=== PATIENT | female | born 1965 | race American Indian/Alaskan Native ===

== ENCOUNTER 2020-03-01 00:29 | Emergency (ER) | payer MEDICARE ==
[2020-03-01 01:48] LABS: Basophils % (Auto) 0.4 % (0.0-1.8); Eosinophils # (Auto) 0.1 K/mm3 (0.0-0.4); Hematocrit 30.9 % (30.3-42.9); Hemoglobin 10.4 gm/dl (10.1-14.3); Lymphocytes # (Auto) 1.2 K/mm3 (1.2-5.4); Lymphocytes % (Auto) 21.1 % (13.4-35.0); Mean Corpuscular HGB Conc 34 % (30-34); Mean Corpuscular Volume 93 fl (79-97); Monocytes # (Auto) 0.4 K/mm3 (0.0-0.8); Monocytes % (Auto) 7.6 % (0.0-7.3); Platelet Count 203 K/mm3 (140-440); Red Blood Count 3.34 M/mm3 (3.65-5.03); Red Cell Distribution Width 17.5 % (13.2-15.2)
[2020-03-01 02:02] LABS: Albumin 3.7 g/dL (3.9-5); Calcium 7.9 mg/dL (8.4-10.2)
[2020-03-01] MEDS ORDERED: CALCIUM GLUCONATE 1,000 MG in SODIUM CHLORIDE 0.9% 100 ML IV ONE (04:13)
[2020-03-01] MEDS ORDERED: D5W 50 ML IVPB IV ONE (04:13)
[2020-03-01] MEDS ORDERED: INSULIN REGULAR, HUMAN 100 UNIT/ML 3ML VIAL IV ONE (04:13)
--- NOTE | 2020-03-01 04:43 | Emergency Department Report ---
ED General Adult HPI - General Chief complaint: Hyperglycemia Stated complaint: HIGH BLOOD SUGAR Time Seen by Provider: 03/01/20 04:11 Source: patient Mode of arrival: Ambulatory Limitations: No Limitations - History of Present Illness Initial comments: CC: "My sugar has been up and down. I was worried about going into DKA." HPI: This is a 55-year-old female with history of end-stage renal disease on dialysis Sunday, diabetes mellitus who presents with blood sugar greater than 300 over the last several weeks. She has had mild nausea. She went to make sure that she was not in DKA. She is currently symptom-free. Last hemodialysis session occurred on Sunday. She receives dialysis Sunday in [place]. Her next dialysis session is scheduled in 3 hours. She recently sold her home. She is living with her daughter temporarily. She drives to hemodialysis. She has received care within the [facility]. She also is followed by PCP Dr. Riddle at the [facility] clinic -: Gradual, week(s) (3) Severity scale (0 -10): 0 Consistency: now resolved Improves with: none Worsens with: none Associated Symptoms: other (Nausea) - Related Data Allergies Allergy/AdvReac Type Severity Reaction Status Date / Time latex Allergy Rash Verified 03/01/20 01:01 ED Review of Systems ROS: Stated complaint: HIGH BLOOD SUGAR Other details as noted in HPI Comment: All other systems reviewed and negative Constitutional: denies: fever, malaise Respiratory: denies: cough, orthopnea, shortness of breath, SOB with exertion Gastrointestinal: nausea. denies: abdominal pain ED Past Medical Hx - Past Medical History Previous Medical History?: Yes Hx Hypertension: Yes Hx Diabetes: Yes Hx Renal Disease: Yes - Surgical History Past Surgical History?: Yes Additional Surgical History: Left upper arm graft. Perma Cath right upper chest - Social History Smoking Status: Never Smoker Substance Use Type: None ED Physical Exam - General Limitations: No Limitations General appearance: alert, in no apparent distress - Head Head exam: Present: atraumatic, normocephalic - Eye Eye exam: Present: normal appearance - ENT ENT exam: Present: mucous membranes moist - Neck Neck exam: Present: normal inspection, full ROM - Respiratory Respiratory exam: Present: normal lung sounds bilaterally. Absent: respiratory distress, wheezes, rales, rhonchi - Cardiovascular Cardiovascular Exam: Present: regular rate, normal rhythm, other (Right chest Vas-Cath: Bandage clean dry intact). Absent: systolic murmur, diastolic murmur, rubs, gallop - GI/Abdominal GI/Abdominal exam: Present: soft, normal bowel sounds. Absent: distended, tenderness, guarding, rebound - Extremities Exam Extremities exam: Present: normal inspection, other (Left bicep: AV fistula positive bruit thrill positive bruit no erythema) - Neurological Exam Neurological exam: Present: alert, oriented X3 - Psychiatric Psychiatric exam: Present: normal affect, normal mood - Skin Skin exam: Present: warm, dry, intact, normal color. Absent: rash ED Course Vital Signs 03/01/20 03/01/20 00:49 03:43 Temperature 98.2 F Pulse Rate 89 70 Respiratory 18 16 Rate Blood Pressure 182/75 Blood Pressure 167/67 [Right] O2 Sat by Pulse 97 100 Oximetry ED Medical Decision Making - Lab Data Result diagrams: 03/01/20 01:13 03/01/20 01:13 - EKG Data -: EKG Interpreted by Id EKG shows normal: sinus rhythm, axis, intervals, QRS complexes, ST-T waves Rate: normal - EKG Data 03/01/20 04:43 EKG interpreted by vt EKG obtained 0431 Normal sinus rhythm rate 70 bpm normal axis prolonged QTC no ST elevation normal-sized T waves - Medical Decision Making Mrs. Feldman presents with nausea and elevated blood sugar readings over the last 3 weeks with history of diabetes mellitus. No evidence of DKA. Incidental finding of hyperkalemia. I spoke with our review consultant Dr. Washington electronic scanner operator. Dr. Washington recommended insulin dextrose and calcium. He recommended Lokelma in lieu of Kayexalate. I consulted with pharmacist. Lokelma is not avaiable at our facilty. Patient was treated and dc'd. She will go to her hemodialysis appt today. EKG without signs of hyperkalemia Critical care attestation.: If time is entered above; I have spent that time in minutes in the direct care of this critically ill patient, excluding procedure time. ED Disposition Clinical Impression: Hyperkalemia, End-stage renal disease on hemodialysis, Diabetes mellitus Disposition: TO HOME OR SELFCARE Is pt being admited?: No Does the pt Need Aspirin: No Condition: Stable Additional Instructions: Please keep your dialysis appointment scheduled for today.
[2020-03-01] MEDS ORDERED: INSULIN REGULAR, HUMAN 100 UNITS/1 ML ONE (04:51)
[2020-03-01 05:05] VITALS: BP 159/72
== END 2020-03-01 05:10 | disposition home or self-care (01) ==
LOC: ED 00:29
DX: I12.0 Hypertensive chronic kidney disease with stage 5 chronic kidney disease or end stage renal disease (principal); N18.6 End stage renal disease; E11.22 Type 2 diabetes mellitus with diabetic chronic kidney disease; E87.5 Hyperkalemia; Z91.040 Latex allergy status; Z98.890 Other specified postprocedural states; Z99.2 Dependence on renal dialysis
CPT/HCPCS: 36415; 80053; 82962; 85025; 93005; 96374; 96375; 99283; J0610; 96365; 96366; J1815

== ENCOUNTER 2020-10-07 08:06 | Inpatient (IN) | payer MEDICARE ==
--- NOTE | 2020-10-07 08:17 | Emergency Department Report ---
HPI - General Time Seen by Provider: 10/07/20 08:10 - HPI HPI: Room 1 The patient is a 55-year-old female present with a chief complaint of cardiac arrest. Per EMS the patient last known well time was 1 hour prior to arrival. EMS states that the patient was found unresponsive in her bed. Upon arrival EMS states the patient was found in asystole. ACLS protocols were initiated and the patient was intubated by EMS. EMS reports they were administered 4 rounds of epinephrine and 1 amp of calcium and 300 mg of amiodarone after defibrillation x1. Upon arrival to the ED the patient was found to have a pulse Family update (family arrives at the hospital provides further history states that the patient seemed drowsy yesterday after being discharged from the hospital remained that way throughout this morning. This morning the patient was difficult to arouse but never voiced any complaints ED Past Medical Hx - Past Medical History Hx Hypertension: Yes Hx Diabetes: Yes Hx Renal Disease: Yes (Dialysis MWF) - Surgical History Additional Surgical History: Left upper arm graft. Perma Cath right upper chest was dc'd - Family History Family history: no significant - Social History Smoking Status: Unknown if ever smoked Substance Use Type: None - Medications Home Medications: Home Medications Medication Instructions Recorded Confirmed Last Taken Type Aspirin 81 mg PO DAILY 07/04/20 07/14/20 07/04/20 History Famotidine [Pepcid] 20 mg PO DAILY #30 tablet 07/12/20 07/14/20 Unknown Rx Lisinopril 30 mg PO DAILY #30 07/12/20 07/14/20 Unknown Rx hydrALAZINE 50 mg PO DAILY #30 07/12/20 07/14/20 Unknown Rx Insulin Detemir [Levemir VIAL] 21 units SQ HS #1 vial 07/16/20 Unknown Rx Insulin Regular, Human [HumuLIN R] 0 unit SQ AC #1 vial 07/16/20 Unknown Rx ED Review of Systems ROS: Stated complaint: CARDIAC ARREST Other details as noted in HPI Comment: Unobtainable due to pts medical conditions Physical Exam - Physical Exam Physical Exam: GENERAL: The patient is well-developed well-nourished female lying on stretcher being bagged via ET tube. [] HEENT: Normocephalic. Atraumatic. NECK: Supple. Trachea midline CHEST/LUNGS: Breath sounds equal bilaterally with bagging HEART/CARDIOVASCULAR: Regular. There is no tachycardia. There is no gallop rub or murmur. ABDOMEN: Abdomen is soft, nontender. Patient has normal bowel sounds. There is no abdominal distention. SKIN: There is no rash. There is no edema. There is no diaphoresis. NEURO: GCS 3 T MUSCULOSKELETAL: There is no evidence of acute injury. ED Course - Reevaluation(s) Reevaluation #1: 10/07/20 08:43 Called to the room as the patient arrested again. ACLS protocols were reinitiated with return of spontaneous circulation. - Consultations Consultation #1: 10/07/20 08:21 EKG sent to and discussed with Dr. Gar- no CODE STEMI. Continue to work up Consultation #2: 10/07/20 09:53 Nephrology paged 10/07/20 10:[address] Pacheco - Central Line Placement Right Femoral Consent Obtained: emergent situation Time Out Performed: Yes Patient Placed on Monitor/Pulse Ox: Yes MD Prep: mask, gown, gloves Central Line Prep: Chlorhexidine scrub Local Anesthesia Used: Lidocaine 1% Amount of Anesthesia Used (mls): 5 Ultrasound Used for Placement: No ( ) Central Line Lumen Inserted: triple Reason for Insertion: High Alert Medication Bloods Obtained for Lab: Yes Central Line Position: good blood return Dressing Applied: Tegaderm Patient Tolerated Procedure: no complications Complications: none ED Medical Decision Making - Lab Data Result diagrams: 10/07/20 09:08 10/07/20 09:08 Laboratory Tests 10/07/20 10/07/20 10/07/20 09:08 09:08 09:08 WBC 15.8 H RBC 3.05 L Hgb 9.7 L Hct 32.8 MCV 108 H MCH 32 MCHC 30 RDW 20.9 H Plt Count 198 Lymph % (Auto) 18.1 [place] % (Auto) 3.6 Eos % (Auto) 0.5 Baso % (Auto) 0.4 Lymph # (Auto) 2.9 [place] # (Auto) 0.6 Eos # (Auto) 0.1 Baso # (Auto) 0.1 Seg Neutrophils % 77.4 H Seg Neutrophils # 12.2 H PT 21.2 H INR 1.83 H APTT 51.1 H ABG pH POC ABG pCO2 POC ABG pO2 POC ABG HCO3 ABG O2 Saturation POC ABG Base Excess ABG Hemoglobin ABG Oxyhemoglobin ABG Methemoglobin ABG Sodium ABG Potassium ABG Chloride Carboxyhemoglobin FiO2 % Sodium 133 L Potassium 8.3 H* Chloride 77.5 L Carbon Dioxide 6 L* Anion Gap 58 BUN 86 H Creatinine 10.6 H Estimated GFR 5 BUN/Creatinine Ratio 8 Calcium 10.0 Magnesium Total Bilirubin 0.50 Alkaline Phosphatase 183 H Total Creatine Kinase 444 H CK-MB (CK-2) 8.6 H CK-MB (CK-2) Rel Index 1.9 Troponin T 0.395 H* NT-Pro-B Natriuret Pep 6466 H Total Protein 5.8 L Albumin 2.6 L Albumin/Globulin Ratio 0.8 Arterial Blood Ionized Calcium 10/07/20 10/07/20 09:08 09:24 WBC RBC Hgb Hct MCV MCH MCHC RDW Plt Count Lymph % (Auto) [place] % (Auto) Eos % (Auto) Baso % (Auto) Lymph # (Auto) [place] # (Auto) Eos # (Auto) Baso # (Auto) Seg Neutrophils % Seg Neutrophils # PT INR APTT ABG pH 6.793 L POC ABG pCO2 30.2 L POC ABG pO2 433.9 H POC ABG HCO3 4.5 ABG O2 Saturation 99.8 POC ABG Base Excess -29.1 ABG Hemoglobin 10.8 L ABG Oxyhemoglobin 99.2 H ABG Methemoglobin 0.3 ABG Sodium 131.7 L ABG Potassium 8.2 H ABG Chloride 85.0 L Carboxyhemoglobin 0.3 L FiO2 % 100.0 Sodium Potassium Chloride Carbon Dioxide Anion Gap BUN Creatinine Estimated GFR BUN/Creatinine Ratio Calcium Magnesium 3.10 H Total Bilirubin Alkaline Phosphatase Total Creatine Kinase CK-MB (CK-2) CK-MB (CK-2) Rel Index Troponin T NT-Pro-B Natriuret Pep Total Protein Albumin Albumin/Globulin Ratio Arterial Blood Ionized Calcium 5.3 - EKG Data -: EKG Interpreted by Me EKG shows normal: sinus rhythm Rate: normal - EKG Data When compared to previous EKG there are: previous EKG unavailable Interpretation: nonspecific ST-T wave lynn - Differential Diagnosis Cardiac arrest Critical care attestation.: If time is entered above; I have spent that time in minutes in the direct care of this critically ill patient, excluding procedure time. ED Disposition Clinical Impression: Cardiac arrest, Hyperkalemia, ESRD needing dialysis DKA (diabetic ketoacidoses) Qualifiers: Diabetes mellitus type: type 1 Diabetes mellitus complication detail: without coma Qualified Code(s): E10.10 - Type 1 diabetes mellitus with ketoacidosis without coma Disposition: OP ADMIT IP TO THIS HOSP Is pt being admited?: Yes Does the pt Need Aspirin: Yes Condition: Critical Instructions: Diabetic Ketoacidosis (ED) Referrals: FLORINA ROMERO [Other] - 3-5 Days Time of Disposition: 10:18 (Hospitalist paged)
[2020-10-07] MEDS ORDERED: CALCIUM CHLORIDE 1,000 MG/10 ML SYRINGE IV ONE (08:37)
[2020-10-07] MEDS ORDERED: SODIUM BICARB 8.4% 50 MEQ/50 ML SYRINGE IV ONE ×3 (08:37→13:14)
[2020-10-07] MEDS ORDERED: EPINEPHrine 1 MG/10 ML SYRINGE ONE (08:37)
[2020-10-07] MEDS ORDERED: NORepinephrine/NS 4 MG-250 ML 4 MG/250 ML BAG IV ONE ×2 (08:58→11:33)
[2020-10-07] MEDS: NORepinephrine/NS 4 MG-250 ML 4 MG/250 ML BAG IV SCH ×4 (09:08→16:10)
[2020-10-07 09:20] LABS: Basophils # (Auto) 0.1 K/mm3 (0.0-0.1); Basophils % (Auto) 0.4 % (0.0-1.8); Eosinophils # (Auto) 0.1 K/mm3 (0.0-0.4); Eosinophils % (Auto) 0.5 % (0.0-4.3); Lymphocytes # (Auto) 2.9 K/mm3 (1.2-5.4); Lymphocytes % (Auto) 18.1 % (13.4-35.0); Mean Corpuscular HGB Conc 30 % (30-34); Mean Corpuscular Volume 108 fl (79-97); Monocytes # (Auto) 0.6 K/mm3 (0.0-0.8); Monocytes % (Auto) 3.6 % (0.0-7.3); Platelet Count 198 K/mm3 (140-440); Red Blood Count 3.05 M/mm3 (3.65-5.03)
[2020-10-07 09:22] LABS: Hematocrit 32.8 % (30.3-42.9); Hemoglobin 9.7 gm/dl (10.1-14.3); Red Cell Distribution Width 20.9 % (13.2-15.2)
--- NOTE | 2020-10-07 09:38 | XRay Report ---
XR chest 1V ap INDICATION / CLINICAL INFORMATION: Status post cardiac arrest. COMPARISON: 07/07/2020 FINDINGS: SUPPORT DEVICES: Endotracheal tube projects in the midtrachea. Enteric catheter tip and side-port pro ject over the stomach. HEART /PULMONARY VASCULATURE: Cardiac silhouette is accentuated. LUNGS / PLEURA: Left greater than right bilateral upper lobe airspace disease. No pleural effusion. N o evidence of pneumothorax. ADDITIONAL FINDINGS: No significant additional findings. IMPRESSION: 1. Left greater than right bilateral upper lobe airspace disease, which may reflect pulmonary edema o r pneumonia. 2. Satisfactory position of lines and tubes, as above. Signer Name: Alphonse Hidalgo MD Signed: 10/07/2020 9:34 AM Workstation Name: [id number]
[2020-10-07] MEDS: DOPamine/D5W 800 MG/250 ML 800 MG/250 ML BAG IV ONE ×2 (09:41→18:44)
--- NOTE | 2020-10-07 09:46 | Consultation ---
History of Present Illness Consult date: 10/07/20 Requesting physician: BERNARDINO ALCAZAR Consult reason: cardiac arrest History of present illness: Pt is a 55-year-old AA female with a past medical hx of ESRD on PD and DM1 who presented s/p cardiac arrest. Pt was found unresponsive in her bed by EMS. She was noted to be in asystole, and thus ACLS protocol was intiated, with successful ROSC achieved s/p IV epi x 4, defib x 1, and 300mg IV Amio. Pt was intubated by EMS prior to arrival. Shortly after arrival at approximately 0837, CPR was restarted in the setting of PEA. ROSC achieved again at 0841 per ER documentation. Pt was subsequently started on IV Dopamine and Levophed gtts. Of note, pt was discharged from [facility] yesterday. She was hospitalized for L submandibular gland swelling and pain secondary to an obstructive stone. Outpatient removal of the gland was recommended per ENT, and pt was cleared by BRAILLE DUPLICATING MACHINE OPERATOR to continue PO meds. Per pt's family, pt has been increasingly lethargic since discharge; however, pt's family denies report of any specific complaints. Last known well time was 1 hour prior to arrival per ER documentation. Initial labs reveal severe DKA and hyperkalemia. ECG reviewed - negative for STEMI. TTE 09/16/2020 - EF 60-65%, mild concentric LVH, mildly dilated LA, trace AI, grade 1 diastolic dysfxn, mild TR, RVSP 32.8 mmHg, trace MR. [place] stress MPI 09/16/2020 - no evidence of ischemia, EF > 65%. Past History Past Medical History: anemia, diabetes, dialysis, ESRD, hypertension Past Surgical History: denies: valve replacement, CABG, PTCA Social history: denies: smoking, alcohol abuse Family history: no significant family history Medications and Allergies Allergies Allergy/AdvReac Type Severity Reaction Status Date / Time peanut Allergy Unknown Unknown Verified 10/07/20 08:21 pecan nut Allergy Unknown Unknown Verified 10/07/20 08:21 walnut Allergy Unknown Unknown Verified 10/07/20 08:21 latex Allergy Rash Verified 10/07/20 08:21 Home Medications Medication Instructions Recorded Confirmed Last Taken Type Aspirin 81 mg PO DAILY 07/04/20 07/14/20 07/04/20 History Famotidine [Pepcid] 20 mg PO DAILY #30 tablet 07/12/20 07/14/20 Unknown Rx Lisinopril 30 mg PO DAILY #30 07/12/20 07/14/20 Unknown Rx hydrALAZINE 50 mg PO DAILY #30 07/12/20 07/14/20 Unknown Rx Insulin Detemir [Levemir VIAL] 21 units SQ HS #1 vial 07/16/20 Unknown Rx Insulin Regular, Human [HumuLIN R] 0 unit SQ AC #1 vial 07/16/20 Unknown Rx Active Meds: Active Medications Amiodarone HCl 900 mg/ (Dextrose) 500 mls @ 33.333 mls/hr IV DIRECT LEIGH; Protocol Dopamine HCl/Dextrose (Intropin Drip 800 Mg/D5w 250 Ml) 800 mg in 250 mls @ 2. 576 mls/hr IV TITR ONE; Protocol Stop: 10/11/20 10:15 Last Admin: 10/07/20 09:41 Dose: 30 mcg/kg/min, 38.644 mls/hr Documented by: Review of Systems ROS unobtainable: due to endotracheal tube Physical Examination Last Vital Signs Temp 95.1 F L 10/07/20 12:16 Pulse 81 10/07/20 13:53 Resp 20 10/07/20 10:30 BP 96/38 10/07/20 13:53 Pulse Ox 100 10/07/20 13:53 General appearance: other (intubated) HEENT: Positive: Normocephaly Neck: Negative: JVD/HJR Cardiac: Positive: Reg Rate and Rhythm, S1/S2. Negative: Audible Murmur Lungs: Positive: Decreased Breath Sounds Neuro: Positive: Other (intubated) Abdomen: Positive: Soft Skin: Negative: Rash Musculoskeletal: No Fluid Collection Extremities: Present: upper extr. pulses, lower extr. pulses. Absent: edema Results 10/07/20 09:08 10/07/20 11:23 CBC 10/07/20 Range/Units 09:08 WBC 15.8 H (4.5-11.0) K/mm3 RBC 3.05 L (3.65-5.03) M/mm3 Hgb 9.7 L (10.1-14.3) gm/dl Hct 32.8 (30.3-42.9) % Plt Count 198 (140-440) K/mm3 Lymph # (Auto) 2.9 (1.2-5.4) K/mm3 [place] # (Auto) 0.6 (0.0-0.8) K/mm3 Eos # (Auto) 0.1 (0.0-0.4) K/mm3 Baso # (Auto) 0.1 (0.0-0.1) K/mm3 - Imaging and Cardiology Echo: pending, other (09/16/2020 - EF 60-65%, mild concentric LVH, mildly dilated LA, trace AI, grade 1 diastolic dysfxn, mild TR, RVSP 32.8 mmHg, trace MR) EKG: report reviewed, image reviewed - EKG Interpretation EKG: no acute changes EKG interpretations - EKG Sinus rhythms and dysrhythmias: sinus rhythm AV and intraventricular conduction: right bundle branch block, left anterior fascicular Repolarization changes or abnormalities: nonspecific abnormality, ST segment, and/or T wave, Suggestive of hyperkalemia Assessment and Plan Awaiting emergent HD per Primary/Nephro. Agree with continuation of IV Amio gtt for now. Obtain echo. Trend cardiac enzymes. Pt seen in conjunction with Dr. Humble Gar, who agrees with the assessment and plan of care. - Patient Problems (1) Acute respiratory failure Current Visit: Yes Status: Acute (2) ESRD needing dialysis Current Visit: Yes Status: Acute (3) Shock Current Visit: Yes Status: Acute (4) Cardiac arrest Current Visit: Yes Status: Acute (5) DKA (diabetic ketoacidoses) Current Visit: Yes Status: Acute Qualifiers: Diabetes mellitus type: type 1 Qualified Code(s): E10.10 - Type 1 diabetes mellitus with ketoacidosis without coma (6) Hyperkalemia Current Visit: Yes Status: Acute (7) Hypermagnesemia Current Visit: Yes Status: Acute (8) Elevated LFTs Current Visit: Yes Status: Acute (9) Anemia Current Visit: Yes Status: Chronic (10) NSTEMI (non-ST elevated myocardial infarction) Current Visit: Yes Status: Acute Plan to address problem: -Suspect Type 2 (11) Hypertension Current Visit: No Status: Chronic Qualifiers: Hypertension type: renovascular hypertension Qualified Code(s): I15.0 - Renovascular hypertension (12) HLD (hyperlipidemia) Current Visit: Yes Status: Chronic Qualifiers: Hyperlipidemia type: mixed hyperlipidemia Qualified Code(s): E78.2 - Mixed hyperlipidemia (13) Type 1 diabetes Current Visit: Yes Status: Chronic (14) History of COVID-19 Current Visit: Yes Status: Chronic Plan to address problem: 06/2020
[2020-10-07 09:47] LABS: Creatine Kinase MB 8.6 ng/mL (0.0-4.0)
[2020-10-07 09:48] LABS: Albumin 2.6 g/dL (3.9-5)
[2020-10-07 09:49] LABS: INR 1.83 (0.87-1.13)
[2020-10-07 09:50] LABS: Partial Thromboplastin Time 51.1 Sec. (24.2-36.6)
[2020-10-07] MEDS ORDERED: DEXTROSE 50% IN WATER (25GM) 50 ML SYRINGE IV ONE (09:54)
[2020-10-07] MEDS ORDERED: ALBUTEROL 2.5 MG/3 ML NEBU IH ONE (09:54)
[2020-10-07] MEDS ORDERED: INSULIN REGULAR, HUMAN 100 UNITS/1 ML IV ONE ×2 (09:54→13:21)
[2020-10-07] MEDS: AMIODARONE 900 MG in DEXTROSE 5% IN WATER 482 ML IV SCH (10:02)
[2020-10-07 10:26] LABS: Chol/HDL Ratio 4.84 %
[2020-10-07] MEDS ORDERED: CALCIUM CHLORIDE 1,000 MG in SODIUM CHLORIDE 0.9% 100 ML IV ONE (10:54)
--- NOTE | 2020-10-07 11:04 | History and Physical Report ---
History of Present Illness Date of admission: 10/07/20 10:20 Chief complaint: Unresponsive History of present illness: 55 YO Female with HTN, DM, ESRD on HD(M,W,F) presents to ED for evaluation. The patient is intubated and on ventilatory support at the time my evaluation is unable to provide history. Patient history provided by EMS staff, ED staff, as well as the patient's family who is available by telephone interview at the time my evaluation. As per family the patient was found unresponsive in her bed this morning. EMS was notified and upon arrival the patient was found to be in asystolic arrest. The patient was initiated on ACLS protocol and subsequently transported to [facility] for further care and evaluation of the aforementioned symptoms. The patient was intubated in the field prior to transportation. Patient was seen and evaluated in the emergency department. All lab and imaging studies reviewed. Upon my evaluation in the emergency department the patient was found to have a perfusing cardiac rhythm. Patient found to have acute hypoxemic respiratory failure and is currently on ventilatory support, septic shock and is being treated with IV pressor support. Patient also found to have hyperkalemia, end-stage renal disease, as well as clinical findings consistent with anoxic brain injury. No family reports of fever, chills, chest pain, palpitation, productive cough, skin rash, recent ill contacts, or known exposure to COVID-19. Prior admission on 07/14/2020 reviewed. All medication listed at time of admission has been reconciled. Advanced care planning conducted in ED. Patient has poor prognosis. Vascular surgery team consulted in ED for dialysis access. Nephrology team consulted in ED. critical care team consulted Past History Past Medical History: diabetes, ESRD, hypertension Past Surgical History: Other (Dialysis access) Social history: single. denies: smoking, alcohol abuse, prescription drug abuse Family history: diabetes, hypertension Medications and Allergies Allergies Allergy/AdvReac Type Severity Reaction Status Date / Time peanut Allergy Unknown Unknown Verified 10/07/20 08:21 pecan nut Allergy Unknown Unknown Verified 10/07/20 08:21 walnut Allergy Unknown Unknown Verified 10/07/20 08:21 latex Allergy Rash Verified 10/07/20 08:21 Home Medications Medication Instructions Recorded Confirmed Last Taken Type Aspirin 81 mg PO DAILY 07/04/20 07/14/20 07/04/20 History Famotidine [Pepcid] 20 mg PO DAILY #30 tablet 07/12/20 07/14/20 Unknown Rx Lisinopril 30 mg PO DAILY #30 07/12/20 07/14/20 Unknown Rx hydrALAZINE 50 mg PO DAILY #30 07/12/20 07/14/20 Unknown Rx Insulin Detemir [Levemir VIAL] 21 units SQ HS #1 vial 07/16/20 Unknown Rx Insulin Regular, Human [HumuLIN R] 0 unit SQ AC #1 vial 07/16/20 Unknown Rx Active Meds: Active Medications Amiodarone HCl 900 mg/ (Dextrose) 500 mls @ 33.333 mls/hr IV DIRECT LEIGH; Protocol Last Admin: 10/07/20 10:02 Dose: 1 mg/min, 33.333 mls/hr Documented by: Dopamine HCl/Dextrose (Intropin Drip 800 Mg/D5w 250 Ml) 800 mg in 250 mls @ 2.576 mls/hr IV TITR ONE; Protocol Stop: 10/11/20 10:15 Last Admin: 10/07/20 09:41 Dose: 30 mcg/kg/min, 38.644 mls/hr Documented by: Insulin Human Regular 100 (units/ Sodium Chloride) 100 mls @ 7 mls/hr IV TITR LEIGH; Protocol Review of Systems ROS unobtainable: due to endotracheal tube, due to mental status Exam - Constitutional Vitals: Temp Pulse Resp BP Pulse Ox 85 20 107/38 100 10/07/20 10:30 10/07/20 10:30 10/07/20 10:30 10/07/20 10:30 General appearance: Present: severe distress - EENT Eyes: Present: miosis ENT: hearing decreased - Neck Neck: Present: supple, normal ROM - Respiratory Respiratory effort: labored Respiratory: bilateral: diminished, rhonchi - Cardiovascular Heart Sounds: Present: S1 & S2. Absent: rub, click - Extremities Extremity abnormal: edema Peripheral Pulses: abnormal (Capillary refill greater than 3.5 seconds) - Abdominal General gastrointestinal: Present: soft, non-tender, non-distended, normal bowel sounds Female genitourinary: Present: normal - Integumentary Integumentary: Present: clear, dry, clammy, decreased turgor - Musculoskeletal Musculoskeletal: generalized weakness - Psychiatric Psychiatric: no appropriate mood/affect, no intact judgment & insight, no memory intact, no cooperative - Neurologic Neurologic: no CNII-XII intact, no moves all extremities, no gait normal HEART Score - HEART Score Troponin: Troponin T 0.395 ng/mL (0.00-0.029) H* 10/07/20 09:08 Results - Labs CBC & Chem 7: 10/07/20 09:08 10/07/20 13:58 Labs: Abnormal lab results 10/07/20 10/07/20 10/07/20 Range/Units 09:08 09:08 09:08 WBC 15.8 H (4.5-11.0) K/mm3 RBC 3.05 L (3.65-5.03) M/mm3 Hgb 9.7 L (10.1-14.3) gm/dl MCV 108 H (79-97) fl RDW 20.9 H (13.2-15.2) % Seg Neutrophils % 77.4 H (40.0-70.0) % Seg Neutrophils # 12.2 H (1.8-7.7) K/mm3 PT 21.2 H (12.2-14.9) Sec. INR 1.83 H (0.87-1.13) APTT 51.1 H (24.2-36.6) Sec. ABG pH (7.320-7.450) POC ABG pCO2 (32.0-48.0) mmHg POC ABG pO2 (83-108) mmHg ABG Hemoglobin (12.0-17.5) ABG Oxyhemoglobin (94-98) ABG Sodium (136.0-145.0) mmol/L ABG Potassium (3.40-4.50) mmol/L ABG Chloride (98-107) mmol/L Carboxyhemoglobin (0.5-1.5) Sodium 133 L (137-145) mmol/L Potassium 8.3 H* (3.6-5.0) mmol/L Chloride 77.5 L (98-107) mmol/L Carbon Dioxide 6 L* (22-30) mmol/L BUN 86 H (7-17) mg/dL Creatinine 10.6 H (0.6-1.2) mg/dL Glucose 798 H* (65-100) mg/dL Magnesium (1.7-2.3) mg/dL AST 2736 H (5-40) units/L ALT 1568 H (7-56) units/L Alkaline Phosphatase 183 H (35-129) units/L Total Creatine Kinase 444 H (30-135) units/L CK-MB (CK-2) 8.6 H (0.0-4.0) ng/mL Troponin T 0.395 H* (0.00-0.029) ng/mL NT-Pro-B Natriuret Pep 6466 H (0-900) pg/mL Total Protein 5.8 L (6.3-8.2) g/dL Albumin 2.6 L (3.9-5) g/dL Triglycerides 246 H (2-149) mg/dL HDL Cholesterol 39 L (40-59) mg/dL 10/07/20 10/07/20 Range/Units 09:08 09:24 WBC (4.5-11.0) K/mm3 RBC (3.65-5.03) M/mm3 Hgb (10.1-14.3) gm/dl MCV (79-97) fl RDW (13.2-15.2) % Seg Neutrophils % (40.0-70.0) % Seg Neutrophils # (1.8-7.7) K/mm3 PT (12.2-14.9) Sec. INR (0.87-1.13) APTT (24.2-36.6) Sec. ABG pH 6.793 L (7.320-7.450) POC ABG pCO2 30.2 L (32.0-48.0) mmHg POC ABG pO2 433.9 H (83-108) mmHg ABG Hemoglobin 10.8 L (12.0-17.5) ABG Oxyhemoglobin 99.2 H (94-98) ABG Sodium 131.7 L (136.0-145.0) mmol/L ABG Potassium 8.2 H (3.40-4.50) mmol/L ABG Chloride 85.0 L (98-107) mmol/L Carboxyhemoglobin 0.3 L (0.5-1.5) Sodium (137-145) mmol/L Potassium (3.6-5.0) mmol/L Chloride (98-107) mmol/L Carbon Dioxide (22-30) mmol/L BUN (7-17) mg/dL Creatinine (0.6-1.2) mg/dL Glucose (65-100) mg/dL Magnesium 3.10 H (1.7-2.3) mg/dL AST (5-40) units/L ALT (7-56) units/L Alkaline Phosphatase (35-129) units/L Total Creatine Kinase (30-135) units/L CK-MB (CK-2) (0.0-4.0) ng/mL Troponin T (0.00-0.029) ng/mL NT-Pro-B Natriuret Pep (0-900) pg/mL Total Protein (6.3-8.2) g/dL Albumin (3.9-5) g/dL Triglycerides (2-149) mg/dL HDL Cholesterol (40-59) mg/dL Assessment and Plan - Patient Problems (1) Sepsis Current Visit: Yes Status: Acute Qualifiers: Severe sepsis shock status: with septic shock Plan to address problem: Sepsis protocol: Chest x-ray, CBC, urinalysis, IV fluid resuscitation therapy, IV antibiotic therapy, IV pressor support, maintain mean arterial pressure greater than or equal to 65, monitor urine output every shift, blood culture, The high probability of a clinically significant, sudden or life threatening deterioration of the [neuro, cardiac, renal, pulmonary] system(s) required my full and direct attention, intervention and personal management. The aggregate critical care time was [95] minutes. This time is in addition to time spent performing reported procedures but includes the following: [x] Data Review and interpretation [x] Patient assessment and monitoring of vital signs [x] Documentation [x] Medication orders and management (2) Acute respiratory failure Current Visit: Yes Status: Acute Qualifiers: Respiratory failure complication: hypoxia Qualified Code(s): J96.01 - Acute respiratory failure with hypoxia Plan to address problem: Patient intubated and ambulatory support. Critical care team consulted, wean vent as tolerated, daily ABG, spontaneous breathing trial, sedation holiday. (3) Cardiac arrest Current Visit: Yes Status: Acute Plan to address problem: Patient treated in accordance with ACLS protocol with return of perfusing cardiac rhythm. Patient currently on inotropic support. Cardiology team consulted. (4) DKA (diabetic ketoacidoses) Current Visit: Yes Status: Acute Qualifiers: Diabetes mellitus type: type 1 Qualified Code(s): E10.10 - Type 1 diabetes mellitus with ketoacidosis without coma Plan to address problem: DKA protocol: IV fluid resuscitation therapy, insulin drip, serial lactic acid level, monitor anion gap, serial BMP. Potassium replacement per protocol. (5) ESRD needing dialysis Current Visit: Yes Status: Acute Plan to address problem: Nephrology team consulted, vascular surgery team consulted, (6) Elevated LFTs Current Visit: Yes Status: Acute Plan to address problem: Suspect secondary to shock liver status post cardiac arrest, supportive care. (7) Metabolic acidosis Current Visit: Yes Status: Acute Plan to address problem: IV bicarbonate therapy, BMP, repeat BMP in a.m. Serial lactic acid level. (8) Anoxic brain injury Current Visit: Yes Status: Acute Plan to address problem: Supportive care. Neuro check, will consider repeat head CT in 72 hours. (9) DVT prophylaxis Current Visit: Yes Status: Acute Plan to address problem: SCD to bilateral lower extremities while in bed. (10) Advance care planning Current Visit: Yes Status: Acute Plan to address problem: Disease education conducted, care plan discussed, prognosis discussed, diagnoses discussed,. Patient family acknowledge understanding and agreement with care plan. Patient is full code. +30 minutes.
[2020-10-07] MEDS ORDERED: ALBUTEROL 2.5 MG/3 ML NEBU IH PRN (11:09)
[2020-10-07] MEDS ORDERED: LIP THERAPY VASELINE TP PRN (11:11)
[2020-10-07] MEDS ORDERED: MINERAL OIL/PETROLATUM, WHITE OPHTH OINT 3.5 GM OU PRN (11:11)
[2020-10-07] MEDS ORDERED: ACETAMINOPHEN 325 MG TAB PO PRN (11:12)
[2020-10-07] MEDS ORDERED: SODIUM CHLORIDE 0.9% 1000 ML IV SOLN IV ONE (11:17)
[2020-10-07] MEDS ORDERED: CALCIUM GLUCONATE 1,000 MG in SODIUM CHLORIDE 0.9% 100 ML IV ONE (11:17)
[2020-10-07] MEDS: fentaNYL 100 MCG/2 ML INJ IV PRN ×2 (11:20→12:26)
[2020-10-07] MEDS: HYDROmorphone 1 MG/1 ML INJ IV PRN ×3 (11:25→20:25)
[2020-10-07] MEDS: INSULIN REGULAR, HUMAN 100 UNITS in SODIUM CHLORIDE 0.9% 99 ML IV SCH (11:53)
[2020-10-07 11:56] LABS: Calcium 9.9 mg/dL (8.4-10.2)
[2020-10-07] MEDS ORDERED: fentaNYL DRIP Premix 2,000 MCG/100 ML BAG IV SCH (12:00)
--- NOTE | 2020-10-07 12:13 | Electrocardiograph Report ---
[facility] Test Date: 2020-10-07 Test Time: 08:10:54 Pat Name: EUGENIA DALTON Department: Room: [place] [address] Gender: F [employer]: [phone] Requested By: BERNARDINO ALCAZAR Order Number: [id number] Reading MD: Edvin Uriostegui Measurements Intervals Avery Rate: 66 P: -46 AR: 181 QRS: -67 QRSD: 182 T: 78 QT: 508 QTc: 531 Interpretive Statements Sinus or ectopic atrial rhythm RBBB and LAFB Left ventricular hypertrophy No previous ECG available for comparison Electronically Signed On 10-07-2020 12:13:19 EDT by Edvin Uriostegui
--- NOTE | 2020-10-07 12:27 | Event Note ---
Date: 10/07/20 Patient is s/p OOH Cardiac arrest. K 8.3, PH 6.8. Received treatment for hyperkalemia. Hemodialysis access clotted (checked by hemodialysis nurse). Requested Vascular for dialysis catheter placement. Multipressor shock.
--- NOTE | 2020-10-07 12:48 | Operative Report ---
Operative Report Operative Report: Exam: Ultrasound-guided placement of Vas-Cath Clinical indication: Patient with a history of end-stage renal disease on hemodialysis through a left upper arm access that became clotted when patient had and out of the hospital cardiac arrest, patient is hyperkalemic requiring emergent dialysis Date: 10/07/2020 Procedure: Following an explanation of the risks, benefits and alternatives; written informed consent was obtained from the patient's next of kin. The procedure was performed at bedside in the ER. Initial ultrasound evaluation of the patient's left groin demonstrated a patent left common femoral vein. A triple-lumen catheter is present in the patient's right groin. The patient's left groin was prepped and draped in the usual sterile fashion. 1% lidocaine was used for anesthesia. Under ultrasound guidance, the left common femoral vein was cannulated with a 7 cm 18-gauge needle. A 0.035 guidewire was advanced centrally easily. The needle was removed and following serial dilation over the guidewire, a 30 cm dialysis catheter was advanced over the guidewire centrally. The guidewire was removed. Nonpulsatile blood return from all 3 ports. The ports were then flushed and locked with sterile saline. The catheter was securely fastened to the skin surface using 2-0 nylon suture and a sterile dressing applied. The patient tolerated the procedure well. There were no immediate postprocedure complications. Sedation was not utilized. The patient was on a continuous cardiopulmonary monitor. Impression: Ultrasound-guided placement of Vas-Cath via the left common femoral vein.
--- NOTE | 2020-10-07 13:21 | Event Note ---
Date: 10/07/20 Patient with severe DKA. Started on Insulin drip. Remain on max dose of 2 pressors. At this point patient is unstable for conventional hemodialysis. CRRT N/A. Hyperkalemia in the setting of severe DKA, now on Insulin drip. Additional dose of IV Insulin ordered. Follow lytes. Spoke with the nurse.
[2020-10-07 13:30] LABS: Calcium 9.9 mg/dL (8.4-10.2)
[2020-10-07 14:50] LABS: Calcium 8.4 mg/dL (8.4-10.2)
[2020-10-07] MEDS ORDERED: HEPARIN 10,000 UNITS/10 ML VIAL IV PRN (18:10)
[2020-10-07] MEDS ORDERED: SODIUM CHLORIDE 0.9% 100 ML IV PRN (18:10)
--- NOTE | 2020-10-07 18:10 | Consultation ---
History of Present Illness - Reason for Consult Consult date: 10/07/20 end stage renal disease, hyperkalemia, metabolic acidosis - History of Present Illness The patient is a 55 YO female with history significant for DM type 2 (poorly controlled), HTN, Obesity, Anemia and ESRD on HD (MWF) who was brought into [facility] ED 10/07 s/p Cardiac arrest. The patient was not able to provide any history and there was no family member at the bedside. Patient was found by family member unresponsive in her bed this morning. EMS was notified and upon arrival the patient was found to be in asystolic arrest. The patient was initiated on ACLS protocol and subsequently transported to the ED for evaluation and treatment. The patient was intubated in the field. Patient was found to have acute hypoxemic respiratory failure and is currently on ventilatory support, multipressor shock, DKA, hyperkalemia and Lactic acidosis. Of note patient recently admitted to [facility] for submandibular gland problem and was discharged yesterday. Patient had another episode of Cardiac in the ED with downtime of 4 minutes. She was also found to have clotted L arm AVF. Labs significant for bl glu around 900, K 8.5, bicarb 6, Lactic acid 9.7 and leukocytosis. Nephrology was consulted for Hyperkalemia and ESRD management. Past History Past Medical History: diabetes, dialysis, ESRD, hypertension Past Surgical History: Other (Dialysis access) Social history: single. denies: smoking, alcohol abuse, prescription drug abuse Family history: diabetes, hypertension Medications and Allergies Allergies Allergy/AdvReac Type Severity Reaction Status Date / Time peanut Allergy Unknown Unknown Verified 10/07/20 08:21 pecan nut Allergy Unknown Unknown Verified 10/07/20 08:21 walnut Allergy Unknown Unknown Verified 10/07/20 08:21 latex Allergy Rash Verified 10/07/20 08:21 Home Medications Medication Instructions Recorded Confirmed Last Taken Type Aspirin 81 mg PO DAILY 07/04/20 07/14/20 07/04/20 History Famotidine [Pepcid] 20 mg PO DAILY #30 tablet 07/12/20 07/14/20 Unknown Rx Lisinopril 30 mg PO DAILY #30 07/12/20 07/14/20 Unknown Rx hydrALAZINE 50 mg PO DAILY #30 07/12/20 07/14/20 Unknown Rx Insulin Detemir [Levemir VIAL] 21 units SQ HS #1 vial 07/16/20 Unknown Rx Insulin Regular, Human [HumuLIN R] 0 unit SQ AC #1 vial 07/16/20 Unknown Rx Active Meds: Active Medications Acetaminophen (Acetaminophen 325 Mg Tab) 650 mg PO Q6H PRN PRN Reason: Pain, Mild (1-3) Albuterol (Albuterol 2.5 Mg/3 Ml Nebu) 2.5 mg IH Q3HRT PRN PRN Reason: Shortness Of Breath Fentanyl (Fentanyl 100 Mcg/2 Ml Inj) 50 mcg IV Q10MIN PRN PRN Reason: ANALGESIA Hydromorphone HCl (Hydromorphone 1 Mg/1 Ml Inj) 0.25 mg IV Q4H PRN PRN Reason: Pain, Moderate (4-6) Hydrophilic Ointment (Lip Therapy Vaseline) 1 applic TP Q2HR PRN PRN Reason: Dry Lips Amiodarone HCl 900 mg/ (Dextrose) 500 mls @ 33.333 mls/hr IV DIRECT LEIGH; Protocol Last Admin: 10/07/20 10:02 Dose: 1 mg/min, 33.333 mls/hr Documented by: Dopamine HCl/Dextrose (Intropin Drip 800 Mg/D5w 250 Ml) 800 mg in 250 mls @ 2.576 mls/hr IV TITR ONE; Protocol Stop: 10/11/20 10:15 Last Admin: 10/07/20 09:41 Dose: 30 mcg/kg/min, 38.644 mls/hr Documented by: Insulin Human Regular 100 (units/ Sodium Chloride) 100 mls @ 7 mls/hr IV TITR LEIGH; Protocol Last Admin: 10/07/20 11:53 Dose: 8 units/hr, 8 mls/hr Documented by: Sodium Chloride (Nacl 0.9% 1000 Ml) 1,000 mls @ 150 mls/hr IV DIRECT LEIGH Norepinephrine (Levophed Drip 4 Mg/Ns 250 Ml) 4 mg in 250 mls @ 7.5 mls/hr IV TITR LEIGH; Protocol Last Titration: 10/07/20 18:05 Dose: 26 mcg/min, 97.5 mls/hr Documented by: Levofloxacin/Dextrose (Levaquin 500mg/100ml) 500 mg in 100 mls @ 100 mls/hr IV Q48H LEIGH; Protocol Multi-Ingred Cream/Lotion/Oil/Oint (Mineral Oil/Petrolatum, White Ophth Oint 3.5 Gm) 1 applic OU Q4HR PRN PRN Reason: Dry Eye(s) Sodium Chloride (Sodium Chloride 0.9% 10 Ml Flush Syringe) 10 ml IV BID LEIGH Sodium Chloride (Sodium Chloride 0.9% 10 Ml Flush Syringe) 10 ml IV PRN PRN PRN Reason: LINE FLUSH Review of Systems ROS unobtainable: due to mental status Exam - Vital Signs Vital signs: Vital Signs Pulse Resp BP 60 18 94/49 10/07/20 08:10 10/07/20 08:10 10/07/20 08:10 Results - Lab Results 10/07/20 09:08 10/07/20 18:18 Most recent lab results ABG pH 7.175 (7.320-7.450) L 10/07/20 14:03 ABG O2 Saturation 95.0 (0-100) 10/07/20 14:03 Calcium 8.4 mg/dL (8.4-10.2) D 10/07/20 13:58 Phosphorus 22.30 mg/dL (2.5-4.5) H 10/07/20 10:32 Magnesium 3.10 mg/dL (1.7-2.3) H 10/07/20 10:32 Assessment and Plan 1. ESRD: Patient is on maintenance hemodialysis three times a week, MWF schedule. Last HD 10/06 at [facility]. Urgent HD today due to hyperkalemia. Hemodialysis: 10/07. 2. FEN: Hyperkalemia, HD today, monitor. Metabolic acidosis, 2/2 DKA, Lactic acidosis, monitor. Monitor lytes. 3. DKA: On Insulin drip per protocol. Monitor. 4. S/p OOH Cardiac arrest: Total of 2 episodes. Total downtime unknown. On Amiodarone. Cardiology consult. Monitor. 5. Shock: Currently on 2 pressors. Levofloxacin. BP seems to be improving. Wean pressors as tolerated. Monitor BP closely. 6. Anemia, POA: 2/2 ESRD. Epogen if needed. Subjective: Patient was seen and examined at the bedside. Examination: General appearance: well-developed, well-nourished, intubated, on vent HEENT: ATNC, RADHA Neck: neck supple, trachea midline Respiratory: Coarse breath sounds Heart: regular, normal heart rate, S1S2, no murmur Abdomen: soft, NT Integumentary: no rash, warm and dry Neurologic: not responding Ext: no edema noted Hemodialysis access: L arm AVF clotted, L femoral catheter
[2020-10-07 18:39] LABS: Calcium 6.7 mg/dL (8.4-10.2)
[2020-10-07 19:09] LABS: Hepatitis B Surface Antigen Non-Reactive (Negative); Hepatitis C Virus Antibody Non-Reactive (NonReactive)
[2020-10-08] MEDS: SODIUM CHLORIDE 0.9% 1000 ML 1,000 ML IV SCH ×2 (00:30→07:43)
[2020-10-08] MEDS: INSULIN REGULAR, HUMAN 100 UNITS in SODIUM CHLORIDE 0.9% 99 ML IV SCH ×2 (00:30→12:43)
[2020-10-08] MEDS: NORepinephrine/NS 4 MG-250 ML 4 MG/250 ML BAG IV SCH ×2 (01:10→14:30)
[2020-10-08] MEDS: AMIODARONE 900 MG in DEXTROSE 5% IN WATER 482 ML IV SCH (01:10)
[2020-10-08 04:00] LABS: Calcium 6.9 mg/dL (8.4-10.2)
--- NOTE | 2020-10-08 04:03 | XRay Report ---
CHEST 1 VIEW 10/08/2020 3:30 AM INDICATION / CLINICAL INFORMATION: follow up respiratory failure. COMPARISON: Previous day. FINDINGS: SUPPORT DEVICES: Unchanged. HEART / MEDIASTINUM: Stable cardiomegaly. LUNGS / PLEURA: Persistent bilateral opacity left greater than right with overall mild worsening. Ghislaine g volumes are mildly decreased. No pneumothorax. ADDITIONAL FINDINGS: No significant additional findings. IMPRESSION: Mild worsening. Signer Name: Wayne Carver MD Signed: 10/08/2020 3:58 AM Workstation Name: [id number]
[2020-10-08] MEDS: HYDROmorphone 1 MG/1 ML INJ IV PRN ×3 (05:20→13:20)
[2020-10-08] MEDS: HEPARIN 5,000 UNIT/1 ML VIAL SUB-Q SCH ×2 (09:36→22:39)
[2020-10-08] MEDS: ASPIRIN 81 MG TAB CHEW PO SCH (09:36)
[2020-10-08] MEDS: DOPamine/D5W 800 MG/250 ML 800 MG/250 ML BAG IV SCH (10:36)
--- NOTE | 2020-10-08 10:36 | Progress Note ---
Assessment and Plan Assessment and plan: The patient is a 55 YO female with history significant for DM type 2 (poorly controlled), HTN, Obesity, Anemia and ESRD on HD (MWF) who was brought into [facility] ED 10/07 s/p Cardiac arrest. Patient was found by family member unresponsive in her bed this morning. EMS was notified and upon arrival the patient was found to be in asystolic arrest. The patient was initiated on ACLS protocol and subsequently transported to the ED for evaluation and treatment. The patient was intubated in the field. Patient was found to have acute hypoxemic respiratory failure and is currently on ventilatory support, multipressor shock, DKA, hyperkalemia and Lactic acidosis. Of note patient recently admitted to [facility] for submandibular gland problem and was discharged the day prior to admission here. Patient had another episode of Cardiac in the ED with downtime of 4 minutes. She was also found to have clotted L arm AVF. Labs in the emergency room significant for bl glu around 900, K 8.5, bicarb 6, Lactic acid 9.7 and leukocytosis. Acute hypoxic respiratory failure Sepsis/septic shock Probable aspiration pneumonia. DKA S/p cardiopulmonary arrest ESRD requiring hemodialysis Hyperkalemia Transaminitis Severe metabolic acidosis Anoxic encephalopathy 10/08/2020. Continue dopamine and Levophed to maintain MAP >65. patient has significant hyperkalemia today and will undergo urgent hemodialysis. Continue bicarbonate drip per nephrology. Patient currently on amiodarone drip. Cardiology consultation pending. Check echocardiogram to assess ventricular function. Neurology consultation for anoxic encephalopathy. Check EEG. Continue insulin drip and transition to long-acting insulin when anion gap is closed. Patient empirically started on Levaquin. ID consultation pending. Patient likely has aspiration pneumonia associated with cardiac arrest. The high probability of a clinically significant, sudden or life threatening deterioration of the [endocrine, cardiac and pulmonary] system(s) required my full and direct attention, intervention and personal management. The aggregate critical care time was [35] minutes. This time is in addition to time spent performing reported procedures but includes the following: [x] Data Review and interpretation [x] Patient assessment and monitoring of vital signs [x] Documentation [x] Medication orders and management History Interval history: No new issues overnight Hospitalist Physical - Constitutional Vitals: Temp Pulse Resp BP Pulse Ox 98.5 F 90 20 100/56 100 10/08/20 10:05 10/08/20 10:15 10/08/20 10:05 10/08/20 10:15 10/08/20 10:05 General appearance: Present: severe distress - EENT Eyes: Present: PERRL, EOM intact ENT: hearing intact, clear oral mucosa, dentition normal - Neck Neck: Present: supple, normal ROM - Respiratory Respiratory effort: normal Respiratory: bilateral: CTA - Cardiovascular Rhythm: regular Heart Sounds: Present: S1 & S2. Absent: gallop, rub - Extremities Extremities: no ischemia, No edema, Full ROM - Abdominal General gastrointestinal: soft, non-tender, non-distended, normal bowel sounds - Integumentary Integumentary: Present: clear, warm, dry - Neurologic Neurologic: CNII-XII intact, moves all extremities HEART Score - HEART Score Troponin: Troponin T 1.330 ng/mL (0.00-0.029) H* D 10/07/20 18:18 Results - Labs CBC & Chem 7: 10/07/20 09:08 10/08/20 03:11 Labs: Laboratory Last Values WBC 15.8 K/mm3 (4.5-11.0) H 10/07/20 09:08 RBC 3.05 M/mm3 (3.65-5.03) L 10/07/20 09:08 Hgb 9.7 gm/dl (10.1-14.3) L 10/07/20 09:08 Hct 32.8 % (30.3-42.9) 10/07/20 09:08 MCV 108 fl (79-97) H 10/07/20 09:08 MCH 32 pg (28-32) 10/07/20 09:08 MCHC 30 % (30-34) 10/07/20 09:08 RDW 20.9 % (13.2-15.2) H 10/07/20 09:08 Plt Count 198 K/mm3 (140-440) 10/07/20 09:08 Lymph % (Auto) 18.1 % (13.4-35.0) 10/07/20 09:08 [place] % (Auto) 3.6 % (0.0-7.3) 10/07/20 09:08 Eos % (Auto) 0.5 % (0.0-4.3) 10/07/20 09:08 Baso % (Auto) 0.4 % (0.0-1.8) 10/07/20 09:08 Lymph # (Auto) 2.9 K/mm3 (1.2-5.4) 10/07/20 09:08 [place] # (Auto) 0.6 K/mm3 (0.0-0.8) 10/07/20 09:08 Eos # (Auto) 0.1 K/mm3 (0.0-0.4) 10/07/20 09:08 Baso # (Auto) 0.1 K/mm3 (0.0-0.1) 10/07/20 09:08 Seg Neutrophils % 77.4 % (40.0-70.0) H 10/07/20 09:08 Seg Neutrophils # 12.2 K/mm3 (1.8-7.7) H 10/07/20 09:08 PT 21.2 Sec. (12.2-14.9) H 10/07/20 09:08 INR 1.83 (0.87-1.13) H 10/07/20 09:08 APTT 51.1 Sec. (24.2-36.6) H 10/07/20 09:08 ABG pH 7.454 (7.320-7.450) H 10/08/20 01:50 POC ABG pCO2 28.8 mmHg (32.0-48.0) L 10/08/20 01:50 POC ABG pO2 113.3 mmHg (83-108) H 10/08/20 01:50 POC ABG HCO3 19.7 10/08/20 01:50 ABG O2 Saturation 97.8 (0-100) 10/08/20 01:50 POC ABG Base Excess -3.4 10/08/20 01:50 ABG Hemoglobin 9.7 (12.0-17.5) L 10/08/20 01:50 ABG Oxyhemoglobin 97.2 (94-98) 10/08/20 01:50 ABG Methemoglobin 0.3 (0.0-1.5) 10/08/20 01:50 ABG Sodium 134.1 mmol/L (136.0-145.0) L 10/08/20 01:50 ABG Potassium 4.5 mmol/L (3.40-4.50) 10/08/20 01:50 ABG Chloride 101.0 mmol/L (98-107) 10/08/20 01:50 ABG Glucose 423 mg/dL (65-95) H 10/08/20 01:50 Carboxyhemoglobin 0.3 (0.5-1.5) L 10/08/20 01:50 FiO2 % 40.0 10/08/20 01:50 Sodium 138 mmol/L (137-145) 10/08/20 03:11 Potassium 5.0 mmol/L (3.6-5.0) 10/08/20 03:11 Chloride 96.9 mmol/L (98-107) L 10/08/20 03:11 Carbon Dioxide 18 mmol/L (22-30) L 10/08/20 03:11 Anion Gap 28 mmol/L 10/08/20 03:11 BUN 58 mg/dL (7-17) H 10/08/20 03:11 Creatinine 7.8 mg/dL (0.6-1.2) H 10/08/20 03:11 Estimated GFR 6 ml/min 10/08/20 03:11 BUN/Creatinine Ratio 7 % 10/08/20 03:11 Glucose 403 mg/dL (65-100) H 10/08/20 03:11 POC Glucose 203 mg/dL (70-105) H 10/08/20 09:27 Lactic Acid 5.00 mmol/L (0.7-2.0) H* 10/07/20 18:18 Calcium 6.9 mg/dL (8.4-10.2) L 10/08/20 03:11 Phosphorus 5.80 mg/dL (2.5-4.5) H D 10/08/20 03:11 Magnesium 3.10 mg/dL (1.7-2.3) H 10/07/20 10:32 Total Bilirubin 0.50 mg/dL (0.1-1.2) 10/07/20 09:08 AST 2736 units/L (5-40) H 10/07/20 09:08 ALT 1568 units/L (7-56) H 10/07/20 09:08 Alkaline Phosphatase 183 units/L (35-129) H 10/07/20 09:08 Total Creatine Kinase 444 units/L (30-135) H 10/07/20 09:08 CK-MB (CK-2) 8.6 ng/mL (0.0-4.0) H 10/07/20 09:08 CK-MB (CK-2) Rel Index 1.9 (0-4) 10/07/20 09:08 Troponin T 1.330 ng/mL (0.00-0.029) H* D 10/07/20 18:18 NT-Pro-B Natriuret Pep 6466 pg/mL (0-900) H 10/07/20 09:08 Total Protein 5.8 g/dL (6.3-8.2) L 10/07/20 09:08 Albumin 2.6 g/dL (3.9-5) L 10/07/20 09:08 Albumin/Globulin Ratio 0.8 % 10/07/20 09:08 Triglycerides 246 mg/dL (2-149) H 10/07/20 09:08 Cholesterol 189 mg/dL (50-199) 10/07/20 09:08 LDL Cholesterol Direct 98 mg/dL (50-130) 10/07/20 09:08 HDL Cholesterol 39 mg/dL (40-59) L 10/07/20 09:08 Cholesterol/HDL Ratio 4.84 % 10/07/20 09:08 Arterial Blood Glucose 423 mg/dL (65-95) H 10/08/20 01:50 Arterial Blood Ionized Calcium 3.7 mg/dL (4.6-5.3) L 10/08/20 01:50 Hepatitis A IgM Ab Non-reactive (NonReactive) 10/07/20 17:25 Hep Bs Antigen Non-reactive (Negative) 10/07/20 17:25 Hep B Core IgM Ab Non-reactive (NonReactive) 10/07/20 17:25 Hepatitis C Antibody Non-reactive (NonReactive) 10/07/20 17:25 Blood Type O POSITIVE 10/07/20 11:40 Antibody Screen Negative 10/07/20 11:40 Microbiology: Microbiology 10/07/20 Unknown Sputum - Endotracheal Wash Sputum Culture - Preliminary 10/07/20 12:10 Peripheral/Venous Blood Culture - Preliminary Culture in Progress 10/07/20 12:10 Peripheral/Venous Blood Culture - Preliminary Culture in Progress Active Medications - Current Medications Current Medications: Generic Name Dose Route Start Last Admin Trade Name Freq PRN Reason Stop Dose Admin Acetaminophen 650 mg 10/07/20 11:12 Acetaminophen 325 Mg Tab PO Q6H PRN Pain, Mild (1-3) Albuterol 2.5 mg 10/07/20 11:09 Albuterol 2.5 Mg/3 Ml Nebu IH Q3HRT PRN Shortness Of Breath Aspirin 81 mg 10/08/20 10:00 10/08/20 09:36 Aspirin 81 Mg Tab Chew PO 81 mg QDAY LEIGH Administration Fentanyl 50 mcg 10/07/20 11:11 10/07/20 12:26 Fentanyl 100 Mcg/2 Ml Inj IV 50 mcg Q10MIN PRN Administration ANALGESIA Heparin Sodium (Porcine) 2,000 unit 10/07/20 18:10 Heparin 10,000 Units/10 Ml Vial IV SHAILESH PRN hemodialysis Heparin Sodium (Porcine) 5,000 unit 10/08/20 10:00 10/08/20 09:36 Heparin 5,000 Unit/1 Ml Vial SUB-Q 5,000 unit Q12HR LEIGH Administration Hydromorphone HCl 0.25 mg 10/07/20 11:12 10/08/20 05:20 Hydromorphone 1 Mg/1 Ml Inj IV 0.25 mg Q4H PRN Administration Pain, Moderate (4-6) Hydrophilic Ointment 1 applic 10/07/20 11:11 Lip Therapy Vaseline TP Q2HR PRN Dry Lips Amiodarone HCl 900 mg/ 500 mls @ 33.333 mls/hr 10/07/20 09:00 10/08/20 04:15 Dextrose IV 0.5 mg/min DIRECT LEIGH 16.667 mls/hr Titration Protocol 1 MG/MIN Dopamine HCl/Dextrose 800 mg in 250 mls @ 2.576 mls/hr 10/07/20 09:13 10/08/20 09:46 Intropin Drip 800 Mg/D5w 250 Ml IV 10/11/20 10:15 Infused TITR ONE Titration Protocol 2 MCG/KG/MIN Insulin Human Regular 100 100 mls @ 7 mls/hr 10/07/20 11:00 10/08/20 10:03 units/ Sodium Chloride IV 3 units/hr TITR LEIGH 3 mls/hr Titration Protocol 7 UNITS/HR Sodium Chloride 1,000 mls @ 150 mls/hr 10/07/20 11:15 10/08/20 07:43 Nacl 0.9% 1000 Ml IV 150 mls/hr DIRECT LEIGH Administration Norepinephrine 4 mg in 250 mls @ 7.5 mls/hr 10/07/20 09:00 10/08/20 08:50 Levophed Drip 4 Mg/Ns 250 Ml IV 6 mcg/min TITR LEIGH 22.5 mls/hr Titration Protocol 2 MCG/MIN Levofloxacin/Dextrose 500 mg in 100 mls @ 100 mls/hr 10/09/20 10:00 Levaquin 500mg/100ml IV Q48H LEIGH Protocol Sodium Chloride 100 mls @ 999 mls/hr 10/07/20 18:10 Nacl 0.9% IV SHAILESH PRN Hypotension Multi-Ingred Cream/Lotion/Oil/Oint 1 applic 10/07/20 11:11 Mineral Oil/Petrolatum, White Ophth Oint 3.5 Gm OU Q4HR PRN Dry Eye(s) Sodium Chloride 10 ml 10/07/20 22:00 10/08/20 09:41 Sodium Chloride 0.9% 10 Ml Flush Syringe IV 10 ml BID LEIGH Administration Sodium Chloride 10 ml 10/07/20 11:09 Sodium Chloride 0.9% 10 Ml Flush Syringe IV PRN PRN LINE FLUSH
--- NOTE | 2020-10-08 11:40 | Consultation ---
History of Present Illness Consult date: 10/08/20 Reason for Consult: Unresponsive History of present illness: Unresponsive History of present illness: 55 YO Female with HTN, DM, ESRD on HD(M,W,F) presents to ED for evaluation. The patient is intubated and on ventilatory support at the time my evaluation is unable to provide history. Patient history provided by the record the patient was found unresponsive in her bed this morning. EMS was notified and upon arrival the patient was found to be in asystolic arrest. The patient was initiated on ACLS protocol and subsequently transported to [facility] for further care and evaluation of the aforementioned symptoms on route she had another cardiac arrest and was resucitated The patient was intubated in the field prior to transportation. Patient was seen and evaluated in the emergency department. All lab and imaging studies reviewed. Upon my evaluation in the emergency department the patient was found to have a perfusing cardiac rhythm. Patient found to have acute hypoxemic respiratory failure and is currently on ventilatory support, septic shock and is being treated with IV pressor support. Patient also found to have hyperkalemia, end-stage renal disease,and DKA, as well as clinical findings consistent with anoxic brain injury. No family reports of fever, chills, chest pain, palpitation, productive cough, skin rash, recent ill contacts, or known exposure to COVID-19. Prior admission on 07/14/2020 reviewed. All medication listed at time of admission has been reconciled. Advanced care planning conducted in ED. Vascular surgery team consulted in ED for dialysis access. Nephrology team consulted in ED. critical care team consulted Neuroology asked to see for eavaluation of Unresponsivness pt. is intubated and is off sedation since admission Past History Past Medical History: diabetes, ESRD, hypertension Past Surgical History: Other (Dialysis access) Social history: single. denies: smoking, alcohol abuse, prescription drug abuse Family history: diabetes, hypertension Medications and Allergies Allergies Allergy/AdvReac Type Severity Reaction Status Date / Time peanut Allergy Unknown Unknown Verified 10/07/20 08:21 pecan nut Allergy Unknown Unknown Verified 10/07/20 08:21 walnut Allergy Unknown Unknown Verified 10/07/20 08:21 latex Allergy Rash Verified 10/07/20 08:21 Home Medications Medication Instructions Recorded Confirmed Last Taken Type Aspirin 81 mg PO DAILY 07/04/20 07/14/20 07/04/20 History Famotidine [Pepcid] 20 mg PO DAILY #30 tablet 07/12/20 07/14/20 Unknown Rx Lisinopril 30 mg PO DAILY #30 07/12/20 07/14/20 Unknown Rx hydrALAZINE 50 mg PO DAILY #30 07/12/20 07/14/20 Unknown Rx Insulin Detemir [Levemir VIAL] 21 units SQ HS #1 vial 07/16/20 Unknown Rx Insulin Regular, Human [HumuLIN R] 0 unit SQ AC #1 vial 07/16/20 Unknown Rx Active Meds: Active Medications Amiodarone HCl 900 mg/ (Dextrose) 500 mls @ 33.333 mls/hr IV DIRECT LEIGH; Protocol Last Admin: 10/07/20 10:02 Dose: 1 mg/min, 33.333 mls/hr Documented by: Dopamine HCl/Dextrose (Intropin Drip 800 Mg/D5w 250 Ml) 800 mg in 250 mls @ 2.576 mls/hr IV TITR ONE; Protocol Stop: 10/11/20 10:15 Last Admin: 10/07/20 09:41 Dose: 30 mcg/kg/min, 38.644 mls/hr Documented by: Insulin Human Regular 100 (units/ Sodium Chloride) 100 mls @ 7 mls/hr IV TITR LEIGH; Protocol Review of Systems ROS unobtainable: due to endotracheal tube, due to mental status Past History Past Medical History: diabetes, dialysis, ESRD, hypertension Past Surgical History: Other (Dialysis access) Social history: single. denies: smoking, alcohol abuse, prescription drug abuse Family history: diabetes, hypertension Medications and Allergies Allergies Allergy/AdvReac Type Severity Reaction Status Date / Time peanut Allergy Unknown Unknown Verified 10/07/20 08:21 pecan nut Allergy Unknown Unknown Verified 10/07/20 08:21 walnut Allergy Unknown Unknown Verified 10/07/20 08:21 latex Allergy Rash Verified 10/07/20 08:21 Home Medications Medication Instructions Recorded Confirmed Last Taken Type Aspirin 81 mg PO DAILY 07/04/20 07/14/20 07/04/20 History Famotidine [Pepcid] 20 mg PO DAILY #30 tablet 07/12/20 07/14/20 Unknown Rx Lisinopril 30 mg PO DAILY #30 07/12/20 07/14/20 Unknown Rx hydrALAZINE 50 mg PO DAILY #30 07/12/20 07/14/20 Unknown Rx Insulin Detemir [Levemir VIAL] 21 units SQ HS #1 vial 07/16/20 Unknown Rx Insulin Regular, Human [HumuLIN R] 0 unit SQ AC #1 vial 07/16/20 Unknown Rx Active Meds: Active Medications Acetaminophen (Acetaminophen 325 Mg Tab) 650 mg PO Q6H PRN PRN Reason: Pain, Mild (1-3) Albuterol (Albuterol 2.5 Mg/3 Ml Nebu) 2.5 mg IH Q3HRT PRN PRN Reason: Shortness Of Breath Aspirin (Aspirin 81 Mg Tab Chew) 81 mg PO QDAY LEIGH Last Admin: 10/08/20 09:36 Dose: 81 mg Documented by: Fentanyl (Fentanyl 100 Mcg/2 Ml Inj) 50 mcg IV Q10MIN PRN PRN Reason: ANALGESIA Last Admin: 10/07/20 12:26 Dose: 50 mcg Documented by: Heparin Sodium (Porcine) (Heparin 10,000 Units/10 Ml Vial) 2,000 unit IV SHAILESH PRN PRN Reason: hemodialysis Heparin Sodium (Porcine) (Heparin 5,000 Unit/1 Ml Vial) 5,000 unit SUB-Q Q12HR LEIGH Last Admin: 10/08/20 09:36 Dose: 5,000 unit Documented by: Hydromorphone HCl (Hydromorphone 1 Mg/1 Ml Inj) 0.25 mg IV Q4H PRN PRN Reason: Pain, Moderate (4-6) Last Admin: 10/08/20 05:20 Dose: 0.25 mg Documented by: Hydrophilic Ointment (Lip Therapy Vaseline) 1 applic TP Q2HR PRN PRN Reason: Dry Lips Amiodarone HCl 900 mg/ (Dextrose) 500 mls @ 33.333 mls/hr IV DIRECT LEIGH; Protocol Last Titration: 10/08/20 04:15 Dose: 0.5 mg/min, 16.667 mls/hr Documented by: Insulin Human Regular 100 (units/ Sodium Chloride) 100 mls @ 7 mls/hr IV TITR LEIGH; Protocol Last Titration: 10/08/20 11:22 Dose: 4 units/hr, 4 mls/hr Documented by: Sodium Chloride (Nacl 0.9% 1000 Ml) 1,000 mls @ 150 mls/hr IV DIRECT LEIGH Last Admin: 10/08/20 07:43 Dose: 150 mls/hr Documented by: Norepinephrine (Levophed Drip 4 Mg/Ns 250 Ml) 4 mg in 250 mls @ 7.5 mls/hr IV TITR LEIGH; Protocol Last Titration: 10/08/20 10:32 Dose: Infused Documented by: Levofloxacin/Dextrose (Levaquin 500mg/100ml) 500 mg in 100 mls @ 100 mls/hr IV Q48H LEIGH; Protocol Sodium Chloride (Nacl 0.9%) 100 mls @ 999 mls/hr IV SHAILESH PRN PRN Reason: Hypotension Dopamine HCl/Dextrose (Intropin Drip 800 Mg/D5w 250 Ml) 800 mg in 250 mls @ 2.576 mls/hr IV TITR LEIGH; Protocol Last Titration: 10/08/20 10:36 Dose: 10 mcg/kg/min, 12.881 mls/hr Documented by: Multi-Ingred Cream/Lotion/Oil/Oint (Mineral Oil/Petrolatum, White Ophth Oint 3.5 Gm) 1 applic OU Q4HR PRN PRN Reason: Dry Eye(s) Sodium Chloride (Sodium Chloride 0.9% 10 Ml Flush Syringe) 10 ml IV BID [facility] Last Admin: 10/08/20 09:41 Dose: 10 ml Documented by: Sodium Chloride (Sodium Chloride 0.9% 10 Ml Flush Syringe) 10 ml IV PRN PRN PRN Reason: LINE FLUSH Physical Examination - Vital Signs Vital Signs: Vital Signs Pulse Resp BP 60 18 94/49 10/07/20 08:10 10/07/20 08:10 10/07/20 08:10 - Constitutional General appearance: comfortable, other (Intubated unresponsive) - Respiratory Respiratory: Present: chest non-tender, lungs clear, crackles, rhonchi - Cardiovascular Cardiovascular: Present: regular rate Extremities: Present: no peripheral edema bilatateraly, no clubbing, cyanosis - Gastrointestinal Gastrointestinal: Present: normoactive bowel sounds - Integumentary Integumentary: Present: normal - Neurologic Cranial nerve examination: other (pupils 4 mm none reactive no EOM is noted, no corneal no gag is noted no clear spontaneous breathing is noted) Detailed motor examination: other (No movment is noted to pain stimuli ) Results - Laboratory Findings CBC and BMP: 10/07/20 09:08 10/08/20 03:11 Abnormal Lab Findings: Abnormal Labs 10/07/20 10/07/20 10/07/20 09:08 09:08 09:08 WBC 15.8 H RBC 3.05 L Hgb 9.7 L MCV 108 H RDW 20.9 H Seg Neutrophils % 77.4 H Seg Neutrophils # 12.2 H PT 21.2 H INR 1.83 H APTT 51.1 H ABG pH POC ABG pCO2 POC ABG pO2 ABG Hemoglobin ABG Oxyhemoglobin ABG Sodium ABG Potassium ABG Chloride ABG Glucose Carboxyhemoglobin Sodium 133 L Potassium 8.3 H* Chloride 77.5 L Carbon Dioxide 6 L* BUN 86 H Creatinine 10.6 H Glucose 798 H* POC Glucose Lactic Acid Calcium Phosphorus Magnesium AST 2736 H ALT 1568 H Alkaline Phosphatase 183 H Total Creatine Kinase 444 H CK-MB (CK-2) 8.6 H Troponin T 0.395 H* NT-Pro-B Natriuret Pep 6466 H Total Protein 5.8 L Albumin 2.6 L Triglycerides 246 H HDL Cholesterol 39 L Arterial Blood Glucose Arterial Blood Ionized Calcium 10/07/20 10/07/20 10/07/20 09:08 09:24 10:32 WBC RBC Hgb MCV RDW Seg Neutrophils % Seg Neutrophils # PT INR APTT ABG pH 6.793 L POC ABG pCO2 30.2 L POC ABG pO2 433.9 H ABG Hemoglobin 10.8 L ABG Oxyhemoglobin 99.2 H ABG Sodium 131.7 L ABG Potassium 8.2 H ABG Chloride 85.0 L ABG Glucose Carboxyhemoglobin 0.3 L Sodium Potassium Chloride Carbon Dioxide BUN Creatinine Glucose POC Glucose Lactic Acid Calcium Phosphorus 22.30 H Magnesium 3.10 H 3.10 H AST ALT Alkaline Phosphatase Total Creatine Kinase CK-MB (CK-2) Troponin T NT-Pro-B Natriuret Pep Total Protein Albumin Triglycerides HDL Cholesterol Arterial Blood Glucose Arterial Blood Ionized Calcium 10/07/20 10/07/20 10/07/20 10:32 11:23 11:23 WBC RBC Hgb MCV RDW Seg Neutrophils % Seg Neutrophils # PT INR APTT ABG pH POC ABG pCO2 POC ABG pO2 ABG Hemoglobin ABG Oxyhemoglobin ABG Sodium ABG Potassium ABG Chloride ABG Glucose Carboxyhemoglobin Sodium 131 L 135 L Potassium 8.7 H* 8.5 H* Chloride 76.6 L 78.1 L Carbon Dioxide 6 L* 5 L* BUN 89 H 87 H Creatinine 10.7 H 10.7 H Glucose 967 H* 799 H* POC Glucose Lactic Acid 9.70 H* Calcium Phosphorus Magnesium AST ALT Alkaline Phosphatase Total Creatine Kinase CK-MB (CK-2) Troponin T NT-Pro-B Natriuret Pep Total Protein Albumin Triglycerides HDL Cholesterol Arterial Blood Glucose Arterial Blood Ionized Calcium 10/07/20 10/07/20 10/07/20 13:20 13:58 13:58 WBC RBC Hgb MCV RDW Seg Neutrophils % Seg Neutrophils # PT INR APTT ABG pH POC ABG pCO2 POC ABG pO2 ABG Hemoglobin ABG Oxyhemoglobin ABG Sodium ABG Potassium ABG Chloride ABG Glucose Carboxyhemoglobin Sodium 133 L Potassium 6.8 H* Chloride 82.3 L Carbon Dioxide 8 L* BUN 86 H Creatinine 10.3 H Glucose 868 H* POC Glucose > 600 H Lactic Acid 6.90 H* Calcium Phosphorus Magnesium AST ALT Alkaline Phosphatase Total Creatine Kinase CK-MB (CK-2) Troponin T NT-Pro-B Natriuret Pep Total Protein Albumin Triglycerides HDL Cholesterol Arterial Blood Glucose Arterial Blood Ionized Calcium 10/07/20 10/07/20 10/07/20 14:03 18:01 18:18 WBC RBC Hgb MCV RDW Seg Neutrophils % Seg Neutrophils # PT INR APTT ABG pH 7.175 L POC ABG pCO2 27.4 L POC ABG pO2 ABG Hemoglobin 9.3 L ABG Oxyhemoglobin ABG Sodium 134.0 L ABG Potassium 6.4 H ABG Chloride 89.0 L ABG Glucose Carboxyhemoglobin 0.4 L Sodium 132 L Potassium 5.7 H Chloride 84.5 L Carbon Dioxide 15 L D BUN 91 H Creatinine 10.6 H Glucose 828 H* POC Glucose > 600 H Lactic Acid Calcium 6.7 L D Phosphorus Magnesium AST ALT Alkaline Phosphatase Total Creatine Kinase CK-MB (CK-2) Troponin T NT-Pro-B Natriuret Pep Total Protein Albumin Triglycerides HDL Cholesterol Arterial Blood Glucose Arterial Blood Ionized Calcium 4.4 L 10/07/20 10/07/20 10/07/20 18:18 18:18 22:27 WBC RBC Hgb MCV RDW Seg Neutrophils % Seg Neutrophils # PT INR APTT ABG pH POC ABG pCO2 POC ABG pO2 ABG Hemoglobin ABG Oxyhemoglobin ABG Sodium ABG Potassium ABG Chloride ABG Glucose Carboxyhemoglobin Sodium Potassium Chloride Carbon Dioxide BUN Creatinine Glucose POC Glucose 456 H Lactic Acid 5.00 H* Calcium Phosphorus Magnesium AST ALT Alkaline Phosphatase Total Creatine Kinase CK-MB (CK-2) Troponin T 1.330 H* D NT-Pro-B Natriuret Pep Total Protein Albumin Triglycerides HDL Cholesterol Arterial Blood Glucose Arterial Blood Ionized Calcium 10/08/20 10/08/20 10/08/20 00:13 00:51 01:50 WBC RBC Hgb MCV RDW Seg Neutrophils % Seg Neutrophils # PT INR APTT ABG pH 7.454 H POC ABG pCO2 28.8 L POC ABG pO2 113.3 H ABG Hemoglobin 9.7 L ABG Oxyhemoglobin ABG Sodium 134.1 L ABG Potassium ABG Chloride ABG Glucose 423 H Carboxyhemoglobin 0.3 L Sodium Potassium Chloride Carbon Dioxide BUN Creatinine Glucose POC Glucose 468 H 452 H Lactic Acid Calcium Phosphorus Magnesium AST ALT Alkaline Phosphatase Total Creatine Kinase CK-MB (CK-2) Troponin T NT-Pro-B Natriuret Pep Total Protein Albumin Triglycerides HDL Cholesterol Arterial Blood Glucose 423 H Arterial Blood Ionized Calcium 3.7 L 10/08/20 10/08/20 10/08/20 02:09 03:07 03:11 WBC RBC Hgb MCV RDW Seg Neutrophils % Seg Neutrophils # PT INR APTT ABG pH POC ABG pCO2 POC ABG pO2 ABG Hemoglobin ABG Oxyhemoglobin ABG Sodium ABG Potassium ABG Chloride ABG Glucose Carboxyhemoglobin Sodium Potassium Chloride 96.9 L Carbon Dioxide 18 L BUN 58 H Creatinine 7.8 H Glucose 403 H POC Glucose 445 H 395 H Lactic Acid Calcium 6.9 L Phosphorus 5.80 H D Magnesium AST ALT Alkaline Phosphatase Total Creatine Kinase CK-MB (CK-2) Troponin T NT-Pro-B Natriuret Pep Total Protein Albumin Triglycerides HDL Cholesterol Arterial Blood Glucose Arterial Blood Ionized Calcium 10/08/20 10/08/20 10/08/20 04:02 05:09 06:12 WBC RBC Hgb MCV RDW Seg Neutrophils % Seg Neutrophils # PT INR APTT ABG pH POC ABG pCO2 POC ABG pO2 ABG Hemoglobin ABG Oxyhemoglobin ABG Sodium ABG Potassium ABG Chloride ABG Glucose Carboxyhemoglobin Sodium Potassium Chloride Carbon Dioxide BUN Creatinine Glucose POC Glucose 399 H 339 H 309 H Lactic Acid Calcium Phosphorus Magnesium AST ALT Alkaline Phosphatase Total Creatine Kinase CK-MB (CK-2) Troponin T NT-Pro-B Natriuret Pep Total Protein Albumin Triglycerides HDL Cholesterol Arterial Blood Glucose Arterial Blood Ionized Calcium 10/08/20 10/08/20 07:45 09:27 WBC RBC Hgb MCV RDW Seg Neutrophils % Seg Neutrophils # PT INR APTT ABG pH POC ABG pCO2 POC ABG pO2 ABG Hemoglobin ABG Oxyhemoglobin ABG Sodium ABG Potassium ABG Chloride ABG Glucose Carboxyhemoglobin Sodium Potassium Chloride Carbon Dioxide BUN Creatinine Glucose POC Glucose 268 H 203 H Lactic Acid Calcium Phosphorus Magnesium AST ALT Alkaline Phosphatase Total Creatine Kinase CK-MB (CK-2) Troponin T NT-Pro-B Natriuret Pep Total Protein Albumin Triglycerides HDL Cholesterol Arterial Blood Glucose Arterial Blood Ionized Calcium Assessment and Plan Assessment and Plan # Anoxic brain injury/ s/p cardiac arrest in field -pt. was resucited in field and on route she is intubated and unresponsive -Supportive care. - Neuro check, - head CT? none on record -No sedation -consider EEG # Acute respiratory failure -Patient intubated and ambulatory support. -Critical care team consulted, wean vent as tolerated, -daily ABG, -spontaneous breathing trial, -sedation holiday. # Cardiac arrest -Patient treated in accordance with ACLS protocol with return of perfusing cardiac rhythm. - Patient currently on inotropic support. - Cardiology team consulted. # Sepsis -Sepsis protocol: -Chest x-ray, CBC, urinalysis, - IV fluid resuscitation therapy, IV antibiotic therapy, IV pressor support, maintain mean arterial pressure greater than or equal to 65, -monitor urine output every shift, - blood culture, # DKA (diabetic ketoacidoses) -DKA protocol: - IV fluid resuscitation therapy, - insulin drip, -serial lactic acid level, -monitor anion gap, - serial BMP. - Potassium replacement per protocol. # ESRD needing dialysis -Nephrology team consulted, -vascular surgery team consulted, # Elevated LFTs -Suspect secondary to shock liver status post cardiac arrest, - supportive care. # Metabolic acidosis -IV bicarbonate therapy, -BMP, repeat BMP in a.m. -Serial lactic acid level. # DVT prophylaxis -SCD to bilateral lower extremities while in bed. The high probability of a clinically significant, sudden or life threatening deterioration of the [neuro, cardiac, renal, pulmonary] system(s) required my full and direct attention, intervention and personal management. The aggregate critical care time was [45] minutes. This time is in addition to time spent performing reported procedures but includes the following: [x] Data Review and interpretation [x] Patient assessment and monitoring of vital signs [x] Documentation [x] Medication orders and management will follow
--- NOTE | 2020-10-08 11:51 | Progress Note ---
Assessment and Plan #S/p cardiac arrest (asystole) * Patient was found unresponsive in asystole with unknown downtime. EMS obtained ROSC in route to hospital. She has coded twice in the hospital, once with V. fib arrest, once with PEA arrest. * Echocardiogram reviewed (10/07/2020): LVEF is 45 to 50%. Mild to moderate concentric LVH. Mild diastolic dysfunction is present (impaired relaxation pattern). No VSD visualized. RV SF is normal. Mild TR noted. RVSP is 33 mmHg. * V. fib arrhythmia likely due to primary electrolyte derangement and not ischemia. Discontinue amiodarone drip. #NSTEMI suspect type II * Twelve-lead ECG shows sinus rhythm heart rate 66 with right bundle branch block and left anterior fascicular block of unknown duration, no axis deviation, prolonged QT: 508 no acute ischemic changes noted. * Troponins are elevated x2, trending upwards. Continue to trend CE's. #Hyperkalemia, electrolyte derangement s/p cardiac arrest * Patient is receiving dialysis and on insulin. Hyperkalemia is improving. Management per primary team #diabetic ketoacidosis in setting of type 1 diabetes mellitus * Management per primary team #ESRD needing dialysis * Nephrology is following #Suspected neurogenic shock in setting of suspected anoxic injury status post cardiac arrest * Patient is currently requiring 2 pressors to maintain hemostasis with no tachycardic response. * Neurology is following Will Follow Pt seen in conjunction with Dr. Humble Gar, who agrees with the assessment and plan of care. - Patient Problems (1) Acute respiratory failure Current Visit: Yes Status: Acute (2) ESRD needing dialysis Current Visit: Yes Status: Acute (3) Shock Current Visit: Yes Status: Acute (4) Cardiac arrest Current Visit: Yes Status: Acute (5) DKA (diabetic ketoacidoses) Current Visit: Yes Status: Acute Qualifiers: Diabetes mellitus type: type 1 Qualified Code(s): E10.10 - Type 1 diabetes mellitus with ketoacidosis without coma (6) Hyperkalemia Current Visit: Yes Status: Acute (7) Hypermagnesemia Current Visit: Yes Status: Acute (8) Elevated LFTs Current Visit: Yes Status: Acute (9) Anemia Current Visit: Yes Status: Chronic (10) NSTEMI (non-ST elevated myocardial infarction) Current Visit: Yes Status: Acute Plan to address problem: -Suspect Type 2 (11) Hypertension Current Visit: No Status: Chronic Qualifiers: Hypertension type: renovascular hypertension Qualified Code(s): I15.0 - Renovascular hypertension (12) HLD (hyperlipidemia) Current Visit: Yes Status: Chronic Qualifiers: Hyperlipidemia type: mixed hyperlipidemia Qualified Code(s): E78.2 - Mixed hyperlipidemia (13) Type 1 diabetes Current Visit: Yes Status: Chronic (14) History of COVID-19 Current Visit: Yes Status: Chronic Plan to address problem: 06/2020 Subjective Date of service: 10/08/20 Principal diagnosis: s/p Cardiac Arrest Interval history: Patient in bed. Currently intubated and sedated. Telemetry reviewed: Sinus rhythm 95. No events. Objective Last Vital Signs Temp 98.5 F 10/08/20 10:05 Pulse 90 10/08/20 10:15 Resp 20 10/08/20 10:05 BP 100/56 10/08/20 10:15 Pulse Ox 100 10/08/20 10:05 - Physical Examination General: Other (Patient is unresponsive, intubated and sedated) HEENT: Positive: Normocephaly Neck: Negative: JVD/HJR Cardiac: Positive: Reg Rate and Rhythm, S1/S2 Lungs: Positive: Ventilated Respirations Neuro: Positive: Other (Patient is unresponsive, intubated and sedated) Abdomen: Positive: Soft Skin: Negative: Rash, Wound Musculoskeletal: No Fluid Collection, other (Patient is unresponsive, intubated and sedated) Extremities: Present: upper extr. pulses, lower extr. pulses. Absent: edema - Labs and Meds Comprehensive Metabolic Panel 10/07/20 10/07/20 10/07/20 Range/Units 10:32 11:23 13:58 Sodium 135 L 133 L (137-145) mmol/L Potassium 8.7 H* 8.5 H* 6.8 H* (3.6-5.0) mmol/L Chloride 78.1 L 82.3 L (98-107) mmol/L Carbon Dioxide 6 L* 5 L* 8 L* (22-30) mmol/L BUN 87 H 86 H (7-17) mg/dL Creatinine 10.7 H 10.7 H 10.3 H (0.6-1.2) mg/dL Glucose 967 H* 799 H* 868 H* (65-100) mg/dL Calcium 9.9 9.9 8.4 D (8.4-10.2) mg/dL 10/07/20 10/08/20 Range/Units 18:18 03:11 Sodium 132 L 138 (137-145) mmol/L Potassium 5.7 H 5.0 (3.6-5.0) mmol/L Chloride 84.5 L 96.9 L (98-107) mmol/L Carbon Dioxide 15 L D 18 L (22-30) mmol/L BUN 91 H 58 H (7-17) mg/dL Creatinine 10.6 H 7.8 H (0.6-1.2) mg/dL Glucose 828 H* 403 H (65-100) mg/dL Calcium 6.7 L D 6.9 L (8.4-10.2) mg/dL - Imaging and Cardiology EKG: report reviewed, image reviewed Echo: pending, other (09/16/2020 - EF 60-65%, mild concentric LVH, mildly dilated LA, trace AI, grade 1 diastolic dysfxn, mild TR, RVSP 32.8 mmHg, trace MR) - Telemetry EKG Rhythm: Sinus Rhythm - EKG Sinus rhythms and dysrhythmias: sinus rhythm AV and intraventricular conduction: right bundle branch block, left anterior fascicular Repolarization changes or abnormalities: nonspecific abnormality, ST segment, and/or T wave, Suggestive of hyperkalemia
--- NOTE | 2020-10-08 13:13 | Progress Note ---
Assessment and Plan 1. ESRD: Patient is on maintenance hemodialysis three times a week, MWF schedule. Last HD 10/06 at OSH. Urgent HD 10/07 due to hyperkalemia. Hemodialysis: 10/07, 10/08. 2. FEN: Hyperkalemia, improved, monitor. Metabolic acidosis, 2/2 DKA, Lactic acidosis, monitor. Monitor lytes. 3. DKA: On Insulin drip per protocol. Monitor. 4. S/p OOH Cardiac arrest: Total of 2 episodes. Total downtime unknown. On Amiodarone. Cardiology consult. Monitor. 5. Shock: Currently on Levophed. Cefepime, Levofloxacin and Vancomycin. Wean pressors as tolerated. Monitor BP closely. 6. Anemia, POA: 2/2 ESRD. Epogen if needed. Subjective: Patient was seen and examined at the bedside. Examination: General appearance: well-developed, well-nourished, intubated, on vent HEENT: ATNC, RADHA Neck: neck supple, trachea midline Respiratory: Coarse breath sounds Heart: regular, normal heart rate, S1S2, no murmur Abdomen: soft, NT Integumentary: no rash, warm and dry Neurologic: not responding Ext: no edema noted Hemodialysis access: L arm AVF clotted, L femoral catheter Subjective Date of service: 10/08/20 Principal diagnosis: s/p Cardiac Arrest Objective - Vital Signs Vital signs: Vital Signs - 12hr 10/08/20 10/08/20 10/08/20 03:01 03:14 04:00 Temperature 100 F H Pulse Rate 83 Pulse Rate [ 92 H From Monitor] Pulse Rate [ Right Dorsalis Pedis] Respiratory 20 Rate Blood Pressure 148/65 O2 Sat by Pulse 100 100 Oximetry O2 Sat by Pulse Oximetry [ Anterior Bilateral Throughout] 10/08/20 10/08/20 10/08/20 08:50 10:00 10:05 Temperature 98.5 F Pulse Rate 97 H 93 H Pulse Rate [ From Monitor] Pulse Rate [ 93 H Right Dorsalis Pedis] Respiratory 20 20 Rate Blood Pressure 106/66 131/78 O2 Sat by Pulse 100 100 Oximetry O2 Sat by Pulse 100 Oximetry [ Anterior Bilateral Throughout] 10/08/20 10/08/20 10/08/20 10:12 10:15 12:00 Temperature 97.7 F Pulse Rate 92 H 90 Pulse Rate [ From Monitor] Pulse Rate [ Right Dorsalis Pedis] Respiratory Rate Blood Pressure 112/71 100/56 O2 Sat by Pulse Oximetry O2 Sat by Pulse Oximetry [ Anterior Bilateral Throughout] 10/08/20 12:03 Temperature Pulse Rate 93 H Pulse Rate [ From Monitor] Pulse Rate [ Right Dorsalis Pedis] Respiratory Rate Blood Pressure 159/91 O2 Sat by Pulse 100 Oximetry O2 Sat by Pulse Oximetry [ Anterior Bilateral Throughout] - Lab 10/07/20 09:08 10/08/20 15:08 Most recent lab results ABG pH 7.454 (7.320-7.450) H 10/08/20 01:50 ABG O2 Saturation 97.8 (0-100) 10/08/20 01:50 Calcium 6.9 mg/dL (8.4-10.2) L 10/08/20 03:11 Phosphorus 5.80 mg/dL (2.5-4.5) H D 10/08/20 03:11 Magnesium 3.10 mg/dL (1.7-2.3) H 10/07/20 10:32 Medications & Allergies - Medications Allergies/Adverse Reactions: Allergies peanut Allergy (Unknown, Verified 10/07/20 08:21) Unknown pecan nut Allergy (Unknown, Verified 10/07/20 08:21) Unknown walnut Allergy (Unknown, Verified 10/07/20 08:21) Unknown latex Allergy (Verified 10/07/20 08:21) Rash Home Medications: Home Medications Medication Instructions Recorded Confirmed Last Taken Type Aspirin 81 mg PO DAILY 07/04/20 07/14/20 07/04/20 History Famotidine [Pepcid] 20 mg PO DAILY #30 tablet 07/12/20 07/14/20 Unknown Rx Lisinopril 30 mg PO DAILY #30 07/12/20 07/14/20 Unknown Rx hydrALAZINE 50 mg PO DAILY #30 07/12/20 07/14/20 Unknown Rx Insulin Detemir [Levemir VIAL] 21 units SQ HS #1 vial 07/16/20 Unknown Rx Insulin Regular, Human [HumuLIN R] 0 unit SQ AC #1 vial 07/16/20 Unknown Rx Active Medications: Generic Name Dose Route Start Last Admin Trade Name Freq PRN Reason Stop Dose Admin Acetaminophen 650 mg 10/07/20 11:12 Acetaminophen 325 Mg Tab PO Q6H PRN Pain, Mild (1-3) Albuterol 2.5 mg 10/07/20 11:09 Albuterol 2.5 Mg/3 Ml Nebu IH Q3HRT PRN Shortness Of Breath Aspirin 81 mg 10/08/20 10:00 10/08/20 09:36 Aspirin 81 Mg Tab Chew PO 81 mg QDAY LEIGH Administration Fentanyl 50 mcg 10/07/20 11:11 10/07/20 12:26 Fentanyl 100 Mcg/2 Ml Inj IV 50 mcg Q10MIN PRN Administration ANALGESIA Heparin Sodium (Porcine) 2,000 unit 10/07/20 18:10 Heparin 10,000 Units/10 Ml Vial IV SHAILESH PRN hemodialysis Heparin Sodium (Porcine) 5,000 unit 10/08/20 10:00 10/08/20 09:36 Heparin 5,000 Unit/1 Ml Vial SUB-Q 5,000 unit Q12HR LEIGH Administration Hydromorphone HCl 0.25 mg 10/07/20 11:12 10/08/20 05:20 Hydromorphone 1 Mg/1 Ml Inj IV 0.25 mg Q4H PRN Administration Pain, Moderate (4-6) Hydrophilic Ointment 1 applic 10/07/20 11:11 Lip Therapy Vaseline TP Q2HR PRN Dry Lips Insulin Human Regular 100 100 mls @ 7 mls/hr 10/07/20 11:00 10/08/20 12:45 units/ Sodium Chloride IV 3 units/hr TITR LEIGH 3 mls/hr Titration Protocol 7 UNITS/HR Sodium Chloride 1,000 mls @ 150 mls/hr 10/07/20 11:15 10/08/20 07:43 Nacl 0.9% 1000 Ml IV 150 mls/hr DIRECT LEIGH Administration Norepinephrine 4 mg in 250 mls @ 7.5 mls/hr 10/07/20 09:00 10/08/20 10:32 Levophed Drip 4 Mg/Ns 250 Ml IV Infused TITR LEIGH Titration Protocol 2 MCG/MIN Levofloxacin/Dextrose 500 mg in 100 mls @ 100 mls/hr 10/09/20 10:00 Levaquin 500mg/100ml IV Q48H LEIGH Protocol Sodium Chloride 100 mls @ 999 mls/hr 10/07/20 18:10 Nacl 0.9% IV SHAILESH PRN Hypotension Dopamine HCl/Dextrose 800 mg in 250 mls @ 2.576 mls/hr 10/08/20 11:00 10/08/20 10:36 Intropin Drip 800 Mg/D5w 250 Ml IV 10 mcg/kg/min TITR LEIGH 12.881 mls/hr Titration Protocol 2 MCG/KG/MIN Multi-Ingred Cream/Lotion/Oil/Oint 1 applic 10/07/20 11:11 Mineral Oil/Petrolatum, White Ophth Oint 3.5 Gm OU Q4HR PRN Dry Eye(s) Sodium Chloride 10 ml 10/07/20 22:00 10/08/20 09:41 Sodium Chloride 0.9% 10 Ml Flush Syringe IV 10 ml BID LEIGH Administration Sodium Chloride 10 ml 10/07/20 11:09 Sodium Chloride 0.9% 10 Ml Flush Syringe IV PRN PRN LINE FLUSH
--- NOTE | 2020-10-08 15:28 | Event Note ---
Date: 10/08/20 Received consultation 55-year-old female with history of hypertension, diabetes mellitus, ESRD on hemodialysis, admitted secondary to be found unresponsive. Upon EMS arrival patient was found in asystolic Arrest. Patient was resuscitated and brought to the emergency room. Patient was intubated in route. Patient was started on IV pressors. She was previously admitted on 07/09/2020 - 07/14/2020 due to DKA and COVID-19. Currently her white count is 15.8. Glucose 828. Potassium 5.7. Lactate 5. BNP 1330. SARS-CoV-2 PCR negative. Blood cultures were negative. Sputum with upper respiratory rivka. Chest x-ray with bilateral opacities left greater than right. Likely hospital-acquired pneumonia/DKA. Start cefepime 1 g IV once a day, start vancomycin with PK consult. Obtain MRSA PCR. Guarded prognosis. Full Consultation to follow.
--- NOTE | 2020-10-08 15:50 | Consultation ---
History of Present Illness Consult date: 10/08/20 Requesting physician: LEONARDO KRAUSE Reason for consult: other (Cardiac Arrest with [facility]) History of present illness: PULMONARY/CCM CONSULT NOTE (Full dictation # [id number]) Please see dictated notes for full details Past History Past Medical History: diabetes, dialysis, ESRD, hypertension Past Surgical History: Other (Dialysis access) Social history: single. denies: smoking, alcohol abuse, prescription drug abuse Family history: diabetes, hypertension Medications and Allergies Allergies Allergy/AdvReac Type Severity Reaction Status Date / Time peanut Allergy Unknown Unknown Verified 10/07/20 08:21 pecan nut Allergy Unknown Unknown Verified 10/07/20 08:21 walnut Allergy Unknown Unknown Verified 10/07/20 08:21 latex Allergy Rash Verified 10/07/20 08:21 Home Medications Medication Instructions Recorded Confirmed Last Taken Type Aspirin 81 mg PO DAILY 07/04/20 07/14/20 07/04/20 History Famotidine [Pepcid] 20 mg PO DAILY #30 tablet 07/12/20 07/14/20 Unknown Rx Lisinopril 30 mg PO DAILY #30 07/12/20 07/14/20 Unknown Rx hydrALAZINE 50 mg PO DAILY #30 07/12/20 07/14/20 Unknown Rx Insulin Detemir [Levemir VIAL] 21 units SQ HS #1 vial 07/16/20 Unknown Rx Insulin Regular, Human [HumuLIN R] 0 unit SQ AC #1 vial 07/16/20 Unknown Rx Active Meds: Active Medications Acetaminophen (Acetaminophen 325 Mg Tab) 650 mg PO Q6H PRN PRN Reason: Pain, Mild (1-3) Albuterol (Albuterol 2.5 Mg/3 Ml Nebu) 2.5 mg IH Q3HRT PRN PRN Reason: Shortness Of Breath Aspirin (Aspirin 81 Mg Tab Chew) 81 mg PO QDAY LEIGH Last Admin: 10/08/20 09:36 Dose: 81 mg Documented by: Fentanyl (Fentanyl 100 Mcg/2 Ml Inj) 50 mcg IV Q10MIN PRN PRN Reason: ANALGESIA Last Admin: 10/07/20 12:26 Dose: 50 mcg Documented by: Heparin Sodium (Porcine) (Heparin 10,000 Units/10 Ml Vial) 2,000 unit IV SHAILESH PRN PRN Reason: hemodialysis Heparin Sodium (Porcine) (Heparin 5,000 Unit/1 Ml Vial) 5,000 unit SUB-Q Q12HR LEIGH Last Admin: 10/08/20 09:36 Dose: 5,000 unit Documented by: Hydromorphone HCl (Hydromorphone 1 Mg/1 Ml Inj) 0.25 mg IV Q4H PRN PRN Reason: Pain, Moderate (4-6) Last Admin: 10/08/20 13:20 Dose: 0.25 mg Documented by: Hydrophilic Ointment (Lip Therapy Vaseline) 1 applic TP Q2HR PRN PRN Reason: Dry Lips Insulin Human Regular 100 (units/ Sodium Chloride) 100 mls @ 7 mls/hr IV TITR LEIGH; Protocol Last Titration: 10/08/20 15:06 Dose: 5 units/hr, 5 mls/hr Documented by: Sodium Chloride (Nacl 0.9% 1000 Ml) 1,000 mls @ 150 mls/hr IV DIRECT LEIGH Last Admin: 10/08/20 07:43 Dose: 150 mls/hr Documented by: Norepinephrine (Levophed Drip 4 Mg/Ns 250 Ml) 4 mg in 250 mls @ 7.5 mls/hr IV TITR LEIGH; Protocol Last Titration: 10/08/20 15:24 Dose: 2 mcg/min, 7.5 mls/hr Documented by: Sodium Chloride (Nacl 0.9%) 100 mls @ 999 mls/hr IV SHAILESH PRN PRN Reason: Hypotension Dopamine HCl/Dextrose (Intropin Drip 800 Mg/D5w 250 Ml) 800 mg in 250 mls @ 2.576 mls/hr IV TITR LEIGH; Protocol Last Titration: 10/08/20 15:00 Dose: 6 mcg/kg/min, 7.729 mls/hr Documented by: Cefepime HCl (Cefepime/Ns 1 Gm/100 Ml) 1 gm in 100 mls @ 200 mls/hr IV Q24HR LEIGH; Protocol Multi-Ingred Cream/Lotion/Oil/Oint (Mineral Oil/Petrolatum, White Ophth Oint 3.5 Gm) 1 applic OU Q4HR PRN PRN Reason: Dry Eye(s) Sodium Chloride (Sodium Chloride 0.9% 10 Ml Flush Syringe) 10 ml IV BID LEIGH Last Admin: 10/08/20 09:41 Dose: 10 ml Documented by: Sodium Chloride (Sodium Chloride 0.9% 10 Ml Flush Syringe) 10 ml IV PRN PRN PRN Reason: LINE FLUSH Physical Examination Vital signs: Vital Signs Pulse Resp BP 60 18 94/49 10/07/20 08:10 10/07/20 08:10 10/07/20 08:10 Results - Laboratory Findings CBC and BMP: 10/07/20 09:08 10/08/20 03:11 ABG ABG pH 7.454 (7.320-7.450) H 10/08/20 01:50 POC ABG pCO2 28.8 mmHg (32.0-48.0) L 10/08/20 01:50 POC ABG pO2 113.3 mmHg (83-108) H 10/08/20 01:50 POC ABG HCO3 19.7 10/08/20 01:50 ABG O2 Saturation 97.8 (0-100) 10/08/20 01:50 PT/INR, D-dimer PT 21.2 Sec. (12.2-14.9) H 10/07/20 09:08 INR 1.83 (0.87-1.13) H 10/07/20 09:08 Abnormal lab findings: Abnormal Labs 10/07/20 10/07/20 10/07/20 09:08 09:08 09:08 WBC 15.8 H RBC 3.05 L Hgb 9.7 L MCV 108 H RDW 20.9 H Seg Neutrophils % 77.4 H Seg Neutrophils # 12.2 H PT 21.2 H INR 1.83 H APTT 51.1 H ABG pH POC ABG pCO2 POC ABG pO2 ABG Hemoglobin ABG Oxyhemoglobin ABG Sodium ABG Potassium ABG Chloride ABG Glucose Carboxyhemoglobin Sodium 133 L Potassium 8.3 H* Chloride 77.5 L Carbon Dioxide 6 L* BUN 86 H Creatinine 10.6 H Glucose 798 H* POC Glucose Lactic Acid Calcium Phosphorus Magnesium AST 2736 H ALT 1568 H Alkaline Phosphatase 183 H Total Creatine Kinase 444 H CK-MB (CK-2) 8.6 H Troponin T 0.395 H* NT-Pro-B Natriuret Pep 6466 H Total Protein 5.8 L Albumin 2.6 L Triglycerides 246 H HDL Cholesterol 39 L Arterial Blood Glucose Arterial Blood Ionized Calcium 10/07/20 10/07/20 10/07/20 09:08 09:24 10:32 WBC RBC Hgb MCV RDW Seg Neutrophils % Seg Neutrophils # PT INR APTT ABG pH 6.793 L POC ABG pCO2 30.2 L POC ABG pO2 433.9 H ABG Hemoglobin 10.8 L ABG Oxyhemoglobin 99.2 H ABG Sodium 131.7 L ABG Potassium 8.2 H ABG Chloride 85.0 L ABG Glucose Carboxyhemoglobin 0.3 L Sodium Potassium Chloride Carbon Dioxide BUN Creatinine Glucose POC Glucose Lactic Acid Calcium Phosphorus 22.30 H Magnesium 3.10 H 3.10 H AST ALT Alkaline Phosphatase Total Creatine Kinase CK-MB (CK-2) Troponin T NT-Pro-B Natriuret Pep Total Protein Albumin Triglycerides HDL Cholesterol Arterial Blood Glucose Arterial Blood Ionized Calcium 10/07/20 10/07/20 10/07/20 10:32 11:23 11:23 WBC RBC Hgb MCV RDW Seg Neutrophils % Seg Neutrophils # PT INR APTT ABG pH POC ABG pCO2 POC ABG pO2 ABG Hemoglobin ABG Oxyhemoglobin ABG Sodium ABG Potassium ABG Chloride ABG Glucose Carboxyhemoglobin Sodium 131 L 135 L Potassium 8.7 H* 8.5 H* Chloride 76.6 L 78.1 L Carbon Dioxide 6 L* 5 L* BUN 89 H 87 H Creatinine 10.7 H 10.7 H Glucose 967 H* 799 H* POC Glucose Lactic Acid 9.70 H* Calcium Phosphorus Magnesium AST ALT Alkaline Phosphatase Total Creatine Kinase CK-MB (CK-2) Troponin T NT-Pro-B Natriuret Pep Total Protein Albumin Triglycerides HDL Cholesterol Arterial Blood Glucose Arterial Blood Ionized Calcium 10/07/20 10/07/20 10/07/20 13:20 13:58 13:58 WBC RBC Hgb MCV RDW Seg Neutrophils % Seg Neutrophils # PT INR APTT ABG pH POC ABG pCO2 POC ABG pO2 ABG Hemoglobin ABG Oxyhemoglobin ABG Sodium ABG Potassium ABG Chloride ABG Glucose Carboxyhemoglobin Sodium 133 L Potassium 6.8 H* Chloride 82.3 L Carbon Dioxide 8 L* BUN 86 H Creatinine 10.3 H Glucose 868 H* POC Glucose > 600 H Lactic Acid 6.90 H* Calcium Phosphorus Magnesium AST ALT Alkaline Phosphatase Total Creatine Kinase CK-MB (CK-2) Troponin T NT-Pro-B Natriuret Pep Total Protein Albumin Triglycerides HDL Cholesterol Arterial Blood Glucose Arterial Blood Ionized Calcium 10/07/20 10/07/20 10/07/20 14:03 18:01 18:18 WBC RBC Hgb MCV RDW Seg Neutrophils % Seg Neutrophils # PT INR APTT ABG pH 7.175 L POC ABG pCO2 27.4 L POC ABG pO2 ABG Hemoglobin 9.3 L ABG Oxyhemoglobin ABG Sodium 134.0 L ABG Potassium 6.4 H ABG Chloride 89.0 L ABG Glucose Carboxyhemoglobin 0.4 L Sodium 132 L Potassium 5.7 H Chloride 84.5 L Carbon Dioxide 15 L D BUN 91 H Creatinine 10.6 H Glucose 828 H* POC Glucose > 600 H Lactic Acid Calcium 6.7 L D Phosphorus Magnesium AST ALT Alkaline Phosphatase Total Creatine Kinase CK-MB (CK-2) Troponin T NT-Pro-B Natriuret Pep Total Protein Albumin Triglycerides HDL Cholesterol Arterial Blood Glucose Arterial Blood Ionized Calcium 4.4 L 10/07/20 10/07/20 10/07/20 18:18 18:18 22:27 WBC RBC Hgb MCV RDW Seg Neutrophils % Seg Neutrophils # PT INR APTT ABG pH POC ABG pCO2 POC ABG pO2 ABG Hemoglobin ABG Oxyhemoglobin ABG Sodium ABG Potassium ABG Chloride ABG Glucose Carboxyhemoglobin Sodium Potassium Chloride Carbon Dioxide BUN Creatinine Glucose POC Glucose 456 H Lactic Acid 5.00 H* Calcium Phosphorus Magnesium AST ALT Alkaline Phosphatase Total Creatine Kinase CK-MB (CK-2) Troponin T 1.330 H* D NT-Pro-B Natriuret Pep Total Protein Albumin Triglycerides HDL Cholesterol Arterial Blood Glucose Arterial Blood Ionized Calcium 10/08/20 10/08/20 10/08/20 00:13 00:51 01:50 WBC RBC Hgb MCV RDW Seg Neutrophils % Seg Neutrophils # PT INR APTT ABG pH 7.454 H POC ABG pCO2 28.8 L POC ABG pO2 113.3 H ABG Hemoglobin 9.7 L ABG Oxyhemoglobin ABG Sodium 134.1 L ABG Potassium ABG Chloride ABG Glucose 423 H Carboxyhemoglobin 0.3 L Sodium Potassium Chloride Carbon Dioxide BUN Creatinine Glucose POC Glucose 468 H 452 H Lactic Acid Calcium Phosphorus Magnesium AST ALT Alkaline Phosphatase Total Creatine Kinase CK-MB (CK-2) Troponin T NT-Pro-B Natriuret Pep Total Protein Albumin Triglycerides HDL Cholesterol Arterial Blood Glucose 423 H Arterial Blood Ionized Calcium 3.7 L 10/08/20 10/08/20 10/08/20 02:09 03:07 03:11 WBC RBC Hgb MCV RDW Seg Neutrophils % Seg Neutrophils # PT INR APTT ABG pH POC ABG pCO2 POC ABG pO2 ABG Hemoglobin ABG Oxyhemoglobin ABG Sodium ABG Potassium ABG Chloride ABG Glucose Carboxyhemoglobin Sodium Potassium Chloride 96.9 L Carbon Dioxide 18 L BUN 58 H Creatinine 7.8 H Glucose 403 H POC Glucose 445 H 395 H Lactic Acid Calcium 6.9 L Phosphorus 5.80 H D Magnesium AST ALT Alkaline Phosphatase Total Creatine Kinase CK-MB (CK-2) Troponin T NT-Pro-B Natriuret Pep Total Protein Albumin Triglycerides HDL Cholesterol Arterial Blood Glucose Arterial Blood Ionized Calcium 10/08/20 10/08/20 10/08/20 04:02 05:09 06:12 WBC RBC Hgb MCV RDW Seg Neutrophils % Seg Neutrophils # PT INR APTT ABG pH POC ABG pCO2 POC ABG pO2 ABG Hemoglobin ABG Oxyhemoglobin ABG Sodium ABG Potassium ABG Chloride ABG Glucose Carboxyhemoglobin Sodium Potassium Chloride Carbon Dioxide BUN Creatinine Glucose POC Glucose 399 H 339 H 309 H Lactic Acid Calcium Phosphorus Magnesium AST ALT Alkaline Phosphatase Total Creatine Kinase CK-MB (CK-2) Troponin T NT-Pro-B Natriuret Pep Total Protein Albumin Triglycerides HDL Cholesterol Arterial Blood Glucose Arterial Blood Ionized Calcium 10/08/20 10/08/20 10/08/20 07:45 09:27 10:01 WBC RBC Hgb MCV RDW Seg Neutrophils % Seg Neutrophils # PT INR APTT ABG pH POC ABG pCO2 POC ABG pO2 ABG Hemoglobin ABG Oxyhemoglobin ABG Sodium ABG Potassium ABG Chloride ABG Glucose Carboxyhemoglobin Sodium Potassium Chloride Carbon Dioxide BUN Creatinine Glucose POC Glucose 268 H 203 H 174 H Lactic Acid Calcium Phosphorus Magnesium AST ALT Alkaline Phosphatase Total Creatine Kinase CK-MB (CK-2) Troponin T NT-Pro-B Natriuret Pep Total Protein Albumin Triglycerides HDL Cholesterol Arterial Blood Glucose Arterial Blood Ionized Calcium 10/08/20 10/08/20 10/08/20 11:21 12:37 14:20 WBC RBC Hgb MCV RDW Seg Neutrophils % Seg Neutrophils # PT INR APTT ABG pH POC ABG pCO2 POC ABG pO2 ABG Hemoglobin ABG Oxyhemoglobin ABG Sodium ABG Potassium ABG Chloride ABG Glucose Carboxyhemoglobin Sodium Potassium Chloride Carbon Dioxide BUN Creatinine Glucose POC Glucose 182 H 166 H 209 H Lactic Acid Calcium Phosphorus Magnesium AST ALT Alkaline Phosphatase Total Creatine Kinase CK-MB (CK-2) Troponin T NT-Pro-B Natriuret Pep Total Protein Albumin Triglycerides HDL Cholesterol Arterial Blood Glucose Arterial Blood Ionized Calcium 10/08/20 14:58 WBC RBC Hgb MCV RDW Seg Neutrophils % Seg Neutrophils # PT INR APTT ABG pH POC ABG pCO2 POC ABG pO2 ABG Hemoglobin ABG Oxyhemoglobin ABG Sodium ABG Potassium ABG Chloride ABG Glucose Carboxyhemoglobin Sodium Potassium Chloride Carbon Dioxide BUN Creatinine Glucose POC Glucose 173 H Lactic Acid Calcium Phosphorus Magnesium AST ALT Alkaline Phosphatase Total Creatine Kinase CK-MB (CK-2) Troponin T NT-Pro-B Natriuret Pep Total Protein Albumin Triglycerides HDL Cholesterol Arterial Blood Glucose Arterial Blood Ionized Calcium
[2020-10-08] MEDS ORDERED: D5W/0.45% NACL/KCL 20 MEQ 20 MEQ/1,000 ML BAG IV SCH (16:00)
[2020-10-08] MEDS ORDERED: VANCOMYCIN 1,500 MG in SODIUM CHLORIDE 0.9% 500 ML 500 ML IV ONE (16:00)
[2020-10-08] MEDS ORDERED: VANCOMYCIN PHARMACY TO DOSE IV SCH (16:00)
[2020-10-08 16:06] LABS: Calcium 6.9 mg/dL (8.4-10.2)
--- NOTE | 2020-10-08 16:46 | Cat Scan Report ---
CT head/brain wo con INDICATION: post cardiac arrest. TECHNIQUE: All CT scans at this location are performed using CT dose reduction for ALARA by means of automated e xposure control. COMPARISON: None available. FINDINGS: There is extensive hypoattenuation in both cerebral hemispheres as well as in the cerebellar hemisphe res with loss of sulcation suggesting diffuse cerebral and cerebellar edema. There is no hemorrhage o r hydrocephalus. Visualized paranasal sinuses are clear. IMPRESSION: 1. Findings indicative of severe diffuse cerebral and cerebellar edema likely due to global anoxic ev ent. Signer Name: Demarco Stephens MD Signed: 10/08/2020 4:42 PM Workstation Name: [id number]
[2020-10-08] MEDS: CEFEPIME/NS 1 GM/100 ML 1 GM/100 ML BAG IV SCH (17:28)
--- NOTE | 2020-10-08 17:45 | XRay Report ---
ABDOMEN 1 VIEW(S) 10/08/2020 3:17 PM INDICATION: NGT position. COMPARISON: Prior chest radiograph 10/08/2020. FINDINGS: The tip of the nasogastric tube projects over the gastric lumen in appropriate position. Left lower e xtremity venous catheter with its tip projected over the L3 level. Left-sided pulmonary opacities are relatively similar to prior exam.. Signer Name: Pato Curtis MD Signed: 10/08/2020 5:40 PM Workstation Name: [id number]
[2020-10-08] MEDS: D5W/0.2% NACL 1,000 ML IV SCH (18:55)
[2020-10-09] MEDS: INSULIN REGULAR, HUMAN 100 UNITS in SODIUM CHLORIDE 0.9% 99 ML IV SCH (02:10)
--- NOTE | 2020-10-09 02:17 | Consultation ---
DATE OF CONSULTATION: 10/08/2020 PULMONARY CRITICAL CARE CONSULT NOTE CONSULTING PHYSICIAN: Dr. Raad Walker. REASON FOR CONSULTATION: Acute respiratory failure, on mechanical ventilatory support, status post cardiac arrest with return of spontaneous circulation. CHIEF COMPLAINT AND HISTORY OF PRESENT ILLNESS: As follows. The patient is a 55-year-old female with past medical history significant amongst other things for a diagnosis of end-stage renal disease, on dialysis, who presented to the emergency room after being found unresponsive in her bed. The emergency medical services stated that they found the patient in asystole. ACLS was initiated with CPR. She was intubated en route by the emergency medical services. She received four rounds of epinephrine, 1 amp of calcium, amiodarone, and defibrillation and she was found to have a pulse, return of spontaneous circulation. By the time the family came to emergency room, the patient had seemed a little drowsy after being discharged from the hospital earlier and remained that way throughout the morning of presentation, but they never thought that she was in a cardiac arrest or anything like that. She was evaluated in the emergency room and there was a fear for anoxic damage. However, she remained with spontaneous circulation. We are asked to assist with management. When I stopped by to see her, she was resting in bed. She was on vasopressors, dopamine drip, it was going I believe at about 8 mcg per kilogram per minute but with room to wean. She was nonresponsive, not on any sedation. I do not have any history of vomiting or overt aspiration. The above is as much of the history of presentation as I have. PAST MEDICAL HISTORY: 1. End-stage renal disease, on dialysis. 2. Hypertension. 3. Diabetes. 4. She is obese. PAST SURGICAL HISTORY: She has had a dialysis access fistula placed. MEDICATIONS: She was on at the time I stopped by to see according to the medication administration record included the following: Tylenol 650 mg p.o. q.6 hours p.r.n. mild pain or fevers. All p.o. meds via the feeding tube. Albuterol 2.5 mg nebulized q.3 hours p.r.n. shortness of breath, aspirin 81 mg p.o. daily, cefepime 1 gram IV daily, dopamine drip at 8 mcg per kilogram per minute. She was also on IV insulin at 5 units per hour. Heparin 5000 units subQ q.12, Dilaudid 0.25 mg IV every 4 hours p.r.n. severe pain. She had been on a Levophed drip and had been weaned off. ALLERGIES: TO PEANUTS, TO PECAN NUTS, TO WALNUTS, AND LATEX, nature of this allergy is unknown. DIET: Obese lady, acute weight loss or gain history or unknown. FAMILY AND SOCIAL HISTORY: Apparently lives in the community. Alcohol, tobacco, illicit drug use, or abuse history are unknown. Family history is otherwise unknown. REVIEW OF SYSTEMS: Unobtainable secondary to the patient's medical and mental condition. Since she has been here, no gross hematochezia or melena, no gross hematuria, no hematemesis, no bloody tracheal secretions, no witnessed seizures. Review of systems is otherwise unobtainable or as in the body of the history above. PHYSICAL EXAMINATION: VITAL SIGNS: At presentation in the emergency room revealed vital signs show that she was hypothermic, temperature 91.8 degrees Fahrenheit rectally with a pulse of 59, respiratory rate of 18, and blood pressure 86/50, O2 sats 100%, inspired oxygen concentration at that time was not recorded. When I stopped by to see her, O2 sats were 99% that was on the assist control mode of ventilation, rate of 20, tidal volume 450, PEEP of 6 and 30% FIO2. GENERAL: She is a middle-aged female. Normocephalic, atraumatic, on the mechanical ventilator without significant patient-ventilator dyssynchrony. HEAD, EYES, EARS, NOSE, AND THROAT: Anicteric, no conjunctival erythema. Oropharynx was moist. ET tube was taped at the lips around 24 cm. NECK: No gross jugular venous distention, no thyromegaly. Grossly, there were no palpable lymph nodes in the supraclavicular or submandibular lymph node chains. Auscultation of both lung busby unremarkable. LUNGS: Clear bilaterally with good bilateral air movement. HEART: Sounds 1 and 2 are heard, regular rate and rhythm at the time of my evaluation without overt rubs or murmurs. ABDOMEN: Soft, full, bowel sounds are positive, nontender, no palpable hepatosplenomegaly. EXTREMITIES: Without overt digital clubbing or cyanosis, no pedal edema. Pedal pulses are 2+ bilaterally. NEUROLOGIC: Pupils are equal, round, about 6 mm, nonreactive to light. Extraocular muscle movements could not be assessed. She did not have any spontaneous movements to her extremities, but was not posturing. SKIN: The skin was of normal turgor in the areas examined without overt cellulitis or rash. Please see the wound care nurses' notes for full description of the skin. PSYCHIATRIC: Mood and affect could not be assessed. LABORATORY DATA: From my review are as follows: Admission white cell count 15,800, hemoglobin 9.7, hematocrit 32.8, platelet count 198. No manual differential. INR was 1.83. Arterial blood gas at presentation showed a pH of 6.79, pCO2 of 30, pO2 of 434, vent settings at that time are unclear. At presentation, serum sodium was 135, potassium 8.5, chloride 78, bicarbonate 5, BUN 87, creatinine 10.7, glucose was 799. Lactic acid level was 9.7, AST 2736, ALT 1568. Troponin 0.40, albumin 2.6. Hepatitis panel nonreactive. Lactic acid level is down to 5, potassium is down to 5.0. ASSESSMENT: 1. Acute hypoxemic respiratory failure, on mechanical ventilatory support. 2. Cardiac arrest with return of spontaneous circulation. 3. Diabetic ketoacidosis. 4. End-stage renal disease, on dialysis. 5. Severe hyperkalemia at presentation. 6. Severe metabolic acidosis. 7. Acute encephalopathy, likely anoxic encephalopathy. 8. History of diabetes. 9. History of hypertension. 10. Leukocytosis. 11. Bilateral pneumonia. 12. Chest x-ray with upper lobe predominant infiltrates, possibly aspiration in the supine position. 13. Oropharyngeal dysphagia. PLAN: We will keep her on full mechanical ventilatory support at this time. Oxygen has been weaned and will be weaned to keep sats greater than or equal to about 92%. Aspiration precautions will be maintained. Ventilator-associated pneumonia bundle has been instituted. I will go ahead and treat her empirically with Levaquin for community-acquired pneumonia, possibly aspiration and complete 5 days of therapy. A procalcitonin level will be ordered as well as repeat lactate levels to help guide clinical decision making. Volume resuscitation will be continued in the septic state. Because of her renal failure, we will not use potassium in the fluids with DKA protocol. She has been dialyzed, now defer to the resolution analyst for management of azotemia. Enteral nutrition will be the feeding modality of choice. Neurology evaluation is ongoing and she is due to go for further imaging. CT of the brain is pending. Cardiology evaluation has also been placed. Echocardiogram has been done. It shows EF of 45-50%. No LV thrombus, but she does have impaired relaxation and mild diastolic dysfunction. Again, I will defer to cardiology for management. Mental status will be a rate limiting step to safe extubation. Actually she is currently on cefepime. However, I will deescalate to Levaquin and follow clinically. Vasopressors will be weaned to keep mean arterial pressures greater than or equal to 65 mmHg. She is on DVT prophylaxis. I will put her on Pepcid for GI prophylaxis. Flu and pneumonia vaccination will be addressed per protocol. Thank you very much for the consult. We will follow along and make further recommendations as picture progresses/becomes clearer. She is critically ill on life-sustaining interventions including mechanical ventilatory support and vasopressors, at high risk of from cardiopulmonary, renal, and neurologic system decompensation. We will keep the femoral line in place until tomorrow. I do feel we should be able to wean her off the vasopressors and use peripheral lines otherwise a different access position will be sought after. At this time, I spent about 35-40 minutes of critical care time without overlap and excluding any procedural time that may be necessary. TID: [id number] RECEIPT: [id number] DELICIA/STEVAN GRANADOS
--- NOTE | 2020-10-09 02:59 | XRay Report ---
CHEST 1 VIEW 10/09/2020 1:22 AM INDICATION / CLINICAL INFORMATION: follow up respiratory failure. COMPARISON: One view of the chest from 10/08/2020. FINDINGS: SUPPORT DEVICES: Unchanged. HEART / MEDIASTINUM: Stable. LUNGS / PLEURA: Bilateral airspace opacities have improved. No significant pleural effusion. No pneum othorax. ADDITIONAL FINDINGS: No significant additional findings. IMPRESSION: Improved aeration of the lungs without other significant interval changes. Signer Name: Arnoldo Sherman MD Signed: 10/09/2020 2:54 AM Workstation Name: [id number]
[2020-10-09 06:46] LABS: Calcium 7.1 mg/dL (8.4-10.2)
[2020-10-09] MEDS ORDERED: DEXTROSE 50% IN WATER (25GM) 50 ML SYRINGE IV PRN (08:42)
--- NOTE | 2020-10-09 08:58 | Progress Note ---
Assessment and Plan Assessment and plan: The patient is a 55 YO female with history significant for DM type 2 (poorly controlled), HTN, Obesity, Anemia and ESRD on HD (MWF) who was brought into [facility] ED 10/07 s/p Cardiac arrest. Patient was found by family member unresponsive in her bed this morning. EMS was notified and upon arrival the patient was found to be in asystolic arrest. The patient was initiated on ACLS protocol and subsequently transported to the ED for evaluation and treatment. The patient was intubated in the field. Patient was found to have acute hypoxemic respiratory failure and is currently on ventilatory support, multipressor shock, DKA, hyperkalemia and Lactic acidosis. Of note patient recently admitted to [facility] for submandibular gland problem and was discharged the day prior to admission here. Patient had another episode of Cardiac in the ED with downtime of 4 minutes. She was also found to have clotted L arm AVF. Labs in the emergency room significant for bl glu around 900, K 8.5, bicarb 6, Lactic acid 9.7 and leukocytosis. Acute hypoxic respiratory failure Sepsis/septic shock Probable aspiration pneumonia. DKA S/p cardiopulmonary arrest ESRD requiring hemodialysis Hyperkalemia Transaminitis Severe metabolic acidosis Anoxic encephalopathy 10/08/2020. Continue dopamine and Levophed to maintain MAP >65. patient has significant hyperkalemia today and will undergo urgent hemodialysis. Continue bicarbonate drip per nephrology. Patient currently on amiodarone drip. Cardiology consultation pending. Check echocardiogram to assess ventricular function. Neurology consultation for anoxic encephalopathy. Check EEG. Continue insulin drip and transition to long-acting insulin when anion gap is closed. Patient empirically started on Levaquin. ID consultation pending. Patient likely has aspiration pneumonia associated with cardiac arrest. 10/09/2020. CT scan reveals findings indicative of severe diffuse cerebral and cerebellar edema consistent with global anoxic event. Neurology following. EEG pending. ID started the patient on cefepime and vancomycin. Etiology likely aspiration/hospital-acquired pneumonia in the setting of DKA/s/p cardiopulmonary arrest. Echocardiogram revealed left ventricular systolic function borderline with an EF of 45 to 50%. Mild diastolic dysfunction. Probable NSTEMI type II. Cardiology following. Patient with shock multifactorial --sepsis/neurogenic(anoxic injury). Continue vasopressors to maintain MAP > 65. DKA has resolved and patient will be transition from insulin drip to long- acting insulin of 70/30 15 units twice daily. Start sliding scale regular insulin. Overall prognosis is poor. I attempted to contact the daughter Louie Chun at [phone] but no answer. Message left. The high probability of a clinically significant, sudden or life threatening deterioration of the [endocrine, cardiac and pulmonary] system(s) required my full and direct attention, intervention and personal management. The aggregate critical care time was [40] minutes. This time is in addition to time spent performing reported procedures but includes the following: [x] Data Review and interpretation [x] Patient assessment and monitoring of vital signs [x] Documentation [x] Medication orders and management History Interval history: No new issues overnight Hospitalist Physical - Constitutional Vitals: Temp Pulse Resp BP Pulse Ox 97.8 F 63 20 142/91 100 10/09/20 03:30 10/09/20 08:06 10/09/20 08:00 10/09/20 08:06 10/09/20 08:06 General appearance: Present: severe distress - EENT Eyes: Present: PERRL, EOM intact ENT: hearing intact, clear oral mucosa, dentition normal - Neck Neck: Present: supple, normal ROM - Respiratory Respiratory effort: normal Respiratory: bilateral: CTA - Cardiovascular Rhythm: regular Heart Sounds: Present: S1 & S2. Absent: gallop, rub - Extremities Extremities: no ischemia, No edema, Full ROM - Abdominal General gastrointestinal: soft, non-tender, non-distended, normal bowel sounds - Integumentary Integumentary: Present: clear, warm, dry - Neurologic Neurologic: CNII-XII intact, moves all extremities HEART Score - HEART Score Troponin: Troponin T 1.330 ng/mL (0.00-0.029) H* D 10/07/20 18:18 Results - Labs CBC & Chem 7: 10/07/20 09:08 10/09/20 05:40 Labs: Laboratory Last Values WBC 15.8 K/mm3 (4.5-11.0) H 10/07/20 09:08 RBC 3.05 M/mm3 (3.65-5.03) L 10/07/20 09:08 Hgb 9.7 gm/dl (10.1-14.3) L 10/07/20 09:08 Hct 32.8 % (30.3-42.9) 10/07/20 09:08 MCV 108 fl (79-97) H 10/07/20 09:08 MCH 32 pg (28-32) 10/07/20 09:08 MCHC 30 % (30-34) 10/07/20 09:08 RDW 20.9 % (13.2-15.2) H 10/07/20 09:08 Plt Count 198 K/mm3 (140-440) 10/07/20 09:08 Lymph % (Auto) 18.1 % (13.4-35.0) 10/07/20 09:08 [place] % (Auto) 3.6 % (0.0-7.3) 10/07/20 09:08 Eos % (Auto) 0.5 % (0.0-4.3) 10/07/20 09:08 Baso % (Auto) 0.4 % (0.0-1.8) 10/07/20 09:08 Lymph # (Auto) 2.9 K/mm3 (1.2-5.4) 10/07/20 09:08 Trinity # (Auto) 0.6 K/mm3 (0.0-0.8) 10/07/20 09:08 Eos # (Auto) 0.1 K/mm3 (0.0-0.4) 10/07/20 09:08 Baso # (Auto) 0.1 K/mm3 (0.0-0.1) 10/07/20 09:08 Seg Neutrophils % 77.4 % (40.0-70.0) H 10/07/20 09:08 Seg Neutrophils # 12.2 K/mm3 (1.8-7.7) H 10/07/20 09:08 PT 21.2 Sec. (12.2-14.9) H 10/07/20 09:08 INR 1.83 (0.87-1.13) H 10/07/20 09:08 APTT 51.1 Sec. (24.2-36.6) H 10/07/20 09:08 ABG pH 7.454 (7.320-7.450) H 10/08/20 01:50 POC ABG pCO2 28.8 mmHg (32.0-48.0) L 10/08/20 01:50 POC ABG pO2 113.3 mmHg (83-108) H 10/08/20 01:50 POC ABG HCO3 19.7 10/08/20 01:50 ABG O2 Saturation 97.8 (0-100) 10/08/20 01:50 POC ABG Base Excess -3.4 10/08/20 01:50 ABG Hemoglobin 9.7 (12.0-17.5) L 10/08/20 01:50 ABG Oxyhemoglobin 97.2 (94-98) 10/08/20 01:50 ABG Methemoglobin 0.3 (0.0-1.5) 10/08/20 01:50 ABG Sodium 134.1 mmol/L (136.0-145.0) L 10/08/20 01:50 ABG Potassium 4.5 mmol/L (3.40-4.50) 10/08/20 01:50 ABG Chloride 101.0 mmol/L (98-107) 10/08/20 01:50 ABG Glucose 423 mg/dL (65-95) H 10/08/20 01:50 Carboxyhemoglobin 0.3 (0.5-1.5) L 10/08/20 01:50 FiO2 % 40.0 10/08/20 01:50 Sodium 136 mmol/L (137-145) L 10/09/20 05:40 Potassium 3.1 mmol/L (3.6-5.0) L 10/09/20 05:40 Chloride 98.6 mmol/L (98-107) 10/09/20 05:40 Carbon Dioxide 22 mmol/L (22-30) 10/09/20 05:40 Anion Gap 19 mmol/L 10/09/20 05:40 BUN 30 mg/dL (7-17) H 10/09/20 05:40 Creatinine 5.2 mg/dL (0.6-1.2) H 10/09/20 05:40 Estimated GFR 10 ml/min 10/09/20 05:40 BUN/Creatinine Ratio 6 % 10/09/20 05:40 Glucose 181 mg/dL (65-100) H 10/09/20 05:40 POC Glucose 198 mg/dL (70-105) H 10/08/20 23:12 Lactic Acid 3.80 mmol/L (0.7-2.0) H* 10/09/20 05:40 Calcium 7.1 mg/dL (8.4-10.2) L 10/09/20 05:40 Phosphorus 3.20 mg/dL (2.5-4.5) D 10/09/20 05:40 Magnesium 3.10 mg/dL (1.7-2.3) H 10/07/20 10:32 Total Bilirubin 0.50 mg/dL (0.1-1.2) 10/07/20 09:08 AST 2736 units/L (5-40) H 10/07/20 09:08 ALT 1568 units/L (7-56) H 10/07/20 09:08 Alkaline Phosphatase 183 units/L (35-129) H 10/07/20 09:08 Total Creatine Kinase 444 units/L (30-135) H 10/07/20 09:08 CK-MB (CK-2) 8.6 ng/mL (0.0-4.0) H 10/07/20 09:08 CK-MB (CK-2) Rel Index 1.9 (0-4) 10/07/20 09:08 Troponin T 1.330 ng/mL (0.00-0.029) H* D 10/07/20 18:18 NT-Pro-B Natriuret Pep 6466 pg/mL (0-900) H 10/07/20 09:08 Total Protein 5.8 g/dL (6.3-8.2) L 10/07/20 09:08 Albumin 2.6 g/dL (3.9-5) L 10/07/20 09:08 Albumin/Globulin Ratio 0.8 % 10/07/20 09:08 Triglycerides 246 mg/dL (2-149) H 10/07/20 09:08 Cholesterol 189 mg/dL (50-199) 10/07/20 09:08 LDL Cholesterol Direct 98 mg/dL (50-130) 10/07/20 09:08 HDL Cholesterol 39 mg/dL (40-59) L 10/07/20 09:08 Cholesterol/HDL Ratio 4.84 % 10/07/20 09:08 Procalcitonin 114.59 ng/mL (<0.15) 10/08/20 15:08 TSH 0.562 mlU/mL (0.270-4.200) 10/08/20 15:08 Arterial Blood Glucose 423 mg/dL (65-95) H 10/08/20 01:50 Arterial Blood Ionized Calcium 3.7 mg/dL (4.6-5.3) L 10/08/20 01:50 Coronavirus (PCR) Negative (Negative) 10/08/20 Unknown Hepatitis A IgM Ab Non-reactive (NonReactive) 10/07/20 17:25 Hep Bs Antigen Non-reactive (Negative) 10/07/20 17:25 Hep B Core IgM Ab Non-reactive (NonReactive) 10/07/20 17:25 Hepatitis C Antibody Non-reactive (NonReactive) 10/07/20 17:25 Blood Type O POSITIVE 10/07/20 11:40 Antibody Screen Negative 10/07/20 11:40 Microbiology: Microbiology 10/07/20 12:10 Peripheral/Venous Blood Culture - Preliminary NO GROWTH AFTER 24 HOURS 10/07/20 12:10 Peripheral/Venous Blood Culture - Preliminary NO GROWTH AFTER 24 HOURS 10/07/20 Unknown Sputum - Endotracheal Wash Sputum Culture - Preliminary Nash/IV: Voiding Method Indwelling Catheter Active Medications - Current Medications Current Medications: Generic Name Dose Route Start Last Admin Trade Name Freq PRN Reason Stop Dose Admin Acetaminophen 650 mg 10/07/20 11:12 Acetaminophen 325 Mg Tab PO Q6H PRN Pain, Mild (1-3) Albuterol 2.5 mg 10/07/20 11:09 Albuterol 2.5 Mg/3 Ml Nebu IH Q3HRT PRN Shortness Of Breath Aspirin 81 mg 10/08/20 10:00 10/08/20 09:36 Aspirin 81 Mg Tab Chew PO 81 mg QDAY LEIGH Administration Fentanyl 50 mcg 10/07/20 11:11 10/07/20 12:26 Fentanyl 100 Mcg/2 Ml Inj IV 50 mcg Q10MIN PRN Administration ANALGESIA Heparin Sodium (Porcine) 2,000 unit 10/07/20 18:10 Heparin 10,000 Units/10 Ml Vial IV SHAILESH PRN hemodialysis Heparin Sodium (Porcine) 5,000 unit 10/08/20 10:00 10/08/20 22:39 Heparin 5,000 Unit/1 Ml Vial SUB-Q 5,000 unit Q12HR LEIGH Administration Hydromorphone HCl 0.25 mg 10/07/20 11:12 10/08/20 13:20 Hydromorphone 1 Mg/1 Ml Inj IV 0.25 mg Q4H PRN Administration Pain, Moderate (4-6) Hydrophilic Ointment 1 applic 10/07/20 11:11 Lip Therapy Vaseline TP Q2HR PRN Dry Lips Insulin Human Regular 100 100 mls @ 7 mls/hr 10/07/20 11:00 10/09/20 08:34 units/ Sodium Chloride IV 7 units/hr TITR LEIGH 7 mls/hr Titration Protocol 7 UNITS/HR Sodium Chloride 1,000 mls @ 150 mls/hr 10/07/20 11:15 10/08/20 07:43 Nacl 0.9% 1000 Ml IV 150 mls/hr DIRECT LEIGH Administration Norepinephrine 4 mg in 250 mls @ 7.5 mls/hr 10/07/20 09:00 10/08/20 23:11 Levophed Drip 4 Mg/Ns 250 Ml IV 3 mcg/min TITR LEIGH 11.25 mls/hr Titration Protocol 2 MCG/MIN Sodium Chloride 100 mls @ 999 mls/hr 10/07/20 18:10 Nacl 0.9% IV SHAILESH PRN Hypotension Dopamine HCl/Dextrose 800 mg in 250 mls @ 2.576 mls/hr 10/08/20 11:00 10/08/20 17:45 Intropin Drip 800 Mg/D5w 250 Ml IV 4 mcg/kg/min TITR LEIGH 5.153 mls/hr Titration Protocol 2 MCG/KG/MIN Cefepime HCl 1 gm in 100 mls @ 200 mls/hr 10/08/20 18:00 10/08/20 17:28 Cefepime/Ns 1 Gm/100 Ml IV 200 mls/hr Q24H LEIGH Administration Protocol Potassium Chloride/Dextrose/Sod Cl 20 meq in 1,000 mls @ 125 mls/hr 10/08/20 16:00 D5w/0.45% Nacl/Kcl 20 Meq IV DIRECT LEIGH Dextrose/Sodium Chloride 1,000 mls @ 100 mls/hr 10/08/20 17:00 10/08/20 18:55 D5ns 0.2% IV 100 mls/hr DIRECT LEIGH Administration Levofloxacin 750 mg 10/09/20 16:00 Levofloxacin 750 Mg Tab PO 10/13/20 16:01 Q48H LEIGH Protocol Multi-Ingred Cream/Lotion/Oil/Oint 1 applic 10/07/20 11:11 Mineral Oil/Petrolatum, White Ophth Oint 3.5 Gm OU Q4HR PRN Dry Eye(s) Sodium Chloride 10 ml 10/07/20 22:00 10/08/20 22:40 Sodium Chloride 0.9% 10 Ml Flush Syringe IV 10 ml BID LEIGH Administration Sodium Chloride 10 ml 10/07/20 11:09 Sodium Chloride 0.9% 10 Ml Flush Syringe IV PRN PRN LINE FLUSH Nutrition/Malnutrition Assess - Dietary Evaluation Nutrition/Malnutrition Findings: Nutrition Notes Start: 10/08/20 12:19 Freq: Status: Active Protocol: Document 10/08/20 12:20 AL (Rec: 10/08/20 12:33 AL [id number]) Co-Sign 10/08/20 12:20 CW Nutrition Notes Need for Assessment generated from: MD Order Initial or Follow up Assessment Current Diagnosis CKD (stage V CKD),Diabetes, Sepsis,Hypertension, Respiratory Failure, Hyperlipidemia Other Pertinent Diagnosis DKA, AMS, TN, on HD Current Diet NPO Labs/Tests BUN 58 Cr 7.8 BG 403 Phos 6.9 Pertinent Medications Levophed 22.5 ml/hr NS 150 ml/hr Insulin Drip Dopamine Height 5 ft 3 in Weight 70.4 kg [place] Body Weight (kg) 52.27 BMI 27.5 Weight change and time frame wt gain of 1.7 kg (2.5%) noted . Weight Status Overweight Subjective/Other Information MD consult for evaluation of nutritional intake. Pt intubated. Burn Absent Trauma Absent Food Allergy Yes Current % PO Negligible Minimum of two criteria No physical signs of malnutrition #1 Nutrition Diagnosis Inadequate oral intake Etiology Respiratory Failure As Evidenced by Signs and Symptoms Pt is intubated and unable to consume PO Is patient on ventilator? Yes Is Patient Ambulatory and/or Out of Bed No REE-([facility]-confined to bed) [phone] Calculation Used for Recommendations [facility] Additional Notes Protein: 85-171 g (1.2-2.0 g/ kg) Fluid: 1 ml/kcal Nutrition Intervention Change Diet Order: TF Nutrition Support: Recommend Nepro 1.8 at 40 ml/ hr Flush 140 ml q4h Kcal 1,728 Protein (gm) 78 Fluid (mL) 698 Goal #1 Advance diet to Renal or TF when medically feasible. Anticipated Discharge Needs: Unable to determine at this time. Follow-Up By: 10/11/20 Additional Comments F/U for TF consult, vent status
[2020-10-09] MEDS: HEPARIN 5,000 UNIT/1 ML VIAL SUB-Q SCH ×2 (09:13→21:36)
[2020-10-09] MEDS: ASPIRIN 81 MG TAB CHEW PO SCH (09:13)
[2020-10-09] MEDS ORDERED: INSULIN NPH/REGULAR 70/30 INJ SUB-Q ONE (10:00)
[2020-10-09] MEDS: INSULIN REGULAR, HUMAN 100 UNITS/1 ML SUB-Q SCH ×4 (10:05→22:29)
[2020-10-09] MEDS ORDERED: SODIUM BICARBONATE 325 MG TAB FEEDTUBE PRN (11:14)
[2020-10-09] MEDS ORDERED: SIMPLE SYRUP 15 ML FEEDTUBE PRN ×2 (11:14)
[2020-10-09] MEDS ORDERED: LIPASE 10,500/PROTEASE 25,000/AMYLASE 43,750 (UNITS) DR CAP FEEDTUBE PRN (11:14)
--- NOTE | 2020-10-09 12:57 | Progress Note ---
Assessment and Plan Assessment and Plan # Anoxic brain injury/ s/p cardiac arrest in field -pt. was resucited in field and on route she is intubated and unresponsive EXAM today is suggestive of brain with absent all brain stem reflexes But pt. is with renal isnsuff. -Supportive care. - Neuro check, - head CT consistent with brain edema -No sedation -consider EEG # Acute respiratory failure -Patient intubated and ambulatory support. -Critical care team consulted, wean vent as tolerated, -daily ABG, -spontaneous breathing trial, -sedation holiday. # Cardiac arrest -Patient treated in accordance with ACLS protocol with return of perfusing cardiac rhythm. - Patient currently on inotropic support. - Cardiology team consulted. # Sepsis -Sepsis protocol: -Chest x-ray, CBC, urinalysis, - IV fluid resuscitation therapy, IV antibiotic therapy, IV pressor support, bret ntain mean arterial pressure greater than or equal to 65, -monitor urine output every shift, - blood culture, # DKA (diabetic ketoacidoses) -DKA protocol: - IV fluid resuscitation therapy, - insulin drip, -serial lactic acid level, -monitor anion gap, - serial BMP. - Potassium replacement per protocol. # ESRD needing dialysis -Nephrology team consulted, -vascular surgery team consulted, # Elevated LFTs -Suspect secondary to shock liver status post cardiac arrest, - supportive care. # Metabolic acidosis -IV bicarbonate therapy, -BMP, repeat BMP in a.m. -Serial lactic acid level. # DVT prophylaxis -SCD to bilateral lower extremities while in bed. The high probability of a clinically significant, sudden or life threatening deterioration of the [neuro, cardiac, renal, pulmonary] system(s) required my full and direct attention, intervention and personal management. The aggregate critical care time was [45] minutes. This time is in addition to time spent performing reported procedures but includes the following: [x] Data Review and interpretation [x] Patient assessment and monitoring of vital signs [x] Documentation [x] Medication orders and management PLAN 1- poor prognsis 2- Correct electrolytes abn. as possible 3- Consider CTA blood brain flow am to confirm brain if needed --- clinically is suggestive of above will follow Subjective Date of service: 10/09/20 Principal diagnosis: s/p Cardiac Arrest Interval history: pt. status is worse today pupils are dialted and fixed NO EOM is noted No Gag no sponatneous breathing is noted EEG not done BUN/Cr# 3/5.2 Lactic acid #3.6 Troponin#0.545 Objective - Vital Sign Vital Signs - 12hr 10/09/20 10/09/20 10/09/20 01:00 01:15 01:30 Temperature Pulse Rate 71 70 70 Pulse Rate [ From Monitor] Respiratory 16 16 16 Rate Blood Pressure 147/92 144/92 139/91 O2 Sat by Pulse 100 100 100 Oximetry 10/09/20 10/09/20 10/09/20 01:45 02:00 02:15 Temperature Pulse Rate 70 69 68 Pulse Rate [ From Monitor] Respiratory 16 16 16 Rate Blood Pressure 138/88 132/86 128/85 O2 Sat by Pulse 100 100 100 Oximetry 10/09/20 10/09/20 10/09/20 02:30 02:45 03:00 Temperature Pulse Rate 67 67 67 Pulse Rate [ From Monitor] Respiratory 16 16 16 Rate Blood Pressure 124/82 127/83 126/84 O2 Sat by Pulse 100 100 100 Oximetry 10/09/20 10/09/20 10/09/20 03:15 03:30 03:33 Temperature 97.8 F Pulse Rate 66 66 Pulse Rate [ From Monitor] Respiratory 16 16 Rate Blood Pressure 128/86 129/84 129/84 O2 Sat by Pulse 100 100 100 Oximetry 10/09/20 10/09/20 10/09/20 03:45 04:00 04:15 Temperature Pulse Rate 66 118 H 66 Pulse Rate [ 67 From Monitor] Respiratory 16 16 16 Rate Blood Pressure 127/84 128/85 131/85 O2 Sat by Pulse 100 100 100 Oximetry 10/09/20 10/09/20 10/09/20 04:30 04:45 05:00 Temperature Pulse Rate 66 66 66 Pulse Rate [ From Monitor] Respiratory 16 16 16 Rate Blood Pressure 131/84 130/85 133/86 O2 Sat by Pulse 100 100 100 Oximetry 10/09/20 10/09/20 10/09/20 05:15 05:30 05:45 Temperature Pulse Rate 65 65 63 Pulse Rate [ From Monitor] Respiratory 16 16 16 Rate Blood Pressure 131/87 133/87 122/81 O2 Sat by Pulse 100 100 100 Oximetry 10/09/20 10/09/20 10/09/20 06:00 06:15 06:30 Temperature Pulse Rate 65 65 65 Pulse Rate [ From Monitor] Respiratory 16 15 16 Rate Blood Pressure 133/87 136/88 134/89 O2 Sat by Pulse 100 100 100 Oximetry 10/09/20 10/09/20 10/09/20 06:45 07:00 07:15 Temperature Pulse Rate 65 64 64 Pulse Rate [ From Monitor] Respiratory 16 16 16 Rate Blood Pressure 137/89 136/91 139/91 O2 Sat by Pulse 100 100 100 Oximetry 10/09/20 10/09/20 10/09/20 07:30 07:45 08:00 Temperature 97.4 F L Pulse Rate 64 64 64 Pulse Rate [ 63 From Monitor] Respiratory 16 16 16 Rate Blood Pressure 136/92 141/90 142/91 O2 Sat by Pulse 100 100 100 Oximetry 10/09/20 10/09/20 10/09/20 08:06 08:15 08:30 Temperature Pulse Rate 63 63 63 Pulse Rate [ From Monitor] Respiratory 11 L 16 Rate Blood Pressure 142/91 143/92 139/88 O2 Sat by Pulse 100 100 100 Oximetry 10/09/20 10/09/20 10/09/20 08:45 09:00 09:15 Temperature Pulse Rate 63 63 63 Pulse Rate [ From Monitor] Respiratory 16 16 16 Rate Blood Pressure 142/92 144/91 144/93 O2 Sat by Pulse 100 100 100 Oximetry 10/09/20 10/09/20 10/09/20 09:20 09:30 09:45 Temperature Pulse Rate 63 64 Pulse Rate [ From Monitor] Respiratory 0 L 16 16 Rate Blood Pressure 133/87 139/91 O2 Sat by Pulse 100 100 Oximetry 10/09/20 10/09/20 10/09/20 10:00 10:15 10:30 Temperature Pulse Rate 64 64 63 Pulse Rate [ From Monitor] Respiratory 16 16 16 Rate Blood Pressure 147/94 152/95 154/91 O2 Sat by Pulse 100 100 100 Oximetry 10/09/20 10/09/20 10/09/20 10:45 11:00 11:15 Temperature Pulse Rate 63 62 57 L Pulse Rate [ From Monitor] Respiratory 16 16 16 Rate Blood Pressure 157/95 162/95 128/76 O2 Sat by Pulse 100 100 100 Oximetry 10/09/20 10/09/20 10/09/20 11:30 11:45 12:00 Temperature Pulse Rate 54 L 55 L 55 L Pulse Rate [ 55 L From Monitor] Respiratory 16 16 16 Rate Blood Pressure 133/83 129/81 138/84 O2 Sat by Pulse 100 100 100 Oximetry 10/09/20 10/09/20 10/09/20 12:15 12:28 12:30 Temperature Pulse Rate 55 L 55 L 55 L Pulse Rate [ From Monitor] Respiratory 16 16 Rate Blood Pressure 137/85 138/84 137/83 O2 Sat by Pulse 100 100 100 Oximetry - General Apperance Constitutional: comfortable - EENT EENT: other (pupils 4 mm fixed , no EOM is note, No gag, no spont. breathing is noted) - Neurologic Detailed motor examination: other (no movment to stimuli is noted) - Laboratory Findings CBC and BMP: 10/07/20 09:08 10/09/20 05:40 Abnormal Lab Findings: Abnormal Labs 10/07/20 10/07/20 10/07/20 09:08 09:08 09:08 WBC 15.8 H RBC 3.05 L Hgb 9.7 L MCV 108 H RDW 20.9 H Seg Neutrophils % 77.4 H Seg Neutrophils # 12.2 H PT 21.2 H INR 1.83 H APTT 51.1 H ABG pH POC ABG pCO2 POC ABG pO2 ABG Hemoglobin ABG Oxyhemoglobin ABG Sodium ABG Potassium ABG Chloride ABG Glucose Carboxyhemoglobin Sodium 133 L Potassium 8.3 H* Chloride 77.5 L Carbon Dioxide 6 L* BUN 86 H Creatinine 10.6 H Glucose 798 H* POC Glucose Lactic Acid Calcium Phosphorus Magnesium AST 2736 H ALT 1568 H Alkaline Phosphatase 183 H Total Creatine Kinase 444 H CK-MB (CK-2) 8.6 H Troponin T 0.395 H* NT-Pro-B Natriuret Pep 6466 H Total Protein 5.8 L Albumin 2.6 L Triglycerides 246 H HDL Cholesterol 39 L Arterial Blood Glucose Arterial Blood Ionized Calcium 10/07/20 10/07/20 10/07/20 09:08 09:24 10:32 WBC RBC Hgb MCV RDW Seg Neutrophils % Seg Neutrophils # PT INR APTT ABG pH 6.793 L POC ABG pCO2 30.2 L POC ABG pO2 433.9 H ABG Hemoglobin 10.8 L ABG Oxyhemoglobin 99.2 H ABG Sodium 131.7 L ABG Potassium 8.2 H ABG Chloride 85.0 L ABG Glucose Carboxyhemoglobin 0.3 L Sodium Potassium Chloride Carbon Dioxide BUN Creatinine Glucose POC Glucose Lactic Acid Calcium Phosphorus 22.30 H Magnesium 3.10 H 3.10 H AST ALT Alkaline Phosphatase Total Creatine Kinase CK-MB (CK-2) Troponin T NT-Pro-B Natriuret Pep Total Protein Albumin Triglycerides HDL Cholesterol Arterial Blood Glucose Arterial Blood Ionized Calcium 10/07/20 10/07/20 10/07/20 10:32 11:23 11:23 WBC RBC Hgb MCV RDW Seg Neutrophils % Seg Neutrophils # PT INR APTT ABG pH POC ABG pCO2 POC ABG pO2 ABG Hemoglobin ABG Oxyhemoglobin ABG Sodium ABG Potassium ABG Chloride ABG Glucose Carboxyhemoglobin Sodium 131 L 135 L Potassium 8.7 H* 8.5 H* Chloride 76.6 L 78.1 L Carbon Dioxide 6 L* 5 L* BUN 89 H 87 H Creatinine 10.7 H 10.7 H Glucose 967 H* 799 H* POC Glucose Lactic Acid 9.70 H* Calcium Phosphorus Magnesium AST ALT Alkaline Phosphatase Total Creatine Kinase CK-MB (CK-2) Troponin T NT-Pro-B Natriuret Pep Total Protein Albumin Triglycerides HDL Cholesterol Arterial Blood Glucose Arterial Blood Ionized Calcium 10/07/20 10/07/20 10/07/20 13:20 13:58 13:58 WBC RBC Hgb MCV RDW Seg Neutrophils % Seg Neutrophils # PT INR APTT ABG pH POC ABG pCO2 POC ABG pO2 ABG Hemoglobin ABG Oxyhemoglobin ABG Sodium ABG Potassium ABG Chloride ABG Glucose Carboxyhemoglobin Sodium 133 L Potassium 6.8 H* Chloride 82.3 L Carbon Dioxide 8 L* BUN 86 H Creatinine 10.3 H Glucose 868 H* POC Glucose > 600 H Lactic Acid 6.90 H* Calcium Phosphorus Magnesium AST ALT Alkaline Phosphatase Total Creatine Kinase CK-MB (CK-2) Troponin T NT-Pro-B Natriuret Pep Total Protein Albumin Triglycerides HDL Cholesterol Arterial Blood Glucose Arterial Blood Ionized Calcium 10/07/20 10/07/20 10/07/20 14:03 18:01 18:18 WBC RBC Hgb MCV RDW Seg Neutrophils % Seg Neutrophils # PT INR APTT ABG pH 7.175 L POC ABG pCO2 27.4 L POC ABG pO2 ABG Hemoglobin 9.3 L ABG Oxyhemoglobin ABG Sodium 134.0 L ABG Potassium 6.4 H ABG Chloride 89.0 L ABG Glucose Carboxyhemoglobin 0.4 L Sodium 132 L Potassium 5.7 H Chloride 84.5 L Carbon Dioxide 15 L D BUN 91 H Creatinine 10.6 H Glucose 828 H* POC Glucose > 600 H Lactic Acid Calcium 6.7 L D Phosphorus Magnesium AST ALT Alkaline Phosphatase Total Creatine Kinase CK-MB (CK-2) Troponin T NT-Pro-B Natriuret Pep Total Protein Albumin Triglycerides HDL Cholesterol Arterial Blood Glucose Arterial Blood Ionized Calcium 4.4 L 10/07/20 10/07/20 10/07/20 18:18 18:18 22:27 WBC RBC Hgb MCV RDW Seg Neutrophils % Seg Neutrophils # PT INR APTT ABG pH POC ABG pCO2 POC ABG pO2 ABG Hemoglobin ABG Oxyhemoglobin ABG Sodium ABG Potassium ABG Chloride ABG Glucose Carboxyhemoglobin Sodium Potassium Chloride Carbon Dioxide BUN Creatinine Glucose POC Glucose 456 H Lactic Acid 5.00 H* Calcium Phosphorus Magnesium AST ALT Alkaline Phosphatase Total Creatine Kinase CK-MB (CK-2) Troponin T 1.330 H* D NT-Pro-B Natriuret Pep Total Protein Albumin Triglycerides HDL Cholesterol Arterial Blood Glucose Arterial Blood Ionized Calcium 10/08/20 10/08/20 10/08/20 00:13 00:51 01:50 WBC RBC Hgb MCV RDW Seg Neutrophils % Seg Neutrophils # PT INR APTT ABG pH 7.454 H POC ABG pCO2 28.8 L POC ABG pO2 113.3 H ABG Hemoglobin 9.7 L ABG Oxyhemoglobin ABG Sodium 134.1 L ABG Potassium ABG Chloride ABG Glucose 423 H Carboxyhemoglobin 0.3 L Sodium Potassium Chloride Carbon Dioxide BUN Creatinine Glucose POC Glucose 468 H 452 H Lactic Acid Calcium Phosphorus Magnesium AST ALT Alkaline Phosphatase Total Creatine Kinase CK-MB (CK-2) Troponin T NT-Pro-B Natriuret Pep Total Protein Albumin Triglycerides HDL Cholesterol Arterial Blood Glucose 423 H Arterial Blood Ionized Calcium 3.7 L 10/08/20 10/08/20 10/08/20 02:09 03:07 03:11 WBC RBC Hgb MCV RDW Seg Neutrophils % Seg Neutrophils # PT INR APTT ABG pH POC ABG pCO2 POC ABG pO2 ABG Hemoglobin ABG Oxyhemoglobin ABG Sodium ABG Potassium ABG Chloride ABG Glucose Carboxyhemoglobin Sodium Potassium Chloride 96.9 L Carbon Dioxide 18 L BUN 58 H Creatinine 7.8 H Glucose 403 H POC Glucose 445 H 395 H Lactic Acid Calcium 6.9 L Phosphorus 5.80 H D Magnesium AST ALT Alkaline Phosphatase Total Creatine Kinase CK-MB (CK-2) Troponin T NT-Pro-B Natriuret Pep Total Protein Albumin Triglycerides HDL Cholesterol Arterial Blood Glucose Arterial Blood Ionized Calcium 10/08/20 10/08/20 10/08/20 04:02 05:09 06:12 WBC RBC Hgb MCV RDW Seg Neutrophils % Seg Neutrophils # PT INR APTT ABG pH POC ABG pCO2 POC ABG pO2 ABG Hemoglobin ABG Oxyhemoglobin ABG Sodium ABG Potassium ABG Chloride ABG Glucose Carboxyhemoglobin Sodium Potassium Chloride Carbon Dioxide BUN Creatinine Glucose POC Glucose 399 H 339 H 309 H Lactic Acid Calcium Phosphorus Magnesium AST ALT Alkaline Phosphatase Total Creatine Kinase CK-MB (CK-2) Troponin T NT-Pro-B Natriuret Pep Total Protein Albumin Triglycerides HDL Cholesterol Arterial Blood Glucose Arterial Blood Ionized Calcium 10/08/20 10/08/20 10/08/20 07:45 09:27 10:01 WBC RBC Hgb MCV RDW Seg Neutrophils % Seg Neutrophils # PT INR APTT ABG pH POC ABG pCO2 POC ABG pO2 ABG Hemoglobin ABG Oxyhemoglobin ABG Sodium ABG Potassium ABG Chloride ABG Glucose Carboxyhemoglobin Sodium Potassium Chloride Carbon Dioxide BUN Creatinine Glucose POC Glucose 268 H 203 H 174 H Lactic Acid Calcium Phosphorus Magnesium AST ALT Alkaline Phosphatase Total Creatine Kinase CK-MB (CK-2) Troponin T NT-Pro-B Natriuret Pep Total Protein Albumin Triglycerides HDL Cholesterol Arterial Blood Glucose Arterial Blood Ionized Calcium 10/08/20 10/08/20 10/08/20 11:21 12:37 14:20 WBC RBC Hgb MCV RDW Seg Neutrophils % Seg Neutrophils # PT INR APTT ABG pH POC ABG pCO2 POC ABG pO2 ABG Hemoglobin ABG Oxyhemoglobin ABG Sodium ABG Potassium ABG Chloride ABG Glucose Carboxyhemoglobin Sodium Potassium Chloride Carbon Dioxide BUN Creatinine Glucose POC Glucose 182 H 166 H 209 H Lactic Acid Calcium Phosphorus Magnesium AST ALT Alkaline Phosphatase Total Creatine Kinase CK-MB (CK-2) Troponin T NT-Pro-B Natriuret Pep Total Protein Albumin Triglycerides HDL Cholesterol Arterial Blood Glucose Arterial Blood Ionized Calcium 10/08/20 10/08/20 10/08/20 14:58 15:08 16:32 WBC RBC Hgb MCV RDW Seg Neutrophils % Seg Neutrophils # PT INR APTT ABG pH POC ABG pCO2 POC ABG pO2 ABG Hemoglobin ABG Oxyhemoglobin ABG Sodium ABG Potassium ABG Chloride ABG Glucose Carboxyhemoglobin Sodium 135 L Potassium Chloride 97.5 L Carbon Dioxide 19 L BUN 26 H Creatinine 4.1 H Glucose 183 H POC Glucose 173 H 177 H Lactic Acid Calcium 6.9 L Phosphorus Magnesium AST ALT Alkaline Phosphatase Total Creatine Kinase CK-MB (CK-2) Troponin T NT-Pro-B Natriuret Pep Total Protein Albumin Triglycerides HDL Cholesterol Arterial Blood Glucose Arterial Blood Ionized Calcium 10/08/20 10/08/20 10/08/20 17:42 18:09 20:11 WBC RBC Hgb MCV RDW Seg Neutrophils % Seg Neutrophils # PT INR APTT ABG pH POC ABG pCO2 POC ABG pO2 ABG Hemoglobin ABG Oxyhemoglobin ABG Sodium ABG Potassium ABG Chloride ABG Glucose Carboxyhemoglobin Sodium Potassium Chloride Carbon Dioxide BUN Creatinine Glucose POC Glucose 172 H 176 H 186 H Lactic Acid Calcium Phosphorus Magnesium AST ALT Alkaline Phosphatase Total Creatine Kinase CK-MB (CK-2) Troponin T NT-Pro-B Natriuret Pep Total Protein Albumin Triglycerides HDL Cholesterol Arterial Blood Glucose Arterial Blood Ionized Calcium 10/08/20 10/08/20 10/08/20 20:57 21:56 23:12 WBC RBC Hgb MCV RDW Seg Neutrophils % Seg Neutrophils # PT INR APTT ABG pH POC ABG pCO2 POC ABG pO2 ABG Hemoglobin ABG Oxyhemoglobin ABG Sodium ABG Potassium ABG Chloride ABG Glucose Carboxyhemoglobin Sodium Potassium Chloride Carbon Dioxide BUN Creatinine Glucose POC Glucose 177 H 211 H 198 H Lactic Acid Calcium Phosphorus Magnesium AST ALT Alkaline Phosphatase Total Creatine Kinase CK-MB (CK-2) Troponin T NT-Pro-B Natriuret Pep Total Protein Albumin Triglycerides HDL Cholesterol Arterial Blood Glucose Arterial Blood Ionized Calcium 10/08/20 10/09/20 10/09/20 23:55 00:02 01:02 WBC RBC Hgb MCV RDW Seg Neutrophils % Seg Neutrophils # PT INR APTT ABG pH POC ABG pCO2 POC ABG pO2 ABG Hemoglobin ABG Oxyhemoglobin ABG Sodium ABG Potassium ABG Chloride ABG Glucose Carboxyhemoglobin Sodium 135 L Potassium 3.4 L Chloride Carbon Dioxide BUN 28 H Creatinine 5.0 H Glucose 207 H POC Glucose 223 H 211 H Lactic Acid Calcium 7.0 L Phosphorus Magnesium AST ALT Alkaline Phosphatase Total Creatine Kinase CK-MB (CK-2) Troponin T NT-Pro-B Natriuret Pep Total Protein Albumin Triglycerides HDL Cholesterol Arterial Blood Glucose Arterial Blood Ionized Calcium 10/09/20 10/09/20 10/09/20 02:05 03:05 04:04 WBC RBC Hgb MCV RDW Seg Neutrophils % Seg Neutrophils # PT INR APTT ABG pH POC ABG pCO2 POC ABG pO2 ABG Hemoglobin ABG Oxyhemoglobin ABG Sodium ABG Potassium ABG Chloride ABG Glucose Carboxyhemoglobin Sodium Potassium Chloride Carbon Dioxide BUN Creatinine Glucose POC Glucose 201 H 199 H 183 H Lactic Acid Calcium Phosphorus Magnesium AST ALT Alkaline Phosphatase Total Creatine Kinase CK-MB (CK-2) Troponin T NT-Pro-B Natriuret Pep Total Protein Albumin Triglycerides HDL Cholesterol Arterial Blood Glucose Arterial Blood Ionized Calcium 10/09/20 10/09/20 10/09/20 05:07 05:40 05:40 WBC RBC Hgb MCV RDW Seg Neutrophils % Seg Neutrophils # PT INR APTT ABG pH POC ABG pCO2 POC ABG pO2 ABG Hemoglobin ABG Oxyhemoglobin ABG Sodium ABG Potassium ABG Chloride ABG Glucose Carboxyhemoglobin Sodium 136 L Potassium 3.1 L Chloride Carbon Dioxide BUN 30 H Creatinine 5.2 H Glucose 181 H POC Glucose 184 H Lactic Acid 3.80 H* Calcium 7.1 L Phosphorus Magnesium AST ALT Alkaline Phosphatase Total Creatine Kinase CK-MB (CK-2) Troponin T NT-Pro-B Natriuret Pep Total Protein Albumin Triglycerides HDL Cholesterol Arterial Blood Glucose Arterial Blood Ionized Calcium 10/09/20 10/09/20 10/09/20 05:52 07:19 08:12 WBC RBC Hgb MCV RDW Seg Neutrophils % Seg Neutrophils # PT INR APTT ABG pH POC ABG pCO2 POC ABG pO2 ABG Hemoglobin ABG Oxyhemoglobin ABG Sodium ABG Potassium ABG Chloride ABG Glucose Carboxyhemoglobin Sodium Potassium Chloride Carbon Dioxide BUN Creatinine Glucose POC Glucose 202 H 179 H Lactic Acid Calcium Phosphorus Magnesium AST ALT Alkaline Phosphatase Total Creatine Kinase CK-MB (CK-2) Troponin T 0.545 H* D NT-Pro-B Natriuret Pep Total Protein Albumin Triglycerides HDL Cholesterol Arterial Blood Glucose Arterial Blood Ionized Calcium 10/09/20 10/09/20 08:12 08:25 WBC RBC Hgb MCV RDW Seg Neutrophils % Seg Neutrophils # PT INR APTT ABG pH POC ABG pCO2 POC ABG pO2 ABG Hemoglobin ABG Oxyhemoglobin ABG Sodium ABG Potassium ABG Chloride ABG Glucose Carboxyhemoglobin Sodium Potassium Chloride Carbon Dioxide BUN Creatinine Glucose POC Glucose 175 H Lactic Acid 3.60 H* Calcium Phosphorus Magnesium AST ALT Alkaline Phosphatase Total Creatine Kinase CK-MB (CK-2) Troponin T NT-Pro-B Natriuret Pep Total Protein Albumin Triglycerides HDL Cholesterol Arterial Blood Glucose Arterial Blood Ionized Calcium
--- NOTE | 2020-10-09 14:35 | Progress Note ---
Assessment and Plan 1. ESRD: Patient is on maintenance hemodialysis three times a week, MWF schedule. 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 Urgent HD 10/07 due to hyperkalemia. Hemodialysis: 10/07, 10/08. 2. FEN: Hyperkalemia, improved, monitor. Metabolic acidosis, 2/2 DKA, Lactic acidosis, monitor. Replete K. Monitor lytes. 3. DKA: Was on Insulin drip. Monitor. 4. S/p OOH Cardiac arrest: Total of 2 episodes. Total downtime unknown. Followed by Cards. Monitor. 5. Shock: Currently on Dopamine. Cefepime and Vancomycin. Wean pressors as tolerated. Monitor BP closely. 6. Severe anoxic encephalopathy: Absent brain stem reflexes. Followed by Neuro. 7. Anemia, POA: 2/2 ESRD. Epogen if needed. Subjective: Patient was seen and examined at the bedside. Examination: General appearance: well-developed, well-nourished, intubated, on vent HEENT: ATNC, Pupils dilated and not reacting to light Neck: neck supple, trachea midline Respiratory: Coarse breath sounds Heart: regular, normal heart rate, S1S2, no murmur Abdomen: soft, NT Integumentary: no rash, warm and dry Neurologic: not responding Ext: no edema noted Hemodialysis access: L arm AVF clotted, L femoral catheter : alfaro catheter Subjective Date of service: 10/09/20 Principal diagnosis: Ac hypoxemic resp failure; Cardiac arrest; DKA; PNA; Anoxic encephalopathy Objective - Vital Signs Vital signs: Vital Signs - 12hr 10/09/20 10/09/20 10/09/20 02:45 03:00 03:15 Temperature Pulse Rate 67 67 66 Pulse Rate [ From Monitor] Respiratory 16 16 16 Rate Blood Pressure 127/83 126/84 128/86 O2 Sat by Pulse 100 100 100 Oximetry 10/09/20 10/09/20 10/09/20 03:30 03:33 03:45 Temperature 97.8 F Pulse Rate 66 66 Pulse Rate [ From Monitor] Respiratory 16 16 Rate Blood Pressure 129/84 129/84 127/84 O2 Sat by Pulse 100 100 100 Oximetry 10/09/20 10/09/20 10/09/20 04:00 04:15 04:30 Temperature Pulse Rate 118 H 66 66 Pulse Rate [ 67 From Monitor] Respiratory 16 16 16 Rate Blood Pressure 128/85 131/85 131/84 O2 Sat by Pulse 100 100 100 Oximetry 10/09/20 10/09/20 10/09/20 04:45 05:00 05:15 Temperature Pulse Rate 66 66 65 Pulse Rate [ From Monitor] Respiratory 16 16 16 Rate Blood Pressure 130/85 133/86 131/87 O2 Sat by Pulse 100 100 100 Oximetry 10/09/20 10/09/20 10/09/20 05:30 05:45 06:00 Temperature Pulse Rate 65 63 65 Pulse Rate [ From Monitor] Respiratory 16 16 16 Rate Blood Pressure 133/87 122/81 133/87 O2 Sat by Pulse 100 100 100 Oximetry 10/09/20 10/09/20 10/09/20 06:15 06:30 06:45 Temperature Pulse Rate 65 65 65 Pulse Rate [ From Monitor] Respiratory 15 16 16 Rate Blood Pressure 136/88 134/89 137/89 O2 Sat by Pulse 100 100 100 Oximetry 10/09/20 10/09/20 10/09/20 07:00 07:15 07:30 Temperature Pulse Rate 64 64 64 Pulse Rate [ From Monitor] Respiratory 16 16 16 Rate Blood Pressure 136/91 139/91 136/92 O2 Sat by Pulse 100 100 100 Oximetry 10/09/20 10/09/20 10/09/20 07:45 08:00 08:06 Temperature 97.4 F L Pulse Rate 64 64 63 Pulse Rate [ 63 From Monitor] Respiratory 16 16 Rate Blood Pressure 141/90 142/91 142/91 O2 Sat by Pulse 100 100 100 Oximetry 10/09/20 10/09/20 10/09/20 08:15 08:30 08:45 Temperature Pulse Rate 63 63 63 Pulse Rate [ From Monitor] Respiratory 11 L 16 16 Rate Blood Pressure 143/92 139/88 142/92 O2 Sat by Pulse 100 100 100 Oximetry 10/09/20 10/09/20 10/09/20 09:00 09:15 09:20 Temperature Pulse Rate 63 63 Pulse Rate [ From Monitor] Respiratory 16 16 0 L Rate Blood Pressure 144/91 144/93 O2 Sat by Pulse 100 100 Oximetry 10/09/20 10/09/20 10/09/20 09:30 09:45 10:00 Temperature Pulse Rate 63 64 64 Pulse Rate [ From Monitor] Respiratory 16 16 16 Rate Blood Pressure 133/87 139/91 147/94 O2 Sat by Pulse 100 100 100 Oximetry 10/09/20 10/09/20 10/09/20 10:15 10:30 10:45 Temperature Pulse Rate 64 63 63 Pulse Rate [ From Monitor] Respiratory 16 16 16 Rate Blood Pressure 152/95 154/91 157/95 O2 Sat by Pulse 100 100 100 Oximetry 10/09/20 10/09/20 10/09/20 11:00 11:15 11:30 Temperature Pulse Rate 62 57 L 54 L Pulse Rate [ From Monitor] Respiratory 16 16 16 Rate Blood Pressure 162/95 128/76 133/83 O2 Sat by Pulse 100 100 100 Oximetry 10/09/20 10/09/20 10/09/20 11:45 12:00 12:15 Temperature Pulse Rate 55 L 55 L 55 L Pulse Rate [ 55 L From Monitor] Respiratory 16 16 16 Rate Blood Pressure 129/81 138/84 137/85 O2 Sat by Pulse 100 100 100 Oximetry 10/09/20 10/09/20 10/09/20 12:28 12:30 12:45 Temperature Pulse Rate 55 L 55 L 55 L Pulse Rate [ From Monitor] Respiratory 16 16 Rate Blood Pressure 138/84 137/83 141/83 O2 Sat by Pulse 100 100 100 Oximetry 10/09/20 10/09/20 10/09/20 13:00 13:15 13:30 Temperature Pulse Rate 54 L 54 L 54 L Pulse Rate [ From Monitor] Respiratory 16 16 16 Rate Blood Pressure 137/86 142/86 137/86 O2 Sat by Pulse 100 100 100 Oximetry 10/09/20 10/09/20 10/09/20 13:45 14:01 14:15 Temperature Pulse Rate 53 L 51 L 51 L Pulse Rate [ From Monitor] Respiratory 15 16 16 Rate Blood Pressure 151/88 142/79 145/83 O2 Sat by Pulse 100 100 100 Oximetry - Lab 10/07/20 09:08 10/09/20 05:40 Most recent lab results ABG pH 7.454 (7.320-7.450) H 10/08/20 01:50 ABG O2 Saturation 97.8 (0-100) 10/08/20 01:50 Calcium 7.1 mg/dL (8.4-10.2) L 10/09/20 05:40 Phosphorus 3.20 mg/dL (2.5-4.5) D 10/09/20 05:40 Magnesium 3.10 mg/dL (1.7-2.3) H 10/07/20 10:32 Medications & Allergies - Medications Allergies/Adverse Reactions: Allergies peanut Allergy (Unknown, Verified 10/07/20 08:21) Unknown pecan nut Allergy (Unknown, Verified 10/07/20 08:21) Unknown walnut Allergy (Unknown, Verified 10/07/20 08:21) Unknown latex Allergy (Verified 10/07/20 08:21) Rash Home Medications: Home Medications Medication Instructions Recorded Confirmed Last Taken Type Aspirin 81 mg PO DAILY 07/04/20 07/14/20 07/04/20 History Famotidine [Pepcid] 20 mg PO DAILY #30 tablet 07/12/20 07/14/20 Unknown Rx Lisinopril 30 mg PO DAILY #30 07/12/20 07/14/20 Unknown Rx hydrALAZINE 50 mg PO DAILY #30 07/12/20 07/14/20 Unknown Rx Insulin Detemir [Levemir VIAL] 21 units SQ HS #1 vial 07/16/20 Unknown Rx Insulin Regular, Human [HumuLIN R] 0 unit SQ AC #1 vial 07/16/20 Unknown Rx Active Medications: Generic Name Dose Route Start Last Admin Trade Name Freq PRN Reason Stop Dose Admin Acetaminophen 650 mg 10/07/20 11:12 Acetaminophen 325 Mg Tab PO Q6H PRN Pain, Mild (1-3) Albuterol 2.5 mg 10/07/20 11:09 Albuterol 2.5 Mg/3 Ml Nebu IH Q3HRT PRN Shortness Of Breath Lipase/Protease/Amylase 1 each 10/09/20 11:14 Lipase 10,500/Protease 25,000/Amylase 43,750 (Units) Dr Fishman FEEDTUBE PRN PRN For Clogged Feeding Tube Aspirin 81 mg 10/08/20 10:00 10/09/20 09:13 Aspirin 81 Mg Tab Chew PO 81 mg QDAY LEIGH Administration Dextrose 50 ml 10/09/20 08:42 Dextrose 50% In Water (25gm) 50 Ml Syringe IV Q30MIN PRN Hypoglycemia Protocol Fentanyl 50 mcg 10/07/20 11:11 10/07/20 12:26 Fentanyl 100 Mcg/2 Ml Inj IV 50 mcg Q10MIN PRN Administration ANALGESIA Heparin Sodium (Porcine) 2,000 unit 10/07/20 18:10 Heparin 10,000 Units/10 Ml Vial IV SHAILESH PRN hemodialysis Heparin Sodium (Porcine) 5,000 unit 10/08/20 10:00 10/09/20 09:13 Heparin 5,000 Unit/1 Ml Vial SUB-Q 5,000 unit Q12HR LEIGH Administration Hydromorphone HCl 0.25 mg 10/07/20 11:12 10/08/20 13:20 Hydromorphone 1 Mg/1 Ml Inj IV 0.25 mg Q4H PRN Administration Pain, Moderate (4-6) Hydrophilic Ointment 1 applic 10/07/20 11:11 Lip Therapy Vaseline TP Q2HR PRN Dry Lips Norepinephrine 4 mg in 250 mls @ 7.5 mls/hr 10/07/20 09:00 10/08/20 23:11 Levophed Drip 4 Mg/Ns 250 Ml IV 3 mcg/min TITR LEIGH 11.25 mls/hr Titration Protocol 2 MCG/MIN Sodium Chloride 100 mls @ 999 mls/hr 10/07/20 18:10 Nacl 0.9% IV SHAILESH PRN Hypotension Dopamine HCl/Dextrose 800 mg in 250 mls @ 2.576 mls/hr 10/08/20 11:00 10/09/20 11:02 Intropin Drip 800 Mg/D5w 250 Ml IV 2 mcg/kg/min TITR LEIGH 2.576 mls/hr Titration Protocol 2 MCG/KG/MIN Cefepime HCl 1 gm in 100 mls @ 200 mls/hr 10/08/20 18:00 10/08/20 17:28 Cefepime/Ns 1 Gm/100 Ml IV 200 mls/hr Q24H LEIGH Administration Protocol Dextrose/Sodium Chloride 1,000 mls @ 100 mls/hr 10/08/20 17:00 10/08/20 18:55 D5ns 0.2% IV 100 mls/hr DIRECT LEIGH Administration Insulin Human Isoph/Insulin Regular 15 unit 10/09/20 17:00 Insulin Nph/Regular 70/30 Inj SUB-Q BIDDIAB LEIGH Insulin Human Regular 0 units 10/09/20 10:00 10/09/20 10:05 Insulin Regular, Human 100 Units/1 Ml SUB-Q 2 units Q4H LEIGH Administration Protocol Multi-Ingred Cream/Lotion/Oil/Oint 1 applic 10/07/20 11:11 Mineral Oil/Petrolatum, White Ophth Oint 3.5 Gm OU Q4HR PRN Dry Eye(s) Simple Syrup 15 ml 10/09/20 11:14 Simple Syrup 15 Ml FEEDTUBE PRN PRN Hypoglycemia Simple Syrup 30 ml 10/09/20 11:14 Simple Syrup 15 Ml FEEDTUBE PRN PRN Hypoglycemia Sodium Bicarbonate 325 mg 10/09/20 11:14 Sodium Bicarbonate 325 Mg Tab FEEDTUBE PRN PRN For Clogged Feeding Tube Sodium Chloride 10 ml 10/07/20 22:00 10/09/20 09:14 Sodium Chloride 0.9% 10 Ml Flush Syringe IV Not Given BID LEIGH Sodium Chloride 10 ml 10/07/20 11:09 Sodium Chloride 0.9% 10 Ml Flush Syringe IV PRN PRN LINE FLUSH
[2020-10-09] MEDS ORDERED: POTASSIUM CHLORIDE 20 MEQ PACKET FEEDTUBE ONE (15:00)
[2020-10-09] MEDS: D5W/0.2% NACL 1,000 ML IV SCH (15:37)
[2020-10-09] MEDS ORDERED: levoFLOXacin 750 MG TAB PO SCH (16:00)
--- NOTE | 2020-10-09 16:49 | Progress Note ---
Assessment and Plan Acute hypoxemic respiratory failure on MVS Cardiac arrest with return of spontaneous circulation DKA Bilateral pneumonia ESRD on dialysis Severe hyperkalemia Severe metabolic acidosis Acute encephalopathy (? Anoxic) DM II HTN Leukocytosis Oropharyngeal dysphagia - CT brain consistent with severe anoxic encephalopathy - will order NM Brain Flow scan - continue to wean Dopamine for target MAP > 65 mmHg - COVID-19 test negative - continue care as below otherwise; - isolation per facility PUI COVID-19 protocol - continue to wean supplemental oxygen for target O2 sat's > 90% acutely - VAP bundle addressed - continue lung protective strategies - continue bronchodilators with pulmonary hygiene per RT - wean per pulmonary driven protocols otherwise - continue Daily SAT and SBT assessment as tolerated - continue accuchecks with glycemic control per SSI (While critically ill target blood glucose of 140-180 mg/dL; avoid hypoglycemia) - sedation prn for target RASS 0 to -1 - avoid nephrotoxins, renally dose all medications - continue to avoid benzodiazepine's, reduce the possibility of delirium - complete AB's per ID rec's - prn analgesia per CPOT score - Maintenance of sleep-wake cycle, avoid delirium - continue enteral nutritional support at goal rate as tolerated - G.I. & VTE prophylaxis - PT/OT/ROM exercises - continue mobility protocols for pressure ulcer prophylaxis - Monitor hemodynamics closely - continue other care per attending / other consultants - discharge planning ongoing concurrently COVID SPECIFIC INTERVENTIONS - Remdesivir as per ID/Pulmonary developed protocols - consider systemic steroids for severe COVID-19 infection empirically - follow repeat COVID tests results - zinc and vitamin C supplementation - Monitor inflammatory markers per facility protocol - ferritin, Ddimer, CRP - therapeutic anticoagulation per system Protocol based on d-dimer and clinical considerations - Continue contact and airborne isolation .... Re-evaluate in am & prn CONDITION: CRITICAL PROGNOSIS: GUARDED CODE STATUS: FULL CODE The high probability of a clinically significant, sudden or life-threatening deterioration of the [respiratory, cardiovascular, GI & neurologic] system(s) required my full and direct attention, intervention and personal management. The aggregate critical care time was [34] minutes without overlap. Time includes spent on; [x] Data Review and interpretation [x] Patient assessment and monitoring of vital signs [x] Documentation [x] Medication orders and management Subjective Date of service: 10/09/20 Principal diagnosis: Ac hypoxemic resp failure; Cardiac arrest; DKA; PNA; Anoxic encephalopathy Interval history: Patient is seen today for: Acute hypoxemic respiratory failure; Cardiac arrest with ROSC; DKA; Bilateral pneumonia; ESRD on dialysis; Anoxic encephalopathy Seen and examined at bedside; 24hour events reviewed; nursing and respiratory care staff consulted; no adverse overnight events reported to me; resting peacefully in bed; remains on dopamine drip but down to 2 mics/min; seen by neurologist; AMS is persistent Objective Vital Signs - 12hr 10/09/20 10/09/20 10/09/20 02:00 02:15 02:30 Temperature Pulse Rate 69 68 67 Pulse Rate [ From Monitor] Respiratory 16 16 16 Rate Blood Pressure 132/86 128/85 124/82 O2 Sat by Pulse 100 100 100 Oximetry 10/09/20 10/09/20 10/09/20 02:45 03:00 03:15 Temperature Pulse Rate 67 67 66 Pulse Rate [ From Monitor] Respiratory 16 16 16 Rate Blood Pressure 127/83 126/84 128/86 O2 Sat by Pulse 100 100 100 Oximetry 10/09/20 10/09/20 10/09/20 03:30 03:33 03:45 Temperature 97.8 F Pulse Rate 66 66 Pulse Rate [ From Monitor] Respiratory 16 16 Rate Blood Pressure 129/84 129/84 127/84 O2 Sat by Pulse 100 100 100 Oximetry 10/09/20 10/09/20 10/09/20 04:00 04:15 04:30 Temperature Pulse Rate 118 H 66 66 Pulse Rate [ 67 From Monitor] Respiratory 16 16 16 Rate Blood Pressure 128/85 131/85 131/84 O2 Sat by Pulse 100 100 100 Oximetry 10/09/20 10/09/20 10/09/20 04:45 05:00 05:15 Temperature Pulse Rate 66 66 65 Pulse Rate [ From Monitor] Respiratory 16 16 16 Rate Blood Pressure 130/85 133/86 131/87 O2 Sat by Pulse 100 100 100 Oximetry 10/09/20 10/09/20 10/09/20 05:30 05:45 06:00 Temperature Pulse Rate 65 63 65 Pulse Rate [ From Monitor] Respiratory 16 16 16 Rate Blood Pressure 133/87 122/81 133/87 O2 Sat by Pulse 100 100 100 Oximetry 10/09/20 10/09/20 10/09/20 06:15 06:30 06:45 Temperature Pulse Rate 65 65 65 Pulse Rate [ From Monitor] Respiratory 15 16 16 Rate Blood Pressure 136/88 134/89 137/89 O2 Sat by Pulse 100 100 100 Oximetry 10/09/20 10/09/20 10/09/20 07:00 07:15 07:30 Temperature Pulse Rate 64 64 64 Pulse Rate [ From Monitor] Respiratory 16 16 16 Rate Blood Pressure 136/91 139/91 136/92 O2 Sat by Pulse 100 100 100 Oximetry 10/09/20 10/09/20 10/09/20 07:45 08:00 08:06 Temperature 97.4 F L Pulse Rate 64 64 63 Pulse Rate [ 63 From Monitor] Respiratory 16 16 Rate Blood Pressure 141/90 142/91 142/91 O2 Sat by Pulse 100 100 100 Oximetry 10/09/20 10/09/20 10/09/20 08:15 08:30 08:45 Temperature Pulse Rate 63 63 63 Pulse Rate [ From Monitor] Respiratory 11 L 16 16 Rate Blood Pressure 143/92 139/88 142/92 O2 Sat by Pulse 100 100 100 Oximetry 10/09/20 10/09/20 10/09/20 09:00 09:15 09:20 Temperature Pulse Rate 63 63 Pulse Rate [ From Monitor] Respiratory 16 16 0 L Rate Blood Pressure 144/91 144/93 O2 Sat by Pulse 100 100 Oximetry 10/09/20 10/09/20 10/09/20 09:30 09:45 10:00 Temperature Pulse Rate 63 64 64 Pulse Rate [ From Monitor] Respiratory 16 16 16 Rate Blood Pressure 133/87 139/91 147/94 O2 Sat by Pulse 100 100 100 Oximetry 10/09/20 10/09/20 10/09/20 10:15 10:30 10:45 Temperature Pulse Rate 64 63 63 Pulse Rate [ From Monitor] Respiratory 16 16 16 Rate Blood Pressure 152/95 154/91 157/95 O2 Sat by Pulse 100 100 100 Oximetry 10/09/20 10/09/20 10/09/20 11:00 11:15 11:30 Temperature Pulse Rate 62 57 L 54 L Pulse Rate [ From Monitor] Respiratory 16 16 16 Rate Blood Pressure 162/95 128/76 133/83 O2 Sat by Pulse 100 100 100 Oximetry 10/09/20 10/09/20 10/09/20 11:45 12:00 12:15 Temperature Pulse Rate 55 L 55 L 55 L Pulse Rate [ 55 L From Monitor] Respiratory 16 16 16 Rate Blood Pressure 129/81 138/84 137/85 O2 Sat by Pulse 100 100 100 Oximetry 10/09/20 10/09/20 10/09/20 12:28 12:30 12:45 Temperature Pulse Rate 55 L 55 L 55 L Pulse Rate [ From Monitor] Respiratory 16 16 Rate Blood Pressure 138/84 137/83 141/83 O2 Sat by Pulse 100 100 100 Oximetry 10/09/20 13:00 Temperature Pulse Rate 54 L Pulse Rate [ From Monitor] Respiratory 16 Rate Blood Pressure 137/86 O2 Sat by Pulse 100 Oximetry Constitutional: no acute distress, other (middle aged female with normal respiratory effort at rest) Eyes: non-icteric ENT: oropharynx moist, other (ETT 24 cm EDILIA) Neck: supple, no lymphadenopathy, no JVD Effort: normal Ascultation: Bilateral: rhonchi Percussion: Bilateral: not dull Cardiovascular: regular rate and rhythm Gastrointestinal: normoactive bowel sounds, soft, non-tender, non-distended Integumentary: normal Extremities: no edema, pulses normal, no ischemia or petechiae Neurologic: pupils equal and round (fixed), unable to assess Psychiatric: other (unable to assess re: AMS) CBC and BMP: 10/07/20 09:08 10/09/20 05:40 ABG, PT/INR, D-dimer: ABG ABG pH 7.454 (7.320-7.450) H 10/08/20 01:50 POC ABG pCO2 28.8 mmHg (32.0-48.0) L 10/08/20 01:50 POC ABG pO2 113.3 mmHg (83-108) H 10/08/20 01:50 POC ABG HCO3 19.7 10/08/20 01:50 ABG O2 Saturation 97.8 (0-100) 10/08/20 01:50 PT/INR, D-dimer PT 21.2 Sec. (12.2-14.9) H 10/07/20 09:08 INR 1.83 (0.87-1.13) H 10/07/20 09:08 Abnormal lab findings: Abnormal Labs 10/07/20 10/07/20 10/07/20 09:08 09:08 09:08 WBC 15.8 H RBC 3.05 L Hgb 9.7 L MCV 108 H RDW 20.9 H Seg Neutrophils % 77.4 H Seg Neutrophils # 12.2 H PT 21.2 H INR 1.83 H APTT 51.1 H ABG pH POC ABG pCO2 POC ABG pO2 ABG Hemoglobin ABG Oxyhemoglobin ABG Sodium ABG Potassium ABG Chloride ABG Glucose Carboxyhemoglobin Sodium 133 L Potassium 8.3 H* Chloride 77.5 L Carbon Dioxide 6 L* BUN 86 H Creatinine 10.6 H Glucose 798 H* POC Glucose Lactic Acid Calcium Phosphorus Magnesium AST 2736 H ALT 1568 H Alkaline Phosphatase 183 H Total Creatine Kinase 444 H CK-MB (CK-2) 8.6 H Troponin T 0.395 H* NT-Pro-B Natriuret Pep 6466 H Total Protein 5.8 L Albumin 2.6 L Triglycerides 246 H HDL Cholesterol 39 L Arterial Blood Glucose Arterial Blood Ionized Calcium 10/07/20 10/07/20 10/07/20 09:08 09:24 10:32 WBC RBC Hgb MCV RDW Seg Neutrophils % Seg Neutrophils # PT INR APTT ABG pH 6.793 L POC ABG pCO2 30.2 L POC ABG pO2 433.9 H ABG Hemoglobin 10.8 L ABG Oxyhemoglobin 99.2 H ABG Sodium 131.7 L ABG Potassium 8.2 H ABG Chloride 85.0 L ABG Glucose Carboxyhemoglobin 0.3 L Sodium Potassium Chloride Carbon Dioxide BUN Creatinine Glucose POC Glucose Lactic Acid Calcium Phosphorus 22.30 H Magnesium 3.10 H 3.10 H AST ALT Alkaline Phosphatase Total Creatine Kinase CK-MB (CK-2) Troponin T NT-Pro-B Natriuret Pep Total Protein Albumin Triglycerides HDL Cholesterol Arterial Blood Glucose Arterial Blood Ionized Calcium 10/07/20 10/07/20 10/07/20 10:32 11:23 11:23 WBC RBC Hgb MCV RDW Seg Neutrophils % Seg Neutrophils # PT INR APTT ABG pH POC ABG pCO2 POC ABG pO2 ABG Hemoglobin ABG Oxyhemoglobin ABG Sodium ABG Potassium ABG Chloride ABG Glucose Carboxyhemoglobin Sodium 131 L 135 L Potassium 8.7 H* 8.5 H* Chloride 76.6 L 78.1 L Carbon Dioxide 6 L* 5 L* BUN 89 H 87 H Creatinine 10.7 H 10.7 H Glucose 967 H* 799 H* POC Glucose Lactic Acid 9.70 H* Calcium Phosphorus Magnesium AST ALT Alkaline Phosphatase Total Creatine Kinase CK-MB (CK-2) Troponin T NT-Pro-B Natriuret Pep Total Protein Albumin Triglycerides HDL Cholesterol Arterial Blood Glucose Arterial Blood Ionized Calcium 10/07/20 10/07/20 10/07/20 13:20 13:58 13:58 WBC RBC Hgb MCV RDW Seg Neutrophils % Seg Neutrophils # PT INR APTT ABG pH POC ABG pCO2 POC ABG pO2 ABG Hemoglobin ABG Oxyhemoglobin ABG Sodium ABG Potassium ABG Chloride ABG Glucose Carboxyhemoglobin Sodium 133 L Potassium 6.8 H* Chloride 82.3 L Carbon Dioxide 8 L* BUN 86 H Creatinine 10.3 H Glucose 868 H* POC Glucose > 600 H Lactic Acid 6.90 H* Calcium Phosphorus Magnesium AST ALT Alkaline Phosphatase Total Creatine Kinase CK-MB (CK-2) Troponin T NT-Pro-B Natriuret Pep Total Protein Albumin Triglycerides HDL Cholesterol Arterial Blood Glucose Arterial Blood Ionized Calcium 10/07/20 10/07/20 10/07/20 14:03 18:01 18:18 WBC RBC Hgb MCV RDW Seg Neutrophils % Seg Neutrophils # PT INR APTT ABG pH 7.175 L POC ABG pCO2 27.4 L POC ABG pO2 ABG Hemoglobin 9.3 L ABG Oxyhemoglobin ABG Sodium 134.0 L ABG Potassium 6.4 H ABG Chloride 89.0 L ABG Glucose Carboxyhemoglobin 0.4 L Sodium 132 L Potassium 5.7 H Chloride 84.5 L Carbon Dioxide 15 L D BUN 91 H Creatinine 10.6 H Glucose 828 H* POC Glucose > 600 H Lactic Acid Calcium 6.7 L D Phosphorus Magnesium AST ALT Alkaline Phosphatase Total Creatine Kinase CK-MB (CK-2) Troponin T NT-Pro-B Natriuret Pep Total Protein Albumin Triglycerides HDL Cholesterol Arterial Blood Glucose Arterial Blood Ionized Calcium 4.4 L 10/07/20 10/07/20 10/07/20 18:18 18:18 22:27 WBC RBC Hgb MCV RDW Seg Neutrophils % Seg Neutrophils # PT INR APTT ABG pH POC ABG pCO2 POC ABG pO2 ABG Hemoglobin ABG Oxyhemoglobin ABG Sodium ABG Potassium ABG Chloride ABG Glucose Carboxyhemoglobin Sodium Potassium Chloride Carbon Dioxide BUN Creatinine Glucose POC Glucose 456 H Lactic Acid 5.00 H* Calcium Phosphorus Magnesium AST ALT Alkaline Phosphatase Total Creatine Kinase CK-MB (CK-2) Troponin T 1.330 H* D NT-Pro-B Natriuret Pep Total Protein Albumin Triglycerides HDL Cholesterol Arterial Blood Glucose Arterial Blood Ionized Calcium 10/08/20 10/08/20 10/08/20 00:13 00:51 01:50 WBC RBC Hgb MCV RDW Seg Neutrophils % Seg Neutrophils # PT INR APTT ABG pH 7.454 H POC ABG pCO2 28.8 L POC ABG pO2 113.3 H ABG Hemoglobin 9.7 L ABG Oxyhemoglobin ABG Sodium 134.1 L ABG Potassium ABG Chloride ABG Glucose 423 H Carboxyhemoglobin 0.3 L Sodium Potassium Chloride Carbon Dioxide BUN Creatinine Glucose POC Glucose 468 H 452 H Lactic Acid Calcium Phosphorus Magnesium AST ALT Alkaline Phosphatase Total Creatine Kinase CK-MB (CK-2) Troponin T NT-Pro-B Natriuret Pep Total Protein Albumin Triglycerides HDL Cholesterol Arterial Blood Glucose 423 H Arterial Blood Ionized Calcium 3.7 L 10/08/20 10/08/20 10/08/20 02:09 03:07 03:11 WBC RBC Hgb MCV RDW Seg Neutrophils % Seg Neutrophils # PT INR APTT ABG pH POC ABG pCO2 POC ABG pO2 ABG Hemoglobin ABG Oxyhemoglobin ABG Sodium ABG Potassium ABG Chloride ABG Glucose Carboxyhemoglobin Sodium Potassium Chloride 96.9 L Carbon Dioxide 18 L BUN 58 H Creatinine 7.8 H Glucose 403 H POC Glucose 445 H 395 H Lactic Acid Calcium 6.9 L Phosphorus 5.80 H D Magnesium AST ALT Alkaline Phosphatase Total Creatine Kinase CK-MB (CK-2) Troponin T NT-Pro-B Natriuret Pep Total Protein Albumin Triglycerides HDL Cholesterol Arterial Blood Glucose Arterial Blood Ionized Calcium 10/08/20 10/08/20 10/08/20 04:02 05:09 06:12 WBC RBC Hgb MCV RDW Seg Neutrophils % Seg Neutrophils # PT INR APTT ABG pH POC ABG pCO2 POC ABG pO2 ABG Hemoglobin ABG Oxyhemoglobin ABG Sodium ABG Potassium ABG Chloride ABG Glucose Carboxyhemoglobin Sodium Potassium Chloride Carbon Dioxide BUN Creatinine Glucose POC Glucose 399 H 339 H 309 H Lactic Acid Calcium Phosphorus Magnesium AST ALT Alkaline Phosphatase Total Creatine Kinase CK-MB (CK-2) Troponin T NT-Pro-B Natriuret Pep Total Protein Albumin Triglycerides HDL Cholesterol Arterial Blood Glucose Arterial Blood Ionized Calcium 10/08/20 10/08/2021 07:45 09:27 10:01 WBC RBC Hgb MCV RDW Seg Neutrophils % Seg Neutrophils # PT INR APTT ABG pH POC ABG pCO2 POC ABG pO2 ABG Hemoglobin ABG Oxyhemoglobin ABG Sodium ABG Potassium ABG Chloride ABG Glucose Carboxyhemoglobin Sodium Potassium Chloride Carbon Dioxide BUN Creatinine Glucose POC Glucose 268 H 203 H 174 H Lactic Acid Calcium Phosphorus Magnesium AST ALT Alkaline Phosphatase Total Creatine Kinase CK-MB (CK-2) Troponin T NT-Pro-B Natriuret Pep Total Protein Albumin Triglycerides HDL Cholesterol Arterial Blood Glucose Arterial Blood Ionized Calcium 10/08/20 10/08/20 10/08/20 11:21 12:37 14:20 WBC RBC Hgb MCV RDW Seg Neutrophils % Seg Neutrophils # PT INR APTT ABG pH POC ABG pCO2 POC ABG pO2 ABG Hemoglobin ABG Oxyhemoglobin ABG Sodium ABG Potassium ABG Chloride ABG Glucose Carboxyhemoglobin Sodium Potassium Chloride Carbon Dioxide BUN Creatinine Glucose POC Glucose 182 H 166 H 209 H Lactic Acid Calcium Phosphorus Magnesium AST ALT Alkaline Phosphatase Total Creatine Kinase CK-MB (CK-2) Troponin T NT-Pro-B Natriuret Pep Total Protein Albumin Triglycerides HDL Cholesterol Arterial Blood Glucose Arterial Blood Ionized Calcium 10/08/20 10/08/20 10/08/20 14:58 15:08 16:32 WBC RBC Hgb MCV RDW Seg Neutrophils % Seg Neutrophils # PT INR APTT ABG pH POC ABG pCO2 POC ABG pO2 ABG Hemoglobin ABG Oxyhemoglobin ABG Sodium ABG Potassium ABG Chloride ABG Glucose Carboxyhemoglobin Sodium 135 L Potassium Chloride 97.5 L Carbon Dioxide 19 L BUN 26 H Creatinine 4.1 H Glucose 183 H POC Glucose 173 H 177 H Lactic Acid Calcium 6.9 L Phosphorus Magnesium AST ALT Alkaline Phosphatase Total Creatine Kinase CK-MB (CK-2) Troponin T NT-Pro-B Natriuret Pep Total Protein Albumin Triglycerides HDL Cholesterol Arterial Blood Glucose Arterial Blood Ionized Calcium 10/08/20 10/08/20 10/08/20 17:42 18:09 20:11 WBC RBC Hgb MCV RDW Seg Neutrophils % Seg Neutrophils # PT INR APTT ABG pH POC ABG pCO2 POC ABG pO2 ABG Hemoglobin ABG Oxyhemoglobin ABG Sodium ABG Potassium ABG Chloride ABG Glucose Carboxyhemoglobin Sodium Potassium Chloride Carbon Dioxide BUN Creatinine Glucose POC Glucose 172 H 176 H 186 H Lactic Acid Calcium Phosphorus Magnesium AST ALT Alkaline Phosphatase Total Creatine Kinase CK-MB (CK-2) Troponin T NT-Pro-B Natriuret Pep Total Protein Albumin Triglycerides HDL Cholesterol Arterial Blood Glucose Arterial Blood Ionized Calcium 10/08/20 10/08/20 10/08/20 20:57 21:56 23:12 WBC RBC Hgb MCV RDW Seg Neutrophils % Seg Neutrophils # PT INR APTT ABG pH POC ABG pCO2 POC ABG pO2 ABG Hemoglobin ABG Oxyhemoglobin ABG Sodium ABG Potassium ABG Chloride ABG Glucose Carboxyhemoglobin Sodium Potassium Chloride Carbon Dioxide BUN Creatinine Glucose POC Glucose 177 H 211 H 198 H Lactic Acid Calcium Phosphorus Magnesium AST ALT Alkaline Phosphatase Total Creatine Kinase CK-MB (CK-2) Troponin T NT-Pro-B Natriuret Pep Total Protein Albumin Triglycerides HDL Cholesterol Arterial Blood Glucose Arterial Blood Ionized Calcium 10/08/20 10/09/20 10/09/20 23:55 00:02 01:02 WBC RBC Hgb MCV RDW Seg Neutrophils % Seg Neutrophils # PT INR APTT ABG pH POC ABG pCO2 POC ABG pO2 ABG Hemoglobin ABG Oxyhemoglobin ABG Sodium ABG Potassium ABG Chloride ABG Glucose Carboxyhemoglobin Sodium 135 L Potassium 3.4 L Chloride Carbon Dioxide BUN 28 H Creatinine 5.0 H Glucose 207 H POC Glucose 223 H 211 H Lactic Acid Calcium 7.0 L Phosphorus Magnesium AST ALT Alkaline Phosphatase Total Creatine Kinase CK-MB (CK-2) Troponin T NT-Pro-B Natriuret Pep Total Protein Albumin Triglycerides HDL Cholesterol Arterial Blood Glucose Arterial Blood Ionized Calcium 10/09/20 10/09/20 10/09/20 02:05 03:05 04:04 WBC RBC Hgb MCV RDW Seg Neutrophils % Seg Neutrophils # PT INR APTT ABG pH POC ABG pCO2 POC ABG pO2 ABG Hemoglobin ABG Oxyhemoglobin ABG Sodium ABG Potassium ABG Chloride ABG Glucose Carboxyhemoglobin Sodium Potassium Chloride Carbon Dioxide BUN Creatinine Glucose POC Glucose 201 H 199 H 183 H Lactic Acid Calcium Phosphorus Magnesium AST ALT Alkaline Phosphatase Total Creatine Kinase CK-MB (CK-2) Troponin T NT-Pro-B Natriuret Pep Total Protein Albumin Triglycerides HDL Cholesterol Arterial Blood Glucose Arterial Blood Ionized Calcium 10/09/20 10/09/20 10/09/20 05:07 05:40 05:40 WBC RBC Hgb MCV RDW Seg Neutrophils % Seg Neutrophils # PT INR APTT ABG pH POC ABG pCO2 POC ABG pO2 ABG Hemoglobin ABG Oxyhemoglobin ABG Sodium ABG Potassium ABG Chloride ABG Glucose Carboxyhemoglobin Sodium 136 L Potassium 3.1 L Chloride Carbon Dioxide BUN 30 H Creatinine 5.2 H Glucose 181 H POC Glucose 184 H Lactic Acid 3.80 H* Calcium 7.1 L Phosphorus Magnesium AST ALT Alkaline Phosphatase Total Creatine Kinase CK-MB (CK-2) Troponin T NT-Pro-B Natriuret Pep Total Protein Albumin Triglycerides HDL Cholesterol Arterial Blood Glucose Arterial Blood Ionized Calcium 10/09/20 10/09/20 10/09/20 05:52 07:19 08:12 WBC RBC Hgb MCV RDW Seg Neutrophils % Seg Neutrophils # PT INR APTT ABG pH POC ABG pCO2 POC ABG pO2 ABG Hemoglobin ABG Oxyhemoglobin ABG Sodium ABG Potassium ABG Chloride ABG Glucose Carboxyhemoglobin Sodium Potassium Chloride Carbon Dioxide BUN Creatinine Glucose POC Glucose 202 H 179 H Lactic Acid Calcium Phosphorus Magnesium AST ALT Alkaline Phosphatase Total Creatine Kinase CK-MB (CK-2) Troponin T 0.545 H* D NT-Pro-B Natriuret Pep Total Protein Albumin Triglycerides HDL Cholesterol Arterial Blood Glucose Arterial Blood Ionized Calcium 10/09/20 10/09/20 08:12 08:25 WBC RBC Hgb MCV RDW Seg Neutrophils % Seg Neutrophils # PT INR APTT ABG pH POC ABG pCO2 POC ABG pO2 ABG Hemoglobin ABG Oxyhemoglobin ABG Sodium ABG Potassium ABG Chloride ABG Glucose Carboxyhemoglobin Sodium Potassium Chloride Carbon Dioxide BUN Creatinine Glucose POC Glucose 175 H Lactic Acid 3.60 H* Calcium Phosphorus Magnesium AST ALT Alkaline Phosphatase Total Creatine Kinase CK-MB (CK-2) Troponin T NT-Pro-B Natriuret Pep Total Protein Albumin Triglycerides HDL Cholesterol Arterial Blood Glucose Arterial Blood Ionized Calcium Chest x-ray: image reviewed Allied health notes reviewed: nursing
[2020-10-09] MEDS ORDERED: INSULIN NPH/REGULAR 70/30 INJ SUB-Q SCH (17:00)
[2020-10-09] MEDS: CEFEPIME/NS 1 GM/100 ML 1 GM/100 ML BAG IV SCH (17:04)
[2020-10-09 17:52] LABS: Calcium 6.5 mg/dL (8.4-10.2)
[2020-10-10] MEDS: INSULIN REGULAR, HUMAN 100 UNITS/1 ML SUB-Q SCH ×6 (02:34→22:16)
--- NOTE | 2020-10-10 03:56 | XRay Report ---
CHEST 1 VIEW 10/10/2020 2:49 AM INDICATION / CLINICAL INFORMATION: follow up respiratory failure. COMPARISON: One view of the chest from 10/09/2020. FINDINGS: SUPPORT DEVICES: Unchanged. HEART / MEDIASTINUM: Stable. LUNGS / PLEURA: There are similar bilateral pulmonary opacities. No significant pleural effusion. No pneumothorax. ADDITIONAL FINDINGS: No significant additional findings. IMPRESSION: Stable appearance of the chest. Signer Name: Arnoldo Sherman MD Signed: 10/10/2020 3:52 AM Workstation Name: [id number]
--- NOTE | 2020-10-10 08:22 | Progress Note ---
Assessment and Plan Assessment and plan: The patient is a 55 YO female with history significant for DM type 2 (poorly controlled), HTN, Obesity, Anemia and ESRD on HD (MWF) who was brought into [facility] ED 10/07 s/p Cardiac arrest. Patient was found by family member unresponsive in her bed this morning. EMS was notified and upon arrival the patient was found to be in asystolic arrest. The patient was initiated on ACLS protocol and subsequently transported to the ED for evaluation and treatment. The patient was intubated in the field. Patient was found to have acute hypoxemic respiratory failure and is currently on ventilatory support, multipressor shock, DKA, hyperkalemia and Lactic acidosis. Of note patient recently admitted to [facility] for submandibular gland problem and was discharged the day prior to admission here. Patient had another episode of Cardiac in the ED with downtime of 4 minutes. She was also found to have clotted L arm AVF. Labs in the emergency room significant for bl glu around 900, K 8.5, bicarb 6, Lactic acid 9.7 and leukocytosis. Acute hypoxic respiratory failure Sepsis/septic shock Probable aspiration pneumonia. DKA S/p cardiopulmonary arrest ESRD requiring hemodialysis Hyperkalemia Transaminitis Severe metabolic acidosis Anoxic encephalopathy 10/08/2020. Continue dopamine and Levophed to maintain MAP >65. patient has significant hyperkalemia today and will undergo urgent hemodialysis. Continue bicarbonate drip per nephrology. Patient currently on amiodarone drip. Cardiology consultation pending. Check echocardiogram to assess ventricular function. Neurology consultation for anoxic encephalopathy. Check EEG. Continue insulin drip and transition to long-acting insulin when anion gap is closed. Patient empirically started on Levaquin. ID consultation pending. Patient likely has aspiration pneumonia associated with cardiac arrest. 10/09/2020. CT scan reveals findings indicative of severe diffuse cerebral and cerebellar edema consistent with global anoxic event. Neurology following. EEG pending. ID started the patient on cefepime and vancomycin. Etiology likely aspiration/hospital-acquired pneumonia in the setting of DKA/s/p cardiopulmonary arrest. Echocardiogram revealed left ventricular systolic function borderline with an EF of 45 to 50%. Mild diastolic dysfunction. Probable NSTEMI type II. Cardiology following. Patient with shock multifactorial --sepsis/neurogenic(anoxic injury). Continue vasopressors to maintain MAP > 65. DKA has resolved and patient will be transition from insulin drip to long- acting insulin of 70/30 15 units twice daily. Start sliding scale regular insulin. Overall prognosis is poor. I attempted to contact the daughter Louie Chun at [phone] but no answer. Message left. 10/10/2020. CT scan reveals severe anoxic encephalopathy. Await in a.m. blood flow study. EEG also pending. Neurology following. Continue IV antibiotics for pneumonia. Continue to wean pressors to maintain MAP > 65. BG still elevated, therefore, we will increase 70/30 insulin. Prognosis extremely poor. The high probability of a clinically significant, sudden or life threatening deterioration of the [cardiac and pulmonary] system(s) required my full and direct attention, intervention and personal management. The aggregate critical care time was [32] minutes. This time is in addition to time spent performing reported procedures but includes the following: [x] Data Review and interpretation [x] Patient assessment and monitoring of vital signs [x] Documentation [x] Medication orders and management History Interval history: No new issues overnight Hospitalist Physical - Constitutional Vitals: Temp Pulse Resp BP Pulse Ox 97.4 F L 69 17 107/78 100 10/10/20 07:00 10/10/20 07:57 10/10/20 05:31 10/10/20 07:57 10/10/20 07:57 General appearance: Present: severe distress - EENT Eyes: Present: PERRL, EOM intact ENT: hearing intact, clear oral mucosa, dentition normal - Neck Neck: Present: supple, normal ROM - Respiratory Respiratory effort: normal Respiratory: bilateral: CTA - Cardiovascular Rhythm: regular Heart Sounds: Present: S1 & S2. Absent: gallop, rub - Extremities Extremities: no ischemia, No edema, Full ROM - Abdominal General gastrointestinal: soft, non-tender, non-distended, normal bowel sounds - Integumentary Integumentary: Present: clear, warm, dry - Neurologic Neurologic: CNII-XII intact, moves all extremities HEART Score - HEART Score Troponin: Troponin T 0.545 ng/mL (0.00-0.029) H* D 10/09/20 08:12 Results - Labs CBC & Chem 7: 10/07/20 09:08 10/09/20 16:50 Labs: Laboratory Last Values WBC 15.8 K/mm3 (4.5-11.0) H 10/07/20 09:08 RBC 3.05 M/mm3 (3.65-5.03) L 10/07/20 09:08 Hgb 9.7 gm/dl (10.1-14.3) L 10/07/20 09:08 Hct 32.8 % (30.3-42.9) 10/07/20 09:08 MCV 108 fl (79-97) H 10/07/20 09:08 MCH 32 pg (28-32) 10/07/20 09:08 MCHC 30 % (30-34) 10/07/20 09:08 RDW 20.9 % (13.2-15.2) H 10/07/20 09:08 Plt Count 198 K/mm3 (140-440) 10/07/20 09:08 Lymph % (Auto) 18.1 % (13.4-35.0) 10/07/20 09:08 [place] % (Auto) 3.6 % (0.0-7.3) 10/07/20 09:08 Eos % (Auto) 0.5 % (0.0-4.3) 10/07/20 09:08 Baso % (Auto) 0.4 % (0.0-1.8) 10/07/20 09:08 Lymph # (Auto) 2.9 K/mm3 (1.2-5.4) 10/07/20 09:08 [place] # (Auto) 0.6 K/mm3 (0.0-0.8) 10/07/20 09:08 Eos # (Auto) 0.1 K/mm3 (0.0-0.4) 10/07/20 09:08 Baso # (Auto) 0.1 K/mm3 (0.0-0.1) 10/07/20 09:08 Seg Neutrophils % 77.4 % (40.0-70.0) H 10/07/20 09:08 Seg Neutrophils # 12.2 K/mm3 (1.8-7.7) H 10/07/20 09:08 PT 21.2 Sec. (12.2-14.9) H 10/07/20 09:08 INR 1.83 (0.87-1.13) H 10/07/20 09:08 APTT 51.1 Sec. (24.2-36.6) H 10/07/20 09:08 ABG pH 7.500 (7.320-7.450) H 10/10/20 04:00 POC ABG pCO2 24.2 mmHg (32.0-48.0) L 10/10/20 04:00 POC ABG pO2 130.9 mmHg (83-108) H 10/10/20 04:00 POC ABG HCO3 18.4 10/10/20 04:00 ABG O2 Saturation 98.7 (0-100) 10/10/20 04:00 POC ABG Base Excess -3.6 10/10/20 04:00 ABG Hemoglobin 10.1 (12.0-17.5) L 10/10/20 04:00 ABG Oxyhemoglobin 98.2 (94-98) H 10/10/20 04:00 ABG Methemoglobin 0.3 (0.0-1.5) 10/10/20 04:00 ABG Sodium 127.6 mmol/L (136.0-145.0) L 10/10/20 04:00 ABG Potassium 2.8 mmol/L (3.40-4.50) L 10/10/20 04:00 ABG Chloride 98.0 mmol/L (98-107) 10/10/20 04:00 ABG Glucose 291 mg/dL (65-95) H 10/10/20 04:00 Carboxyhemoglobin 0.2 (0.5-1.5) L 10/10/20 04:00 FiO2 % 30.0 10/10/20 04:00 Sodium 130 mmol/L (137-145) L 10/09/20 16:50 Potassium 3.7 mmol/L (3.6-5.0) 10/09/20 16:50 Chloride 95.5 mmol/L (98-107) L 10/09/20 16:50 Carbon Dioxide 18 mmol/L (22-30) L 10/09/20 16:50 Anion Gap 20 mmol/L 10/09/20 16:50 BUN 33 mg/dL (7-17) H 10/09/20 16:50 Creatinine 5.5 mg/dL (0.6-1.2) H 10/09/20 16:50 Estimated GFR 10 ml/min 10/09/20 16:50 BUN/Creatinine Ratio 6 % 10/09/20 16:50 Glucose 386 mg/dL (65-100) H 10/09/20 16:50 POC Glucose 239 mg/dL (70-105) H 10/10/20 05:20 Hemoglobin A1c 8.5 % (4-6) H 10/09/20 13:51 Lactic Acid 1.30 mmol/L (0.7-2.0) 10/09/20 13:51 Calcium 6.5 mg/dL (8.4-10.2) L 10/09/20 16:50 Phosphorus 3.20 mg/dL (2.5-4.5) D 10/09/20 05:40 Magnesium 3.10 mg/dL (1.7-2.3) H 10/07/20 10:32 Total Bilirubin 0.50 mg/dL (0.1-1.2) 10/07/20 09:08 AST 2736 units/L (5-40) H 10/07/20 09:08 ALT 1568 units/L (7-56) H 10/07/20 09:08 Alkaline Phosphatase 183 units/L (35-129) H 10/07/20 09:08 Total Creatine Kinase 444 units/L (30-135) H 10/07/20 09:08 CK-MB (CK-2) 8.6 ng/mL (0.0-4.0) H 10/07/20 09:08 CK-MB (CK-2) Rel Index 1.9 (0-4) 10/07/20 09:08 Troponin T 0.545 ng/mL (0.00-0.029) H* D 10/09/20 08:12 NT-Pro-B Natriuret Pep 6466 pg/mL (0-900) H 10/07/20 09:08 Total Protein 5.8 g/dL (6.3-8.2) L 10/07/20 09:08 Albumin 2.6 g/dL (3.9-5) L 10/07/20 09:08 Albumin/Globulin Ratio 0.8 % 10/07/20 09:08 Triglycerides 246 mg/dL (2-149) H 10/07/20 09:08 Cholesterol 189 mg/dL (50-199) 10/07/20 09:08 LDL Cholesterol Direct 98 mg/dL (50-130) 10/07/20 09:08 HDL Cholesterol 39 mg/dL (40-59) L 10/07/20 09:08 Cholesterol/HDL Ratio 4.84 % 10/07/20 09:08 Procalcitonin 114.59 ng/mL (<0.15) 10/08/20 15:08 TSH 0.562 mlU/mL (0.270-4.200) 10/08/20 15:08 Arterial Blood Glucose 291 mg/dL (65-95) H 10/10/20 04:00 Arterial Blood Ionized Calcium 4.1 mg/dL (4.6-5.3) L 10/10/20 04:00 Coronavirus (PCR) Negative (Negative) 10/08/20 Unknown Hepatitis A IgM Ab Non-reactive (NonReactive) 10/07/20 17:25 Hep Bs Antigen Non-reactive (Negative) 10/07/20 17:25 Hep B Core IgM Ab Non-reactive (NonReactive) 10/07/20 17:25 Hepatitis C Antibody Non-reactive (NonReactive) 10/07/20 17:25 Blood Type O POSITIVE 10/07/20 11:40 Antibody Screen Negative 10/07/20 11:40 Microbiology: Microbiology 10/07/20 12:10 Peripheral/Venous Blood Culture - Preliminary NO GROWTH AFTER 48 HOURS 10/07/20 12:10 Peripheral/Venous Blood Culture - Preliminary NO GROWTH AFTER 48 HOURS Nash/IV: Voiding Method Indwelling Catheter Active Medications - Current Medications Current Medications: Generic Name Dose Route Start Last Admin Trade Name Freq PRN Reason Stop Dose Admin Acetaminophen 650 mg 10/07/20 11:12 Acetaminophen 325 Mg Tab PO Q6H PRN Pain, Mild (1-3) Albuterol 2.5 mg 10/07/20 11:09 Albuterol 2.5 Mg/3 Ml Nebu IH Q3HRT PRN Shortness Of Breath Lipase/Protease/Amylase 1 each 10/09/20 11:14 Lipase 10,500/Protease 25,000/Amylase 43,750 (Units) Dr Fishman FEEDTUBE PRN PRN For Clogged Feeding Tube Aspirin 81 mg 10/08/20 10:00 10/09/20 09:13 Aspirin 81 Mg Tab Chew PO 81 mg QDAY LEIGH Administration Dextrose 50 ml 10/09/20 08:42 Dextrose 50% In Water (25gm) 50 Ml Syringe IV Q30MIN PRN Hypoglycemia Protocol Fentanyl 50 mcg 10/07/20 11:11 10/07/20 12:26 Fentanyl 100 Mcg/2 Ml Inj IV 50 mcg Q10MIN PRN Administration ANALGESIA Heparin Sodium (Porcine) 2,000 unit 10/07/20 18:10 Heparin 10,000 Units/10 Ml Vial IV SHAILESH PRN hemodialysis Heparin Sodium (Porcine) 5,000 unit 10/08/20 10:00 10/09/20 21:36 Heparin 5,000 Unit/1 Ml Vial SUB-Q 5,000 unit Q12HR LIEGH Administration Hydromorphone HCl 0.25 mg 10/07/20 11:12 10/08/20 13:20 Hydromorphone 1 Mg/1 Ml Inj IV 0.25 mg Q4H PRN Administration Pain, Moderate (4-6) Hydrophilic Ointment 1 applic 10/07/20 11:11 Lip Therapy Vaseline TP Q2HR PRN Dry Lips Norepinephrine 4 mg in 250 mls @ 7.5 mls/hr 10/07/20 09:00 10/08/20 23:11 Levophed Drip 4 Mg/Ns 250 Ml IV 3 mcg/min TITR LEIGH 11.25 mls/hr Titration Protocol 2 MCG/MIN Sodium Chloride 100 mls @ 999 mls/hr 10/07/20 18:10 Nacl 0.9% IV SHAILESH PRN Hypotension Dopamine HCl/Dextrose 800 mg in 250 mls @ 2.576 mls/hr 10/08/20 11:00 10/10/20 03:00 Intropin Drip 800 Mg/D5w 250 Ml IV 3.11 mcg/kg/min TITR LEIGH 4 mls/hr Titration Protocol 2 MCG/KG/MIN Cefepime HCl 1 gm in 100 mls @ 200 mls/hr 10/08/20 18:00 10/09/20 17:04 Cefepime/Ns 1 Gm/100 Ml IV 200 mls/hr Q24H LEIGH Administration Protocol Dextrose/Sodium Chloride 1,000 mls @ 100 mls/hr 10/08/20 17:00 10/09/20 19:00 D5ns 0.2% IV 0 mls/hr DIRECT LEIGH Infusion Insulin Human Isoph/Insulin Regular 20 unit 10/10/20 08:00 Insulin Nph/Regular 70/30 Inj SUB-Q BIDDIAB LEIGH Insulin Human Regular 0 units 10/09/20 10:00 10/10/20 06:41 Insulin Regular, Human 100 Units/1 Ml SUB-Q 4 units Q4H LEIGH Administration Protocol Multi-Ingred Cream/Lotion/Oil/Oint 1 applic 10/07/20 11:11 Mineral Oil/Petrolatum, White Ophth Oint 3.5 Gm OU Q4HR PRN Dry Eye(s) Simple Syrup 15 ml 10/09/20 11:14 Simple Syrup 15 Ml FEEDTUBE PRN PRN Hypoglycemia Simple Syrup 30 ml 10/09/20 11:14 Simple Syrup 15 Ml FEEDTUBE PRN PRN Hypoglycemia Sodium Bicarbonate 325 mg 10/09/20 11:14 Sodium Bicarbonate 325 Mg Tab FEEDTUBE PRN PRN For Clogged Feeding Tube Sodium Chloride 10 ml 10/07/20 22:00 10/09/20 21:36 Sodium Chloride 0.9% 10 Ml Flush Syringe IV 10 ml BID LEIGH Administration Sodium Chloride 10 ml 10/07/20 11:09 Sodium Chloride 0.9% 10 Ml Flush Syringe IV PRN PRN LINE FLUSH Nutrition/Malnutrition Assess - Dietary Evaluation Nutrition/Malnutrition Findings: Nutrition Notes Start: 10/08/20 12:19 Freq: Status: Active Protocol: Document 10/09/20 11:06 SP (Rec: 10/09/20 11:12 [facility] [id number]) Nutrition Notes Need for Assessment generated from: MD Order Initial or Follow up Reassessment Current Diagnosis CKD (stage V CKD),Diabetes, Sepsis,Hypertension, Respiratory Failure Other Pertinent Diagnosis s/p cardiopulmonary arrest, anoxic encephalopathy Current Diet NPO Labs/Tests K 3.1 BUN 30 Cr 5.2 BG 181 Pertinent Medications reviewed Height 5 ft 3 in Weight 70.4 kg [place] Body Weight (kg) 52.27 BMI 27.5 Subjective/Other Information RD consulted for TF. Pt remains on vent support. Burn Absent Trauma Absent #1 Nutrition Diagnosis Inadequate oral intake As Evidenced by Signs and Symptoms pt remains intubated and requires EN support to meet nutrient needs Diagnosis Progress(for reassessment Continues documentation) Is patient on ventilator? Yes Is Patient Ambulatory and/or Out of Bed No [facility] 1514.376 Calculation Used for Recommendations Mauro Clancy Additional Notes Pro needs >1.2g/kg: >84g/day Fluid needs 1-1.5L/day Nutrition Intervention Nutrition Support: Nepro at 35ml/hr with 150ml water flush q4h. Kcal 1,512 Protein (gm) 68 Carbohydrates (gm) 135 Fat (gm) 81 Fluid (mL) 611 Fiber (gm) 11 Goal #1 TF tolerance Goal #2 TF at goal rate to meet at least 75% energy and pro needs Follow-Up By: 10/11/20 Additional Comments F/U: new TF, vent status
--- NOTE | 2020-10-10 08:52 | Progress Note ---
Assessment and Plan 1. ESRD: Patient is on maintenance hemodialysis three times a week, MWF schedule. 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 Urgent HD 10/07 due to hyperkalemia. Hemodialysis: 10/07, 10/08. 2. FEN: Hyperkalemia, improved, monitor. Metabolic acidosis, 2/2 DKA, Lactic acidosis, monitor. Replete K. Monitor lytes. 3. DKA: Was on Insulin drip. Monitor. 4. S/p OOH Cardiac arrest: Total of 2 episodes. Total downtime unknown. Followed by Cards. Monitor. 5. Shock: On Cefepime. Wean pressors as tolerated. Monitor BP closely. 6. Severe anoxic encephalopathy: Absent brain stem reflexes. Followed by Neuro. 7. Anemia, POA: 2/2 ESRD. Epogen if needed. Subjective: Patient was seen and examined at the bedside. Examination: General appearance: well-developed, intubated, on vent HEENT: ATNC, Pupils dilated and not reacting to light Neck: neck supple, trachea midline Respiratory: Coarse breath sounds Heart: regular, normal heart rate, S1S2, no murmur Abdomen: soft, NT Integumentary: no rash, warm and dry Neurologic: not responding Ext: no edema noted Hemodialysis access: L arm AVF clotted, L femoral catheter : alfaro catheter Subjective Date of service: 10/10/20 Principal diagnosis: Anoxic Encephalopathy, S/p Cardiac Arrest, DKA, Severe Hyperkalemia Objective - Vital Signs Vital signs: Vital Signs - 12hr 10/09/20 10/09/20 10/09/20 21:00 21:15 21:30 Temperature Pulse Rate 50 L 50 L 50 L Pulse Rate [ From Monitor] Respiratory 16 16 16 Rate Blood Pressure 119/80 114/77 115/75 O2 Sat by Pulse 100 100 100 Oximetry 10/09/20 10/09/20 10/09/20 21:45 22:00 22:15 Temperature Pulse Rate 50 L 50 L 50 L Pulse Rate [ From Monitor] Respiratory 16 16 16 Rate Blood Pressure 115/75 108/75 108/75 O2 Sat by Pulse 100 100 100 Oximetry 10/09/20 10/09/20 10/09/20 22:30 22:33 22:45 Temperature Pulse Rate 50 L 51 L 51 L Pulse Rate [ From Monitor] Respiratory 16 16 16 Rate Blood Pressure 102/70 102/70 102/70 O2 Sat by Pulse 100 100 100 Oximetry 10/09/20 10/09/20 10/09/20 23:00 23:15 23:31 Temperature Pulse Rate 51 L 51 L 51 L Pulse Rate [ From Monitor] Respiratory 16 16 16 Rate Blood Pressure 97/67 97/67 97/67 O2 Sat by Pulse 100 100 100 Oximetry 10/09/20 10/10/20 10/10/20 23:45 00:00 00:04 Temperature 97.3 F L Pulse Rate 51 L 51 L 51 L Pulse Rate [ 51 L From Monitor] Respiratory 16 16 Rate Blood Pressure 97/67 91/64 91/64 O2 Sat by Pulse 100 100 100 Oximetry 10/10/20 10/10/20 10/10/20 00:15 00:31 00:45 Temperature Pulse Rate 52 L 52 L 52 L Pulse Rate [ From Monitor] Respiratory 16 16 16 Rate Blood Pressure 91/64 91/64 91/64 O2 Sat by Pulse 100 100 100 Oximetry 10/10/20 10/10/20 10/10/20 01:00 01:16 01:30 Temperature Pulse Rate 52 L 53 L 53 L Pulse Rate [ From Monitor] Respiratory 16 16 16 Rate Blood Pressure 90/62 90/62 90/62 O2 Sat by Pulse 100 100 100 Oximetry 10/10/20 10/10/20 10/10/20 01:45 02:00 02:15 Temperature Pulse Rate 53 L 54 L 53 L Pulse Rate [ From Monitor] Respiratory 16 16 16 Rate Blood Pressure 90/62 86/59 86/59 O2 Sat by Pulse 100 100 100 Oximetry 10/10/20 10/10/20 10/10/20 02:31 02:45 03:00 Temperature Pulse Rate 53 L 54 L 54 L Pulse Rate [ From Monitor] Respiratory 16 16 16 Rate Blood Pressure 86/59 86/59 81/56 O2 Sat by Pulse 100 100 100 Oximetry 10/10/20 10/10/20 10/10/20 03:15 03:29 03:31 Temperature Pulse Rate 54 L 53 L 54 L Pulse Rate [ From Monitor] Respiratory 16 16 Rate Blood Pressure 81/56 81/56 81/56 O2 Sat by Pulse 100 100 100 Oximetry 10/10/20 10/10/20 10/10/20 03:45 04:00 04:01 Temperature Pulse Rate 58 L 61 Pulse Rate [ 61 From Monitor] Respiratory 16 16 16 Rate Blood Pressure 81/56 115/75 O2 Sat by Pulse 100 100 100 Oximetry 10/10/20 10/10/20 10/10/20 04:15 04:31 04:45 Temperature Pulse Rate 62 62 62 Pulse Rate [ From Monitor] Respiratory 16 16 16 Rate Blood Pressure 115/75 115/75 115/75 O2 Sat by Pulse 100 100 100 Oximetry 10/10/20 10/10/20 10/10/20 05:00 05:15 05:31 Temperature Pulse Rate 62 63 62 Pulse Rate [ From Monitor] Respiratory 19 15 17 Rate Blood Pressure 90/66 90/66 90/66 O2 Sat by Pulse 100 100 100 Oximetry 10/10/20 10/10/20 10/10/20 05:45 06:00 06:15 Temperature 96.8 F L Pulse Rate 62 62 62 Pulse Rate [ From Monitor] Respiratory 16 14 14 Rate Blood Pressure 90/66 90/63 90/63 O2 Sat by Pulse 100 100 100 Oximetry 10/10/20 10/10/20 10/10/20 06:31 06:45 07:00 Temperature 97.4 F L Pulse Rate 61 61 61 Pulse Rate [ From Monitor] Respiratory 15 16 14 Rate Blood Pressure 90/63 90/63 88/56 O2 Sat by Pulse 98 100 100 Oximetry 10/10/20 10/10/20 10/10/20 07:15 07:31 07:45 Temperature Pulse Rate 61 63 68 Pulse Rate [ From Monitor] Respiratory 17 16 17 Rate Blood Pressure 88/56 88/56 88/56 O2 Sat by Pulse 100 100 100 Oximetry 10/10/20 10/10/20 10/10/20 07:57 08:01 08:15 Temperature Pulse Rate 69 69 71 Pulse Rate [ From Monitor] Respiratory 18 24 Rate Blood Pressure 107/78 107/78 107/78 O2 Sat by Pulse 100 100 100 Oximetry 10/10/20 10/10/20 08:31 08:45 Temperature Pulse Rate 73 75 Pulse Rate [ From Monitor] Respiratory 22 16 Rate Blood Pressure 88/56 88/56 O2 Sat by Pulse 97 97 Oximetry - Lab 10/11/20 10:03 10/11/20 05:01 Most recent lab results ABG pH 7.500 (7.320-7.450) H 10/10/20 04:00 ABG O2 Saturation 98.7 (0-100) 10/10/20 04:00 Calcium 6.5 mg/dL (8.4-10.2) L 10/09/20 16:50 Phosphorus 3.20 mg/dL (2.5-4.5) D 10/09/20 05:40 Magnesium 3.10 mg/dL (1.7-2.3) H 10/07/20 10:32 Medications & Allergies - Medications Allergies/Adverse Reactions: Allergies peanut Allergy (Unknown, Verified 10/07/20 08:21) Unknown pecan nut Allergy (Unknown, Verified 10/07/20 08:21) Unknown walnut Allergy (Unknown, Verified 10/07/20 08:21) Unknown latex Allergy (Verified 10/07/20 08:21) Rash Home Medications: Home Medications Medication Instructions Recorded Confirmed Last Taken Type Aspirin 81 mg PO DAILY 07/04/20 07/14/20 07/04/20 History Famotidine [Pepcid] 20 mg PO DAILY #30 tablet 07/12/20 07/14/20 Unknown Rx Lisinopril 30 mg PO DAILY #30 07/12/20 07/14/20 Unknown Rx hydrALAZINE 50 mg PO DAILY #30 07/12/20 07/14/20 Unknown Rx Insulin Detemir [Levemir VIAL] 21 units SQ HS #1 vial 07/16/20 Unknown Rx Insulin Regular, Human [HumuLIN R] 0 unit SQ AC #1 vial 07/16/20 Unknown Rx Active Medications: Generic Name Dose Route Start Last Admin Trade Name Freq PRN Reason Stop Dose Admin Acetaminophen 650 mg 10/07/20 11:12 Acetaminophen 325 Mg Tab PO Q6H PRN Pain, Mild (1-3) Albuterol 2.5 mg 10/07/20 11:09 Albuterol 2.5 Mg/3 Ml Nebu IH Q3HRT PRN Shortness Of Breath Lipase/Protease/Amylase 1 each 10/09/20 11:14 Lipase 10,500/Protease 25,000/Amylase 43,750 (Units) Dr Fishman FEEDTUBE PRN PRN For Clogged Feeding Tube Aspirin 81 mg 10/08/20 10:00 10/09/20 09:13 Aspirin 81 Mg Tab Chew PO 81 mg QDAY LEIGH Administration Dextrose 50 ml 10/09/20 08:42 Dextrose 50% In Water (25gm) 50 Ml Syringe IV Q30MIN PRN Hypoglycemia Protocol Fentanyl 50 mcg 10/07/20 11:11 10/07/20 12:26 Fentanyl 100 Mcg/2 Ml Inj IV 50 mcg Q10MIN PRN Administration ANALGESIA Heparin Sodium (Porcine) 2,000 unit 10/07/20 18:10 Heparin 10,000 Units/10 Ml Vial IV SHAILESH PRN hemodialysis Heparin Sodium (Porcine) 5,000 unit 10/08/20 10:00 10/09/20 21:36 Heparin 5,000 Unit/1 Ml Vial SUB-Q 5,000 unit Q12HR LEIGH Administration Hydromorphone HCl 0.25 mg 10/07/20 11:12 10/08/20 13:20 Hydromorphone 1 Mg/1 Ml Inj IV 0.25 mg Q4H PRN Administration Pain, Moderate (4-6) Hydrophilic Ointment 1 applic 10/07/20 11:11 Lip Therapy Vaseline TP Q2HR PRN Dry Lips Norepinephrine 4 mg in 250 mls @ 7.5 mls/hr 10/07/20 09:00 10/08/20 23:11 Levophed Drip 4 Mg/Ns 250 Ml IV 3 mcg/min TITR LEIGH 11.25 mls/hr Titration Protocol 2 MCG/MIN Sodium Chloride 100 mls @ 999 mls/hr 10/07/20 18:10 Nacl 0.9% IV SHAILESH PRN Hypotension Dopamine HCl/Dextrose 800 mg in 250 mls @ 2.576 mls/hr 10/08/20 11:00 10/10/20 03:00 Intropin Drip 800 Mg/D5w 250 Ml IV 3.11 mcg/kg/min TITR LEIGH 4 mls/hr Titration Protocol 2 MCG/KG/MIN Cefepime HCl 1 gm in 100 mls @ 200 mls/hr 10/08/20 18:00 10/09/20 17:04 Cefepime/Ns 1 Gm/100 Ml IV 200 mls/hr Q24H LEIGH Administration Protocol Dextrose/Sodium Chloride 1,000 mls @ 100 mls/hr 10/08/20 17:00 10/09/20 19:00 D5ns 0.2% IV 0 mls/hr DIRECT LEIGH Infusion Insulin Human Isoph/Insulin Regular 20 unit 10/10/20 08:00 Insulin Nph/Regular 70/30 Inj SUB-Q BIDDIAB LEIGH Insulin Human Regular 0 units 10/09/20 10:00 10/10/20 06:41 Insulin Regular, Human 100 Units/1 Ml SUB-Q 4 units Q4H LEIGH Administration Protocol Multi-Ingred Cream/Lotion/Oil/Oint 1 applic 10/07/20 11:11 Mineral Oil/Petrolatum, White Ophth Oint 3.5 Gm OU Q4HR PRN Dry Eye(s) Simple Syrup 15 ml 10/09/20 11:14 Simple Syrup 15 Ml FEEDTUBE PRN PRN Hypoglycemia Simple Syrup 30 ml 10/09/20 11:14 Simple Syrup 15 Ml FEEDTUBE PRN PRN Hypoglycemia Sodium Bicarbonate 325 mg 10/09/20 11:14 Sodium Bicarbonate 325 Mg Tab FEEDTUBE PRN PRN For Clogged Feeding Tube Sodium Chloride 10 ml 10/07/20 22:00 10/09/20 21:36 Sodium Chloride 0.9% 10 Ml Flush Syringe IV 10 ml BID LEIGH Administration Sodium Chloride 10 ml 10/07/20 11:09 Sodium Chloride 0.9% 10 Ml Flush Syringe IV PRN PRN LINE FLUSH
--- NOTE | 2020-10-10 09:26 | Progress Note ---
Assessment and Plan Suspect cardiac arrest was likely in the setting of primary electrolyte abnormality as opposed to ischemia. Continue present mgmt as per Primary teams. Pt seen in conjunction with Dr. Redd, who agrees with the assessment and plan of care. - Patient Problems (1) Anoxic brain injury Current Visit: Yes Status: Acute (2) Acute respiratory failure Current Visit: Yes Status: Acute Qualifiers: Respiratory failure complication: hypoxia Qualified Code(s): J96.01 - Acute respiratory failure with hypoxia (3) PNA (pneumonia) Current Visit: Yes Status: Acute (4) Shock Current Visit: Yes Status: Acute (5) Cardiac arrest Current Visit: Yes Status: Acute (6) ESRD on hemodialysis Current Visit: Yes Status: Chronic (7) DKA (diabetic ketoacidoses) Current Visit: Yes Status: Acute Qualifiers: Diabetes mellitus type: type 1 Qualified Code(s): E10.10 - Type 1 diabetes mellitus with ketoacidosis without coma (8) Hyperkalemia Current Visit: Yes Status: Resolved (9) Hypermagnesemia Current Visit: Yes Status: Resolved (10) Elevated LFTs Current Visit: Yes Status: Acute (11) Anemia Current Visit: Yes Status: Chronic (12) NSTEMI (non-ST elevated myocardial infarction) Current Visit: Yes Status: Acute Plan to address problem: -Suspect Type 2 (13) Hypertension Current Visit: No Status: Chronic Qualifiers: Hypertension type: renovascular hypertension Qualified Code(s): I15.0 - Renovascular hypertension (14) HLD (hyperlipidemia) Current Visit: Yes Status: Chronic Qualifiers: Hyperlipidemia type: mixed hyperlipidemia Qualified Code(s): E78.2 - Mixed hyperlipidemia (15) Type 1 diabetes Current Visit: Yes Status: Chronic (16) History of COVID-19 Current Visit: Yes Status: Chronic Plan to address problem: 06/2020 Subjective Date of service: 10/09/20 Principal diagnosis: Anoxic Encephalopathy, S/p Cardiac Arrest, DKA, Severe Hyperkalemia Interval history: No acute events overnight. Weaning off Levo & Dopamine gtts. Tele reviewed - SR 50-60s. Objective Last Vital Signs Temp 98.0 F 10/09/20 12:00 Pulse 49 L 10/09/20 18:17 Resp 16 10/09/20 18:15 BP 144/81 10/09/20 18:15 Pulse Ox 100 10/09/20 18:15 - Physical Examination General: Other (intubated) HEENT: Positive: Normocephaly Neck: Positive: neck supple. Negative: JVD/HJR Cardiac: Positive: Reg Rate and Rhythm, S1/S2 Lungs: Positive: Ventilated Respirations Neuro: Positive: Other (intubated) Abdomen: Positive: Soft Skin: Negative: Rash Musculoskeletal: No Fluid Collection Extremities: Present: upper extr. pulses, lower extr. pulses. Absent: edema - Labs and Meds Comprehensive Metabolic Panel 10/08/20 10/09/20 10/09/20 Range/Units 23:55 05:40 16:50 Sodium 135 L 136 L 130 L (137-145) mmol/L Potassium 3.4 L 3.1 L 3.7 (3.6-5.0) mmol/L Chloride 98.1 98.6 95.5 L (98-107) mmol/L Carbon Dioxide 24 22 18 L (22-30) mmol/L BUN 28 H 30 H 33 H (7-17) mg/dL Creatinine 5.0 H 5.2 H 5.5 H (0.6-1.2) mg/dL Glucose 207 H 181 H 386 H (65-100) mg/dL Calcium 7.0 L 7.1 L 6.5 L (8.4-10.2) mg/dL - Imaging and Cardiology EKG: report reviewed, image reviewed Echo: report reviewed (10/07/2020 - mild-mod concentric LVH, EF 45-50%, mild diastolic dysfxn), other (09/16/2020 - EF 60-65%, mild concentric LVH, mildly dilated LA, trace AI, grade 1 diastolic dysfxn, mild TR, RVSP 32.8 mmHg, trace MR) - Telemetry EKG Rhythm: Sinus Rhythm - EKG Sinus rhythms and dysrhythmias: sinus rhythm AV and intraventricular conduction: right bundle branch block, left anterior fascicular Repolarization changes or abnormalities: nonspecific abnormality, ST segment, and/or T wave, Suggestive of hyperkalemia - Allied health notes Allied health notes reviewed: nursing
[2020-10-10] MEDS: INSULIN NPH/REGULAR 70/30 INJ SUB-Q SCH ×2 (09:37→17:10)
[2020-10-10] MEDS: ASPIRIN 81 MG TAB CHEW PO SCH (09:38)
[2020-10-10] MEDS: HEPARIN 5,000 UNIT/1 ML VIAL SUB-Q SCH ×2 (09:38→22:13)
[2020-10-10] MEDS: DOPamine/D5W 800 MG/250 ML 800 MG/250 ML BAG IV SCH (09:39)
--- NOTE | 2020-10-10 11:41 | Progress Note ---
Assessment and Plan Assessment and Plan # Anoxic brain injury/ s/p cardiac arrest in field -pt. was resucited in field and on route she is intubated and unresponsive EXAM today is suggestive of brain with absent all brain stem reflexes But pt. is with renal isnsuff. -Supportive care. - Neuro check, - head CT consistent with brain edema -No sedation -consider EEG -CTA brain blood flow is pending due to lack of IV site # Acute respiratory failure -Patient intubated and ambulatory support. -Critical care team consulted, wean vent as tolerated, -daily ABG, -spontaneous breathing trial, -sedation holiday. # Cardiac arrest -Patient treated in accordance with ACLS protocol with return of perfusing cardiac rhythm. - Patient currently on inotropic support. - Cardiology team consulted. # Sepsis -Sepsis protocol: -Chest x-ray, CBC, urinalysis, - IV fluid resuscitation therapy, IV antibiotic therapy, IV pressor support, maintain mean arterial pressure greater than or equal to 65, -monitor urine output every shift, - blood culture, # DKA (diabetic ketoacidoses) -DKA protocol: - IV fluid resuscitation therapy, - insulin drip, -serial lactic acid level, -monitor anion gap, - serial BMP. - Potassium replacement per protocol. # ESRD needing dialysis -Nephrology team consulted, -vascular surgery team consulted, # Elevated LFTs -Suspect secondary to shock liver status post cardiac arrest, - supportive care. # Metabolic acidosis -IV bicarbonate therapy, -BMP, repeat BMP in a.m. -Serial lactic acid level. # DVT prophylaxis -SCD to bilateral lower extremities while in bed. The high probability of a clinically significant, sudden or life threatening deterioration of the [neuro, cardiac, renal, pulmonary] system(s) required my full and direct attention, intervention and personal management. The aggregate critical care time was [45] minutes. This time is in addition to time spent performing reported procedures but includes the following: [x] Data Review and interpretation [x] Patient assessment and monitoring of vital signs [x] Documentation [x] Medication orders and management PLAN 1- poor prognsis 2- Correct electrolytes abn. as possible 3- CTA blood brain flow am to confirm brain if needed --- clinically is suggestive of above will sign off Subjective Date of service: 10/10/20 Principal diagnosis: Anoxic Encephalopathy, S/p Cardiac Arrest, DKA, Severe Hyperkalemia Interval history: pt. status is same pupils are dialted and fixed NO EOM is noted No Gag no sponatneous breathing is noted EEG not done BUN/Cr# 33/5.2---33/5.5 Lactic acid #3.6 Troponin#0.545 CTA brain is on hold No IV access Objective - Vital Sign Vital Signs - 12hr 10/09/20 10/10/20 10/10/20 23:45 00:00 00:04 Temperature 97.3 F L Pulse Rate 51 L 51 L 51 L Pulse Rate [ 51 L From Monitor] Respiratory 16 16 Rate Blood Pressure 97/67 91/64 91/64 O2 Sat by Pulse 100 100 100 Oximetry 10/10/20 10/10/20 10/10/20 00:15 00:31 00:45 Temperature Pulse Rate 52 L 52 L 52 L Pulse Rate [ From Monitor] Respiratory 16 16 16 Rate Blood Pressure 91/64 91/64 91/64 O2 Sat by Pulse 100 100 100 Oximetry 10/10/20 10/10/20 10/10/20 01:00 01:16 01:30 Temperature Pulse Rate 52 L 53 L 53 L Pulse Rate [ From Monitor] Respiratory 16 16 16 Rate Blood Pressure 90/62 90/62 90/62 O2 Sat by Pulse 100 100 100 Oximetry 10/10/20 10/10/20 10/10/20 01:45 02:00 02:15 Temperature Pulse Rate 53 L 54 L 53 L Pulse Rate [ From Monitor] Respiratory 16 16 16 Rate Blood Pressure 90/62 86/59 86/59 O2 Sat by Pulse 100 100 100 Oximetry 10/10/20 10/10/20 10/10/20 02:31 02:45 03:00 Temperature Pulse Rate 53 L 54 L 54 L Pulse Rate [ From Monitor] Respiratory 16 16 16 Rate Blood Pressure 86/59 86/59 81/56 O2 Sat by Pulse 100 100 100 Oximetry 10/10/20 10/10/20 10/10/20 03:15 03:29 03:31 Temperature Pulse Rate 54 L 53 L 54 L Pulse Rate [ From Monitor] Respiratory 16 16 Rate Blood Pressure 81/56 81/56 81/56 O2 Sat by Pulse 100 100 100 Oximetry 10/10/20 10/10/20 10/10/20 03:45 04:00 04:01 Temperature Pulse Rate 58 L 61 Pulse Rate [ 61 From Monitor] Respiratory 16 16 16 Rate Blood Pressure 81/56 115/75 O2 Sat by Pulse 100 100 100 Oximetry 10/10/20 10/10/20 10/10/20 04:15 04:31 04:45 Temperature Pulse Rate 62 62 62 Pulse Rate [ From Monitor] Respiratory 16 16 16 Rate Blood Pressure 115/75 115/75 115/75 O2 Sat by Pulse 100 100 100 Oximetry 10/10/20 10/10/20 10/10/20 05:00 05:15 05:31 Temperature Pulse Rate 62 63 62 Pulse Rate [ From Monitor] Respiratory 19 15 17 Rate Blood Pressure 90/66 90/66 90/66 O2 Sat by Pulse 100 100 100 Oximetry 10/10/20 10/10/20 10/10/20 05:45 06:00 06:15 Temperature 96.8 F L Pulse Rate 62 62 62 Pulse Rate [ From Monitor] Respiratory 16 14 14 Rate Blood Pressure 90/66 90/63 90/63 O2 Sat by Pulse 100 100 100 Oximetry 10/10/20 10/10/20 10/10/20 06:31 06:45 07:00 Temperature 97.4 F L Pulse Rate 61 61 61 Pulse Rate [ From Monitor] Respiratory 15 16 14 Rate Blood Pressure 90/63 90/63 88/56 O2 Sat by Pulse 98 100 100 Oximetry 10/10/20 10/10/20 10/10/20 07:15 07:31 07:45 Temperature Pulse Rate 61 63 68 Pulse Rate [ From Monitor] Respiratory 17 16 17 Rate Blood Pressure 88/56 88/56 88/56 O2 Sat by Pulse 100 100 100 Oximetry 10/10/20 10/10/20 10/10/20 07:57 08:01 08:15 Temperature Pulse Rate 69 69 71 Pulse Rate [ From Monitor] Respiratory 18 24 Rate Blood Pressure 107/78 107/78 107/78 O2 Sat by Pulse 100 100 100 Oximetry 10/10/20 10/10/20 10/10/20 08:31 08:45 09:00 Temperature Pulse Rate 73 75 75 Pulse Rate [ From Monitor] Respiratory 22 16 17 Rate Blood Pressure 88/56 88/56 104/77 O2 Sat by Pulse 97 97 97 Oximetry 10/10/20 11:18 Temperature Pulse Rate 63 Pulse Rate [ From Monitor] Respiratory Rate Blood Pressure 97/73 O2 Sat by Pulse 98 Oximetry - General Apperance Constitutional: comfortable - EENT EENT: mucous membranes moist - Respiratory Respiratory: lungs clear, crackles - Cardiovascular Cardiovascular: regular rate Extremities: no peripheral edema bilat - Gastrointestinal Gastrointestinal: normoactive bowel sounds - Integumentary Integumentary: normal - Neurologic Cranial nerve examination: other (no gag,no EOM ,pupil 4 mm fixed, no sp. breathing) Speech examination: other (intubated) - Laboratory Findings CBC and BMP: 10/07/20 09:08 10/09/20 16:50 Abnormal Lab Findings: Abnormal Labs 10/07/20 10/07/20 10/07/20 09:08 09:08 09:08 WBC 15.8 H RBC 3.05 L Hgb 9.7 L MCV 108 H RDW 20.9 H Seg Neutrophils % 77.4 H Seg Neutrophils # 12.2 H PT 21.2 H INR 1.83 H APTT 51.1 H ABG pH POC ABG pCO2 POC ABG pO2 ABG Hemoglobin ABG Oxyhemoglobin ABG Sodium ABG Potassium ABG Chloride ABG Glucose Carboxyhemoglobin Sodium 133 L Potassium 8.3 H* Chloride 77.5 L Carbon Dioxide 6 L* BUN 86 H Creatinine 10.6 H Glucose 798 H* POC Glucose Hemoglobin A1c Lactic Acid Calcium Phosphorus Magnesium AST 2736 H ALT 1568 H Alkaline Phosphatase 183 H Total Creatine Kinase 444 H CK-MB (CK-2) 8.6 H Troponin T 0.395 H* NT-Pro-B Natriuret Pep 6466 H Total Protein 5.8 L Albumin 2.6 L Triglycerides 246 H HDL Cholesterol 39 L Arterial Blood Glucose Arterial Blood Ionized Calcium 10/07/20 10/07/20 10/07/20 09:08 09:24 10:32 WBC RBC Hgb MCV RDW Seg Neutrophils % Seg Neutrophils # PT INR APTT ABG pH 6.793 L POC ABG pCO2 30.2 L POC ABG pO2 433.9 H ABG Hemoglobin 10.8 L ABG Oxyhemoglobin 99.2 H ABG Sodium 131.7 L ABG Potassium 8.2 H ABG Chloride 85.0 L ABG Glucose Carboxyhemoglobin 0.3 L Sodium Potassium Chloride Carbon Dioxide BUN Creatinine Glucose POC Glucose Hemoglobin A1c Lactic Acid Calcium Phosphorus 22.30 H Magnesium 3.10 H 3.10 H AST ALT Alkaline Phosphatase Total Creatine Kinase CK-MB (CK-2) Troponin T NT-Pro-B Natriuret Pep Total Protein Albumin Triglycerides HDL Cholesterol Arterial Blood Glucose Arterial Blood Ionized Calcium 10/07/20 10/07/20 10/07/20 10:32 11:23 11:23 WBC RBC Hgb MCV RDW Seg Neutrophils % Seg Neutrophils # PT INR APTT ABG pH POC ABG pCO2 POC ABG pO2 ABG Hemoglobin ABG Oxyhemoglobin ABG Sodium ABG Potassium ABG Chloride ABG Glucose Carboxyhemoglobin Sodium 131 L 135 L Potassium 8.7 H* 8.5 H* Chloride 76.6 L 78.1 L Carbon Dioxide 6 L* 5 L* BUN 89 H 87 H Creatinine 10.7 H 10.7 H Glucose 967 H* 799 H* POC Glucose Hemoglobin A1c Lactic Acid 9.70 H* Calcium Phosphorus Magnesium AST ALT Alkaline Phosphatase Total Creatine Kinase CK-MB (CK-2) Troponin T NT-Pro-B Natriuret Pep Total Protein Albumin Triglycerides HDL Cholesterol Arterial Blood Glucose Arterial Blood Ionized Calcium 10/07/20 10/07/20 10/07/20 13:20 13:58 13:58 WBC RBC Hgb MCV RDW Seg Neutrophils % Seg Neutrophils # PT INR APTT ABG pH POC ABG pCO2 POC ABG pO2 ABG Hemoglobin ABG Oxyhemoglobin ABG Sodium ABG Potassium ABG Chloride ABG Glucose Carboxyhemoglobin Sodium 133 L Potassium 6.8 H* Chloride 82.3 L Carbon Dioxide 8 L* BUN 86 H Creatinine 10.3 H Glucose 868 H* POC Glucose > 600 H Hemoglobin A1c Lactic Acid 6.90 H* Calcium Phosphorus Magnesium AST ALT Alkaline Phosphatase Total Creatine Kinase CK-MB (CK-2) Troponin T NT-Pro-B Natriuret Pep Total Protein Albumin Triglycerides HDL Cholesterol Arterial Blood Glucose Arterial Blood Ionized Calcium 10/07/20 10/07/20 10/07/20 14:03 18:01 18:18 WBC RBC Hgb MCV RDW Seg Neutrophils % Seg Neutrophils # PT INR APTT ABG pH 7.175 L POC ABG pCO2 27.4 L POC ABG pO2 ABG Hemoglobin 9.3 L ABG Oxyhemoglobin ABG Sodium 134.0 L ABG Potassium 6.4 H ABG Chloride 89.0 L ABG Glucose Carboxyhemoglobin 0.4 L Sodium 132 L Potassium 5.7 H Chloride 84.5 L Carbon Dioxide 15 L D BUN 91 H Creatinine 10.6 H Glucose 828 H* POC Glucose > 600 H Hemoglobin A1c Lactic Acid Calcium 6.7 L D Phosphorus Magnesium AST ALT Alkaline Phosphatase Total Creatine Kinase CK-MB (CK-2) Troponin T NT-Pro-B Natriuret Pep Total Protein Albumin Triglycerides HDL Cholesterol Arterial Blood Glucose Arterial Blood Ionized Calcium 4.4 L 10/07/20 10/07/20 10/07/20 18:18 18:18 22:27 WBC RBC Hgb MCV RDW Seg Neutrophils % Seg Neutrophils # PT INR APTT ABG pH POC ABG pCO2 POC ABG pO2 ABG Hemoglobin ABG Oxyhemoglobin ABG Sodium ABG Potassium ABG Chloride ABG Glucose Carboxyhemoglobin Sodium Potassium Chloride Carbon Dioxide BUN Creatinine Glucose POC Glucose 456 H Hemoglobin A1c Lactic Acid 5.00 H* Calcium Phosphorus Magnesium AST ALT Alkaline Phosphatase Total Creatine Kinase CK-MB (CK-2) Troponin T 1.330 H* D NT-Pro-B Natriuret Pep Total Protein Albumin Triglycerides HDL Cholesterol Arterial Blood Glucose Arterial Blood Ionized Calcium 10/08/20 10/08/20 10/08/20 00:13 00:51 01:50 WBC RBC Hgb MCV RDW Seg Neutrophils % Seg Neutrophils # PT INR APTT ABG pH 7.454 H POC ABG pCO2 28.8 L POC ABG pO2 113.3 H ABG Hemoglobin 9.7 L ABG Oxyhemoglobin ABG Sodium 134.1 L ABG Potassium ABG Chloride ABG Glucose 423 H Carboxyhemoglobin 0.3 L Sodium Potassium Chloride Carbon Dioxide BUN Creatinine Glucose POC Glucose 468 H 452 H Hemoglobin A1c Lactic Acid Calcium Phosphorus Magnesium AST ALT Alkaline Phosphatase Total Creatine Kinase CK-MB (CK-2) Troponin T NT-Pro-B Natriuret Pep Total Protein Albumin Triglycerides HDL Cholesterol Arterial Blood Glucose 423 H Arterial Blood Ionized Calcium 3.7 L 10/08/20 10/08/20 10/08/20 02:09 03:07 03:11 WBC RBC Hgb MCV RDW Seg Neutrophils % Seg Neutrophils # PT INR APTT ABG pH POC ABG pCO2 POC ABG pO2 ABG Hemoglobin ABG Oxyhemoglobin ABG Sodium ABG Potassium ABG Chloride ABG Glucose Carboxyhemoglobin Sodium Potassium Chloride 96.9 L Carbon Dioxide 18 L BUN 58 H Creatinine 7.8 H Glucose 403 H POC Glucose 445 H 395 H Hemoglobin A1c Lactic Acid Calcium 6.9 L Phosphorus 5.80 H D Magnesium AST ALT Alkaline Phosphatase Total Creatine Kinase CK-MB (CK-2) Troponin T NT-Pro-B Natriuret Pep Total Protein Albumin Triglycerides HDL Cholesterol Arterial Blood Glucose Arterial Blood Ionized Calcium 10/08/20 10/08/20 10/08/20 04:02 05:09 06:12 WBC RBC Hgb MCV RDW Seg Neutrophils % Seg Neutrophils # PT INR APTT ABG pH POC ABG pCO2 POC ABG pO2 ABG Hemoglobin ABG Oxyhemoglobin ABG Sodium ABG Potassium ABG Chloride ABG Glucose Carboxyhemoglobin Sodium Potassium Chloride Carbon Dioxide BUN Creatinine Glucose POC Glucose 399 H 339 H 309 H Hemoglobin A1c Lactic Acid Calcium Phosphorus Magnesium AST ALT Alkaline Phosphatase Total Creatine Kinase CK-MB (CK-2) Troponin T NT-Pro-B Natriuret Pep Total Protein Albumin Triglycerides HDL Cholesterol Arterial Blood Glucose Arterial Blood Ionized Calcium 10/08/20 10/08/20 10/08/20 07:45 09:27 10:01 WBC RBC Hgb MCV RDW Seg Neutrophils % Seg Neutrophils # PT INR APTT ABG pH POC ABG pCO2 POC ABG pO2 ABG Hemoglobin ABG Oxyhemoglobin ABG Sodium ABG Potassium ABG Chloride ABG Glucose Carboxyhemoglobin Sodium Potassium Chloride Carbon Dioxide BUN Creatinine Glucose POC Glucose 268 H 203 H 174 H Hemoglobin A1c Lactic Acid Calcium Phosphorus Magnesium AST ALT Alkaline Phosphatase Total Creatine Kinase CK-MB (CK-2) Troponin T NT-Pro-B Natriuret Pep Total Protein Albumin Triglycerides HDL Cholesterol Arterial Blood Glucose Arterial Blood Ionized Calcium 10/08/20 10/08/20 10/08/20 11:21 12:37 14:20 WBC RBC Hgb MCV RDW Seg Neutrophils % Seg Neutrophils # PT INR APTT ABG pH POC ABG pCO2 POC ABG pO2 ABG Hemoglobin ABG Oxyhemoglobin ABG Sodium ABG Potassium ABG Chloride ABG Glucose Carboxyhemoglobin Sodium Potassium Chloride Carbon Dioxide BUN Creatinine Glucose POC Glucose 182 H 166 H 209 H Hemoglobin A1c Lactic Acid Calcium Phosphorus Magnesium AST ALT Alkaline Phosphatase Total Creatine Kinase CK-MB (CK-2) Troponin T NT-Pro-B Natriuret Pep Total Protein Albumin Triglycerides HDL Cholesterol Arterial Blood Glucose Arterial Blood Ionized Calcium 10/08/20 10/08/20 10/08/20 14:58 15:08 16:32 WBC RBC Hgb MCV RDW Seg Neutrophils % Seg Neutrophils # PT INR APTT ABG pH POC ABG pCO2 POC ABG pO2 ABG Hemoglobin ABG Oxyhemoglobin ABG Sodium ABG Potassium ABG Chloride ABG Glucose Carboxyhemoglobin Sodium 135 L Potassium Chloride 97.5 L Carbon Dioxide 19 L BUN 26 H Creatinine 4.1 H Glucose 183 H POC Glucose 173 H 177 H Hemoglobin A1c Lactic Acid Calcium 6.9 L Phosphorus Magnesium AST ALT Alkaline Phosphatase Total Creatine Kinase CK-MB (CK-2) Troponin T NT-Pro-B Natriuret Pep Total Protein Albumin Triglycerides HDL Cholesterol Arterial Blood Glucose Arterial Blood Ionized Calcium 10/08/20 10/08/20 10/08/20 17:42 18:09 20:11 WBC RBC Hgb MCV RDW Seg Neutrophils % Seg Neutrophils # PT INR APTT ABG pH POC ABG pCO2 POC ABG pO2 ABG Hemoglobin ABG Oxyhemoglobin ABG Sodium ABG Potassium ABG Chloride ABG Glucose Carboxyhemoglobin Sodium Potassium Chloride Carbon Dioxide BUN Creatinine Glucose POC Glucose 172 H 176 H 186 H Hemoglobin A1c Lactic Acid Calcium Phosphorus Magnesium AST ALT Alkaline Phosphatase Total Creatine Kinase CK-MB (CK-2) Troponin T NT-Pro-B Natriuret Pep Total Protein Albumin Triglycerides HDL Cholesterol Arterial Blood Glucose Arterial Blood Ionized Calcium 10/08/20 10/08/20 10/08/20 20:57 21:56 23:12 WBC RBC Hgb MCV RDW Seg Neutrophils % Seg Neutrophils # PT INR APTT ABG pH POC ABG pCO2 POC ABG pO2 ABG Hemoglobin ABG Oxyhemoglobin ABG Sodium ABG Potassium ABG Chloride ABG Glucose Carboxyhemoglobin Sodium Potassium Chloride Carbon Dioxide BUN Creatinine Glucose POC Glucose 177 H 211 H 198 H Hemoglobin A1c Lactic Acid Calcium Phosphorus Magnesium AST ALT Alkaline Phosphatase Total Creatine Kinase CK-MB (CK-2) Troponin T NT-Pro-B Natriuret Pep Total Protein Albumin Triglycerides HDL Cholesterol Arterial Blood Glucose Arterial Blood Ionized Calcium 10/08/20 10/09/20 10/09/20 23:55 00:02 01:02 WBC RBC Hgb MCV RDW Seg Neutrophils % Seg Neutrophils # PT INR APTT ABG pH POC ABG pCO2 POC ABG pO2 ABG Hemoglobin ABG Oxyhemoglobin ABG Sodium ABG Potassium ABG Chloride ABG Glucose Carboxyhemoglobin Sodium 135 L Potassium 3.4 L Chloride Carbon Dioxide BUN 28 H Creatinine 5.0 H Glucose 207 H POC Glucose 223 H 211 H Hemoglobin A1c Lactic Acid Calcium 7.0 L Phosphorus Magnesium AST ALT Alkaline Phosphatase Total Creatine Kinase CK-MB (CK-2) Troponin T NT-Pro-B Natriuret Pep Total Protein Albumin Triglycerides HDL Cholesterol Arterial Blood Glucose Arterial Blood Ionized Calcium 10/09/20 10/09/20 10/09/20 02:05 03:05 04:04 WBC RBC Hgb MCV RDW Seg Neutrophils % Seg Neutrophils # PT INR APTT ABG pH POC ABG pCO2 POC ABG pO2 ABG Hemoglobin ABG Oxyhemoglobin ABG Sodium ABG Potassium ABG Chloride ABG Glucose Carboxyhemoglobin Sodium Potassium Chloride Carbon Dioxide BUN Creatinine Glucose POC Glucose 201 H 199 H 183 H Hemoglobin A1c Lactic Acid Calcium Phosphorus Magnesium AST ALT Alkaline Phosphatase Total Creatine Kinase CK-MB (CK-2) Troponin T NT-Pro-B Natriuret Pep Total Protein Albumin Triglycerides HDL Cholesterol Arterial Blood Glucose Arterial Blood Ionized Calcium 10/09/20 10/09/20 10/09/20 05:07 05:40 05:40 WBC RBC Hgb MCV RDW Seg Neutrophils % Seg Neutrophils # PT INR APTT ABG pH POC ABG pCO2 POC ABG pO2 ABG Hemoglobin ABG Oxyhemoglobin ABG Sodium ABG Potassium ABG Chloride ABG Glucose Carboxyhemoglobin Sodium 136 L Potassium 3.1 L Chloride Carbon Dioxide BUN 30 H Creatinine 5.2 H Glucose 181 H POC Glucose 184 H Hemoglobin A1c Lactic Acid 3.80 H* Calcium 7.1 L Phosphorus Magnesium AST ALT Alkaline Phosphatase Total Creatine Kinase CK-MB (CK-2) Troponin T NT-Pro-B Natriuret Pep Total Protein Albumin Triglycerides HDL Cholesterol Arterial Blood Glucose Arterial Blood Ionized Calcium 10/09/20 10/09/20 10/09/20 05:52 07:19 08:12 WBC RBC Hgb MCV RDW Seg Neutrophils % Seg Neutrophils # PT INR APTT ABG pH POC ABG pCO2 POC ABG pO2 ABG Hemoglobin ABG Oxyhemoglobin ABG Sodium ABG Potassium ABG Chloride ABG Glucose Carboxyhemoglobin Sodium Potassium Chloride Carbon Dioxide BUN Creatinine Glucose POC Glucose 202 H 179 H Hemoglobin A1c Lactic Acid Calcium Phosphorus Magnesium AST ALT Alkaline Phosphatase Total Creatine Kinase CK-MB (CK-2) Troponin T 0.545 H* D NT-Pro-B Natriuret Pep Total Protein Albumin Triglycerides HDL Cholesterol Arterial Blood Glucose Arterial Blood Ionized Calcium 10/09/20 10/09/20 10/09/20 08:12 08:25 10:00 WBC RBC Hgb MCV RDW Seg Neutrophils % Seg Neutrophils # PT INR APTT ABG pH POC ABG pCO2 POC ABG pO2 ABG Hemoglobin ABG Oxyhemoglobin ABG Sodium ABG Potassium ABG Chloride ABG Glucose Carboxyhemoglobin Sodium Potassium Chloride Carbon Dioxide BUN Creatinine Glucose POC Glucose 175 H 188 H Hemoglobin A1c Lactic Acid 3.60 H* Calcium Phosphorus Magnesium AST ALT Alkaline Phosphatase Total Creatine Kinase CK-MB (CK-2) Troponin T NT-Pro-B Natriuret Pep Total Protein Albumin Triglycerides HDL Cholesterol Arterial Blood Glucose Arterial Blood Ionized Calcium 10/09/20 10/09/20 10/09/20 13:51 14:34 15:20 WBC RBC Hgb MCV RDW Seg Neutrophils % Seg Neutrophils # PT INR APTT ABG pH POC ABG pCO2 POC ABG pO2 ABG Hemoglobin ABG Oxyhemoglobin ABG Sodium ABG Potassium ABG Chloride ABG Glucose Carboxyhemoglobin Sodium Potassium Chloride Carbon Dioxide BUN Creatinine Glucose POC Glucose 360 H 373 H Hemoglobin A1c 8.5 H Lactic Acid Calcium Phosphorus Magnesium AST ALT Alkaline Phosphatase Total Creatine Kinase CK-MB (CK-2) Troponin T NT-Pro-B Natriuret Pep Total Protein Albumin Triglycerides HDL Cholesterol Arterial Blood Glucose Arterial Blood Ionized Calcium 10/09/20 10/09/20 10/09/20 16:50 17:02 17:34 WBC RBC Hgb MCV RDW Seg Neutrophils % Seg Neutrophils # PT INR APTT ABG pH POC ABG pCO2 POC ABG pO2 ABG Hemoglobin ABG Oxyhemoglobin ABG Sodium ABG Potassium ABG Chloride ABG Glucose Carboxyhemoglobin Sodium 130 L Potassium Chloride 95.5 L Carbon Dioxide 18 L BUN 33 H Creatinine 5.5 H Glucose 386 H POC Glucose 402 H 374 H Hemoglobin A1c Lactic Acid Calcium 6.5 L Phosphorus Magnesium AST ALT Alkaline Phosphatase Total Creatine Kinase CK-MB (CK-2) Troponin T NT-Pro-B Natriuret Pep Total Protein Albumin Triglycerides HDL Cholesterol Arterial Blood Glucose Arterial Blood Ionized Calcium 10/09/20 10/10/20 10/10/20 21:39 02:16 04:00 WBC RBC Hgb MCV RDW Seg Neutrophils % Seg Neutrophils # PT INR APTT ABG pH 7.500 H POC ABG pCO2 24.2 L POC ABG pO2 130.9 H ABG Hemoglobin 10.1 L ABG Oxyhemoglobin 98.2 H ABG Sodium 127.6 L ABG Potassium 2.8 L ABG Chloride ABG Glucose 291 H Carboxyhemoglobin 0.2 L Sodium Potassium Chloride Carbon Dioxide BUN Creatinine Glucose POC Glucose 361 H 290 H Hemoglobin A1c Lactic Acid Calcium Phosphorus Magnesium AST ALT Alkaline Phosphatase Total Creatine Kinase CK-MB (CK-2) Troponin T NT-Pro-B Natriuret Pep Total Protein Albumin Triglycerides HDL Cholesterol Arterial Blood Glucose 291 H Arterial Blood Ionized Calcium 4.1 L 10/10/20 05:20 WBC RBC Hgb MCV RDW Seg Neutrophils % Seg Neutrophils # PT INR APTT ABG pH POC ABG pCO2 POC ABG pO2 ABG Hemoglobin ABG Oxyhemoglobin ABG Sodium ABG Potassium ABG Chloride ABG Glucose Carboxyhemoglobin Sodium Potassium Chloride Carbon Dioxide BUN Creatinine Glucose POC Glucose 239 H Hemoglobin A1c Lactic Acid Calcium Phosphorus Magnesium AST ALT Alkaline Phosphatase Total Creatine Kinase CK-MB (CK-2) Troponin T NT-Pro-B Natriuret Pep Total Protein Albumin Triglycerides HDL Cholesterol Arterial Blood Glucose Arterial Blood Ionized Calcium
[2020-10-10 12:03] LABS: Calcium 7.3 mg/dL (8.4-10.2)
--- NOTE | 2020-10-10 13:18 | Consultation ---
History of Present Illness - Reason for Consult Consult date: 10/10/20 sepsis Requesting physician: SPENCER SPEAR - History of Present Illness 55-year-old female with history of ESRD on hemodialysis, uncontrolled diabetes mellitus, hypertension, obesity, anemia, admitted on 10/07/2020 secondary to cardiac arrest. Patient was found unresponsive by family member in her bed. Upon EMS arrival patient was on asystolic cardiac arrest. Patient was resusci tated, intubated and transported to the emergency room. She was clearly admitted on 07/09/2020 - due to DKA and COVID-19. Of note, patient was recently discharged from [facility] the day before admission here. She was found to have a left month submandibular duct obstruction related to a stone. On arrival, temperature 91.8, HR 60, RR 18, BP 184/49. WBC 15.8. Hemoglobin 9.7. Platelets 198. Creatinine 0.6. Sodium 133. Potassium 8.3. AST 2736. ALT 1568. Sputum 10/07/2020 upper respiratory rivka. Blood culture 10/07/2020 no growth today. Patient was initially admitted to the ICU placed on dopamine and Levophed. Patient underwent urgent dialysis. Placed on amiodarone and bicarb drip. CT scan found severe diffuse cerebral and cerebellar edema consistent with global anoxic event. Review of Systems: Unable to obtain Past History Past Medical History: diabetes, dialysis, ESRD, hypertension Past Surgical History: Other (Dialysis access) Social history: single. denies: smoking, alcohol abuse, prescription drug abuse Family history: diabetes, hypertension Medications and Allergies Allergies Allergy/AdvReac Type Severity Reaction Status Date / Time peanut Allergy Unknown Unknown Verified 10/07/20 08:21 pecan nut Allergy Unknown Unknown Verified 10/07/20 08:21 walnut Allergy Unknown Unknown Verified 10/07/20 08:21 latex Allergy Rash Verified 10/07/20 08:21 Home Medications Medication Instructions Recorded Confirmed Last Taken Type Aspirin 81 mg PO DAILY 07/04/20 07/14/20 07/04/20 History Famotidine [Pepcid] 20 mg PO DAILY #30 tablet 07/12/20 07/14/20 Unknown Rx Lisinopril 30 mg PO DAILY #30 07/12/20 07/14/20 Unknown Rx hydrALAZINE 50 mg PO DAILY #30 07/12/20 07/14/20 Unknown Rx Insulin Detemir [Levemir VIAL] 21 units SQ HS #1 vial 07/16/20 Unknown Rx Insulin Regular, Human [HumuLIN R] 0 unit SQ AC #1 vial 07/16/20 Unknown Rx Active Meds: Active Medications Acetaminophen (Acetaminophen 325 Mg Tab) 650 mg PO Q6H PRN PRN Reason: Pain, Mild (1-3) Albuterol (Albuterol 2.5 Mg/3 Ml Nebu) 2.5 mg IH Q3HRT PRN PRN Reason: Shortness Of Breath Lipase/Protease/Amylase (Lipase 10,500/Protease 25,000/Amylase 43,750 (Units) Dr Cap) 1 each FEEDTUBE PRN PRN PRN Reason: For Clogged Feeding Tube Aspirin (Aspirin 81 Mg Tab Chew) 81 mg PO QDAY [facility] Last Admin: 10/10/20 09:38 Dose: 81 mg Documented by: Dextrose (Dextrose 50% In Water (25gm) 50 Ml Syringe) 50 ml IV Q30MIN PRN; Protocol PRN Reason: Hypoglycemia Fentanyl (Fentanyl 100 Mcg/2 Ml Inj) 50 mcg IV Q10MIN PRN PRN Reason: ANALGESIA Last Admin: 10/07/20 12:26 Dose: 50 mcg Documented by: Heparin Sodium (Porcine) (Heparin 10,000 Units/10 Ml Vial) 2,000 unit IV SHAILESH PRN PRN Reason: hemodialysis Heparin Sodium (Porcine) (Heparin 5,000 Unit/1 Ml Vial) 5,000 unit SUB-Q Q12HR [facility] Last Admin: 10/10/20 09:38 Dose: 5,000 unit Documented by: Hydromorphone HCl (Hydromorphone 1 Mg/1 Ml Inj) 0.25 mg IV Q4H PRN PRN Reason: Pain, Moderate (4-6) Last Admin: 10/08/20 13:20 Dose: 0.25 mg Documented by: Hydrophilic Ointment (Lip Therapy Vaseline) 1 applic TP Q2HR PRN PRN Reason: Dry Lips Norepinephrine (Levophed Drip 4 Mg/Ns 250 Ml) 4 mg in 250 mls @ 7.5 mls/hr IV TITR LEIGH; Protocol Last Titration: 10/08/20 23:11 Dose: 3 mcg/min, 11.25 mls/hr Documented by: Sodium Chloride (Nacl 0.9%) 100 mls @ 999 mls/hr IV SHAILESH PRN PRN Reason: Hypotension Dopamine HCl/Dextrose (Intropin Drip 800 Mg/D5w 250 Ml) 800 mg in 250 mls @ 2.576 mls/hr IV TITR LEIGH; Protocol Last Admin: 10/10/20 09:39 Dose: 3.11 mcg/kg/min, 4 mls/hr Documented by: Cefepime HCl (Cefepime/Ns 1 Gm/100 Ml) 1 gm in 100 mls @ 200 mls/hr IV Q24H LEIGH; Protocol Last Admin: 10/09/20 17:04 Dose: 200 mls/hr Documented by: Dextrose/Sodium Chloride (D5ns 0.2%) 1,000 mls @ 100 mls/hr IV DIRECT LEIGH Last Infusion: 10/09/20 19:00 Dose: 0 mls/hr Documented by: Insulin Human Isoph/Insulin Regular (Insulin Nph/Regular 70/30 Inj) 20 unit SUB-Q BIDDIAB [facility] Last Admin: 10/10/20 09:37 Dose: 20 unit Documented by: Insulin Human Regular (Insulin Regular, Human 100 Units/1 Ml) 0 units SUB-Q Q4H LEIGH; Protocol Last Admin: 10/10/20 06:41 Dose: 4 units Documented by: Multi-Ingred Cream/Lotion/Oil/Oint (Mineral Oil/Petrolatum, White Ophth Oint 3.5 Gm) 1 applic OU Q4HR PRN PRN Reason: Dry Eye(s) Simple Syrup (Simple Syrup 15 Ml) 15 ml FEEDTUBE PRN PRN PRN Reason: Hypoglycemia Simple Syrup (Simple Syrup 15 Ml) 30 ml FEEDTUBE PRN PRN PRN Reason: Hypoglycemia Sodium Bicarbonate (Sodium Bicarbonate 325 Mg Tab) 325 mg FEEDTUBE PRN PRN PRN Reason: For Clogged Feeding Tube Sodium Chloride (Sodium Chloride 0.9% 10 Ml Flush Syringe) 10 ml IV BID [facility] Last Admin: 10/09/20 21:36 Dose: 10 ml Documented by: Sodium Chloride (Sodium Chloride 0.9% 10 Ml Flush Syringe) 10 ml IV PRN PRN PRN Reason: LINE FLUSH Physical Examination - Physical Exam Narrative exam: General appearance: Unresponsive intubated Eyes: anicteric sclerae, moist conjunctivae; no lid-lag; pupils slow reaction HENT: Normocephalic, Atraumatic; normal external ears, nares open, oropharynx limited endotracheal tube in place Neck: supple, tracheal midline, no JVD Lungs: Bilateral rhonchi CV: RRR no murmur Abdomen: Soft nontender Extremities: no edema, no cyanosis Skin: No rash. Psych: Unresponsive Neuro: Unresponsive Right femoral TLC Left femoral hemodialysis catheter - Constitutional Vitals: Vital Signs Temp Pulse Resp BP Pulse Ox 97.4 F L 71 29 H 91/64 100 10/10/20 07:00 10/10/20 12:31 10/10/20 12:31 10/10/20 12:31 10/10/20 12:31 Temperature -Last 24 Hours Temperature 97.4 F Temperature 96.8 F Temperature 97.3 F Temperature 97.0 F Results - Labs CBC & Chem 7: 10/07/20 09:08 10/10/20 11:21 Labs: Abnormal lab results 10/09/20 10/09/20 10/09/20 Range/Units 10:00 13:51 14:34 ABG pH (7.320-7.450) POC ABG pCO2 (32.0-48.0) mmHg POC ABG pO2 (83-108) mmHg ABG Hemoglobin (12.0-17.5) ABG Oxyhemoglobin (94-98) ABG Sodium (136.0-145.0) mmol/L ABG Potassium (3.40-4.50) mmol/L ABG Glucose (65-95) mg/dL Carboxyhemoglobin (0.5-1.5) Sodium (137-145) mmol/L Potassium (3.6-5.0) mmol/L Chloride (98-107) mmol/L Carbon Dioxide (22-30) mmol/L BUN (7-17) mg/dL Creatinine (0.6-1.2) mg/dL Glucose (65-100) mg/dL POC Glucose 188 H 360 H (70-105) mg/dL Hemoglobin A1c 8.5 H (4-6) % Calcium (8.4-10.2) mg/dL Troponin T (0.00-0.029) ng/mL Arterial Blood Glucose (65-95) mg/dL Arterial Blood Ionized Calcium (4.6-5.3) mg/dL 10/09/20 10/09/20 10/09/20 Range/Units 15:20 16:50 17:02 ABG pH (7.320-7.450) POC ABG pCO2 (32.0-48.0) mmHg POC ABG pO2 (83-108) mmHg ABG Hemoglobin (12.0-17.5) ABG Oxyhemoglobin (94-98) ABG Sodium (136.0-145.0) mmol/L ABG Potassium (3.40-4.50) mmol/L ABG Glucose (65-95) mg/dL Carboxyhemoglobin (0.5-1.5) Sodium 130 L (137-145) mmol/L Potassium (3.6-5.0) mmol/L Chloride 95.5 L (98-107) mmol/L Carbon Dioxide 18 L (22-30) mmol/L BUN 33 H (7-17) mg/dL Creatinine 5.5 H (0.6-1.2) mg/dL Glucose 386 H (65-100) mg/dL POC Glucose 373 H 402 H (70-105) mg/dL Hemoglobin A1c (4-6) % Calcium 6.5 L (8.4-10.2) mg/dL Troponin T (0.00-0.029) ng/mL Arterial Blood Glucose (65-95) mg/dL Arterial Blood Ionized Calcium (4.6-5.3) mg/dL 10/09/20 10/09/20 10/10/20 Range/Units 17:34 21:39 02:16 ABG pH (7.320-7.450) POC ABG pCO2 (32.0-48.0) mmHg POC ABG pO2 (83-108) mmHg ABG Hemoglobin (12.0-17.5) ABG Oxyhemoglobin (94-98) ABG Sodium (136.0-145.0) mmol/L ABG Potassium (3.40-4.50) mmol/L ABG Glucose (65-95) mg/dL Carboxyhemoglobin (0.5-1.5) Sodium (137-145) mmol/L Potassium (3.6-5.0) mmol/L Chloride (98-107) mmol/L Carbon Dioxide (22-30) mmol/L BUN (7-17) mg/dL Creatinine (0.6-1.2) mg/dL Glucose (65-100) mg/dL POC Glucose 374 H 361 H 290 H (70-105) mg/dL Hemoglobin A1c (4-6) % Calcium (8.4-10.2) mg/dL Troponin T (0.00-0.029) ng/mL Arterial Blood Glucose (65-95) mg/dL Arterial Blood Ionized Calcium (4.6-5.3) mg/dL 10/10/20 10/10/20 10/10/20 Range/Units 04:00 05:20 11:21 ABG pH 7.500 H (7.320-7.450) POC ABG pCO2 24.2 L (32.0-48.0) mmHg POC ABG pO2 130.9 H (83-108) mmHg ABG Hemoglobin 10.1 L (12.0-17.5) ABG Oxyhemoglobin 98.2 H (94-98) ABG Sodium 127.6 L (136.0-145.0) mmol/L ABG Potassium 2.8 L (3.40-4.50) mmol/L ABG Glucose 291 H (65-95) mg/dL Carboxyhemoglobin 0.2 L (0.5-1.5) Sodium 130 L (137-145) mmol/L Potassium 3.5 L (3.6-5.0) mmol/L Chloride 97.0 L (98-107) mmol/L Carbon Dioxide 17 L (22-30) mmol/L BUN 37 H (7-17) mg/dL Creatinine 6.0 H (0.6-1.2) mg/dL Glucose 250 H (65-100) mg/dL POC Glucose 239 H (70-105) mg/dL Hemoglobin A1c (4-6) % Calcium 7.3 L (8.4-10.2) mg/dL Troponin T 0.356 H* D (0.00-0.029) ng/mL Arterial Blood Glucose 291 H (65-95) mg/dL Arterial Blood Ionized Calcium 4.1 L (4.6-5.3) mg/dL Assessment and Plan Cultures: Sputum 10/07/2020 upper respiratory rivka. Blood culture 10/07/2020 no growth today. Assessment: 55-year-old female with history of ESRD on hemodialysis, uncontrolled diabetes mellitus, hypertension, obesity, anemia, admitted on 10/07/2020 secondary to cardiac arrest: #Severe sepsis with septic shock/hospital cardiac arrest: Patient remains on dopamine drip. Etiology bilateral pneumonia. #Presumed bilateral pneumonia: SARS Cov-2 negative. Sputum culture with upper respiratory rivka. #Acute transaminitis: Likely from cardiac arrest/ischemic hepatitis #ESRD on hemodialysis: Renally adjust antibiotics #Left submandibular duct obstruction: Related to stone per CT done at [facility] #Global anoxic injury: Neurology on board Recommendations: Stop vancomycin Continue cefepime 1 g IV once a day D3 of 7 Follow-up cultures and MRSA PCR Grim prognosis Will follow. Adriana Browne MD Infectious Diseases [employer] [facility] M [phone] O [phone]
--- NOTE | 2020-10-10 15:58 | Progress Note ---
Assessment and Plan Acute hypoxemic respiratory failure on MVS Cardiac arrest with return of spontaneous circulation DKA Bilateral pneumonia ESRD on dialysis Severe hyperkalemia Severe metabolic acidosis Acute encephalopathy (? Anoxic) DM II HTN Leukocytosis Oropharyngeal dysphagia - await NM Brain Flow scan - discontinue Nash catheter - discontinue Right femoral CVL and use trialysis catheter for pressors - wean off Dopamine then Levophed (resume Dopamine if significant bradycardia) - troponin trending down - continue care as below otherwise; - isolation per facility PUI COVID-19 protocol - continue to wean supplemental oxygen for target O2 sat's > 90% acutely - VAP bundle addressed - continue lung protective strategies - continue bronchodilators with pulmonary hygiene per RT - wean per pulmonary driven protocols otherwise - continue Daily SAT and SBT assessment as tolerated - continue accuchecks with glycemic control per SSI (While critically ill target blood glucose of 140-180 mg/dL; avoid hypoglycemia) - sedation prn for target RASS 0 to -1 - avoid nephrotoxins, renally dose all medications - continue to avoid benzodiazepine's, reduce the possibility of delirium - complete AB's per ID rec's - prn analgesia per CPOT score - Maintenance of sleep-wake cycle, avoid delirium - continue enteral nutritional support at goal rate as tolerated - G.I. & VTE prophylaxis - PT/OT/ROM exercises - continue mobility protocols for pressure ulcer prophylaxis - Monitor hemodynamics closely - continue other care per attending / other consultants - discharge planning ongoing concurrently COVID SPECIFIC INTERVENTIONS - Remdesivir as per ID/Pulmonary developed protocols - consider systemic steroids for severe COVID-19 infection empirically - follow repeat COVID tests results - zinc and vitamin C supplementation - Monitor inflammatory markers per facility protocol - ferritin, Ddimer, CRP - therapeutic anticoagulation per system Protocol based on d-dimer and clinical considerations - Continue contact and airborne isolation .... Re-evaluate in am & prn CONDITION: CRITICAL PROGNOSIS: GUARDED CODE STATUS: FULL CODE The high probability of a clinically significant, sudden or life-threatening det erioration of the [respiratory, cardiovascular, GI & neurologic] system(s) required my full and direct attention, intervention and personal management. The aggregate critical care time was [35] minutes without overlap. Time includes spent on; [x] Data Review and interpretation [x] Patient assessment and monitoring of vital signs [x] Documentation [x] Medication orders and management Subjective Date of service: 10/10/20 Principal diagnosis: Anoxic Encephalopathy, S/p Cardiac Arrest, DKA, Severe Hyperkalemia Interval history: Patient is seen today for: Acute hypoxemic respiratory failure; Cardiac arrest with ROSC; DKA; Bilateral pneumonia; ESRD on dialysis; Anoxic encephalopathy Seen and examined at bedside; 24hour events reviewed; nursing and respiratory care staff consulted; no adverse overnight events reported to me; resting peacefully in bed; AMS is persistent; remains on MVS; remains on vasopressors (dopamine and Levophed); no emesis or overt aspiration Objective Vital Signs - 12hr 10/10/20 10/10/20 10/10/20 02:00 02:15 02:31 Temperature Pulse Rate 54 L 53 L 53 L Pulse Rate [ From Monitor] Respiratory 16 16 16 Rate Blood Pressure 86/59 86/59 86/59 O2 Sat by Pulse 100 100 100 Oximetry 10/10/20 10/10/20 10/10/20 02:45 03:00 03:15 Temperature Pulse Rate 54 L 54 L 54 L Pulse Rate [ From Monitor] Respiratory 16 16 16 Rate Blood Pressure 86/59 81/56 81/56 O2 Sat by Pulse 100 100 100 Oximetry 10/10/20 10/10/20 10/10/20 03:29 03:31 03:45 Temperature Pulse Rate 53 L 54 L 58 L Pulse Rate [ From Monitor] Respiratory 16 16 Rate Blood Pressure 81/56 81/56 81/56 O2 Sat by Pulse 100 100 100 Oximetry 10/10/20 10/10/20 10/10/20 04:00 04:01 04:15 Temperature Pulse Rate 61 62 Pulse Rate [ 61 From Monitor] Respiratory 16 16 16 Rate Blood Pressure 115/75 115/75 O2 Sat by Pulse 100 100 100 Oximetry 10/10/20 10/10/20 10/10/20 04:31 04:45 05:00 Temperature Pulse Rate 62 62 62 Pulse Rate [ From Monitor] Respiratory 16 16 19 Rate Blood Pressure 115/75 115/75 90/66 O2 Sat by Pulse 100 100 100 Oximetry 10/10/20 10/10/20 10/10/20 05:15 05:31 05:45 Temperature Pulse Rate 63 62 62 Pulse Rate [ From Monitor] Respiratory 15 17 16 Rate Blood Pressure 90/66 90/66 90/66 O2 Sat by Pulse 100 100 100 Oximetry 10/10/20 10/10/20 10/10/20 06:00 06:15 06:31 Temperature 96.8 F L Pulse Rate 62 62 61 Pulse Rate [ From Monitor] Respiratory 14 14 15 Rate Blood Pressure 90/63 90/63 90/63 O2 Sat by Pulse 100 100 98 Oximetry 10/10/20 10/10/20 10/10/20 06:45 07:00 07:15 Temperature 97.4 F L Pulse Rate 61 61 61 Pulse Rate [ From Monitor] Respiratory 16 14 17 Rate Blood Pressure 90/63 88/56 88/56 O2 Sat by Pulse 100 100 100 Oximetry 10/10/20 10/10/20 10/10/20 07:31 07:45 07:57 Temperature Pulse Rate 63 68 69 Pulse Rate [ From Monitor] Respiratory 16 17 Rate Blood Pressure 88/56 88/56 107/78 O2 Sat by Pulse 100 100 100 Oximetry 10/10/20 10/10/20 10/10/20 08:01 08:15 08:31 Temperature Pulse Rate 69 71 73 Pulse Rate [ From Monitor] Respiratory 18 24 22 Rate Blood Pressure 107/78 107/78 88/56 O2 Sat by Pulse 100 100 97 Oximetry 10/10/20 10/10/20 10/10/20 08:45 09:00 09:15 Temperature Pulse Rate 75 75 75 Pulse Rate [ From Monitor] Respiratory 16 17 19 Rate Blood Pressure 88/56 104/77 107/78 O2 Sat by Pulse 97 97 97 Oximetry 10/10/20 10/10/20 10/10/20 09:31 09:45 10:00 Temperature Pulse Rate 74 74 73 Pulse Rate [ From Monitor] Respiratory 18 16 15 Rate Blood Pressure 107/78 104/77 102/75 O2 Sat by Pulse 99 98 99 Oximetry 10/10/20 10/10/20 10/10/20 10:15 10:31 10:45 Temperature Pulse Rate 68 64 63 Pulse Rate [ From Monitor] Respiratory 14 25 H 16 Rate Blood Pressure 102/75 102/75 102/75 O2 Sat by Pulse 98 98 98 Oximetry 10/10/20 10/10/20 10/10/20 11:01 11:15 11:18 Temperature Pulse Rate 65 63 63 Pulse Rate [ From Monitor] Respiratory 21 24 Rate Blood Pressure 97/73 97/73 97/73 O2 Sat by Pulse 96 97 98 Oximetry 10/10/20 10/10/20 10/10/20 11:31 11:45 12:01 Temperature Pulse Rate 63 70 62 Pulse Rate [ From Monitor] Respiratory 25 H 18 26 H Rate Blood Pressure 97/73 97/73 58/26 O2 Sat by Pulse 98 98 97 Oximetry 10/10/20 10/10/20 12:15 12:31 Temperature Pulse Rate 60 71 Pulse Rate [ From Monitor] Respiratory 25 H 29 H Rate Blood Pressure 48/27 91/64 O2 Sat by Pulse 100 Oximetry Constitutional: no acute distress, other (middle aged female with normal respiratory effort at rest) Eyes: non-icteric ENT: oropharynx moist, other (ETT 24 cm EDILIA) Neck: supple, no lymphadenopathy, no JVD Effort: normal Ascultation: Bilateral: rhonchi Percussion: Bilateral: not dull Cardiovascular: regular rate and rhythm Gastrointestinal: normoactive bowel sounds Integumentary: normal Extremities: no edema, pulses normal, no ischemia or petechiae Neurologic: pupils equal and round (fixed), unable to assess Psychiatric: other (unable to assess re: AMS) CBC and BMP: 10/07/20 09:08 10/10/20 11:21 ABG, PT/INR, D-dimer: ABG ABG pH 7.500 (7.320-7.450) H 10/10/20 04:00 POC ABG pCO2 24.2 mmHg (32.0-48.0) L 10/10/20 04:00 POC ABG pO2 130.9 mmHg (83-108) H 10/10/20 04:00 POC ABG HCO3 18.4 10/10/20 04:00 ABG O2 Saturation 98.7 (0-100) 10/10/20 04:00 PT/INR, D-dimer PT 21.2 Sec. (12.2-14.9) H 10/07/20 09:08 INR 1.83 (0.87-1.13) H 10/07/20 09:08 Abnormal lab findings: Abnormal Labs 10/07/20 10/07/20 10/07/20 09:08 09:08 09:08 WBC 15.8 H RBC 3.05 L Hgb 9.7 L MCV 108 H RDW 20.9 H Seg Neutrophils % 77.4 H Seg Neutrophils # 12.2 H PT 21.2 H INR 1.83 H APTT 51.1 H ABG pH POC ABG pCO2 POC ABG pO2 ABG Hemoglobin ABG Oxyhemoglobin ABG Sodium ABG Potassium ABG Chloride ABG Glucose Carboxyhemoglobin Sodium 133 L Potassium 8.3 H* Chloride 77.5 L Carbon Dioxide 6 L* BUN 86 H Creatinine 10.6 H Glucose 798 H* POC Glucose Hemoglobin A1c Lactic Acid Calcium Phosphorus Magnesium AST 2736 H ALT 1568 H Alkaline Phosphatase 183 H Total Creatine Kinase 444 H CK-MB (CK-2) 8.6 H Troponin T 0.395 H* NT-Pro-B Natriuret Pep 6466 H Total Protein 5.8 L Albumin 2.6 L Triglycerides 246 H HDL Cholesterol 39 L Arterial Blood Glucose Arterial Blood Ionized Calcium 10/07/20 10/07/20 10/07/20 09:08 09:24 10:32 WBC RBC Hgb MCV RDW Seg Neutrophils % Seg Neutrophils # PT INR APTT ABG pH 6.793 L POC ABG pCO2 30.2 L POC ABG pO2 433.9 H ABG Hemoglobin 10.8 L ABG Oxyhemoglobin 99.2 H ABG Sodium 131.7 L ABG Potassium 8.2 H ABG Chloride 85.0 L ABG Glucose Carboxyhemoglobin 0.3 L Sodium Potassium Chloride Carbon Dioxide BUN Creatinine Glucose POC Glucose Hemoglobin A1c Lactic Acid Calcium Phosphorus 22.30 H Magnesium 3.10 H 3.10 H AST ALT Alkaline Phosphatase Total Creatine Kinase CK-MB (CK-2) Troponin T NT-Pro-B Natriuret Pep Total Protein Albumin Triglycerides HDL Cholesterol Arterial Blood Glucose Arterial Blood Ionized Calcium 10/07/20 10/07/20 10/07/20 10:32 11:23 11:23 WBC RBC Hgb MCV RDW Seg Neutrophils % Seg Neutrophils # PT INR APTT ABG pH POC ABG pCO2 POC ABG pO2 ABG Hemoglobin ABG Oxyhemoglobin ABG Sodium ABG Potassium ABG Chloride ABG Glucose Carboxyhemoglobin Sodium 131 L 135 L Potassium 8.7 H* 8.5 H* Chloride 76.6 L 78.1 L Carbon Dioxide 6 L* 5 L* BUN 89 H 87 H Creatinine 10.7 H 10.7 H Glucose 967 H* 799 H* POC Glucose Hemoglobin A1c Lactic Acid 9.70 H* Calcium Phosphorus Magnesium AST ALT Alkaline Phosphatase Total Creatine Kinase CK-MB (CK-2) Troponin T NT-Pro-B Natriuret Pep Total Protein Albumin Triglycerides HDL Cholesterol Arterial Blood Glucose Arterial Blood Ionized Calcium 10/07/20 10/07/20 10/07/20 13:20 13:58 13:58 WBC RBC Hgb MCV RDW Seg Neutrophils % Seg Neutrophils # PT INR APTT ABG pH POC ABG pCO2 POC ABG pO2 ABG Hemoglobin ABG Oxyhemoglobin ABG Sodium ABG Potassium ABG Chloride ABG Glucose Carboxyhemoglobin Sodium 133 L Potassium 6.8 H* Chloride 82.3 L Carbon Dioxide 8 L* BUN 86 H Creatinine 10.3 H Glucose 868 H* POC Glucose > 600 H Hemoglobin A1c Lactic Acid 6.90 H* Calcium Phosphorus Magnesium AST ALT Alkaline Phosphatase Total Creatine Kinase CK-MB (CK-2) Troponin T NT-Pro-B Natriuret Pep Total Protein Albumin Triglycerides HDL Cholesterol Arterial Blood Glucose Arterial Blood Ionized Calcium 10/07/20 10/07/20 10/07/20 14:03 18:01 18:18 WBC RBC Hgb MCV RDW Seg Neutrophils % Seg Neutrophils # PT INR APTT ABG pH 7.175 L POC ABG pCO2 27.4 L POC ABG pO2 ABG Hemoglobin 9.3 L ABG Oxyhemoglobin ABG Sodium 134.0 L ABG Potassium 6.4 H ABG Chloride 89.0 L ABG Glucose Carboxyhemoglobin 0.4 L Sodium 132 L Potassium 5.7 H Chloride 84.5 L Carbon Dioxide 15 L D BUN 91 H Creatinine 10.6 H Glucose 828 H* POC Glucose > 600 H Hemoglobin A1c Lactic Acid Calcium 6.7 L D Phosphorus Magnesium AST ALT Alkaline Phosphatase Total Creatine Kinase CK-MB (CK-2) Troponin T NT-Pro-B Natriuret Pep Total Protein Albumin Triglycerides HDL Cholesterol Arterial Blood Glucose Arterial Blood Ionized Calcium 4.4 L 10/07/20 10/07/20 10/07/20 18:18 18:18 22:27 WBC RBC Hgb MCV RDW Seg Neutrophils % Seg Neutrophils # PT INR APTT ABG pH POC ABG pCO2 POC ABG pO2 ABG Hemoglobin ABG Oxyhemoglobin ABG Sodium ABG Potassium ABG Chloride ABG Glucose Carboxyhemoglobin Sodium Potassium Chloride Carbon Dioxide BUN Creatinine Glucose POC Glucose 456 H Hemoglobin A1c Lactic Acid 5.00 H* Calcium Phosphorus Magnesium AST ALT Alkaline Phosphatase Total Creatine Kinase CK-MB (CK-2) Troponin T 1.330 H* D NT-Pro-B Natriuret Pep Total Protein Albumin Triglycerides HDL Cholesterol Arterial Blood Glucose Arterial Blood Ionized Calcium 10/08/20 10/08/20 10/08/20 00:13 00:51 01:50 WBC RBC Hgb MCV RDW Seg Neutrophils % Seg Neutrophils # PT INR APTT ABG pH 7.454 H POC ABG pCO2 28.8 L POC ABG pO2 113.3 H ABG Hemoglobin 9.7 L ABG Oxyhemoglobin ABG Sodium 134.1 L ABG Potassium ABG Chloride ABG Glucose 423 H Carboxyhemoglobin 0.3 L Sodium Potassium Chloride Carbon Dioxide BUN Creatinine Glucose POC Glucose 468 H 452 H Hemoglobin A1c Lactic Acid Calcium Phosphorus Magnesium AST ALT Alkaline Phosphatase Total Creatine Kinase CK-MB (CK-2) Troponin T NT-Pro-B Natriuret Pep Total Protein Albumin Triglycerides HDL Cholesterol Arterial Blood Glucose 423 H Arterial Blood Ionized Calcium 3.7 L 10/08/20 10/08/20 10/08/20 02:09 03:07 03:11 WBC RBC Hgb MCV RDW Seg Neutrophils % Seg Neutrophils # PT INR APTT ABG pH POC ABG pCO2 POC ABG pO2 ABG Hemoglobin ABG Oxyhemoglobin ABG Sodium ABG Potassium ABG Chloride ABG Glucose Carboxyhemoglobin Sodium Potassium Chloride 96.9 L Carbon Dioxide 18 L BUN 58 H Creatinine 7.8 H Glucose 403 H POC Glucose 445 H 395 H Hemoglobin A1c Lactic Acid Calcium 6.9 L Phosphorus 5.80 H D Magnesium AST ALT Alkaline Phosphatase Total Creatine Kinase CK-MB (CK-2) Troponin T NT-Pro-B Natriuret Pep Total Protein Albumin Triglycerides HDL Cholesterol Arterial Blood Glucose Arterial Blood Ionized Calcium 10/08/20 10/08/20 10/08/20 04:02 05:09 06:12 WBC RBC Hgb MCV RDW Seg Neutrophils % Seg Neutrophils # PT INR APTT ABG pH POC ABG pCO2 POC ABG pO2 ABG Hemoglobin ABG Oxyhemoglobin ABG Sodium ABG Potassium ABG Chloride ABG Glucose Carboxyhemoglobin Sodium Potassium Chloride Carbon Dioxide BUN Creatinine Glucose POC Glucose 399 H 339 H 309 H Hemoglobin A1c Lactic Acid Calcium Phosphorus Magnesium AST ALT Alkaline Phosphatase Total Creatine Kinase CK-MB (CK-2) Troponin T NT-Pro-B Natriuret Pep Total Protein Albumin Triglycerides HDL Cholesterol Arterial Blood Glucose Arterial Blood Ionized Calcium 10/08/20 10/08/20 10/08/20 07:45 09:27 10:01 WBC RBC Hgb MCV RDW Seg Neutrophils % Seg Neutrophils # PT INR APTT ABG pH POC ABG pCO2 POC ABG pO2 ABG Hemoglobin ABG Oxyhemoglobin ABG Sodium ABG Potassium ABG Chloride ABG Glucose Carboxyhemoglobin Sodium Potassium Chloride Carbon Dioxide BUN Creatinine Glucose POC Glucose 268 H 203 H 174 H Hemoglobin A1c Lactic Acid Calcium Phosphorus Magnesium AST ALT Alkaline Phosphatase Total Creatine Kinase CK-MB (CK-2) Troponin T NT-Pro-B Natriuret Pep Total Protein Albumin Triglycerides HDL Cholesterol Arterial Blood Glucose Arterial Blood Ionized Calcium 10/08/20 10/08/20 10/08/20 11:21 12:37 14:20 WBC RBC Hgb MCV RDW Seg Neutrophils % Seg Neutrophils # PT INR APTT ABG pH POC ABG pCO2 POC ABG pO2 ABG Hemoglobin ABG Oxyhemoglobin ABG Sodium ABG Potassium ABG Chloride ABG Glucose Carboxyhemoglobin Sodium Potassium Chloride Carbon Dioxide BUN Creatinine Glucose POC Glucose 182 H 166 H 209 H Hemoglobin A1c Lactic Acid Calcium Phosphorus Magnesium AST ALT Alkaline Phosphatase Total Creatine Kinase CK-MB (CK-2) Troponin T NT-Pro-B Natriuret Pep Total Protein Albumin Triglycerides HDL Cholesterol Arterial Blood Glucose Arterial Blood Ionized Calcium 10/08/20 10/08/20 10/08/20 14:58 15:08 16:32 WBC RBC Hgb MCV RDW Seg Neutrophils % Seg Neutrophils # PT INR APTT ABG pH POC ABG pCO2 POC ABG pO2 ABG Hemoglobin ABG Oxyhemoglobin ABG Sodium ABG Potassium ABG Chloride ABG Glucose Carboxyhemoglobin Sodium 135 L Potassium Chloride 97.5 L Carbon Dioxide 19 L BUN 26 H Creatinine 4.1 H Glucose 183 H POC Glucose 173 H 177 H Hemoglobin A1c Lactic Acid Calcium 6.9 L Phosphorus Magnesium AST ALT Alkaline Phosphatase Total Creatine Kinase CK-MB (CK-2) Troponin T NT-Pro-B Natriuret Pep Total Protein Albumin Triglycerides HDL Cholesterol Arterial Blood Glucose Arterial Blood Ionized Calcium 10/08/20 10/08/20 10/08/20 17:42 18:09 20:11 WBC RBC Hgb MCV RDW Seg Neutrophils % Seg Neutrophils # PT INR APTT ABG pH POC ABG pCO2 POC ABG pO2 ABG Hemoglobin ABG Oxyhemoglobin ABG Sodium ABG Potassium ABG Chloride ABG Glucose Carboxyhemoglobin Sodium Potassium Chloride Carbon Dioxide BUN Creatinine Glucose POC Glucose 172 H 176 H 186 H Hemoglobin A1c Lactic Acid Calcium Phosphorus Magnesium AST ALT Alkaline Phosphatase Total Creatine Kinase CK-MB (CK-2) Troponin T NT-Pro-B Natriuret Pep Total Protein Albumin Triglycerides HDL Cholesterol Arterial Blood Glucose Arterial Blood Ionized Calcium 10/08/20 10/08/20 10/08/20 20:57 21:56 23:12 WBC RBC Hgb MCV RDW Seg Neutrophils % Seg Neutrophils # PT INR APTT ABG pH POC ABG pCO2 POC ABG pO2 ABG Hemoglobin ABG Oxyhemoglobin ABG Sodium ABG Potassium ABG Chloride ABG Glucose Carboxyhemoglobin Sodium Potassium Chloride Carbon Dioxide BUN Creatinine Glucose POC Glucose 177 H 211 H 198 H Hemoglobin A1c Lactic Acid Calcium Phosphorus Magnesium AST ALT Alkaline Phosphatase Total Creatine Kinase CK-MB (CK-2) Troponin T NT-Pro-B Natriuret Pep Total Protein Albumin Triglycerides HDL Cholesterol Arterial Blood Glucose Arterial Blood Ionized Calcium 10/08/20 10/09/20 10/09/20 23:55 00:02 01:02 WBC RBC Hgb MCV RDW Seg Neutrophils % Seg Neutrophils # PT INR APTT ABG pH POC ABG pCO2 POC ABG pO2 ABG Hemoglobin ABG Oxyhemoglobin ABG Sodium ABG Potassium ABG Chloride ABG Glucose Carboxyhemoglobin Sodium 135 L Potassium 3.4 L Chloride Carbon Dioxide BUN 28 H Creatinine 5.0 H Glucose 207 H POC Glucose 223 H 211 H Hemoglobin A1c Lactic Acid Calcium 7.0 L Phosphorus Magnesium AST ALT Alkaline Phosphatase Total Creatine Kinase CK-MB (CK-2) Troponin T NT-Pro-B Natriuret Pep Total Protein Albumin Triglycerides HDL Cholesterol Arterial Blood Glucose Arterial Blood Ionized Calcium 10/09/20 10/09/20 10/09/20 02:05 03:05 04:04 WBC RBC Hgb MCV RDW Seg Neutrophils % Seg Neutrophils # PT INR APTT ABG pH POC ABG pCO2 POC ABG pO2 ABG Hemoglobin ABG Oxyhemoglobin ABG Sodium ABG Potassium ABG Chloride ABG Glucose Carboxyhemoglobin Sodium Potassium Chloride Carbon Dioxide BUN Creatinine Glucose POC Glucose 201 H 199 H 183 H Hemoglobin A1c Lactic Acid Calcium Phosphorus Magnesium AST ALT Alkaline Phosphatase Total Creatine Kinase CK-MB (CK-2) Troponin T NT-Pro-B Natriuret Pep Total Protein Albumin Triglycerides HDL Cholesterol Arterial Blood Glucose Arterial Blood Ionized Calcium 10/09/20 10/09/20 10/09/20 05:07 05:40 05:40 WBC RBC Hgb MCV RDW Seg Neutrophils % Seg Neutrophils # PT INR APTT ABG pH POC ABG pCO2 POC ABG pO2 ABG Hemoglobin ABG Oxyhemoglobin ABG Sodium ABG Potassium ABG Chloride ABG Glucose Carboxyhemoglobin Sodium 136 L Potassium 3.1 L Chloride Carbon Dioxide BUN 30 H Creatinine 5.2 H Glucose 181 H POC Glucose 184 H Hemoglobin A1c Lactic Acid 3.80 H* Calcium 7.1 L Phosphorus Magnesium AST ALT Alkaline Phosphatase Total Creatine Kinase CK-MB (CK-2) Troponin T NT-Pro-B Natriuret Pep Total Protein Albumin Triglycerides HDL Cholesterol Arterial Blood Glucose Arterial Blood Ionized Calcium 10/09/20 10/09/20 10/09/20 05:52 07:19 08:12 WBC RBC Hgb MCV RDW Seg Neutrophils % Seg Neutrophils # PT INR APTT ABG pH POC ABG pCO2 POC ABG pO2 ABG Hemoglobin ABG Oxyhemoglobin ABG Sodium ABG Potassium ABG Chloride ABG Glucose Carboxyhemoglobin Sodium Potassium Chloride Carbon Dioxide BUN Creatinine Glucose POC Glucose 202 H 179 H Hemoglobin A1c Lactic Acid Calcium Phosphorus Magnesium AST ALT Alkaline Phosphatase Total Creatine Kinase CK-MB (CK-2) Troponin T 0.545 H* D NT-Pro-B Natriuret Pep Total Protein Albumin Triglycerides HDL Cholesterol Arterial Blood Glucose Arterial Blood Ionized Calcium 10/09/20 10/09/20 10/09/20 08:12 08:25 10:00 WBC RBC Hgb MCV RDW Seg Neutrophils % Seg Neutrophils # PT INR APTT ABG pH POC ABG pCO2 POC ABG pO2 ABG Hemoglobin ABG Oxyhemoglobin ABG Sodium ABG Potassium ABG Chloride ABG Glucose Carboxyhemoglobin Sodium Potassium Chloride Carbon Dioxide BUN Creatinine Glucose POC Glucose 175 H 188 H Hemoglobin A1c Lactic Acid 3.60 H* Calcium Phosphorus Magnesium AST ALT Alkaline Phosphatase Total Creatine Kinase CK-MB (CK-2) Troponin T NT-Pro-B Natriuret Pep Total Protein Albumin Triglycerides HDL Cholesterol Arterial Blood Glucose Arterial Blood Ionized Calcium 10/09/20 10/09/20 10/09/20 13:51 14:34 15:20 WBC RBC Hgb MCV RDW Seg Neutrophils % Seg Neutrophils # PT INR APTT ABG pH POC ABG pCO2 POC ABG pO2 ABG Hemoglobin ABG Oxyhemoglobin ABG Sodium ABG Potassium ABG Chloride ABG Glucose Carboxyhemoglobin Sodium Potassium Chloride Carbon Dioxide BUN Creatinine Glucose POC Glucose 360 H 373 H Hemoglobin A1c 8.5 H Lactic Acid Calcium Phosphorus Magnesium AST ALT Alkaline Phosphatase Total Creatine Kinase CK-MB (CK-2) Troponin T NT-Pro-B Natriuret Pep Total Protein Albumin Triglycerides HDL Cholesterol Arterial Blood Glucose Arterial Blood Ionized Calcium 10/09/20 10/09/20 10/09/20 16:50 17:02 17:34 WBC RBC Hgb MCV RDW Seg Neutrophils % Seg Neutrophils # PT INR APTT ABG pH POC ABG pCO2 POC ABG pO2 ABG Hemoglobin ABG Oxyhemoglobin ABG Sodium ABG Potassium ABG Chloride ABG Glucose Carboxyhemoglobin Sodium 130 L Potassium Chloride 95.5 L Carbon Dioxide 18 L BUN 33 H Creatinine 5.5 H Glucose 386 H POC Glucose 402 H 374 H Hemoglobin A1c Lactic Acid Calcium 6.5 L Phosphorus Magnesium AST ALT Alkaline Phosphatase Total Creatine Kinase CK-MB (CK-2) Troponin T NT-Pro-B Natriuret Pep Total Protein Albumin Triglycerides HDL Cholesterol Arterial Blood Glucose Arterial Blood Ionized Calcium 10/09/20 10/10/20 10/10/20 21:39 02:16 04:00 WBC RBC Hgb MCV RDW Seg Neutrophils % Seg Neutrophils # PT INR APTT ABG pH 7.500 H POC ABG pCO2 24.2 L POC ABG pO2 130.9 H ABG Hemoglobin 10.1 L ABG Oxyhemoglobin 98.2 H ABG Sodium 127.6 L ABG Potassium 2.8 L ABG Chloride ABG Glucose 291 H Carboxyhemoglobin 0.2 L Sodium Potassium Chloride Carbon Dioxide BUN Creatinine Glucose POC Glucose 361 H 290 H Hemoglobin A1c Lactic Acid Calcium Phosphorus Magnesium AST ALT Alkaline Phosphatase Total Creatine Kinase CK-MB (CK-2) Troponin T NT-Pro-B Natriuret Pep Total Protein Albumin Triglycerides HDL Cholesterol Arterial Blood Glucose 291 H Arterial Blood Ionized Calcium 4.1 L 10/10/20 10/10/20 10/10/20 05:20 09:27 11:07 WBC RBC Hgb MCV RDW Seg Neutrophils % Seg Neutrophils # PT INR APTT ABG pH POC ABG pCO2 POC ABG pO2 ABG Hemoglobin ABG Oxyhemoglobin ABG Sodium ABG Potassium ABG Chloride ABG Glucose Carboxyhemoglobin Sodium Potassium Chloride Carbon Dioxide BUN Creatinine Glucose POC Glucose 239 H 218 H 238 H Hemoglobin A1c Lactic Acid Calcium Phosphorus Magnesium AST ALT Alkaline Phosphatase Total Creatine Kinase CK-MB (CK-2) Troponin T NT-Pro-B Natriuret Pep Total Protein Albumin Triglycerides HDL Cholesterol Arterial Blood Glucose Arterial Blood Ionized Calcium 10/10/20 10/10/20 11:21 12:11 WBC RBC Hgb MCV RDW Seg Neutrophils % Seg Neutrophils # PT INR APTT ABG pH POC ABG pCO2 POC ABG pO2 ABG Hemoglobin ABG Oxyhemoglobin ABG Sodium ABG Potassium ABG Chloride ABG Glucose Carboxyhemoglobin Sodium 130 L Potassium 3.5 L Chloride 97.0 L Carbon Dioxide 17 L BUN 37 H Creatinine 6.0 H Glucose 250 H POC Glucose 258 H Hemoglobin A1c Lactic Acid Calcium 7.3 L Phosphorus Magnesium AST ALT Alkaline Phosphatase Total Creatine Kinase CK-MB (CK-2) Troponin T 0.356 H* D NT-Pro-B Natriuret Pep Total Protein Albumin Triglycerides HDL Cholesterol Arterial Blood Glucose Arterial Blood Ionized Calcium Chest x-ray: image reviewed Allied health notes reviewed: nursing
[2020-10-10] MEDS ORDERED: POTASSIUM CHLORIDE 20 MEQ PACKET FEEDTUBE ONE (16:02)
[2020-10-10] MEDS: CEFEPIME/NS 1 GM/100 ML 1 GM/100 ML BAG IV SCH (17:09)
[2020-10-10] MEDS: NORepinephrine/NS 4 MG-250 ML 4 MG/250 ML BAG IV SCH (19:00)
[2020-10-11] MEDS: NORepinephrine/NS 4 MG-250 ML 4 MG/250 ML BAG IV SCH ×4 (02:13→20:00)
[2020-10-11] MEDS: INSULIN REGULAR, HUMAN 100 UNITS/1 ML SUB-Q SCH ×6 (02:34→22:14)
--- NOTE | 2020-10-11 03:24 | XRay Report ---
CHEST 1 VIEW 10/11/2020 2:11 AM INDICATION / CLINICAL INFORMATION: follow up respiratory failure. COMPARISON: One view of the chest from 10/10/2020. FINDINGS: SUPPORT DEVICES: Unchanged. HEART / MEDIASTINUM: Stable. LUNGS / PLEURA: Bilateral pulmonary opacities have improved. No significant pleural effusion. No pneu mothorax. ADDITIONAL FINDINGS: No significant additional findings. IMPRESSION: Improved aeration of the lungs without other significant interval changes. Signer Name: Arnoldo Sherman MD Signed: 10/11/2020 3:20 AM Workstation Name: [id number]
[2020-10-11 05:57] LABS: Calcium 7.4 mg/dL (8.4-10.2)
[2020-10-11 06:00] LABS: Hematocrit 31.7 % (30.3-42.9); Hemoglobin 10.6 gm/dl (10.1-14.3); Mean Corpuscular HGB Conc 33 % (30-34); Mean Corpuscular Volume 91 fl (79-97); Platelet Count 56 K/mm3 (140-440); Red Blood Count 3.48 M/mm3 (3.65-5.03); Red Cell Distribution Width 20.2 % (13.2-15.2)
[2020-10-11] MEDS: INSULIN NPH/REGULAR 70/30 INJ SUB-Q SCH ×3 (08:00→18:14)
[2020-10-11] MEDS: VASOPRESSIN 20 UNIT in SODIUM CHLORIDE 0.9% 100 ML IV SCH ×2 (08:28→16:24)
[2020-10-11] MEDS ORDERED: VASOPRESSIN 20 UNIT in SODIUM CHLORIDE 0.9% 100 ML IV SCH (09:00)
[2020-10-11] MEDS: HEPARIN 5,000 UNIT/1 ML VIAL SUB-Q SCH (09:02)
[2020-10-11] MEDS: ASPIRIN 81 MG TAB CHEW PO SCH (09:26)
[2020-10-11] MEDS: FAMOTIDINE 20 MG TAB PO SCH (09:26)
--- NOTE | 2020-10-11 10:01 | Progress Note ---
Assessment and Plan 1. ESRD: Patient is on maintenance hemodialysis three times a week, MWF schedule. Last HD CUFF FOLDER 10/06 at OSH. Urgent HD 10/07 due to hyperkalemia. Hemodialysis: 10/07, 10/08. Unable to do hemodialysis at this time due to multipressor shock. 2. FEN: Hyperkalemia, improved, monitor. Metabolic acidosis, 2/2 DKA, Lactic acidosis, monitor. Monitor lytes. 3. DKA: Was on Insulin drip. Monitor. 4. S/p OOH Cardiac arrest: Total of 2 episodes. Total downtime unknown. Followed by Cards. Monitor. 5. Shock: On Cefepime. Currently on Dopamine, Levophed and Vasopressin. Wean pressors as tolerated. Monitor BP closely. 6. Severe anoxic encephalopathy: Absent brain stem reflexes. Followed by Neuro. Brain blood flow scan pending. 7. Anemia, POA: 2/2 ESRD. Epogen if needed. Subjective: Patient was seen and examined at the bedside. D/w RN. Examination: General appearance: well-developed, intubated, on vent HEENT: ATNC, Pupils dilated and not reacting to light Neck: neck supple, trachea midline Respiratory: Coarse breath sounds Heart: regular, normal heart rate, S1S2, no murmur Abdomen: soft, NT Integumentary: no rash, warm and dry Neurologic: not responding Ext: trace LE edema noted Hemodialysis access: L arm AVF clotted, L femoral catheter : alfaro catheter Subjective Date of service: 10/11/20 Principal diagnosis: Anoxic Encephalopathy, S/p Cardiac Arrest, DKA, Severe Hyperkalemia Objective - Vital Signs Vital signs: Vital Signs - 12hr 10/10/20 10/10/20 10/10/20 22:15 22:30 22:45 Temperature Pulse Rate 65 64 65 Pulse Rate [ From Monitor] Respiratory 16 16 16 Rate Blood Pressure 124/81 104/69 105/72 O2 Sat by Pulse 100 99 99 Oximetry 10/10/20 10/10/20 10/10/20 23:00 23:15 23:30 Temperature Pulse Rate 66 66 66 Pulse Rate [ From Monitor] Respiratory 16 16 15 Rate Blood Pressure 111/70 120/77 109/70 O2 Sat by Pulse 99 99 99 Oximetry 10/10/20 10/11/20 10/11/20 23:45 00:00 00:15 Temperature Pulse Rate 67 67 68 Pulse Rate [ 67 From Monitor] Respiratory 16 16 15 Rate Blood Pressure 107/69 105/69 106/68 O2 Sat by Pulse 99 98 98 Oximetry 10/11/20 10/11/20 10/11/20 00:30 00:43 00:45 Temperature Pulse Rate 69 70 70 Pulse Rate [ From Monitor] Respiratory 16 16 Rate Blood Pressure 101/69 101/69 88/63 O2 Sat by Pulse 98 98 98 Oximetry 10/11/20 10/11/20 10/11/20 01:00 01:16 01:30 Temperature Pulse Rate 70 73 73 Pulse Rate [ From Monitor] Respiratory 16 16 16 Rate Blood Pressure 88/63 103/66 94/64 O2 Sat by Pulse 98 98 97 Oximetry 10/11/20 10/11/20 10/11/20 01:45 02:00 02:16 Temperature Pulse Rate 74 76 79 Pulse Rate [ From Monitor] Respiratory 16 20 21 Rate Blood Pressure 94/61 89/57 116/79 O2 Sat by Pulse 98 98 99 Oximetry 10/11/20 10/11/20 10/11/20 02:30 02:45 03:00 Temperature Pulse Rate 79 79 79 Pulse Rate [ From Monitor] Respiratory 20 15 16 Rate Blood Pressure 86/57 100/61 88/58 O2 Sat by Pulse 98 99 98 Oximetry 10/11/20 10/11/20 10/11/20 03:15 03:30 03:45 Temperature Pulse Rate 79 81 81 Pulse Rate [ From Monitor] Respiratory 16 16 16 Rate Blood Pressure 73/44 83/58 82/57 O2 Sat by Pulse 97 97 98 Oximetry 10/11/20 10/11/20 10/11/20 04:00 04:15 04:30 Temperature 94.8 F L Pulse Rate 81 81 82 Pulse Rate [ 81 From Monitor] Respiratory 16 16 16 Rate Blood Pressure 100/70 97/65 97/65 O2 Sat by Pulse 99 99 98 Oximetry 10/11/20 10/11/20 10/11/20 04:45 04:56 05:00 Temperature Pulse Rate 80 80 81 Pulse Rate [ From Monitor] Respiratory 16 16 Rate Blood Pressure 83/53 83/53 76/46 O2 Sat by Pulse 99 99 98 Oximetry 10/11/20 10/11/20 10/11/20 05:15 05:30 05:45 Temperature Pulse Rate 85 88 90 Pulse Rate [ From Monitor] Respiratory 16 16 16 Rate Blood Pressure 96/62 90/62 99/60 O2 Sat by Pulse 98 97 97 Oximetry 10/11/20 10/11/20 10/11/20 06:00 06:15 06:30 Temperature Pulse Rate 92 H 93 H 95 H Pulse Rate [ From Monitor] Respiratory 16 16 16 Rate Blood Pressure 85/54 87/54 81/53 O2 Sat by Pulse 98 98 98 Oximetry 10/11/20 10/11/20 10/11/20 06:45 07:00 07:15 Temperature Pulse Rate 97 H 99 H 100 H Pulse Rate [ From Monitor] Respiratory 16 16 16 Rate Blood Pressure 83/54 87/51 82/49 O2 Sat by Pulse 98 98 98 Oximetry 10/11/20 10/11/20 10/11/20 07:30 07:45 08:00 Temperature Pulse Rate 101 H 103 H 105 H Pulse Rate [ 103 H From Monitor] Respiratory 16 16 16 Rate Blood Pressure 86/54 84/56 76/46 O2 Sat by Pulse 98 98 99 Oximetry 10/11/20 10/11/20 10/11/20 08:15 08:30 08:34 Temperature 98 F Pulse Rate 105 H 105 H Pulse Rate [ From Monitor] Respiratory 16 16 Rate Blood Pressure 88/52 85/52 O2 Sat by Pulse 97 96 Oximetry 10/11/20 10/11/20 10/11/20 08:41 08:46 09:00 Temperature Pulse Rate 104 H 103 H 99 H Pulse Rate [ From Monitor] Respiratory 16 16 Rate Blood Pressure 85/52 113/69 102/62 O2 Sat by Pulse 97 97 96 Oximetry 10/11/20 10/11/20 09:15 09:30 Temperature Pulse Rate 95 H 93 H Pulse Rate [ From Monitor] Respiratory 16 16 Rate Blood Pressure 92/61 94/56 O2 Sat by Pulse 97 98 Oximetry - Lab 10/11/20 10:03 10/11/20 05:01 Most recent lab results ABG pH 7.446 (7.320-7.450) 10/11/20 03:42 ABG O2 Saturation 97.8 (0-100) 10/11/20 03:42 Calcium 7.4 mg/dL (8.4-10.2) L 10/11/20 05:01 Phosphorus 2.70 mg/dL (2.5-4.5) 10/10/20 11:21 Magnesium 3.10 mg/dL (1.7-2.3) H 10/07/20 10:32 Medications & Allergies - Medications Allergies/Adverse Reactions: Allergies peanut Allergy (Unknown, Verified 10/07/20 08:21) Unknown pecan nut Allergy (Unknown, Verified 10/07/20 08:21) Unknown walnut Allergy (Unknown, Verified 10/07/20 08:21) Unknown latex Allergy (Verified 10/07/20 08:21) Rash Home Medications: Home Medications Medication Instructions Recorded Confirmed Last Taken Type Aspirin 81 mg PO DAILY 07/04/20 07/14/20 07/04/20 History Famotidine [Pepcid] 20 mg PO DAILY #30 tablet 07/12/20 07/14/20 Unknown Rx Lisinopril 30 mg PO DAILY #30 07/12/20 07/14/20 Unknown Rx hydrALAZINE 50 mg PO DAILY #30 07/12/20 07/14/20 Unknown Rx Insulin Detemir [Levemir VIAL] 21 units SQ HS #1 vial 07/16/20 Unknown Rx Insulin Regular, Human [HumuLIN R] 0 unit SQ AC #1 vial 07/16/20 Unknown Rx Active Medications: Generic Name Dose Route Start Last Admin Trade Name Freq PRN Reason Stop Dose Admin Acetaminophen 650 mg 10/07/20 11:12 Acetaminophen 325 Mg Tab PO Q6H PRN Pain, Mild (1-3) Albuterol 2.5 mg 10/07/20 11:09 Albuterol 2.5 Mg/3 Ml Nebu IH Q3HRT PRN Shortness Of Breath Lipase/Protease/Amylase 1 each 10/09/20 11:14 Lipase 10,500/Protease 25,000/Amylase 43,750 (Units) Dr Fishman FEEDTUBE PRN PRN For Clogged Feeding Tube Aspirin 81 mg 10/08/20 10:00 10/11/20 09:26 Aspirin 81 Mg Tab Chew PO 81 mg QDAY LEIGH Administration Dextrose 50 ml 10/09/20 08:42 Dextrose 50% In Water (25gm) 50 Ml Syringe IV Q30MIN PRN Hypoglycemia Protocol Famotidine 20 mg 10/11/20 10:00 10/11/20 09:26 Famotidine 20 Mg Tab PO 20 mg DAILY LEIGH Administration Fentanyl 50 mcg 10/07/20 11:11 10/07/20 12:26 Fentanyl 100 Mcg/2 Ml Inj IV 50 mcg Q10MIN PRN Administration ANALGESIA Heparin Sodium (Porcine) 2,000 unit 10/07/20 18:10 Heparin 10,000 Units/10 Ml Vial IV SHAILESH PRN hemodialysis Heparin Sodium (Porcine) 5,000 unit 10/08/20 10:00 10/11/20 09:02 Heparin 5,000 Unit/1 Ml Vial SUB-Q Not Given Q12HR LEIGH Hydromorphone HCl 0.25 mg 10/07/20 11:12 10/08/20 13:20 Hydromorphone 1 Mg/1 Ml Inj IV 0.25 mg Q4H PRN Administration Pain, Moderate (4-6) Hydrophilic Ointment 1 applic 10/07/20 11:11 Lip Therapy Vaseline TP Q2HR PRN Dry Lips Norepinephrine 4 mg in 250 mls @ 7.5 mls/hr 10/07/20 09:00 10/11/20 08:09 Levophed Drip 4 Mg/Ns 250 Ml IV 28 mcg/min TITR LEIGH 105 mls/hr Titration Protocol 2 MCG/MIN Sodium Chloride 100 mls @ 999 mls/hr 10/07/20 18:10 Nacl 0.9% IV SHAILESH PRN Hypotension Dopamine HCl/Dextrose 800 mg in 250 mls @ 2.576 mls/hr 10/08/20 11:00 09/25 12/15 08:50 Intropin Drip 800 Mg/D5w 250 Ml IV 5 mcg/kg/min TITR LEIGH 6.441 mls/hr Titration Protocol 2 MCG/KG/MIN Cefepime HCl 1 gm in 100 mls @ 200 mls/hr 10/08/20 18:00 10/10/20 17:40 Cefepime/Ns 1 Gm/100 Ml IV 10/14/20 18:29 Infused Q24H LEIGH Infusion Protocol Vasopressin 20 unit/ Sodium 101 mls @ 9.09 mls/hr 10/11/20 08:00 10/11/20 08:28 Chloride IV 0.03 units/min TITR LEIGH 9.09 mls/hr Administration Protocol 0.03 UNITS/MIN Insulin Human Isoph/Insulin Regular 15 unit 10/11/20 09:00 10/11/20 09:52 Insulin Nph/Regular 70/30 Inj SUB-Q 15 unit BIDDIAB LEIGH Administration Insulin Human Regular 0 units 10/09/20 10:00 10/11/20 09:31 Insulin Regular, Human 100 Units/1 Ml SUB-Q Not Given Q4H [facility] Protocol Multi-Ingred Cream/Lotion/Oil/Oint 1 applic 10/07/20 11:11 Mineral Oil/Petrolatum, White Ophth Oint 3.5 Gm OU Q4HR PRN Dry Eye(s) Simple Syrup 15 ml 10/09/20 11:14 Simple Syrup 15 Ml FEEDTUBE PRN PRN Hypoglycemia Simple Syrup 30 ml 10/09/20 11:14 Simple Syrup 15 Ml FEEDTUBE PRN PRN Hypoglycemia Sodium Bicarbonate 325 mg 10/09/20 11:14 Sodium Bicarbonate 325 Mg Tab FEEDTUBE PRN PRN For Clogged Feeding Tube Sodium Chloride 10 ml 10/07/20 22:00 10/11/20 09:03 Sodium Chloride 0.9% 10 Ml Flush Syringe IV Not Given BID LEIGH Sodium Chloride 10 ml 10/07/20 11:09 Sodium Chloride 0.9% 10 Ml Flush Syringe IV PRN PRN LINE FLUSH
[2020-10-11 10:09] LABS: Hematocrit 35.4 % (30.3-42.9); Hemoglobin 11.2 gm/dl (10.1-14.3); Mean Corpuscular HGB Conc 32 % (30-34); Mean Corpuscular Volume 100 fl (79-97); Red Blood Count 3.55 M/mm3 (3.65-5.03)
[2020-10-11 10:11] LABS: Red Cell Distribution Width 20.5 % (13.2-15.2)
[2020-10-11 11:05] LABS: Platelet Count 57 K/mm3 (140-440)
[2020-10-11] MEDS ORDERED: PHENYLEPHRINE 10 MG/1 ML INJ SDV IV SCH (11:30)
[2020-10-11] MEDS ORDERED: EPINEPHrine 1 MG/10 ML SYRINGE ONE (12:05)
[2020-10-11] MEDS ORDERED: SODIUM BICARB 8.4% 50 MEQ/50 ML SYRINGE IV ONE (12:05)
[2020-10-11] MEDS ORDERED: PHENYLEPHRINE 100 MG in SODIUM CHLORIDE 0.9% 90 ML IV SCH (12:15)
--- NOTE | 2020-10-11 16:28 | Progress Note ---
Assessment and Plan Telemetry reviewed: Sinus rhythm 97. No events. #S/p cardiac arrest (asystole) * Patient was found unresponsive in asystole with unknown downtime. EMS obtained ROSC in route to hospital. She has coded twice in the hospital, once with V. fib arrest, once with PEA arrest. * V. fib arrhythmia likely due to primary electrolyte derangement and not ischemia. #NSTEMI suspect type II * Twelve-lead ECG shows sinus rhythm heart rate 66 with right bundle branch block and left anterior fascicular block of unknown duration, no axis deviation, prolonged QT: 508 no acute ischemic changes noted. Caution in QT prolonging medications. * Troponins are elevated, unchanging, nonspecific and subacute. Continue to trend CE's. #Cardiomyopathy * Echocardiogram reviewed (10/07/2020): LVEF is 45 to 50%. Mild to moderate concentric LVH. Mild diastolic dysfunction is present (impaired relaxation pattern). No VSD visualized. RV SF is normal. Mild TR noted. RVSP is 33 mmHg. Patient would benefit from beta-fidelina long-term but currently requiring multiple vasopressors to maintain hemostasis. We will plan to add beta-fidelina once patient is medically stabilized. #Thrombocytopenia * Recommend evaluation for possible heparin-induced thrombocytopenia. Repeat lab confirmation pending #diabetic ketoacidosis in setting of type 1 diabetes mellitus * Management per primary team #ESRD needing dialysis * Nephrology is following #Suspected neurogenic shock in setting of suspected anoxic injury status post cardiac arrest * Patient is currently requiring 3 pressors to maintain hemostasis with no tachycardic response. * Neurology is following Will Follow Pt seen in conjunction with Dr. Abbott, who agrees with the assessment and plan of care. - Patient Problems (1) Acute respiratory failure Current Visit: Yes Status: Acute (2) ESRD needing dialysis Current Visit: Yes Status: Acute (3) Shock Current Visit: Yes Status: Acute (4) Cardiac arrest Current Visit: Yes Status: Acute (5) DKA (diabetic ketoacidoses) Current Visit: Yes Status: Acute Qualifiers: Diabetes mellitus type: type 1 Qualified Code(s): E10.10 - Type 1 diabetes mellitus with ketoacidosis without coma (6) Hyperkalemia Current Visit: Yes Status: Acute (7) Hypermagnesemia Current Visit: Yes Status: Acute (8) Elevated LFTs Current Visit: Yes Status: Acute (9) Anemia Current Visit: Yes Status: Chronic (10) NSTEMI (non-ST elevated myocardial infarction) Current Visit: Yes Status: Acute Plan to address problem: -Suspect Type 2 (11) Hypertension Current Visit: No Status: Chronic Qualifiers: Hypertension type: renovascular hypertension Qualified Code(s): I15.0 - Renovascular hypertension (12) HLD (hyperlipidemia) Current Visit: Yes Status: Chronic Qualifiers: Hyperlipidemia type: mixed hyperlipidemia Qualified Code(s): E78.2 - Mixed hyperlipidemia (13) Type 1 diabetes Current Visit: Yes Status: Chronic (14) History of COVID-19 Current Visit: Yes Status: Chronic Plan to address problem: (15) Thrombocytopenia Current Visit: Yes Status: Acute Plan to address problem: Subjective Date of service: 10/11/20 Principal diagnosis: Anoxic Encephalopathy, S/p Cardiac Arrest, DKA, Severe Hyperkalemia Interval history: Patient in bed. Currently intubated and unresponsive. Telemetry reviewed: Sinus rhythm 97. No events Objective Last Vital Signs Temp 98 F 10/11/20 08:34 Pulse 93 H 10/11/20 09:30 Resp 16 10/11/20 09:30 BP 94/56 10/11/20 09:30 Pulse Ox 98 10/11/20 09:30 - Physical Examination General: Other (intubated) HEENT: Positive: Normocephaly Neck: Positive: neck supple. Negative: JVD/HJR Cardiac: Positive: Reg Rate and Rhythm, S1/S2 Lungs: Positive: Ventilated Respirations Neuro: Positive: Other (intubated) Abdomen: Positive: Soft Skin: Positive: Cool. Negative: Rash Musculoskeletal: No Fluid Collection Extremities: Present: lower extr. pulses, edema (generalized) - Labs and Meds CBC 10/11/20 Range/Units 05:01 WBC 4.0 L (4.5-11.0) K/mm3 RBC 3.48 L (3.65-5.03) M/mm3 Hgb 10.6 (10.1-14.3) gm/dl Hct 31.7 (30.3-42.9) % Plt Count 56 L (140-440) K/mm3 Comprehensive Metabolic Panel 10/10/20 10/11/20 Range/Units 11:21 05:01 Sodium 130 L 134 L (137-145) mmol/L Potassium 3.5 L 4.1 (3.6-5.0) mmol/L Chloride 97.0 L 97.8 L (98-107) mmol/L Carbon Dioxide 17 L 20 L (22-30) mmol/L BUN 37 H 42 H (7-17) mg/dL Creatinine 6.0 H 6.5 H (0.6-1.2) mg/dL Glucose 250 H 95 (65-100) mg/dL Calcium 7.3 L 7.4 L (8.4-10.2) mg/dL - Imaging and Cardiology EKG: report reviewed, image reviewed Echo: report reviewed (10/07/2020 - mild-mod concentric LVH, EF 45-50%, mild diastolic dysfxn), other (09/16/2020 - EF 60-65%, mild concentric LVH, mildly dilated LA, trace AI, grade 1 diastolic dysfxn, mild TR, RVSP 32.8 mmHg, trace MR) - Telemetry EKG Rhythm: Sinus Rhythm - EKG Sinus rhythms and dysrhythmias: sinus rhythm AV and intraventricular conduction: right bundle branch block, left anterior fascicular Repolarization changes or abnormalities: nonspecific abnormality, ST segment, and/or T wave, Suggestive of hyperkalemia - Allied health notes Allied health notes reviewed: nursing
--- NOTE | 2020-10-11 16:55 | Progress Note ---
Assessment and Plan Cultures: Sputum 10/07/2020 upper respiratory rivka. Blood culture 10/07/2020 no growth today. Assessment: 55-year-old female with history of ESRD on hemodialysis, uncontrolled diabetes mellitus, hypertension, obesity, anemia, admitted on 10/07/2020 secondary to cardiac arrest: #Severe sepsis with septic shock/hospital cardiac arrest: Patient remains on dopamine drip. Etiology bilateral pneumonia. #Presumed bilateral pneumonia: SARS Cov-2 negative. Sputum culture with upper respiratory rivka. #Acute transaminitis: Likely from cardiac arrest/ischemic hepatitis #ESRD on hemodialysis: Renally adjust antibiotics #Left submandibular duct obstruction: Related to stone per CT done at [facility] #Global anoxic injury: Neurology on board Recommendations: Continue cefepime 1 g IV once a day D4 of 7 Follow-up cultures and MRSA PCR Grim prognosis GEsthela Olsen MD [facility], [facility] O: [phone] F: [phone] Subjective Date of service: 10/11/20 Principal diagnosis: Anoxic Encephalopathy, S/p Cardiac Arrest, DKA, Severe Hyperkalemia Interval history: Febrile to 100.5 with a white count 4.6. Cultures remain negative. Imaging personally reviewed: Chest x-ray: Improved aeration of the lungs Objective - Exam Narrative Exam: General appearance: Unresponsive intubated Eyes: anicteric sclerae, moist conjunctivae; no lid-lag; pupils slow reaction HENT: Normocephalic, Atraumatic; normal external ears, nares open, oropharynx limited endotracheal tube in place Neck: supple, tracheal midline, no JVD Lungs: Bilateral rhonchi CV: RRR no murmur Abdomen: Soft nontender Extremities: no edema, no cyanosis Skin: No rash. Psych: Unresponsive Neuro: Unresponsive Right femoral TLC Left femoral hemodialysis catheter - Constitutional Vitals: Vital Signs Temp Pulse Resp BP Pulse Ox 99.9 F H 93 H 16 128/40 98 10/11/20 16:00 10/11/20 16:04 10/11/20 16:04 10/11/20 16:04 10/11/20 16:04 Temperature -Last 24 Hours Temperature 99.9 F Temperature 100.5 F Temperature 98 F Temperature 94.8 F Temperature 96.0 F - Labs CBC & Chem 7: 10/11/20 10:03 10/11/20 05:01 Labs: Abnormal lab results 10/10/20 10/10/20 10/10/20 Range/Units 16:55 20:15 23:49 WBC (4.5-11.0) K/mm3 RBC (3.65-5.03) M/mm3 MCV (79-97) fl RDW (13.2-15.2) % Plt Count (140-440) K/mm3 POC ABG pCO2 (32.0-48.0) mmHg ABG Hemoglobin (12.0-17.5) ABG Sodium (136.0-145.0) mmol/L ABG Glucose (65-95) mg/dL Sodium (137-145) mmol/L Chloride (98-107) mmol/L Carbon Dioxide (22-30) mmol/L BUN (7-17) mg/dL Creatinine (0.6-1.2) mg/dL POC Glucose 197 H 150 H 133 H (70-105) mg/dL Calcium (8.4-10.2) mg/dL Troponin T (0.00-0.029) ng/mL Arterial Blood Glucose (65-95) mg/dL Arterial Blood Ionized Calcium (4.6-5.3) mg/dL 10/11/20 10/11/20 10/11/20 Range/Units 03:42 05:01 05:01 WBC 4.0 L (4.5-11.0) K/mm3 RBC 3.48 L (3.65-5.03) M/mm3 MCV (79-97) fl RDW 20.2 H (13.2-15.2) % Plt Count 56 L (140-440) K/mm3 POC ABG pCO2 29.5 L (32.0-48.0) mmHg ABG Hemoglobin 11.7 L (12.0-17.5) ABG Sodium 129.9 L (136.0-145.0) mmol/L ABG Glucose 100 H (65-95) mg/dL Sodium 134 L (137-145) mmol/L Chloride 97.8 L (98-107) mmol/L Carbon Dioxide 20 L (22-30) mmol/L BUN 42 H (7-17) mg/dL Creatinine 6.5 H (0.6-1.2) mg/dL POC Glucose (70-105) mg/dL Calcium 7.4 L (8.4-10.2) mg/dL Troponin T 0.401 H* (0.00-0.029) ng/mL Arterial Blood Glucose 100 H (65-95) mg/dL Arterial Blood Ionized Calcium 4.2 L (4.6-5.3) mg/dL 10/11/20 10/11/20 Range/Units 10:03 11:23 WBC (4.5-11.0) K/mm3 RBC 3.55 L (3.65-5.03) M/mm3 MCV 100 H (79-97) fl RDW 20.5 H (13.2-15.2) % Plt Count 57 L (140-440) K/mm3 POC ABG pCO2 (32.0-48.0) mmHg ABG Hemoglobin (12.0-17.5) ABG Sodium (136.0-145.0) mmol/L ABG Glucose (65-95) mg/dL Sodium (137-145) mmol/L Chloride (98-107) mmol/L Carbon Dioxide (22-30) mmol/L BUN (7-17) mg/dL Creatinine (0.6-1.2) mg/dL POC Glucose 122 H (70-105) mg/dL Calcium (8.4-10.2) mg/dL Troponin T (0.00-0.029) ng/mL Arterial Blood Glucose (65-95) mg/dL Arterial Blood Ionized Calcium (4.6-5.3) mg/dL
--- NOTE | 2020-10-11 17:10 | Progress Note ---
Assessment and Plan Assessment and plan: This is a 55-year-old female with HTN, DM, ESRD on HD (MWF, obesity, anemia of chronic disease admitted with septic shock, hyperkalemia, DKA, leukocytosis, lactic acidosis, clotted left arm aVF, s/p cardiopulmonary arrest Sepsis/septic shock Acute hypoxic respiratory failure Global anoxic injury Probable aspiration pneumonia DKA S/p cardiopulmonary arrest x3 (at home, in ED, 10/11 in ICU) ESRD requiring HD Hyperkalemia Transaminitis Severe metabolic acidosis Anoxic encephalopathy Suspected neurogenic shock Cardiomyopathy Thrombocytopenia NSTEMI suspected type II Left submandibular duct obstruction -[facility], nephrology, nephrology, vascular surgery, cardiology, infectious disease, neurology consulted, patient recommendations -S/p insulin drip -SSI, accchecks -Vasopressor support with Levophed, dopamine, phenylephrine, vasopressin -10/07 echocardiogram shows mild to moderate concentric LVH, left ventricular systolic function borderline, LVEF 45 to 50%, mild diastolic dysfunction impaired relaxation pattern, no pericardial effusion -10/08 CT head shows findings indicative of severe diffuse cerebral and cerebellar edema likely due to global anoxic event -HD per nephrology -IV antibiotic therapy -10/11 brain blood flow scan canceled per family request -MRSA PCR pending -HIT pending -Aspirin -Trend CBC, BMP -10/08 COVID-19 PCR negative -10/11 Repeat COVID-19 pending DVT/GI prophylaxis: PPI, SCDs to bilateral legs while in bed, avoid chemical anticoagulation in setting of thrombocytopenia Code status: DNR Dispo: ICU, possible hospice The high probability of a clinically significant, sudden or life threatening deterioration of the [endocrine, cardiac and pulmonary] system(s) required my full and direct attention, intervention and personal management. The aggregate critical care time was [40] minutes. This time is in addition to time spent performing reported procedures but includes the following: [x] Data Review and interpretation [x] Patient assessment and monitoring of vital signs [x] Documentation [x] Medication orders and management History Interval history: This is a 55-year-old female with HTN, DM, ESRD on HD (MWF), obesity, anemia of chronic disease who presented to the emergency department via EMS on 10/07 after being found unresponsive in her bed upon EMS arrival was found to be in asystolic arrest. Patient was initiated on ACLS and intubated transported to [facility] with achievement of ROSC. In the emergency department patient had another episode of cardiac arrest with downtime of 4 minutes work-up in the emergency department revealed septic shock and started on IV vasopressor support, hyperkalemia at 8.5, findings consistent with anoxic brain injury. Vascular surgery was consulted in the emergency department for clotted left arm aVF, nephrology and CCM were consulted. Patient was admitted with acute hypoxic respiratory failure, septic shock, DKA with a blood glucose of 900 and bicarb of 6, hyperkalemia at 8.5, leukocytosis and lactic acidosis at 9.7. Of note patient was recently admitted to [facility] for submandibular gland problem and was discharged the day prior to admission here. 10/08/2020. Continue dopamine and Levophed to maintain MAP >65. patient has significant hyperkalemia today and will undergo urgent hemodialysis. Continue bicarbonate drip per nephrology. Patient currently on amiodarone drip. Cardiology consultation pending. Check echocardiogram to assess ventricular function. Neurology consultation for anoxic encephalopathy. Check EEG. Continue insulin drip and transition to long-acting insulin when anion gap is closed. Patient empirically started on Levaquin. ID consultation pending. Patient likely has aspiration pneumonia associated with cardiac arrest. 10/09/2020. CT scan reveals findings indicative of severe diffuse cerebral and cerebellar edema consistent with global anoxic event. Neurology following. EEG pending. ID started the patient on cefepime and vancomycin. Etiology likely aspiration/hospital-acquired pneumonia in the setting of DKA/s/p cardiopulmonary arrest. Echocardiogram revealed left ventricular systolic function borderline with an EF of 45 to 50%. Mild diastolic dysfunction. Probable NSTEMI type II. Cardiology following. Patient with shock multifactorial --sepsis/neurogenic(anoxic injury). Continue vasopressors to maintain MAP > 65. DKA has resolved and patient will be transition from insulin drip to long- acting insulin of 70/30 15 units twice daily. Start sliding scale regular insulin. Overall prognosis is poor. I attempted to contact the daughter Louie Chun at [phone] but no answer. Message left. 10/10/2020. CT scan reveals severe anoxic encephalopathy. Await in a.m. blood flow study. EEG also pending. Neurology following. Continue IV antibiotics for pneumonia. Continue to wean pressors to maintain MAP > 65. BG still elevated, therefore, we will increase 70/30 insulin. Prognosis extremely poor. 10/11: At the time my examination patient was on Levophed at 28 mcg, dopamine at 5 and vasopressin was initiated. She was on CMV tidal volume 450, rate of 16, PEEP of 6 on 12% FiO2. Due to severe thrombocytopenia (confirmed with repeat labs) heparin was discontinued. Patient had a EEG and brain flow study pending which was canceled per family request. This afternoon patient had a cardiac arrest and ROSC was achieved. See code sheet for details. Patient CODE STATUS was changed to DNR. Hospitalist Physical - Constitutional Vitals: Temp Pulse Resp BP Pulse Ox 98 F 103 H 16 76/46 99 10/11/20 08:34 10/11/20 08:00 10/11/20 08:00 10/11/20 08:00 10/11/20 08:00 General appearance: Present: severe distress - EENT Eyes: Absent: PERRL ENT: clear oral mucosa - Neck Neck: Absent: masses or JVD, cervical LAD - Respiratory Respiratory effort: normal Respiratory: bilateral: CTA - Cardiovascular Rhythm: regular Heart Sounds: Present: S1 & S2. Absent: systolic murmur, diastolic murmur - Extremities Extremities: no ischemia, pulses intact, pulses symmetrical, normal color Extremity abnormal: cold Peripheral Pulses: within normal limits - Abdominal General gastrointestinal: soft, non-tender, non-distended, normal bowel sounds - Integumentary Integumentary: Present: clear, warm, dry - Psychiatric Psychiatric: other - Neurologic Neurologic: other (Unresponsive to painful stimuli, pupils are reactive to light, no cough/gag) - Allied Health Allied health notes reviewed: nursing, RT HEART Score - HEART Score Troponin: Troponin T 0.401 ng/mL (0.00-0.029) H* 10/11/20 05:01 Results - Labs CBC & Chem 7: 10/11/20 10:03 10/11/20 05:01 Labs: Laboratory Last Values WBC 4.0 K/mm3 (4.5-11.0) L 10/11/20 05:01 RBC 3.48 M/mm3 (3.65-5.03) L 10/11/20 05:01 Hgb 10.6 gm/dl (10.1-14.3) 10/11/20 05:01 Hct 31.7 % (30.3-42.9) 10/11/20 05:01 MCV 91 fl (79-97) 10/11/20 05:01 MCH 30 pg (28-32) 10/11/20 05:01 MCHC 33 % (30-34) 10/11/20 05:01 RDW 20.2 % (13.2-15.2) H 10/11/20 05:01 Plt Count 56 K/mm3 (140-440) L 10/11/20 05:01 Lymph % (Auto) 18.1 % (13.4-35.0) 10/07/20 09:08 Mobile % (Auto) 3.6 % (0.0-7.3) 10/07/20 09:08 Eos % (Auto) 0.5 % (0.0-4.3) 10/07/20 09:08 Baso % (Auto) 0.4 % (0.0-1.8) 10/07/20 09:08 Lymph # (Auto) 2.9 K/mm3 (1.2-5.4) 10/07/20 09:08 Mobile # (Auto) 0.6 K/mm3 (0.0-0.8) 10/07/20 09:08 Eos # (Auto) 0.1 K/mm3 (0.0-0.4) 10/07/20 09:08 Baso # (Auto) 0.1 K/mm3 (0.0-0.1) 10/07/20 09:08 Seg Neutrophils % 77.4 % (40.0-70.0) H 10/07/20 09:08 Seg Neutrophils # 12.2 K/mm3 (1.8-7.7) H 10/07/20 09:08 PT 21.2 Sec. (12.2-14.9) H 10/07/20 09:08 INR 1.83 (0.87-1.13) H 10/07/20 09:08 APTT 51.1 Sec. (24.2-36.6) H 10/07/20 09:08 ABG pH 7.446 (7.320-7.450) 10/11/20 03:42 POC ABG pCO2 29.5 mmHg (32.0-48.0) L 10/11/20 03:42 POC ABG pO2 101.7 mmHg (83-108) 10/11/20 03:42 POC ABG HCO3 19.9 10/11/20 03:42 ABG O2 Saturation 97.8 (0-100) 10/11/20 03:42 POC ABG Base Excess -3.2 10/11/20 03:42 ABG Hemoglobin 11.7 (12.0-17.5) L 10/11/20 03:42 ABG Oxyhemoglobin 96.9 (94-98) 10/11/20 03:42 ABG Methemoglobin 0.3 (0.0-1.5) 10/11/20 03:42 ABG Sodium 129.9 mmol/L (136.0-145.0) L 10/11/20 03:42 ABG Potassium 3.8 mmol/L (3.40-4.50) 10/11/20 03:42 ABG Chloride 102.0 mmol/L (98-107) 10/11/20 03:42 ABG Glucose 100 mg/dL (65-95) H 10/11/20 03:42 Carboxyhemoglobin 0.6 (0.5-1.5) 10/11/20 03:42 FiO2 % 30.0 10/11/20 03:42 Sodium 134 mmol/L (137-145) L 10/11/20 05:01 Potassium 4.1 mmol/L (3.6-5.0) 10/11/20 05:01 Chloride 97.8 mmol/L (98-107) L 10/11/20 05:01 Carbon Dioxide 20 mmol/L (22-30) L 10/11/20 05:01 Anion Gap 20 mmol/L 10/11/20 05:01 BUN 42 mg/dL (7-17) H 10/11/20 05:01 Creatinine 6.5 mg/dL (0.6-1.2) H 10/11/20 05:01 Estimated GFR 8 ml/min 10/11/20 05:01 BUN/Creatinine Ratio 6 % 10/11/20 05:01 Glucose 95 mg/dL (65-100) 10/11/20 05:01 POC Glucose 84 mg/dL (70-105) 10/11/20 03:58 Hemoglobin A1c 8.5 % (4-6) H 10/09/20 13:51 Lactic Acid 1.30 mmol/L (0.7-2.0) 10/09/20 13:51 Calcium 7.4 mg/dL (8.4-10.2) L 10/11/20 05:01 Phosphorus 2.70 mg/dL (2.5-4.5) 10/10/20 11:21 Magnesium 3.10 mg/dL (1.7-2.3) H 10/07/20 10:32 Total Bilirubin 0.50 mg/dL (0.1-1.2) 10/07/20 09:08 AST 2736 units/L (5-40) H 10/07/20 09:08 ALT 1568 units/L (7-56) H 10/07/20 09:08 Alkaline Phosphatase 183 units/L (35-129) H 10/07/20 09:08 Total Creatine Kinase 444 units/L (30-135) H 10/07/20 09:08 CK-MB (CK-2) 8.6 ng/mL (0.0-4.0) H 10/07/20 09:08 CK-MB (CK-2) Rel Index 1.9 (0-4) 10/07/20 09:08 Troponin T 0.401 ng/mL (0.00-0.029) H* 10/11/20 05:01 NT-Pro-B Natriuret Pep 6466 pg/mL (0-900) H 10/07/20 09:08 Total Protein 5.8 g/dL (6.3-8.2) L 10/07/20 09:08 Albumin 2.6 g/dL (3.9-5) L 10/07/20 09:08 Albumin/Globulin Ratio 0.8 % 10/07/20 09:08 Triglycerides 246 mg/dL (2-149) H 10/07/20 09:08 Cholesterol 189 mg/dL (50-199) 10/07/20 09:08 LDL Cholesterol Direct 98 mg/dL (50-130) 10/07/20 09:08 HDL Cholesterol 39 mg/dL (40-59) L 10/07/20 09:08 Cholesterol/HDL Ratio 4.84 % 10/07/20 09:08 Procalcitonin 114.59 ng/mL (<0.15) 10/08/20 15:08 TSH 0.562 mlU/mL (0.270-4.200) 10/08/20 15:08 Arterial Blood Glucose 100 mg/dL (65-95) H 10/11/20 03:42 Arterial Blood Ionized Calcium 4.2 mg/dL (4.6-5.3) L 10/11/20 03:42 Coronavirus (PCR) Negative (Negative) 10/08/20 Unknown Hepatitis A IgM Ab Non-reactive (NonReactive) 10/07/20 17:25 Hep Bs Antigen Non-reactive (Negative) 10/07/20 17:25 Hep B Core IgM Ab Non-reactive (NonReactive) 10/07/20 17:25 Hepatitis C Antibody Non-reactive (NonReactive) 10/07/20 17:25 Blood Type O POSITIVE 10/07/20 11:40 Antibody Screen Negative 10/07/20 11:40 Microbiology: Microbiology 10/07/20 Unknown Sputum - Endotracheal Wash Sputum Culture - Final 10/07/20 12:10 Peripheral/Venous Blood Culture - Preliminary NO GROWTH AFTER 72 HOURS 10/07/20 12:10 Peripheral/Venous Blood Culture - Preliminary NO GROWTH AFTER 72 HOURS Nash/IV: Voiding Method Indwelling Catheter Active Medications - Current Medications Current Medications: Generic Name Dose Route Start Last Admin Trade Name Freq PRN Reason Stop Dose Admin Acetaminophen 650 mg 10/07/20 11:12 Acetaminophen 325 Mg Tab PO Q6H PRN Pain, Mild (1-3) Albuterol 2.5 mg 10/07/20 11:09 Albuterol 2.5 Mg/3 Ml Nebu IH Q3HRT PRN Shortness Of Breath Lipase/Protease/Amylase 1 each 10/09/20 11:14 Lipase 10,500/Protease 25,000/Amylase 43,750 (Units) Dr Fishman FEEDTUBE PRN PRN For Clogged Feeding Tube Aspirin 81 mg 10/08/20 10:00 10/10/20 09:38 Aspirin 81 Mg Tab Chew PO 81 mg QDAY LEIGH Administration Dextrose 50 ml 10/09/20 08:42 Dextrose 50% In Water (25gm) 50 Ml Syringe IV Q30MIN PRN Hypoglycemia Protocol Fentanyl 50 mcg 10/07/20 11:11 10/07/20 12:26 Fentanyl 100 Mcg/2 Ml Inj IV 50 mcg Q10MIN PRN Administration ANALGESIA Heparin Sodium (Porcine) 2,000 unit 10/07/20 18:10 Heparin 10,000 Units/10 Ml Vial IV SHAILESH PRN hemodialysis Heparin Sodium (Porcine) 5,000 unit 10/08/20 10:00 10/10/20 22:13 Heparin 5,000 Unit/1 Ml Vial SUB-Q 5,000 unit Q12HR LEIGH Administration Hydromorphone HCl 0.25 mg 10/07/20 11:12 10/08/20 13:20 Hydromorphone 1 Mg/1 Ml Inj IV 0.25 mg Q4H PRN Administration Pain, Moderate (4-6) Hydrophilic Ointment 1 applic 10/07/20 11:11 Lip Therapy Vaseline TP Q2HR PRN Dry Lips Norepinephrine 4 mg in 250 mls @ 7.5 mls/hr 10/07/20 09:00 10/11/20 08:09 Levophed Drip 4 Mg/Ns 250 Ml IV 28 mcg/min TITR LEIGH 105 mls/hr Titration Protocol 2 MCG/MIN Sodium Chloride 100 mls @ 999 mls/hr 10/07/20 18:10 Nacl 0.9% IV SHAILESH PRN Hypotension Dopamine HCl/Dextrose 800 mg in 250 mls @ 2.576 mls/hr 10/08/20 11:00 10/11/20 05:08 Intropin Drip 800 Mg/D5w 250 Ml IV 6 mcg/kg/min TITR LEIGH 7.729 mls/hr Titration Protocol 2 MCG/KG/MIN Cefepime HCl 1 gm in 100 mls @ 200 mls/hr 10/08/20 18:00 10/10/20 17:40 Cefepime/Ns 1 Gm/100 Ml IV 10/14/20 18:29 Infused Q24H LEIGH Infusion Protocol Dextrose/Sodium Chloride 1,000 mls @ 100 mls/hr 10/08/20 17:00 10/09/20 19:00 D5ns 0.2% IV 0 mls/hr DIRECT LEIGH Infusion Vasopressin 20 unit/ Sodium 101 mls @ 9.09 mls/hr 10/11/20 08:00 10/11/20 08:28 Chloride IV 0.03 units/min TITR LEIGH 9.09 mls/hr Administration Protocol 0.03 UNITS/MIN Vasopressin 20 unit/ Sodium 101 mls @ 9.09 mls/hr 10/11/20 09:00 Chloride IV TITR LEIGH Protocol 0.03 UNITS/MIN Insulin Human Isoph/Insulin Regular 15 unit 10/11/20 08:35 Insulin Nph/Regular 70/30 Inj SUB-Q BIDDIAB LEIGH Insulin Human Regular 0 units 10/09/20 10:00 10/11/20 05:07 Insulin Regular, Human 100 Units/1 Ml SUB-Q Not Given Q4H [facility] Protocol Multi-Ingred Cream/Lotion/Oil/Oint 1 applic 10/07/20 11:11 Mineral Oil/Petrolatum, White Ophth Oint 3.5 Gm OU Q4HR PRN Dry Eye(s) Simple Syrup 15 ml 10/09/20 11:14 Simple Syrup 15 Ml FEEDTUBE PRN PRN Hypoglycemia Simple Syrup 30 ml 10/09/20 11:14 Simple Syrup 15 Ml FEEDTUBE PRN PRN Hypoglycemia Sodium Bicarbonate 325 mg 10/09/20 11:14 Sodium Bicarbonate 325 Mg Tab FEEDTUBE PRN PRN For Clogged Feeding Tube Sodium Chloride 10 ml 10/07/20 22:00 10/10/20 22:16 Sodium Chloride 0.9% 10 Ml Flush Syringe IV 10 ml BID LEIGH Administration Sodium Chloride 10 ml 10/07/20 11:09 Sodium Chloride 0.9% 10 Ml Flush Syringe IV PRN PRN LINE FLUSH Nutrition/Malnutrition Assess - Dietary Evaluation Nutrition/Malnutrition Findings: Nutrition Notes Start: 10/08/20 12:19 Freq: Status: Active Protocol: Document 10/09/20 11:06 SP (Rec: 10/09/20 11:12 [facility] [id number]) Nutrition Notes Need for Assessment generated from: MD Order Initial or Follow up Reassessment Current Diagnosis CKD (stage V CKD),Diabetes, Sepsis,Hypertension, Respiratory Failure Other Pertinent Diagnosis s/p cardiopulmonary arrest, anoxic encephalopathy Current Diet NPO Labs/Tests K 3.1 BUN 30 Cr 5.2 BG 181 Pertinent Medications reviewed Height 5 ft 3 in Weight 70.4 kg Sullivan Body Weight (kg) 52.27 BMI 27.5 Subjective/Other Information RD consulted for TF. Pt remains on vent support. Burn Absent Trauma Absent #1 Nutrition Diagnosis Inadequate oral intake As Evidenced by Signs and Symptoms pt remains intubated and requires EN support to meet nutrient needs Diagnosis Progress(for reassessment Continues documentation) Is patient on ventilator? Yes Is Patient Ambulatory and/or Out of Bed No REE-(Hondo-St. Jeil-confined to bed) 1514.376 Calculation Used for Recommendations [facility] Additional Notes Pro needs >1.2g/kg: >84g/day Fluid needs 1-1.5L/day Nutrition Intervention Nutrition Support: Nepro at 35ml/hr with 150ml water flush q4h. Kcal 1,512 Protein (gm) 68 Carbohydrates (gm) 135 Fat (gm) 81 Fluid (mL) 611 Fiber (gm) 11 Goal #1 TF tolerance Goal #2 TF at goal rate to meet at least 75% energy and pro needs Follow-Up By: 10/11/20 Additional Comments F/U: new TF, vent status
[2020-10-11] MEDS: CEFEPIME/NS 1 GM/100 ML 1 GM/100 ML BAG IV SCH (18:14)
[2020-10-11] MEDS: DOPamine/D5W 800 MG/250 ML 800 MG/250 ML BAG IV SCH (20:00)
--- NOTE | 2020-10-11 21:19 | Progress Note ---
Assessment and Plan Suspect cardiac arrest was likely in the setting of primary electrolyte abnormality as opposed to ischemia. Echo reviewed - mild-mod concentric LVH, EF 45-50%, mild diastolic dysfxn. Poor prognosis. Continue present mgmt as per Primary teams. Nothing further to add from a Cardiology perspective at this time. Will see PRN. Pt seen in conjunction with Dr. Redd, who agrees with the assessment and plan of care. - Patient Problems (1) Anoxic brain injury Current Visit: Yes Status: Acute (2) Acute respiratory failure Current Visit: Yes Status: Acute Qualifiers: Respiratory failure complication: hypoxia Qualified Code(s): J96.01 - Acute respiratory failure with hypoxia (3) PNA (pneumonia) Current Visit: Yes Status: Acute (4) Shock Current Visit: Yes Status: Acute (5) Cardiac arrest Current Visit: Yes Status: Acute (6) ESRD on hemodialysis Current Visit: Yes Status: Chronic (7) DKA (diabetic ketoacidoses) Current Visit: Yes Status: Acute Qualifiers: Diabetes mellitus type: type 1 Qualified Code(s): E10.10 - Type 1 diabetes mellitus with ketoacidosis without coma (8) Hyperkalemia Current Visit: Yes Status: Resolved (9) Hypermagnesemia Current Visit: Yes Status: Resolved (10) Elevated LFTs Current Visit: Yes Status: Acute (11) Anemia Current Visit: Yes Status: Chronic (12) NSTEMI (non-ST elevated myocardial infarction) Current Visit: Yes Status: Acute Plan to address problem: -Suspect Type 2 (13) Hypertension Current Visit: No Status: Chronic Qualifiers: Hypertension type: renovascular hypertension Qualified Code(s): I15.0 - Renovascular hypertension (14) HLD (hyperlipidemia) Current Visit: Yes Status: Chronic Qualifiers: Hyperlipidemia type: mixed hyperlipidemia Qualified Code(s): E78.2 - Mixed hyperlipidemia (15) Type 1 diabetes Current Visit: Yes Status: Chronic (16) History of COVID-19 Current Visit: Yes Status: Chronic Plan to address problem: 06/2020 Subjective Date of service: 10/10/20 Principal diagnosis: Anoxic Encephalopathy, S/p Cardiac Arrest, DKA, Severe Hyperkalemia Interval history: No acute events overnight. Weaning off Levo & Dopamine gtts. Tele reviewed - SR 50-60s w/PVCs. Objective Last Vital Signs Temp 96.0 F L 10/10/20 20:00 Pulse 64 10/10/20 20:59 Resp 16 10/10/20 18:15 BP 105/70 10/10/20 20:59 Pulse Ox 98 10/10/20 20:59 - Physical Examination General: Other (intubated) HEENT: Positive: Normocephaly Neck: Positive: neck supple. Negative: JVD/HJR Cardiac: Positive: Reg Rate and Rhythm, S1/S2 Lungs: Positive: Ventilated Respirations Neuro: Positive: Other (intubated) Abdomen: Positive: Soft Skin: Positive: Cool. Negative: Rash Musculoskeletal: No Fluid Collection Extremities: Present: lower extr. pulses, edema (generalized) - Labs and Meds Comprehensive Metabolic Panel 10/10/20 Range/Units 11:21 Sodium 130 L (137-145) mmol/L Potassium 3.5 L (3.6-5.0) mmol/L Chloride 97.0 L (98-107) mmol/L Carbon Dioxide 17 L (22-30) mmol/L BUN 37 H (7-17) mg/dL Creatinine 6.0 H (0.6-1.2) mg/dL Glucose 250 H (65-100) mg/dL Calcium 7.3 L (8.4-10.2) mg/dL - Imaging and Cardiology EKG: report reviewed, image reviewed Echo: report reviewed (10/07/2020 - mild-mod concentric LVH, EF 45-50%, mild baltazar tolic dysfxn), other (09/16/2020 - EF 60-65%, mild concentric LVH, mildly dilated LA, trace AI, grade 1 diastolic dysfxn, mild TR, RVSP 32.8 mmHg, trace MR) - Telemetry EKG Rhythm: Sinus Rhythm - EKG Sinus rhythms and dysrhythmias: sinus rhythm AV and intraventricular conduction: right bundle branch block, left anterior fascicular Repolarization changes or abnormalities: nonspecific abnormality, ST segment, and/or T wave, Suggestive of hyperkalemia - Allied health notes Allied health notes reviewed: nursing
[2020-10-12] MEDS: NORepinephrine/NS 4 MG-250 ML 4 MG/250 ML BAG IV SCH ×3 (00:22→08:05)
[2020-10-12] MEDS: INSULIN REGULAR, HUMAN 100 UNITS/1 ML SUB-Q SCH ×4 (02:14→13:07)
[2020-10-12] MEDS: VASOPRESSIN 20 UNIT in SODIUM CHLORIDE 0.9% 100 ML IV SCH (02:17)
--- NOTE | 2020-10-12 04:03 | XRay Report ---
CHEST 1 VIEW 10/12/2020 2:48 AM INDICATION / CLINICAL INFORMATION: follow up respiratory failure. COMPARISON: One view of the chest from 10/11/2020. FINDINGS: SUPPORT DEVICES: Unchanged. HEART / MEDIASTINUM: Stable. LUNGS / PLEURA: Central vascular congestion has increased with increased bilateral pulmonary opacitie s. No significant pleural effusion. No pneumothorax. ADDITIONAL FINDINGS: No significant additional findings. IMPRESSION: Increased central vascular congestion and probable bilateral atelectasis/edema. No other significant interval changes. Signer Name: Arnoldo Sherman MD Signed: 10/12/2020 3:58 AM Workstation Name: [id number]
[2020-10-12 05:58] LABS: Hemoglobin 9.1 gm/dl (10.1-14.3); Mean Corpuscular HGB Conc 34 % (30-34); Mean Corpuscular Volume 94 fl (79-97); Red Blood Count 2.87 M/mm3 (3.65-5.03)
[2020-10-12 06:01] LABS: Platelet Count 50 K/mm3 (140-440); Red Cell Distribution Width 20.4 % (13.2-15.2)
[2020-10-12 06:08] LABS: Calcium 7.1 mg/dL (8.4-10.2)
[2020-10-12] MEDS: INSULIN NPH/REGULAR 70/30 INJ SUB-Q SCH (07:31)
[2020-10-12] MEDS ORDERED: CALCIUM GLUCONATE 2,000 MG in SODIUM CHLORIDE 0.9% 100 ML IV ONE (07:45)
[2020-10-12] MEDS ORDERED: SODIUM POLYSTYRENE 15 GM/60 ML ORAL LIQD PO ONE (07:45)
[2020-10-12] MEDS ORDERED: INSULIN NPH/REGULAR 70/30 INJ SUB-Q SCH (08:00)
[2020-10-12] MEDS ORDERED: INSULIN REGULAR, HUMAN 100 UNITS/1 ML IV ONE (09:00)
--- NOTE | 2020-10-12 09:00 | Progress Note ---
Assessment and Plan 1. ESRD: Patient is on maintenance hemodialysis three times a week, MWF schedule. Last HD [facility]OR [facility]GANIZ[facility] 10/06 at OSH. Urgent HD 10/07 due to hyperkalemia. Hemodialysis: 10/07, 10/08. Unable to do hemodialysis at this time due to multipressor shock. 2. FEN: Hyperkalemia, meds ordered, monitor. Metabolic acidosis, 2/2 DKA, Lactic acidosis, monitor. Monitor lytes. 3. DKA: Was on Insulin drip. Bl sugar is high. Monitor. 4. S/p OOH Cardiac arrest: Total of 2 episodes. Total downtime unknown. Followed by Cards. Monitor. 5. Shock: On Cefepime. Currently on Dopamine, Levophed and Vasopressin. Wean pressors as tolerated. Monitor BP closely. 6. Severe anoxic encephalopathy: Absent brain stem reflexes. Followed by Neuro. 7. Anemia, POA: 2/2 ESRD. Epogen as needed. Subjective: Patient was seen and examined at the bedside. Examination: General appearance: well-developed, intubated, on vent HEENT: ATNC, Pupils dilated and not reacting to light Neck: neck supple, trachea midline Respiratory: Coarse breath sounds Heart: regular, normal heart rate, S1S2, no murmur Abdomen: soft, NT Integumentary: no rash, warm and dry Neurologic: not responding Ext: LE edema noted Hemodialysis access: L arm AVF clotted, L femoral catheter Subjective Date of service: 10/12/20 Principal diagnosis: Anoxic Encephalopathy, S/p Cardiac Arrest, DKA, Severe Hyperkalemia Objective - Vital Signs Vital signs: Vital Signs - 12hr 10/11/20 10/11/20 10/11/20 21:00 21:02 21:04 Temperature Pulse Rate 91 H 90 90 Pulse Rate [ From Monitor] Respiratory 16 16 16 Rate Blood Pressure 155/48 155/48 155/48 O2 Sat by Pulse 99 99 100 Oximetry 10/11/20 10/11/20 10/11/20 21:06 21:08 21:10 Temperature Pulse Rate 91 H 91 H 91 H Pulse Rate [ From Monitor] Respiratory 16 16 16 Rate Blood Pressure 155/48 155/48 155/48 O2 Sat by Pulse 99 99 100 Oximetry 10/11/20 10/11/20 10/11/20 21:12 21:14 21:15 Temperature Pulse Rate 91 H 91 H 92 H Pulse Rate [ From Monitor] Respiratory 16 16 16 Rate Blood Pressure 155/48 155/48 143/58 O2 Sat by Pulse 99 99 100 Oximetry 10/11/20 10/11/20 10/11/20 21:16 21:18 21:20 Temperature Pulse Rate 92 H 92 H 92 H Pulse Rate [ From Monitor] Respiratory 16 16 16 Rate Blood Pressure 143/58 143/58 143/58 O2 Sat by Pulse 99 99 100 Oximetry 10/11/20 10/11/20 10/11/20 21:22 21:24 21:26 Temperature Pulse Rate 92 H 92 H 91 H Pulse Rate [ From Monitor] Respiratory 16 16 16 Rate Blood Pressure 143/58 143/58 143/58 O2 Sat by Pulse 99 100 99 Oximetry 10/11/20 10/11/20 10/11/20 21:28 21:30 21:32 Temperature Pulse Rate 91 H 91 H 91 H Pulse Rate [ From Monitor] Respiratory 16 16 16 Rate Blood Pressure 143/58 135/64 135/64 O2 Sat by Pulse 99 100 99 Oximetry 10/11/20 10/11/20 10/11/20 22:14 22:15 22:16 Temperature Pulse Rate 91 H 91 H 91 H Pulse Rate [ From Monitor] Respiratory 16 16 16 Rate Blood Pressure 137/44 142/32 142/32 O2 Sat by Pulse 99 99 100 Oximetry 10/11/20 10/11/20 10/11/20 22:18 22:20 22:22 Temperature Pulse Rate 92 H 92 H 92 H Pulse Rate [ From Monitor] Respiratory 16 16 16 Rate Blood Pressure 142/32 137/44 137/44 O2 Sat by Pulse 99 99 99 Oximetry 10/11/20 10/11/20 10/11/20 22:24 22:26 22:28 Temperature Pulse Rate 93 H 93 H 91 H Pulse Rate [ From Monitor] Respiratory 16 16 16 Rate Blood Pressure 137/44 137/44 137/44 O2 Sat by Pulse 99 100 100 Oximetry 10/11/20 10/11/20 10/11/20 22:30 22:32 22:34 Temperature Pulse Rate 92 H 93 H 93 H Pulse Rate [ From Monitor] Respiratory 16 16 16 Rate Blood Pressure 132/40 132/40 132/40 O2 Sat by Pulse 100 100 100 Oximetry 10/11/20 10/11/20 10/11/20 22:36 22:38 22:40 Temperature Pulse Rate 93 H 93 H 93 H Pulse Rate [ From Monitor] Respiratory 16 16 16 Rate Blood Pressure 132/40 132/40 132/40 O2 Sat by Pulse 100 100 100 Oximetry 10/11/20 10/11/20 10/11/20 22:42 22:44 22:46 Temperature Pulse Rate 93 H 93 H 93 H Pulse Rate [ From Monitor] Respiratory 16 16 16 Rate Blood Pressure 132/40 132/40 150/73 O2 Sat by Pulse 100 100 100 Oximetry 10/11/20 10/11/20 10/11/20 22:48 22:50 22:52 Temperature Pulse Rate 92 H 92 H 92 H Pulse Rate [ From Monitor] Respiratory 16 16 16 Rate Blood Pressure 150/73 150/73 150/73 O2 Sat by Pulse 100 100 100 Oximetry 10/11/20 10/11/20 10/11/20 22:54 22:56 22:58 Temperature Pulse Rate 92 H 92 H 92 H Pulse Rate [ From Monitor] Respiratory 16 16 16 Rate Blood Pressure 150/73 150/73 150/73 O2 Sat by Pulse 100 100 100 Oximetry 10/11/20 10/11/20 10/11/20 23:00 23:01 23:02 Temperature Pulse Rate 91 H 91 H 90 Pulse Rate [ From Monitor] Respiratory 16 16 16 Rate Blood Pressure 141/60 141/60 141/60 O2 Sat by Pulse 100 100 100 Oximetry 10/11/20 10/11/20 10/11/20 23:04 23:06 23:08 Temperature Pulse Rate 90 91 H 92 H Pulse Rate [ From Monitor] Respiratory 16 16 16 Rate Blood Pressure 141/60 141/60 141/60 O2 Sat by Pulse 100 100 100 Oximetry 10/11/20 10/11/20 10/11/20 23:10 23:12 23:14 Temperature Pulse Rate 92 H 92 H 92 H Pulse Rate [ From Monitor] Respiratory 16 16 16 Rate Blood Pressure 141/60 141/60 141/60 O2 Sat by Pulse 100 100 100 Oximetry 10/11/20 10/11/20 10/11/20 23:15 23:16 23:18 Temperature Pulse Rate 92 H 92 H 92 H Pulse Rate [ From Monitor] Respiratory 16 16 16 Rate Blood Pressure 141/54 141/54 141/54 O2 Sat by Pulse 100 100 100 Oximetry 0510/11/20 10/11/20 23:20 23:22 23:24 Temperature Pulse Rate 92 H 93 H 93 H Pulse Rate [ From Monitor] Respiratory 16 16 16 Rate Blood Pressure 141/54 132/40 132/40 O2 Sat by Pulse 100 100 100 Oximetry 10/11/20 10/11/20 10/11/20 23:26 23:28 23:30 Temperature Pulse Rate 93 H 92 H 92 H Pulse Rate [ From Monitor] Respiratory 16 16 16 Rate Blood Pressure 132/40 132/40 138/48 O2 Sat by Pulse 100 100 100 Oximetry 10/11/20 10/11/20 10/11/20 23:32 23:34 23:36 Temperature Pulse Rate 92 H 92 H 93 H Pulse Rate [ From Monitor] Respiratory 16 16 16 Rate Blood Pressure 138/48 138/48 138/48 O2 Sat by Pulse 100 100 100 Oximetry 10/11/20 10/11/20 10/11/20 23:38 23:40 23:42 Temperature Pulse Rate 93 H 93 H 93 H Pulse Rate [ From Monitor] Respiratory 16 16 16 Rate Blood Pressure 138/48 138/48 138/48 O2 Sat by Pulse 100 100 100 Oximetry 10/11/20 10/11/20 10/12/20 23:44 23:45 00:00 Temperature 99.4 F Pulse Rate 93 H 93 H 90 Pulse Rate [ 90 From Monitor] Respiratory 16 16 16 Rate Blood Pressure 138/48 140/60 O2 Sat by Pulse 100 99 99 Oximetry 10/12/20 10/12/20 10/12/20 00:11 04:00 04:10 Temperature 99.1 F Pulse Rate 93 H 94 H 94 H Pulse Rate [ 94 H From Monitor] Respiratory 16 Rate Blood Pressure 121/55 135/22 O2 Sat by Pulse 99 99 96 Oximetry 10/12/20 10/12/20 10/12/20 04:47 04:49 04:51 Temperature Pulse Rate 94 H 94 H 97 H Pulse Rate [ From Monitor] Respiratory 17 16 14 Rate Blood Pressure 187/76 146/17 146/17 O2 Sat by Pulse 97 97 97 Oximetry 10/12/20 10/12/20 10/12/20 04:53 04:54 04:55 Temperature Pulse Rate 98 H 97 H 97 H Pulse Rate [ From Monitor] Respiratory 16 16 16 Rate Blood Pressure 146/17 187/76 146/17 O2 Sat by Pulse 97 97 97 Oximetry 10/12/20 10/12/20 10/12/20 04:57 04:59 05:00 Temperature Pulse Rate 98 H 96 H 98 H Pulse Rate [ From Monitor] Respiratory 17 15 17 Rate Blood Pressure 146/17 146/17 183/68 O2 Sat by Pulse 97 97 97 Oximetry 10/12/20 10/12/20 10/12/20 05:01 05:02 05:03 Temperature Pulse Rate 100 H 100 H 100 H Pulse Rate [ From Monitor] Respiratory 15 16 20 Rate Blood Pressure 183/68 187/76 183/68 O2 Sat by Pulse 97 97 97 Oximetry 10/12/20 10/12/20 10/12/20 05:05 05:07 05:09 Temperature Pulse Rate 100 H 100 H 100 H Pulse Rate [ From Monitor] Respiratory 16 16 16 Rate Blood Pressure 183/68 183/68 183/68 O2 Sat by Pulse 98 97 97 Oximetry 10/12/20 10/12/20 10/12/20 05:11 05:13 05:15 Temperature Pulse Rate 98 H 99 H 99 H Pulse Rate [ From Monitor] Respiratory 16 16 15 Rate Blood Pressure 183/68 183/68 178/85 O2 Sat by Pulse 97 97 97 Oximetry 10/12/20 10/12/20 10/12/20 05:17 05:19 05:21 Temperature Pulse Rate 99 H 100 H 97 H Pulse Rate [ From Monitor] Respiratory 15 16 16 Rate Blood Pressure 178/85 183/68 183/68 O2 Sat by Pulse 97 98 97 Oximetry 10/12/20 10/12/20 10/12/20 05:23 05:25 05:27 Temperature Pulse Rate 98 H 98 H 98 H Pulse Rate [ From Monitor] Respiratory 16 14 15 Rate Blood Pressure 183/68 183/68 183/68 O2 Sat by Pulse 97 97 97 Oximetry 10/12/20 10/12/20 10/12/20 05:28 05:29 05:31 Temperature Pulse Rate 99 H 99 H 96 H Pulse Rate [ From Monitor] Respiratory 16 18 16 Rate Blood Pressure 186/83 186/83 204/90 O2 Sat by Pulse 96 96 Oximetry 10/12/20 10/12/20 10/12/20 05:32 05:33 05:35 Temperature Pulse Rate 94 H 94 H 96 H Pulse Rate [ From Monitor] Respiratory 17 17 12 Rate Blood Pressure 204/90 204/90 204/90 O2 Sat by Pulse 96 95 95 Oximetry 10/12/20 10/12/20 10/12/20 05:37 05:39 05:41 Temperature Pulse Rate 99 H 95 H 94 H Pulse Rate [ From Monitor] Respiratory 15 15 17 Rate Blood Pressure 204/90 204/90 204/90 O2 Sat by Pulse 95 94 98 Oximetry 10/12/20 10/12/20 10/12/20 05:43 05:45 05:47 Temperature Pulse Rate 92 H 89 84 Pulse Rate [ From Monitor] Respiratory 16 14 17 Rate Blood Pressure 204/90 124/56 124/56 O2 Sat by Pulse 97 97 98 Oximetry 10/12/20 10/12/20 10/12/20 05:49 05:51 05:53 Temperature Pulse Rate 83 77 86 Pulse Rate [ From Monitor] Respiratory 15 14 15 Rate Blood Pressure 124/56 204/90 204/90 O2 Sat by Pulse 98 97 98 Oximetry 10/12/20 10/12/20 10/12/20 05:55 05:57 05:59 Temperature Pulse Rate 90 90 90 Pulse Rate [ From Monitor] Respiratory 16 16 16 Rate Blood Pressure 204/90 204/90 204/90 O2 Sat by Pulse 99 99 99 Oximetry 10/12/20 10/12/20 10/12/20 06:00 06:01 06:03 Temperature Pulse Rate 91 H 93 H 91 H Pulse Rate [ From Monitor] Respiratory 15 16 16 Rate Blood Pressure 141/69 141/69 141/69 O2 Sat by Pulse 99 99 99 Oximetry 10/12/20 10/12/20 10/12/20 06:05 06:07 06:09 Temperature Pulse Rate 92 H 94 H 91 H Pulse Rate [ From Monitor] Respiratory 17 14 16 Rate Blood Pressure 141/69 141/69 141/69 O2 Sat by Pulse 99 99 100 Oximetry 10/12/20 10/12/20 10/12/20 06:11 06:13 06:15 Temperature Pulse Rate 92 H 93 H 93 H Pulse Rate [ From Monitor] Respiratory 14 16 21 Rate Blood Pressure 141/69 141/69 152/68 O2 Sat by Pulse 100 100 100 Oximetry 10/12/20 10/12/20 10/12/20 06:17 06:19 06:21 Temperature Pulse Rate 94 H 92 H 94 H Pulse Rate [ From Monitor] Respiratory 16 18 18 Rate Blood Pressure 152/68 152/68 124/56 O2 Sat by Pulse 100 100 100 Oximetry 10/12/20 10/12/20 10/12/20 06:23 06:25 06:27 Temperature Pulse Rate 94 H 94 H 96 H Pulse Rate [ From Monitor] Respiratory 18 16 16 Rate Blood Pressure 124/56 124/56 124/56 O2 Sat by Pulse 100 100 100 Oximetry 10/12/20 10/12/20 10/12/20 06:29 06:30 06:31 Temperature Pulse Rate 95 H 97 H 97 H Pulse Rate [ From Monitor] Respiratory 14 16 17 Rate Blood Pressure 124/56 170/70 170/70 O2 Sat by Pulse 100 100 100 Oximetry 10/12/20 10/12/20 10/12/20 06:33 06:35 06:37 Temperature Pulse Rate 90 87 87 Pulse Rate [ From Monitor] Respiratory 16 16 16 Rate Blood Pressure 170/70 170/70 170/70 O2 Sat by Pulse 100 100 100 Oximetry 10/12/20 10/12/20 10/12/20 06:39 06:41 06:43 Temperature Pulse Rate 89 85 92 H Pulse Rate [ From Monitor] Respiratory 16 15 15 Rate Blood Pressure 170/70 170/70 170/70 O2 Sat by Pulse 100 100 100 Oximetry 10/12/20 10/12/20 10/12/20 06:45 06:47 06:49 Temperature Pulse Rate 92 H 90 89 Pulse Rate [ From Monitor] Respiratory 17 15 15 Rate Blood Pressure 129/65 129/65 129/65 O2 Sat by Pulse 100 100 100 Oximetry 10/12/20 10/12/20 10/12/20 06:51 06:53 06:55 Temperature Pulse Rate 90 87 89 Pulse Rate [ From Monitor] Respiratory 16 15 15 Rate Blood Pressure 129/65 129/65 129/65 O2 Sat by Pulse 100 100 100 Oximetry 10/12/20 10/12/20 10/12/20 06:57 06:59 07:00 Temperature Pulse Rate 91 H 90 91 H Pulse Rate [ From Monitor] Respiratory 17 14 20 Rate Blood Pressure 129/65 129/65 144/67 O2 Sat by Pulse 100 100 100 Oximetry 10/12/20 10/12/20 10/12/20 07:01 07:02 07:03 Temperature Pulse Rate 92 H 92 H 92 H Pulse Rate [ From Monitor] Respiratory 19 14 18 Rate Blood Pressure 144/67 129/65 144/67 O2 Sat by Pulse 100 100 100 Oximetry 10/12/20 10/12/20 10/12/20 07:05 07:07 07:09 Temperature Pulse Rate 94 H 95 H 95 H Pulse Rate [ From Monitor] Respiratory 14 17 16 Rate Blood Pressure 144/67 144/67 144/67 O2 Sat by Pulse 100 100 100 Oximetry 10/12/20 10/12/20 10/12/20 07:11 07:13 07:15 Temperature Pulse Rate 96 H 95 H 97 H Pulse Rate [ From Monitor] Respiratory 17 16 16 Rate Blood Pressure 144/67 144/67 157/80 O2 Sat by Pulse 100 100 100 Oximetry 10/12/20 10/12/20 10/12/20 07:17 07:19 07:21 Temperature Pulse Rate 96 H 96 H 96 H Pulse Rate [ From Monitor] Respiratory 17 15 15 Rate Blood Pressure 157/80 157/80 157/80 O2 Sat by Pulse 100 100 100 Oximetry 10/12/20 10/12/20 10/12/20 07:23 07:25 07:27 Temperature Pulse Rate 96 H 96 H 96 H Pulse Rate [ From Monitor] Respiratory 14 16 14 Rate Blood Pressure 144/67 144/67 144/67 O2 Sat by Pulse 100 100 100 Oximetry 10/12/20 10/12/20 10/12/20 07:29 07:30 07:31 Temperature Pulse Rate 96 H 96 H 96 H Pulse Rate [ From Monitor] Respiratory 14 17 21 Rate Blood Pressure 144/67 162/75 162/75 O2 Sat by Pulse 100 100 100 Oximetry 10/12/20 10/12/20 10/12/20 07:33 07:34 07:35 Temperature Pulse Rate 96 H 96 H 96 H Pulse Rate [ From Monitor] Respiratory 18 14 13 Rate Blood Pressure 162/75 162/75 162/75 O2 Sat by Pulse 100 100 100 Oximetry 10/12/20 10/12/20 10/12/20 07:37 07:39 07:41 Temperature Pulse Rate 94 H 95 H 92 H Pulse Rate [ From Monitor] Respiratory 16 22 15 Rate Blood Pressure 162/75 162/75 162/75 O2 Sat by Pulse 100 100 100 Oximetry 10/12/20 10/12/20 10/12/20 07:43 07:45 07:47 Temperature Pulse Rate 89 90 91 H Pulse Rate [ From Monitor] Respiratory 17 17 16 Rate Blood Pressure 162/75 145/67 145/67 O2 Sat by Pulse 100 100 100 Oximetry 10/12/20 10/12/20 10/12/20 07:49 07:51 07:53 Temperature Pulse Rate 90 89 87 Pulse Rate [ From Monitor] Respiratory 15 16 16 Rate Blood Pressure 145/67 145/67 162/75 O2 Sat by Pulse 100 100 100 Oximetry 10/12/20 10/12/20 10/12/20 07:55 07:57 07:59 Temperature Pulse Rate 88 90 87 Pulse Rate [ From Monitor] Respiratory 15 15 15 Rate Blood Pressure 162/75 162/75 162/75 O2 Sat by Pulse 100 100 100 Oximetry 10/12/20 10/12/20 10/12/20 08:00 08:01 08:03 Temperature Pulse Rate 87 87 86 Pulse Rate [ 84 From Monitor] Respiratory 16 16 17 Rate Blood Pressure 136/59 136/59 136/59 O2 Sat by Pulse 100 100 100 Oximetry 10/12/20 08:28 Temperature Pulse Rate 84 Pulse Rate [ From Monitor] Respiratory Rate Blood Pressure 138/63 O2 Sat by Pulse 100 Oximetry - Lab 10/12/20 05:14 10/12/20 05:14 Most recent lab results ABG pH 7.294 (7.320-7.450) L 10/12/20 03:08 ABG O2 Saturation 90.9 (0-100) 10/12/20 03:08 Calcium 7.1 mg/dL (8.4-10.2) L 10/12/20 05:14 Phosphorus 2.70 mg/dL (2.5-4.5) 10/10/20 11:21 Magnesium 3.10 mg/dL (1.7-2.3) H 10/07/20 10:32 Medications & Allergies - Medications Allergies/Adverse Reactions: Allergies peanut Allergy (Unknown, Verified 10/07/20 08:21) Unknown pecan nut Allergy (Unknown, Verified 10/07/20 08:21) Unknown walnut Allergy (Unknown, Verified 10/07/20 08:21) Unknown latex Allergy (Verified 10/07/20 08:21) Rash Home Medications: Home Medications Medication Instructions Recorded Confirmed Last Taken Type Aspirin 81 mg PO DAILY 07/04/20 10/11/20 07/04/20 History Famotidine [Pepcid] 20 mg PO DAILY #30 tablet 07/12/20 10/11/20 Unknown Rx Lisinopril 30 mg PO DAILY #30 07/12/20 10/11/20 Unknown Rx hydrALAZINE 50 mg PO DAILY #30 07/12/20 10/11/20 Unknown Rx Insulin Detemir [Levemir VIAL] 21 units SQ HS #1 vial 07/16/20 10/11/20 Unknown Rx Insulin Regular, Human [HumuLIN R] 0 unit SQ AC #1 vial 07/16/20 10/11/20 Unknown Rx Active Medications: Generic Name Dose Route Start Last Admin Trade Name Freq PRN Reason Stop Dose Admin Acetaminophen 650 mg 10/07/20 11:12 Acetaminophen 325 Mg Tab PO Q6H PRN Pain, Mild (1-3) Albuterol 2.5 mg 10/07/20 11:09 Albuterol 2.5 Mg/3 Ml Nebu IH Q3HRT PRN Shortness Of Breath Lipase/Protease/Amylase 1 each 10/09/20 11:14 Lipase 10,500/Protease 25,000/Amylase 43,750 (Units) Dr Fishman FEEDTUBE PRN PRN For Clogged Feeding Tube Aspirin 81 mg 10/08/20 10:00 10/11/20 09:26 Aspirin 81 Mg Tab Chew PO 81 mg QDAY LEIGH Administration Dextrose 50 ml 10/09/20 08:42 Dextrose 50% In Water (25gm) 50 Ml Syringe IV Q30MIN PRN Hypoglycemia Protocol Famotidine 20 mg 10/11/20 10:00 10/11/20 09:26 Famotidine 20 Mg Tab PO 20 mg DAILY LEIGH Administration Fentanyl 50 mcg 10/07/20 11:11 10/07/20 12:26 Fentanyl 100 Mcg/2 Ml Inj IV 50 mcg Q10MIN PRN Administration ANALGESIA Heparin Sodium (Porcine) 2,000 unit 10/07/20 18:10 Heparin 10,000 Units/10 Ml Vial IV SHAILESH PRN hemodialysis Hydromorphone HCl 0.25 mg 10/07/20 11:12 10/08/20 13:20 Hydromorphone 1 Mg/1 Ml Inj IV 0.25 mg Q4H PRN Administration Pain, Moderate (4-6) Hydrophilic Ointment 1 applic 10/07/20 11:11 Lip Therapy Vaseline TP Q2HR PRN Dry Lips Norepinephrine 4 mg in 250 mls @ 7.5 mls/hr 10/07/20 09:00 10/12/20 08:15 Levophed Drip 4 Mg/Ns 250 Ml IV 12 mcg/min TITR LEIGH 45 mls/hr Titration Protocol 2 MCG/MIN Sodium Chloride 100 mls @ 999 mls/hr 10/07/20 18:10 Nacl 0.9% IV SHAILESH PRN Hypotension Dopamine HCl/Dextrose 800 mg in 250 mls @ 2.576 mls/hr 10/08/20 11:00 10/12/20 04:00 Intropin Drip 800 Mg/D5w 250 Ml IV 8 mcg/kg/min TITR LEIGH 10.305 mls/hr Titration Protocol 2 MCG/KG/MIN Cefepime HCl 1 gm in 100 mls @ 200 mls/hr 10/08/20 18:00 10/11/20 18:45 Cefepime/Ns 1 Gm/100 Ml IV 10/14/20 18:29 Infused Q24H [facility] Infusion Protocol Vasopressin 20 unit/ Sodium 101 mls @ 9.09 mls/hr 10/11/20 08:00 10/12/20 02:17 Chloride IV 0.03 units/min TITR LEIGH 9.09 mls/hr Administration Protocol 0.03 UNITS/MIN Phenylephrine HCl 100 mg/ 100 mls @ 3 mls/hr 10/11/20 12:15 Sodium Chloride IV TITR LEIGH Protocol 50 MCG/MIN Insulin Human Isoph/Insulin Regular 20 unit 10/12/20 08:00 10/12/20 08:06 Insulin Nph/Regular 70/30 Inj SUB-Q Not Given BIDDIAB [facility] Insulin Human Regular 0 units 10/09/20 10:00 10/12/20 06:34 Insulin Regular, Human 100 Units/1 Ml SUB-Q 10 units Q4H [facility] Administration Protocol Multi-Ingred Cream/Lotion/Oil/Oint 1 applic 10/07/20 11:11 Mineral Oil/Petrolatum, White Ophth Oint 3.5 Gm OU Q4HR PRN Dry Eye(s) Simple Syrup 15 ml 10/09/20 11:14 Simple Syrup 15 Ml FEEDTUBE PRN PRN Hypoglycemia Simple Syrup 30 ml 10/09/20 11:14 Simple Syrup 15 Ml FEEDTUBE PRN PRN Hypoglycemia Sodium Bicarbonate 325 mg 10/09/20 11:14 Sodium Bicarbonate 325 Mg Tab FEEDTUBE PRN PRN For Clogged Feeding Tube Sodium Chloride 10 ml 10/07/20 22:00 10/11/20 22:15 Sodium Chloride 0.9% 10 Ml Flush Syringe IV 10 ml BID LEIGH Administration Sodium Chloride 10 ml 10/07/20 11:09 Sodium Chloride 0.9% 10 Ml Flush Syringe IV PRN PRN LINE FLUSH
[2020-10-12] MEDS: ASPIRIN 81 MG TAB CHEW PO SCH (09:14)
[2020-10-12] MEDS: FAMOTIDINE 20 MG TAB PO SCH (09:14)
--- NOTE | 2020-10-12 11:35 | Progress Note ---
Assessment and Plan Telemetry reviewed: Sinus rhythm 83. No events Patient has been made DNR and is in process of transition to hospice care #Hyperkalemia * Potassium is markedly elevated on daily labs: 6.9 #S/p cardiac arrest (asystole) * Patient was found unresponsive in asystole with unknown downtime. EMS obtained ROSC in route to hospital. She has coded twice in the hospital, once with V. fib arrest, once with PEA arrest. * V. fib arrhythmia likely due to primary electrolyte derangement and not ischemia. #NSTEMI suspect type II * Troponins are elevated, unchanging. Considering mental status and comorbidities we will plan on conservative cardiac management. #Cardiomyopathy * Echocardiogram reviewed (10/07/2020): LVEF is 45 to 50%. Mild to moderate concentric LVH. Mild diastolic dysfunction is present (impaired relaxation pattern). No VSD visualized. RV SF is normal. Mild TR noted. RVSP is 33 mmHg. Patient would benefit from beta-fidelina long-term but currently requiring multiple vasopressors to maintain hemostasis. We will plan to add beta-fidelina once patient is medically stabilized. 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 * Neurology is following Will Follow Pt seen in conjunction with Dr. Abbott, who agrees with the assessment and plan of care. - Patient Problems (1) Acute respiratory failure Current Visit: Yes Status: Acute (2) ESRD needing dialysis Current Visit: Yes Status: Acute (3) Shock Current Visit: Yes Status: Acute (4) Cardiac arrest Current Visit: Yes Status: Acute (5) DKA (diabetic ketoacidoses) Current Visit: Yes Status: Acute Qualifiers: Diabetes mellitus type: type 1 Qualified Code(s): E10.10 - Type 1 diabetes mellitus with ketoacidosis without coma (6) Hyperkalemia Current Visit: Yes Status: Acute (7) Hypermagnesemia Current Visit: Yes Status: Acute (8) Elevated LFTs Current Visit: Yes Status: Acute (9) Anemia Current Visit: Yes Status: Chronic (10) NSTEMI (non-ST elevated myocardial infarction) Current Visit: Yes Status: Acute Plan to address problem: -Suspect Type 2 (11) Hypertension Current Visit: No Status: Chronic Qualifiers: Hypertension type: renovascular hypertension Qualified Code(s): (12) HLD (hyperlipidemia) Current Visit: Yes Status: Chronic Qualifiers: Hyperlipidemia type: mixed hyperlipidemia Qualified Code(s): (13) Type 1 diabetes Current Visit: Yes Status: Chronic (14) History of COVID-19 Current Visit: Yes Status: Chronic Plan to address problem: (15) Thrombocytopenia Current Visit: Yes Status: Acute Plan to address problem: Subjective Date of service: 10/12/20 Principal diagnosis: Anoxic Encephalopathy, S/p Cardiac Arrest, DKA, Severe Hyperkalemia Interval history: Patient resting in bed elevated and sedated Telemetry reviewed: Sinus rhythm 83. No events Objective Last Vital Signs Temp 99.1 F 10/12/20 04:00 Pulse 87 10/12/20 11:19 Resp 16 10/12/20 11:19 BP 136/70 10/12/20 11:19 Pulse Ox 100 10/12/20 11:19 - Physical Examination General: Other (intubated) HEENT: Positive: Normocephaly Neck: Positive: neck supple. Negative: JVD/HJR Cardiac: Positive: Reg Rate and Rhythm, S1/S2 Lungs: Positive: Ventilated Respirations Neuro: Positive: Other (intubated) Abdomen: Positive: Soft Skin: Positive: Cool. Negative: Rash Musculoskeletal: No Fluid Collection Extremities: Present: lower extr. pulses, edema (generalized) - Labs and Meds CBC 10/12/20 Range/Units 05:14 WBC 4.9 (4.5-11.0) K/mm3 RBC 2.87 L (3.65-5.03) M/mm3 Hgb 9.1 L (10.1-14.3) gm/dl Hct 27.0 L D (30.3-42.9) % Plt Count 50 L (140-440) K/mm3 Comprehensive Metabolic Panel 10/12/20 Range/Units 05:14 Sodium 125 L D (137-145) mmol/L Potassium 6.9 H* D (3.6-5.0) mmol/L Chloride 93.3 L (98-107) mmol/L Carbon Dioxide 17 L (22-30) mmol/L BUN 55 H (7-17) mg/dL Creatinine 7.6 H (0.6-1.2) mg/dL Glucose 468 H (65-100) mg/dL Calcium 7.1 L (8.4-10.2) mg/dL - Imaging and Cardiology EKG: report reviewed, image reviewed Echo: report reviewed (10/07/2020 - mild-mod concentric LVH, EF 45-50%, mild diastolic dysfxn), other (09/16/2020 - EF 60-65%, mild concentric LVH, mildly dilated LA, trace AI, grade 1 diastolic dysfxn, mild TR, RVSP 32.8 mmHg, trace MR) - Telemetry EKG Rhythm: Sinus Rhythm - EKG Sinus rhythms and dysrhythmias: sinus rhythm AV and intraventricular conduction: right bundle branch block, left anterior fascicular Repolarization changes or abnormalities: nonspecific abnormality, ST segment, and/or T wave, Suggestive of hyperkalemia - Allied health notes Allied health notes reviewed: nursing
--- NOTE | 2020-10-12 12:52 | Event Note ---
Date: 10/12/20 Patient son and her daughter came to the hospital to withdraw care. I have talked to both of them and answered their questions. They want to continue with withdraw care. They do not want to be transferred to hospice care.
--- NOTE | 2020-10-12 12:57 | Progress Note ---
Assessment and Plan Acute hypoxemic respiratory failure on MVS Cardiac arrest with return of spontaneous circulation DKA Bilateral pneumonia ESRD on dialysis Severe hyperkalemia Severe metabolic acidosis Acute encephalopathy (? Anoxic) DM II HTN Leukocytosis Oropharyngeal dysphagia - family has made her a DNR - hold NM brain flow scan till more stable - now on Levophed, dopamine and vasopressin - wean for target MAP > 65 mmHg - suspect slow herniation - troponin trending down - continue care as below otherwise; - isolation per facility PUI COVID-19 protocol - continue to wean supplemental oxygen for target O2 sat's > 90% acutely - VAP bundle addressed - continue lung protective strategies - continue bronchodilators with pulmonary hygiene per RT - wean per pulmonary driven protocols otherwise - continue Daily SAT and SBT assessment as tolerated - continue accuchecks with glycemic control per SSI (While critically ill target blood glucose of 140-180 mg/dL; avoid hypoglycemia) - sedation prn for target RASS 0 to -1 - avoid nephrotoxins, renally dose all medications - continue to avoid benzodiazepine's, reduce the possibility of delirium - complete AB's per ID rec's - prn analgesia per CPOT score - Maintenance of sleep-wake cycle, avoid delirium - continue enteral nutritional support at goal rate as tolerated - G.I. & VTE prophylaxis - PT/OT/ROM exercises - continue mobility protocols for pressure ulcer prophylaxis - Monitor hemodynamics closely - continue other care per attending / other consultants - discharge planning ongoing concurrently COVID SPECIFIC INTERVENTIONS - Remdesivir as per ID/Pulmonary developed protocols - consider systemic steroids for severe COVID-19 infection empirically - follow repeat COVID tests results - zinc and vitamin C supplementation - Monitor inflammatory markers per facility protocol - ferritin, Ddimer, CRP - therapeutic anticoagulation per system Protocol based on d-dimer and clinical considerations - Continue contact and airborne isolation .... Re-evaluate in am & prn CONDITION: CRITICAL PROGNOSIS: GUARDED CODE STATUS: FULL CODE The high probability of a clinically significant, sudden or life-threatening deterioration of the [respiratory, cardiovascular, GI & neurologic] system(s) required my full and direct attention, intervention and personal management. The aggregate critical care time was [45] minutes without overlap. Time includes s pent on; [x] Data Review and interpretation [x] Patient assessment and monitoring of vital signs [x] Documentation [x] Medication orders and management Subjective Date of service: 10/11/20 Principal diagnosis: Anoxic Encephalopathy, S/p Cardiac Arrest, DKA, Severe Hyperkalemia Interval history: Patient is seen today for: Acute hypoxemic respiratory failure; Cardiac arrest with ROSC; DKA; Bilateral pneumonia; ESRD on dialysis; Anoxic encephalopathy Seen and examined at bedside; 24hour events reviewed; nursing and respiratory care staff consulted; no adverse overnight events reported to me; resting peacefully in bed; just s/p Cardiac arrest with ROSC Objective Vital Signs - 12hr 10/11/20 10/11/20 10/11/20 00:30 00:43 00:45 Temperature Pulse Rate 69 70 70 Pulse Rate [ From Monitor] Respiratory 16 16 Rate Blood Pressure 101/69 101/69 88/63 O2 Sat by Pulse 98 98 98 Oximetry 10/11/20 10/11/20 10/11/20 01:00 01:16 01:30 Temperature Pulse Rate 70 73 73 Pulse Rate [ From Monitor] Respiratory 16 16 16 Rate Blood Pressure 88/63 103/66 94/64 O2 Sat by Pulse 98 98 97 Oximetry 10/11/20 10/11/20 10/11/20 01:45 02:00 02:16 Temperature Pulse Rate 74 76 79 Pulse Rate [ From Monitor] Respiratory 16 20 21 Rate Blood Pressure 94/61 89/57 116/79 O2 Sat by Pulse 98 98 99 Oximetry 10/11/20 10/11/20 10/11/20 02:30 02:45 03:00 Temperature Pulse Rate 79 79 79 Pulse Rate [ From Monitor] Respiratory 20 15 16 Rate Blood Pressure 86/57 100/61 88/58 O2 Sat by Pulse 98 99 98 Oximetry 10/11/20 10/11/20 10/11/20 03:15 03:30 03:45 Temperature Pulse Rate 79 81 81 Pulse Rate [ From Monitor] Respiratory 16 16 16 Rate Blood Pressure 73/44 83/58 82/57 O2 Sat by Pulse 97 97 98 Oximetry 10/11/20 10/11/20 10/11/20 04:00 04:15 04:30 Temperature 94.8 F L Pulse Rate 81 81 82 Pulse Rate [ 81 From Monitor] Respiratory 16 16 16 Rate Blood Pressure 100/70 97/65 97/65 O2 Sat by Pulse 99 99 98 Oximetry 10/11/20 10/11/20 10/11/20 04:45 04:56 05:00 Temperature Pulse Rate 80 80 81 Pulse Rate [ From Monitor] Respiratory 16 16 Rate Blood Pressure 83/53 83/53 76/46 O2 Sat by Pulse 99 99 98 Oximetry 10/11/20 10/11/20 10/11/20 05:15 05:30 05:45 Temperature Pulse Rate 85 88 90 Pulse Rate [ From Monitor] Respiratory 16 16 16 Rate Blood Pressure 96/62 90/62 99/60 O2 Sat by Pulse 98 97 97 Oximetry 10/11/20 10/11/20 10/11/20 06:00 06:15 06:30 Temperature Pulse Rate 92 H 93 H 95 H Pulse Rate [ From Monitor] Respiratory 16 16 16 Rate Blood Pressure 85/54 87/54 81/53 O2 Sat by Pulse 98 98 98 Oximetry 10/11/20 10/11/20 10/11/20 06:45 07:00 07:15 Temperature Pulse Rate 97 H 99 H 100 H Pulse Rate [ From Monitor] Respiratory 16 16 16 Rate Blood Pressure 83/54 87/51 82/49 O2 Sat by Pulse 98 98 98 Oximetry 10/11/20 10/11/20 10/11/20 07:30 07:45 08:00 Temperature Pulse Rate 101 H 103 H 105 H Pulse Rate [ 103 H From Monitor] Respiratory 16 16 16 Rate Blood Pressure 86/54 84/56 76/46 O2 Sat by Pulse 98 98 99 Oximetry 10/11/20 10/11/20 10/11/20 08:15 08:30 08:34 Temperature 98 F Pulse Rate 105 H 105 H Pulse Rate [ From Monitor] Respiratory 16 16 Rate Blood Pressure 88/52 85/52 O2 Sat by Pulse 97 96 Oximetry 10/11/20 10/11/20 10/11/20 08:41 08:46 09:00 Temperature Pulse Rate 104 H 103 H 99 H Pulse Rate [ From Monitor] Respiratory 16 16 Rate Blood Pressure 85/52 113/69 102/62 O2 Sat by Pulse 97 97 96 Oximetry 10/11/20 10/11/20 10/11/20 09:15 09:30 09:45 Temperature Pulse Rate 95 H 93 H 93 H Pulse Rate [ From Monitor] Respiratory 16 16 16 Rate Blood Pressure 92/61 94/56 92/54 O2 Sat by Pulse 97 98 98 Oximetry 10/11/20 10/11/20 10/11/20 10:00 10:15 10:30 Temperature Pulse Rate 95 H 91 H 85 Pulse Rate [ From Monitor] Respiratory 16 16 16 Rate Blood Pressure 83/57 89/50 89/50 O2 Sat by Pulse 97 98 98 Oximetry 10/11/20 10/11/20 10/11/20 10:46 11:00 11:02 Temperature Pulse Rate 83 81 80 Pulse Rate [ From Monitor] Respiratory 16 16 16 Rate Blood Pressure 92/26 92/26 92/26 O2 Sat by Pulse 98 97 97 Oximetry 10/11/20 10/11/20 10/11/20 11:04 11:06 11:07 Temperature Pulse Rate 80 79 79 Pulse Rate [ From Monitor] Respiratory 16 16 16 Rate Blood Pressure 78/39 85/48 85/48 O2 Sat by Pulse 97 97 97 Oximetry 10/11/20 10/11/20 10/11/20 11:08 11:10 11:11 Temperature Pulse Rate 78 87 80 Pulse Rate [ From Monitor] Respiratory 16 16 Rate Blood Pressure 85/48 85/48 94/40 O2 Sat by Pulse 97 97 97 Oximetry 10/11/20 10/11/20 10/11/20 11:12 11:14 11:16 Temperature Pulse Rate 88 88 86 Pulse Rate [ From Monitor] Respiratory 16 16 16 Rate Blood Pressure 85/48 85/48 94/40 O2 Sat by Pulse 96 96 96 Oximetry 10/11/20 10/11/20 10/11/20 11:18 11:20 11:22 Temperature Pulse Rate 86 85 80 Pulse Rate [ From Monitor] Respiratory 16 16 16 Rate Blood Pressure 94/40 94/40 94/40 O2 Sat by Pulse 96 96 97 Oximetry 10/11/20 10/11/20 10/11/20 11:24 11:26 11:28 Temperature Pulse Rate 79 78 77 Pulse Rate [ From Monitor] Respiratory 16 16 16 Rate Blood Pressure 94/40 94/40 94/40 O2 Sat by Pulse 97 97 97 Oximetry 10/11/20 10/11/20 10/11/20 11:30 11:32 11:34 Temperature Pulse Rate 76 85 85 Pulse Rate [ From Monitor] Respiratory 16 16 16 Rate Blood Pressure 96/41 96/41 85/48 O2 Sat by Pulse 97 96 97 Oximetry 10/11/20 10/11/20 10/11/20 11:36 11:38 11:40 Temperature Pulse Rate 85 84 84 Pulse Rate [ From Monitor] Respiratory 16 16 16 Rate Blood Pressure 85/48 85/48 85/48 O2 Sat by Pulse 97 97 97 Oximetry 10/11/20 10/11/20 10/11/20 11:42 11:44 11:45 Temperature Pulse Rate 84 84 84 Pulse Rate [ From Monitor] Respiratory 16 16 16 Rate Blood Pressure 85/48 100/61 100/61 O2 Sat by Pulse 96 96 96 Oximetry 10/11/20 10/11/20 10/11/20 11:46 11:48 11:50 Temperature Pulse Rate 83 83 82 Pulse Rate [ From Monitor] Respiratory 16 16 16 Rate Blood Pressure 100/61 100/61 100/61 O2 Sat by Pulse 96 96 97 Oximetry 10/11/20 10/11/20 10/11/20 11:52 11:54 11:56 Temperature Pulse Rate 81 79 79 Pulse Rate [ From Monitor] Respiratory 16 Rate Blood Pressure 100/61 100/61 100/61 O2 Sat by Pulse 97 97 96 Oximetry 10/11/20 10/11/20 10/11/20 11:58 12:00 12:02 Temperature Pulse Rate 77 68 66 Pulse Rate [ From Monitor] Respiratory 16 16 Rate Blood Pressure 100/61 100/61 83/44 O2 Sat by Pulse 96 95 96 Oximetry 10/11/20 10/11/20 10/11/20 12:04 12:06 12:08 Temperature Pulse Rate 92 H Pulse Rate [ From Monitor] Respiratory 16 23 Rate Blood Pressure 83/44 83/44 76/51 O2 Sat by Pulse 99 85 Oximetry 10/11/20 10/11/20 10/11/20 12:10 12:12 12:14 Temperature Pulse Rate 165 H 134 H 131 H Pulse Rate [ From Monitor] Respiratory 17 15 Rate Blood Pressure 263/181 O2 Sat by Pulse 100 100 93 Oximetry 10/11/20 10/11/20 10/11/20 12:15 12:16 12:21 Temperature Pulse Rate 130 H 128 H 124 H Pulse Rate [ From Monitor] Respiratory 26 H 25 H Rate Blood Pressure 203/93 203/93 O2 Sat by Pulse 100 100 Oximetry Constitutional: no acute distress, other (middle aged female with normal respiratory effort at rest) Eyes: non-icteric ENT: oropharynx moist, other (ETT 24 cm EDILIA) Neck: supple, no lymphadenopathy, no JVD Effort: normal Ascultation: Bilateral: rhonchi Percussion: Bilateral: not dull Cardiovascular: regular rate and rhythm Gastrointestinal: normoactive bowel sounds Integumentary: normal Extremities: no edema, pulses normal, no ischemia or petechiae Neurologic: pupils equal and round (fixed), unable to assess Psychiatric: other (unable to assess re: AMS) CBC and BMP: 10/12/20 05:14 10/12/20 05:14 ABG, PT/INR, D-dimer: ABG ABG pH 7.446 (7.320-7.450) 10/11/20 03:42 POC ABG pCO2 29.5 mmHg (32.0-48.0) L 10/11/20 03:42 POC ABG pO2 101.7 mmHg (83-108) 10/11/20 03:42 POC ABG HCO3 19.9 10/11/20 03:42 ABG O2 Saturation 97.8 (0-100) 10/11/20 03:42 PT/INR, D-dimer PT 21.2 Sec. (12.2-14.9) H 10/07/20 09:08 INR 1.83 (0.87-1.13) H 10/07/20 09:08 Abnormal lab findings: Abnormal Labs 10/07/20 10/07/20 10/07/20 09:08 09:08 09:08 WBC 15.8 H RBC 3.05 L Hgb 9.7 L MCV 108 H RDW 20.9 H Plt Count Seg Neutrophils % 77.4 H Seg Neutrophils # 12.2 H PT 21.2 H INR 1.83 H APTT 51.1 H ABG pH POC ABG pCO2 POC ABG pO2 ABG Hemoglobin ABG Oxyhemoglobin ABG Sodium ABG Potassium ABG Chloride ABG Glucose Carboxyhemoglobin Sodium 133 L Potassium 8.3 H* Chloride 77.5 L Carbon Dioxide 6 L* BUN 86 H Creatinine 10.6 H Glucose 798 H* POC Glucose Hemoglobin A1c Lactic Acid Calcium Phosphorus Magnesium AST 2736 H ALT 1568 H Alkaline Phosphatase 183 H Total Creatine Kinase 444 H CK-MB (CK-2) 8.6 H Troponin T 0.395 H* NT-Pro-B Natriuret Pep 6466 H Total Protein 5.8 L Albumin 2.6 L Triglycerides 246 H HDL Cholesterol 39 L Arterial Blood Glucose Arterial Blood Ionized Calcium 10/07/20 10/07/20 10/07/20 09:08 09:24 10:32 WBC RBC Hgb MCV RDW Plt Count Seg Neutrophils % Seg Neutrophils # PT INR APTT ABG pH 6.793 L POC ABG pCO2 30.2 L POC ABG pO2 433.9 H ABG Hemoglobin 10.8 L ABG Oxyhemoglobin 99.2 H ABG Sodium 131.7 L ABG Potassium 8.2 H ABG Chloride 85.0 L ABG Glucose Carboxyhemoglobin 0.3 L Sodium Potassium Chloride Carbon Dioxide BUN Creatinine Glucose POC Glucose Hemoglobin A1c Lactic Acid Calcium Phosphorus 22.30 H Magnesium 3.10 H 3.10 H AST ALT Alkaline Phosphatase Total Creatine Kinase CK-MB (CK-2) Troponin T NT-Pro-B Natriuret Pep Total Protein Albumin Triglycerides HDL Cholesterol Arterial Blood Glucose Arterial Blood Ionized Calcium 10/07/20 10/07/20 10/07/20 10:32 11:23 11:23 WBC RBC Hgb MCV RDW Plt Count Seg Neutrophils % Seg Neutrophils # PT INR APTT ABG pH POC ABG pCO2 POC ABG pO2 ABG Hemoglobin ABG Oxyhemoglobin ABG Sodium ABG Potassium ABG Chloride ABG Glucose Carboxyhemoglobin Sodium 131 L 135 L Potassium 8.7 H* 8.5 H* Chloride 76.6 L 78.1 L Carbon Dioxide 6 L* 5 L* BUN 89 H 87 H Creatinine 10.7 H 10.7 H Glucose 967 H* 799 H* POC Glucose Hemoglobin A1c Lactic Acid 9.70 H* Calcium Phosphorus Magnesium AST ALT Alkaline Phosphatase Total Creatine Kinase CK-MB (CK-2) Troponin T NT-Pro-B Natriuret Pep Total Protein Albumin Triglycerides HDL Cholesterol Arterial Blood Glucose Arterial Blood Ionized Calcium 10/07/20 10/07/20 10/07/20 13:20 13:58 13:58 WBC RBC Hgb MCV RDW Plt Count Seg Neutrophils % Seg Neutrophils # PT INR APTT ABG pH POC ABG pCO2 POC ABG pO2 ABG Hemoglobin ABG Oxyhemoglobin ABG Sodium ABG Potassium ABG Chloride ABG Glucose Carboxyhemoglobin Sodium 133 L Potassium 6.8 H* Chloride 82.3 L Carbon Dioxide 8 L* BUN 86 H Creatinine 10.3 H Glucose 868 H* POC Glucose > 600 H Hemoglobin A1c Lactic Acid 6.90 H* Calcium Phosphorus Magnesium AST ALT Alkaline Phosphatase Total Creatine Kinase CK-MB (CK-2) Troponin T NT-Pro-B Natriuret Pep Total Protein Albumin Triglycerides HDL Cholesterol Arterial Blood Glucose Arterial Blood Ionized Calcium 10/07/20 10/07/20 10/07/20 14:03 18:01 18:18 WBC RBC Hgb MCV RDW Plt Count Seg Neutrophils % Seg Neutrophils # PT INR APTT ABG pH 7.175 L POC ABG pCO2 27.4 L POC ABG pO2 ABG Hemoglobin 9.3 L ABG Oxyhemoglobin ABG Sodium 134.0 L ABG Potassium 6.4 H ABG Chloride 89.0 L ABG Glucose Carboxyhemoglobin 0.4 L Sodium 132 L Potassium 5.7 H Chloride 84.5 L Carbon Dioxide 15 L D BUN 91 H Creatinine 10.6 H Glucose 828 H* POC Glucose > 600 H Hemoglobin A1c Lactic Acid Calcium 6.7 L D Phosphorus Magnesium AST ALT Alkaline Phosphatase Total Creatine Kinase CK-MB (CK-2) Troponin T NT-Pro-B Natriuret Pep Total Protein Albumin Triglycerides HDL Cholesterol Arterial Blood Glucose Arterial Blood Ionized Calcium 4.4 L 10/07/20 10/07/20 10/07/20 18:18 18:18 22:27 WBC RBC Hgb MCV RDW Plt Count Seg Neutrophils % Seg Neutrophils # PT INR APTT ABG pH POC ABG pCO2 POC ABG pO2 ABG Hemoglobin ABG Oxyhemoglobin ABG Sodium ABG Potassium ABG Chloride ABG Glucose Carboxyhemoglobin Sodium Potassium Chloride Carbon Dioxide BUN Creatinine Glucose POC Glucose 456 H Hemoglobin A1c Lactic Acid 5.00 H* Calcium Phosphorus Magnesium AST ALT Alkaline Phosphatase Total Creatine Kinase CK-MB (CK-2) Troponin T 1.330 H* D NT-Pro-B Natriuret Pep Total Protein Albumin Triglycerides HDL Cholesterol Arterial Blood Glucose Arterial Blood Ionized Calcium 10/08/20 10/08/20 10/08/20 00:13 00:51 01:50 WBC RBC Hgb MCV RDW Plt Count Seg Neutrophils % Seg Neutrophils # PT INR APTT ABG pH 7.454 H POC ABG pCO2 28.8 L POC ABG pO2 113.3 H ABG Hemoglobin 9.7 L ABG Oxyhemoglobin ABG Sodium 134.1 L ABG Potassium ABG Chloride ABG Glucose 423 H Carboxyhemoglobin 0.3 L Sodium Potassium Chloride Carbon Dioxide BUN Creatinine Glucose POC Glucose 468 H 452 H Hemoglobin A1c Lactic Acid Calcium Phosphorus Magnesium AST ALT Alkaline Phosphatase Total Creatine Kinase CK-MB (CK-2) Troponin T NT-Pro-B Natriuret Pep Total Protein Albumin Triglycerides HDL Cholesterol Arterial Blood Glucose 423 H Arterial Blood Ionized Calcium 3.7 L 10/08/20 10/08/20 10/08/20 02:09 03:07 03:11 WBC RBC Hgb MCV RDW Plt Count Seg Neutrophils % Seg Neutrophils # PT INR APTT ABG pH POC ABG pCO2 POC ABG pO2 ABG Hemoglobin ABG Oxyhemoglobin ABG Sodium ABG Potassium ABG Chloride ABG Glucose Carboxyhemoglobin Sodium Potassium Chloride 96.9 L Carbon Dioxide 18 L BUN 58 H Creatinine 7.8 H Glucose 403 H POC Glucose 445 H 395 H Hemoglobin A1c Lactic Acid Calcium 6.9 L Phosphorus 5.80 H D Magnesium AST ALT Alkaline Phosphatase Total Creatine Kinase CK-MB (CK-2) Troponin T NT-Pro-B Natriuret Pep Total Protein Albumin Triglycerides HDL Cholesterol Arterial Blood Glucose Arterial Blood Ionized Calcium 10/08/20 10/08/20 10/08/20 04:02 05:09 06:12 WBC RBC Hgb MCV RDW Plt Count Seg Neutrophils % Seg Neutrophils # PT INR APTT ABG pH POC ABG pCO2 POC ABG pO2 ABG Hemoglobin ABG Oxyhemoglobin ABG Sodium ABG Potassium ABG Chloride ABG Glucose Carboxyhemoglobin Sodium Potassium Chloride Carbon Dioxide BUN Creatinine Glucose POC Glucose 399 H 339 H 309 H Hemoglobin A1c Lactic Acid Calcium Phosphorus Magnesium AST ALT Alkaline Phosphatase Total Creatine Kinase CK-MB (CK-2) Troponin T NT-Pro-B Natriuret Pep Total Protein Albumin Triglycerides HDL Cholesterol Arterial Blood Glucose Arterial Blood Ionized Calcium 10/08/20 10/08/20 10/08/20 07:45 09:27 10:01 WBC RBC Hgb MCV RDW Plt Count Seg Neutrophils % Seg Neutrophils # PT INR APTT ABG pH POC ABG pCO2 POC ABG pO2 ABG Hemoglobin ABG Oxyhemoglobin ABG Sodium ABG Potassium ABG Chloride ABG Glucose Carboxyhemoglobin Sodium Potassium Chloride Carbon Dioxide BUN Creatinine Glucose POC Glucose 268 H 203 H 174 H Hemoglobin A1c Lactic Acid Calcium Phosphorus Magnesium AST ALT Alkaline Phosphatase Total Creatine Kinase CK-MB (CK-2) Troponin T NT-Pro-B Natriuret Pep Total Protein Albumin Triglycerides HDL Cholesterol Arterial Blood Glucose Arterial Blood Ionized Calcium 10/08/20 10/08/20 10/08/20 11:21 12:37 14:20 WBC RBC Hgb MCV RDW Plt Count Seg Neutrophils % Seg Neutrophils # PT INR APTT ABG pH POC ABG pCO2 POC ABG pO2 ABG Hemoglobin ABG Oxyhemoglobin ABG Sodium ABG Potassium ABG Chloride ABG Glucose Carboxyhemoglobin Sodium Potassium Chloride Carbon Dioxide BUN Creatinine Glucose POC Glucose 182 H 166 H 209 H Hemoglobin A1c Lactic Acid Calcium Phosphorus Magnesium AST ALT Alkaline Phosphatase Total Creatine Kinase CK-MB (CK-2) Troponin T NT-Pro-B Natriuret Pep Total Protein Albumin Triglycerides HDL Cholesterol Arterial Blood Glucose Arterial Blood Ionized Calcium 10/08/20 10/08/20 10/08/20 14:58 15:08 16:32 WBC RBC Hgb MCV RDW Plt Count Seg Neutrophils % Seg Neutrophils # PT INR APTT ABG pH POC ABG pCO2 POC ABG pO2 ABG Hemoglobin ABG Oxyhemoglobin ABG Sodium ABG Potassium ABG Chloride ABG Glucose Carboxyhemoglobin Sodium 135 L Potassium Chloride 97.5 L Carbon Dioxide 19 L BUN 26 H Creatinine 4.1 H Glucose 183 H POC Glucose 173 H 177 H Hemoglobin A1c Lactic Acid Calcium 6.9 L Phosphorus Magnesium AST ALT Alkaline Phosphatase Total Creatine Kinase CK-MB (CK-2) Troponin T NT-Pro-B Natriuret Pep Total Protein Albumin Triglycerides HDL Cholesterol Arterial Blood Glucose Arterial Blood Ionized Calcium 10/08/20 10/08/20 10/08/20 17:42 18:09 20:11 WBC RBC Hgb MCV RDW Plt Count Seg Neutrophils % Seg Neutrophils # PT INR APTT ABG pH POC ABG pCO2 POC ABG pO2 ABG Hemoglobin ABG Oxyhemoglobin ABG Sodium ABG Potassium ABG Chloride ABG Glucose Carboxyhemoglobin Sodium Potassium Chloride Carbon Dioxide BUN Creatinine Glucose POC Glucose 172 H 176 H 186 H Hemoglobin A1c Lactic Acid Calcium Phosphorus Magnesium AST ALT Alkaline Phosphatase Total Creatine Kinase CK-MB (CK-2) Troponin T NT-Pro-B Natriuret Pep Total Protein Albumin Triglycerides HDL Cholesterol Arterial Blood Glucose Arterial Blood Ionized Calcium 10/08/20 10/08/20 10/08/20 20:57 21:56 23:12 WBC RBC Hgb MCV RDW Plt Count Seg Neutrophils % Seg Neutrophils # PT INR APTT ABG pH POC ABG pCO2 POC ABG pO2 ABG Hemoglobin ABG Oxyhemoglobin ABG Sodium ABG Potassium ABG Chloride ABG Glucose Carboxyhemoglobin Sodium Potassium Chloride Carbon Dioxide BUN Creatinine Glucose POC Glucose 177 H 211 H 198 H Hemoglobin A1c Lactic Acid Calcium Phosphorus Magnesium AST ALT Alkaline Phosphatase Total Creatine Kinase CK-MB (CK-2) Troponin T NT-Pro-B Natriuret Pep Total Protein Albumin Triglycerides HDL Cholesterol Arterial Blood Glucose Arterial Blood Ionized Calcium 10/08/20 10/09/20 10/09/20 23:55 00:02 01:02 WBC RBC Hgb MCV RDW Plt Count Seg Neutrophils % Seg Neutrophils # PT INR APTT ABG pH POC ABG pCO2 POC ABG pO2 ABG Hemoglobin ABG Oxyhemoglobin ABG Sodium ABG Potassium ABG Chloride ABG Glucose Carboxyhemoglobin Sodium 135 L Potassium 3.4 L Chloride Carbon Dioxide BUN 28 H Creatinine 5.0 H Glucose 207 H POC Glucose 223 H 211 H Hemoglobin A1c Lactic Acid Calcium 7.0 L Phosphorus Magnesium AST ALT Alkaline Phosphatase Total Creatine Kinase CK-MB (CK-2) Troponin T NT-Pro-B Natriuret Pep Total Protein Albumin Triglycerides HDL Cholesterol Arterial Blood Glucose Arterial Blood Ionized Calcium 10/09/20 10/09/20 10/09/20 02:05 03:05 04:04 WBC RBC Hgb MCV RDW Plt Count Seg Neutrophils % Seg Neutrophils # PT INR APTT ABG pH POC ABG pCO2 POC ABG pO2 ABG Hemoglobin ABG Oxyhemoglobin ABG Sodium ABG Potassium ABG Chloride ABG Glucose Carboxyhemoglobin Sodium Potassium Chloride Carbon Dioxide BUN Creatinine Glucose POC Glucose 201 H 199 H 183 H Hemoglobin A1c Lactic Acid Calcium Phosphorus Magnesium AST ALT Alkaline Phosphatase Total Creatine Kinase CK-MB (CK-2) Troponin T NT-Pro-B Natriuret Pep Total Protein Albumin Triglycerides HDL Cholesterol Arterial Blood Glucose Arterial Blood Ionized Calcium 10/09/20 10/09/20 10/09/20 05:07 05:40 05:40 WBC RBC Hgb MCV RDW Plt Count Seg Neutrophils % Seg Neutrophils # PT INR APTT ABG pH POC ABG pCO2 POC ABG pO2 ABG Hemoglobin ABG Oxyhemoglobin ABG Sodium ABG Potassium ABG Chloride ABG Glucose Carboxyhemoglobin Sodium 136 L Potassium 3.1 L Chloride Carbon Dioxide BUN 30 H Creatinine 5.2 H Glucose 181 H POC Glucose 184 H Hemoglobin A1c Lactic Acid 3.80 H* Calcium 7.1 L Phosphorus Magnesium AST ALT Alkaline Phosphatase Total Creatine Kinase CK-MB (CK-2) Troponin T NT-Pro-B Natriuret Pep Total Protein Albumin Triglycerides HDL Cholesterol Arterial Blood Glucose Arterial Blood Ionized Calcium 10/09/20 10/09/20 10/09/20 05:52 07:19 08:12 WBC RBC Hgb MCV RDW Plt Count Seg Neutrophils % Seg Neutrophils # PT INR APTT ABG pH POC ABG pCO2 POC ABG pO2 ABG Hemoglobin ABG Oxyhemoglobin ABG Sodium ABG Potassium ABG Chloride ABG Glucose Carboxyhemoglobin Sodium Potassium Chloride Carbon Dioxide BUN Creatinine Glucose POC Glucose 202 H 179 H Hemoglobin A1c Lactic Acid Calcium Phosphorus Magnesium AST ALT Alkaline Phosphatase Total Creatine Kinase CK-MB (CK-2) Troponin T 0.545 H* D NT-Pro-B Natriuret Pep Total Protein Albumin Triglycerides HDL Cholesterol Arterial Blood Glucose Arterial Blood Ionized Calcium 10/09/20 10/09/20 10/09/20 08:12 08:25 10:00 WBC RBC Hgb MCV RDW Plt Count Seg Neutrophils % Seg Neutrophils # PT INR APTT ABG pH POC ABG pCO2 POC ABG pO2 ABG Hemoglobin ABG Oxyhemoglobin ABG Sodium ABG Potassium ABG Chloride ABG Glucose Carboxyhemoglobin Sodium Potassium Chloride Carbon Dioxide BUN Creatinine Glucose POC Glucose 175 H 188 H Hemoglobin A1c Lactic Acid 3.60 H* Calcium Phosphorus Magnesium AST ALT Alkaline Phosphatase Total Creatine Kinase CK-MB (CK-2) Troponin T NT-Pro-B Natriuret Pep Total Protein Albumin Triglycerides HDL Cholesterol Arterial Blood Glucose Arterial Blood Ionized Calcium 10/09/20 10/09/20 10/09/20 13:51 14:34 15:20 WBC RBC Hgb MCV RDW Plt Count Seg Neutrophils % Seg Neutrophils # PT INR APTT ABG pH POC ABG pCO2 POC ABG pO2 ABG Hemoglobin ABG Oxyhemoglobin ABG Sodium ABG Potassium ABG Chloride ABG Glucose Carboxyhemoglobin Sodium Potassium Chloride Carbon Dioxide BUN Creatinine Glucose POC Glucose 360 H 373 H Hemoglobin A1c 8.5 H Lactic Acid Calcium Phosphorus Magnesium AST ALT Alkaline Phosphatase Total Creatine Kinase CK-MB (CK-2) Troponin T NT-Pro-B Natriuret Pep Total Protein Albumin Triglycerides HDL Cholesterol Arterial Blood Glucose Arterial Blood Ionized Calcium 10/09/20 10/09/20 10/09/20 16:50 17:02 17:34 WBC RBC Hgb MCV RDW Plt Count Seg Neutrophils % Seg Neutrophils # PT INR APTT ABG pH POC ABG pCO2 POC ABG pO2 ABG Hemoglobin ABG Oxyhemoglobin ABG Sodium ABG Potassium ABG Chloride ABG Glucose Carboxyhemoglobin Sodium 130 L Potassium Chloride 95.5 L Carbon Dioxide 18 L BUN 33 H Creatinine 5.5 H Glucose 386 H POC Glucose 402 H 374 H Hemoglobin A1c Lactic Acid Calcium 6.5 L Phosphorus Magnesium AST ALT Alkaline Phosphatase Total Creatine Kinase CK-MB (CK-2) Troponin T NT-Pro-B Natriuret Pep Total Protein Albumin Triglycerides HDL Cholesterol Arterial Blood Glucose Arterial Blood Ionized Calcium 10/09/20 10/10/20 10/10/20 21:39 02:16 04:00 WBC RBC Hgb MCV RDW Plt Count Seg Neutrophils % Seg Neutrophils # PT INR APTT ABG pH 7.500 H POC ABG pCO2 24.2 L POC ABG pO2 130.9 H ABG Hemoglobin 10.1 L ABG Oxyhemoglobin 98.2 H ABG Sodium 127.6 L ABG Potassium 2.8 L ABG Chloride ABG Glucose 291 H Carboxyhemoglobin 0.2 L Sodium Potassium Chloride Carbon Dioxide BUN Creatinine Glucose POC Glucose 361 H 290 H Hemoglobin A1c Lactic Acid Calcium Phosphorus Magnesium AST ALT Alkaline Phosphatase Total Creatine Kinase CK-MB (CK-2) Troponin T NT-Pro-B Natriuret Pep Total Protein Albumin Triglycerides HDL Cholesterol Arterial Blood Glucose 291 H Arterial Blood Ionized Calcium 4.1 L 10/10/20 10/10/20 10/10/20 05:20 09:27 11:07 WBC RBC Hgb MCV RDW Plt Count Seg Neutrophils % Seg Neutrophils # PT INR APTT ABG pH POC ABG pCO2 POC ABG pO2 ABG Hemoglobin ABG Oxyhemoglobin ABG Sodium ABG Potassium ABG Chloride ABG Glucose Carboxyhemoglobin Sodium Potassium Chloride Carbon Dioxide BUN Creatinine Glucose POC Glucose 239 H 218 H 238 H Hemoglobin A1c Lactic Acid Calcium Phosphorus Magnesium AST ALT Alkaline Phosphatase Total Creatine Kinase CK-MB (CK-2) Troponin T NT-Pro-B Natriuret Pep Total Protein Albumin Triglycerides HDL Cholesterol Arterial Blood Glucose Arterial Blood Ionized Calcium 10/10/20 10/10/20 10/10/20 11:21 12:11 14:42 WBC RBC Hgb MCV RDW Plt Count Seg Neutrophils % Seg Neutrophils # PT INR APTT ABG pH POC ABG pCO2 POC ABG pO2 ABG Hemoglobin ABG Oxyhemoglobin ABG Sodium ABG Potassium ABG Chloride ABG Glucose Carboxyhemoglobin Sodium 130 L Potassium 3.5 L Chloride 97.0 L Carbon Dioxide 17 L BUN 37 H Creatinine 6.0 H Glucose 250 H POC Glucose 258 H 249 H Hemoglobin A1c Lactic Acid Calcium 7.3 L Phosphorus Magnesium AST ALT Alkaline Phosphatase Total Creatine Kinase CK-MB (CK-2) Troponin T 0.356 H* D NT-Pro-B Natriuret Pep Total Protein Albumin Triglycerides HDL Cholesterol Arterial Blood Glucose Arterial Blood Ionized Calcium 10/10/20 10/10/20 10/10/20 15:38 16:55 20:15 WBC RBC Hgb MCV RDW Plt Count Seg Neutrophils % Seg Neutrophils # PT INR APTT ABG pH POC ABG pCO2 POC ABG pO2 ABG Hemoglobin ABG Oxyhemoglobin ABG Sodium ABG Potassium ABG Chloride ABG Glucose Carboxyhemoglobin Sodium Potassium Chloride Carbon Dioxide BUN Creatinine Glucose POC Glucose 243 H 197 H 150 H Hemoglobin A1c Lactic Acid Calcium Phosphorus Magnesium AST ALT Alkaline Phosphatase Total Creatine Kinase CK-MB (CK-2) Troponin T NT-Pro-B Natriuret Pep Total Protein Albumin Triglycerides HDL Cholesterol Arterial Blood Glucose Arterial Blood Ionized Calcium 10/10/20 10/11/20 10/11/20 23:49 03:42 05:01 WBC RBC Hgb MCV RDW Plt Count Seg Neutrophils % Seg Neutrophils # PT INR APTT ABG pH POC ABG pCO2 29.5 L POC ABG pO2 ABG Hemoglobin 11.7 L ABG Oxyhemoglobin ABG Sodium 129.9 L ABG Potassium ABG Chloride ABG Glucose 100 H Carboxyhemoglobin Sodium 134 L Potassium Chloride 97.8 L Carbon Dioxide 20 L BUN 42 H Creatinine 6.5 H Glucose POC Glucose 133 H Hemoglobin A1c Lactic Acid Calcium 7.4 L Phosphorus Magnesium AST ALT Alkaline Phosphatase Total Creatine Kinase CK-MB (CK-2) Troponin T 0.401 H* NT-Pro-B Natriuret Pep Total Protein Albumin Triglycerides HDL Cholesterol Arterial Blood Glucose 100 H Arterial Blood Ionized Calcium 4.2 L 10/11/20 10/11/20 10/11/20 05:01 10:03 11:23 WBC 4.0 L RBC 3.48 L 3.55 L Hgb MCV 100 H RDW 20.2 H 20.5 H Plt Count 56 L 57 L Seg Neutrophils % Seg Neutrophils # PT INR APTT ABG pH POC ABG pCO2 POC ABG pO2 ABG Hemoglobin ABG Oxyhemoglobin ABG Sodium ABG Potassium ABG Chloride ABG Glucose Carboxyhemoglobin Sodium Potassium Chloride Carbon Dioxide BUN Creatinine Glucose POC Glucose 122 H Hemoglobin A1c Lactic Acid Calcium Phosphorus Magnesium AST ALT Alkaline Phosphatase Total Creatine Kinase CK-MB (CK-2) Troponin T NT-Pro-B Natriuret Pep Total Protein Albumin Triglycerides HDL Cholesterol Arterial Blood Glucose Arterial Blood Ionized Calcium Chest x-ray: image reviewed (npo new process) Allied health notes reviewed: nursing
--- NOTE | 2020-10-12 12:59 | Progress Note ---
Assessment and Plan Acute hypoxemic respiratory failure on MVS Cardiac arrest with return of spontaneous circulation DKA Bilateral pneumonia ESRD on dialysis Severe hyperkalemia Severe metabolic acidosis Acute encephalopathy (? Anoxic) DM II HTN Leukocytosis Oropharyngeal dysphagia - tentative withdrawal later today - for now will continue care as below; - continue on Levophed, dopamine and vasopressin - wean for target MAP > 65 mmHg - isolation per facility PUI COVID-19 protocol - continue to wean supplemental oxygen for target O2 sat's > 90% acutely - VAP bundle addressed - continue lung protective strategies - continue bronchodilators with pulmonary hygiene per RT - wean per pulmonary driven protocols otherwise - continue Daily SAT and SBT assessment as tolerated - continue accuchecks with glycemic control per SSI (While critically ill target blood glucose of 140-180 mg/dL; avoid hypoglycemia) - sedation prn for target RASS 0 to -1 - avoid nephrotoxins, renally dose all medications - continue to avoid benzodiazepine's, reduce the possibility of delirium - complete AB's per ID rec's - prn analgesia per CPOT score - Maintenance of sleep-wake cycle, avoid delirium - continue enteral nutritional support at goal rate as tolerated - G.I. & VTE prophylaxis - PT/OT/ROM exercises - continue mobility protocols for pressure ulcer prophylaxis - Monitor hemodynamics closely - continue other care per attending / other consultants - discharge planning ongoing concurrently COVID SPECIFIC INTERVENTIONS - Remdesivir as per ID/Pulmonary developed protocols - consider systemic steroids for severe COVID-19 infection empirically - follow repeat COVID tests results - zinc and vitamin C supplementation - Monitor inflammatory markers per facility protocol - ferritin, Ddimer, CRP - therapeutic anticoagulation per system Protocol based on d-dimer and clinical considerations - Continue contact and airborne isolation .... Re-evaluate in am & prn CONDITION: CRITICAL PROGNOSIS: GUARDED CODE STATUS: FULL CODE The high probability of a clinically significant, sudden or life-threatening deterioration of the [respiratory, cardiovascular, GI & neurologic] system(s) required my full and direct attention, intervention and personal management. The aggregate critical care time was [32] minutes without overlap. Time includes spent on; [x] Data Review and interpretation [x] Patient assessment and monitoring of vital signs [x] Documentation [x] Medication orders and management Subjective Date of service: 10/12/20 Principal diagnosis: Anoxic Encephalopathy, S/p Cardiac Arrest, DKA, Severe Hyperkalemia Interval history: Patient is seen today for: Acute hypoxemic respiratory failure; Cardiac arrest with ROSC; DKA; Bilateral pneumonia; ESRD on dialysis; Anoxic encephalopathy Seen and examined at bedside; 24hour events reviewed; nursing and respiratory care staff consulted; no adverse overnight events reported to me; resting peacefully in bed; remains on MVS and vaspressors; family contemplating withdrawal today Objective Vital Signs - 12hr 10/12/20 10/12/20 10/12/20 04:00 04:10 04:47 Temperature 99.1 F Pulse Rate 94 H 94 H 94 H Pulse Rate [ 94 H From Monitor] Respiratory 16 17 Rate Blood Pressure 135/22 187/76 O2 Sat by Pulse 99 96 97 Oximetry 10/12/20 10/12/20 10/12/20 04:49 04:51 04:53 Temperature Pulse Rate 94 H 97 H 98 H Pulse Rate [ From Monitor] Respiratory 16 14 16 Rate Blood Pressure 146/17 146/17 146/17 O2 Sat by Pulse 97 97 97 Oximetry 10/12/20 10/12/20 10/12/20 04:54 04:55 04:57 Temperature Pulse Rate 97 H 97 H 98 H Pulse Rate [ From Monitor] Respiratory 16 16 17 Rate Blood Pressure 187/76 146/17 146/17 O2 Sat by Pulse 97 97 97 Oximetry 10/12/20 10/12/20 10/12/20 04:59 05:00 05:01 Temperature Pulse Rate 96 H 98 H 100 H Pulse Rate [ From Monitor] Respiratory 15 17 15 Rate Blood Pressure 146/17 183/68 183/68 O2 Sat by Pulse 97 97 97 Oximetry 10/12/20 10/12/20 10/12/20 05:02 05:03 05:05 Temperature Pulse Rate 100 H 100 H 100 H Pulse Rate [ From Monitor] Respiratory 16 20 16 Rate Blood Pressure 187/76 183/68 183/68 O2 Sat by Pulse 97 97 98 Oximetry 10/12/20 10/12/20 10/12/20 05:07 05:09 05:11 Temperature Pulse Rate 100 H 100 H 98 H Pulse Rate [ From Monitor] Respiratory 16 16 16 Rate Blood Pressure 183/68 183/68 183/68 O2 Sat by Pulse 97 97 97 Oximetry 10/12/20 10/12/20 10/12/20 05:13 05:15 05:17 Temperature Pulse Rate 99 H 99 H 99 H Pulse Rate [ From Monitor] Respiratory 16 15 15 Rate Blood Pressure 183/68 178/85 178/85 O2 Sat by Pulse 97 97 97 Oximetry 10/12/20 10/12/20 10/12/20 05:19 05:21 05:23 Temperature Pulse Rate 100 H 97 H 98 H Pulse Rate [ From Monitor] Respiratory 16 16 16 Rate Blood Pressure 183/68 183/68 183/68 O2 Sat by Pulse 98 97 97 Oximetry 10/12/20 10/12/20 10/12/20 05:25 05:27 05:28 Temperature Pulse Rate 98 H 98 H 99 H Pulse Rate [ From Monitor] Respiratory 14 15 16 Rate Blood Pressure 183/68 183/68 186/83 O2 Sat by Pulse 97 97 96 Oximetry 10/12/20 10/12/20 10/12/20 05:29 05:31 05:32 Temperature Pulse Rate 99 H 96 H 94 H Pulse Rate [ From Monitor] Respiratory 18 16 17 Rate Blood Pressure 186/83 204/90 204/90 O2 Sat by Pulse 96 96 Oximetry 10/12/20 10/12/20 10/12/20 05:33 05:35 05:37 Temperature Pulse Rate 94 H 96 H 99 H Pulse Rate [ From Monitor] Respiratory 17 12 15 Rate Blood Pressure 204/90 204/90 204/90 O2 Sat by Pulse 95 95 95 Oximetry 10/12/20 10/12/20 10/12/20 05:39 05:41 05:43 Temperature Pulse Rate 95 H 94 H 92 H Pulse Rate [ From Monitor] Respiratory 15 17 16 Rate Blood Pressure 204/90 204/90 204/90 O2 Sat by Pulse 94 98 97 Oximetry 10/12/20 10/12/20 10/12/20 05:45 05:47 05:49 Temperature Pulse Rate 89 84 83 Pulse Rate [ From Monitor] Respiratory 14 17 15 Rate Blood Pressure 124/56 124/56 124/56 O2 Sat by Pulse 97 98 98 Oximetry 10/12/20 10/12/20 10/12/20 05:51 05:53 05:55 Temperature Pulse Rate 77 86 90 Pulse Rate [ From Monitor] Respiratory 14 15 16 Rate Blood Pressure 204/90 204/90 204/90 O2 Sat by Pulse 97 98 99 Oximetry 10/12/20 10/12/20 10/12/20 05:57 05:59 06:00 Temperature Pulse Rate 90 90 91 H Pulse Rate [ From Monitor] Respiratory 16 16 15 Rate Blood Pressure 204/90 204/90 141/69 O2 Sat by Pulse 99 99 99 Oximetry 10/12/20 10/12/20 10/12/20 06:01 06:03 06:05 Temperature Pulse Rate 93 H 91 H 92 H Pulse Rate [ From Monitor] Respiratory 16 16 17 Rate Blood Pressure 141/69 141/69 141/69 O2 Sat by Pulse 99 99 99 Oximetry 10/12/20 10/12/20 10/12/20 06:07 06:09 06:11 Temperature Pulse Rate 94 H 91 H 92 H Pulse Rate [ From Monitor] Respiratory 14 16 14 Rate Blood Pressure 141/69 141/69 141/69 O2 Sat by Pulse 99 100 100 Oximetry 10/12/20 10/12/20 10/12/20 06:13 06:15 06:17 Temperature Pulse Rate 93 H 93 H 94 H Pulse Rate [ From Monitor] Respiratory 16 21 16 Rate Blood Pressure 141/69 152/68 152/68 O2 Sat by Pulse 100 100 100 Oximetry 10/12/20 10/12/20 10/12/20 06:19 06:21 06:23 Temperature Pulse Rate 92 H 94 H 94 H Pulse Rate [ From Monitor] Respiratory 18 18 18 Rate Blood Pressure 152/68 124/56 124/56 O2 Sat by Pulse 100 100 100 Oximetry 10/12/20 10/12/20 10/12/20 06:25 06:27 06:29 Temperature Pulse Rate 94 H 96 H 95 H Pulse Rate [ From Monitor] Respiratory 16 16 14 Rate Blood Pressure 124/56 124/56 124/56 O2 Sat by Pulse 100 100 100 Oximetry 10/12/20 10/12/20 10/12/20 06:30 06:31 06:33 Temperature Pulse Rate 97 H 97 H 90 Pulse Rate [ From Monitor] Respiratory 16 17 16 Rate Blood Pressure 170/70 170/70 170/70 O2 Sat by Pulse 100 100 100 Oximetry 10/12/20 10/12/20 10/12/20 06:35 06:37 06:39 Temperature Pulse Rate 87 87 89 Pulse Rate [ From Monitor] Respiratory 16 16 16 Rate Blood Pressure 170/70 170/70 170/70 O2 Sat by Pulse 100 100 100 Oximetry 10/12/20 10/12/20 10/12/20 06:41 06:43 06:45 Temperature Pulse Rate 85 92 H 92 H Pulse Rate [ From Monitor] Respiratory 15 15 17 Rate Blood Pressure 170/70 170/70 129/65 O2 Sat by Pulse 100 100 100 Oximetry 10/12/20 10/12/20 10/12/20 06:47 06:49 06:51 Temperature Pulse Rate 90 89 90 Pulse Rate [ From Monitor] Respiratory 15 15 16 Rate Blood Pressure 129/65 129/65 129/65 O2 Sat by Pulse 100 100 100 Oximetry 10/12/20 10/12/20 10/12/20 06:53 06:55 06:57 Temperature Pulse Rate 87 89 91 H Pulse Rate [ From Monitor] Respiratory 15 15 17 Rate Blood Pressure 129/65 129/65 129/65 O2 Sat by Pulse 100 100 100 Oximetry 10/12/20 10/12/20 10/12/20 06:59 07:00 07:01 Temperature Pulse Rate 90 91 H 92 H Pulse Rate [ From Monitor] Respiratory 14 20 19 Rate Blood Pressure 129/65 144/67 144/67 O2 Sat by Pulse 100 100 100 Oximetry 10/12/20 10/12/20 10/12/20 07:02 07:03 07:05 Temperature Pulse Rate 92 H 92 H 94 H Pulse Rate [ From Monitor] Respiratory 14 18 14 Rate Blood Pressure 129/65 144/67 144/67 O2 Sat by Pulse 100 100 100 Oximetry 10/12/20 10/12/20 10/12/20 07:07 07:09 07:11 Temperature Pulse Rate 95 H 95 H 96 H Pulse Rate [ From Monitor] Respiratory 17 16 17 Rate Blood Pressure 144/67 144/67 144/67 O2 Sat by Pulse 100 100 100 Oximetry 10/12/20 10/12/20 10/12/20 07:13 07:15 07:17 Temperature Pulse Rate 95 H 97 H 96 H Pulse Rate [ From Monitor] Respiratory 16 16 17 Rate Blood Pressure 144/67 157/80 157/80 O2 Sat by Pulse 100 100 100 Oximetry 10/12/20 10/12/20 10/12/20 07:19 07:21 07:23 Temperature Pulse Rate 96 H 96 H 96 H Pulse Rate [ From Monitor] Respiratory 15 15 14 Rate Blood Pressure 157/80 157/80 144/67 O2 Sat by Pulse 100 100 100 Oximetry 05/18/21 05/18/21 05/18/21 07:25 07:27 07:29 Temperature Pulse Rate 96 H 96 H 96 H Pulse Rate [ From Monitor] Respiratory 16 14 14 Rate Blood Pressure 144/67 144/67 144/67 O2 Sat by Pulse 100 100 100 Oximetry 10/12/20 10/12/20 10/12/20 07:30 07:31 07:33 Temperature Pulse Rate 96 H 96 H 96 H Pulse Rate [ From Monitor] Respiratory 17 21 18 Rate Blood Pressure 162/75 162/75 162/75 O2 Sat by Pulse 100 100 100 Oximetry 10/12/20 10/12/20 10/12/20 07:34 07:35 07:37 Temperature Pulse Rate 96 H 96 H 94 H Pulse Rate [ From Monitor] Respiratory 14 13 16 Rate Blood Pressure 162/75 162/75 162/75 O2 Sat by Pulse 100 100 100 Oximetry 10/12/20 10/12/20 10/12/20 07:39 07:41 07:43 Temperature Pulse Rate 95 H 92 H 89 Pulse Rate [ From Monitor] Respiratory 22 15 17 Rate Blood Pressure 162/75 162/75 162/75 O2 Sat by Pulse 100 100 100 Oximetry 10/12/20 10/12/20 10/12/20 07:45 07:47 07:49 Temperature Pulse Rate 90 91 H 90 Pulse Rate [ From Monitor] Respiratory 17 16 15 Rate Blood Pressure 145/67 145/67 145/67 O2 Sat by Pulse 100 100 100 Oximetry 10/12/20 10/12/20 10/12/20 07:51 07:53 07:55 Temperature Pulse Rate 89 87 88 Pulse Rate [ From Monitor] Respiratory 16 16 15 Rate Blood Pressure 145/67 162/75 162/75 O2 Sat by Pulse 100 100 100 Oximetry 10/12/20 10/12/20 10/12/20 07:57 07:59 08:00 Temperature Pulse Rate 90 87 87 Pulse Rate [ 84 From Monitor] Respiratory 15 15 16 Rate Blood Pressure 162/75 162/75 136/59 O2 Sat by Pulse 100 100 100 Oximetry 10/12/20 10/12/20 10/12/20 08:01 08:03 08:04 Temperature Pulse Rate 87 86 84 Pulse Rate [ From Monitor] Respiratory 16 17 16 Rate Blood Pressure 136/59 136/59 136/59 O2 Sat by Pulse 100 100 100 Oximetry 10/12/20 10/12/20 10/12/20 08:05 08:07 08:09 Temperature Pulse Rate 84 86 88 Pulse Rate [ From Monitor] Respiratory 15 16 18 Rate Blood Pressure 136/59 136/59 136/59 O2 Sat by Pulse 100 100 100 Oximetry 10/12/20 10/12/20 10/12/20 08:10 08:11 08:13 Temperature Pulse Rate 87 85 85 Pulse Rate [ From Monitor] Respiratory 15 17 14 Rate Blood Pressure 136/59 136/59 136/59 O2 Sat by Pulse 100 100 100 Oximetry 10/12/20 10/12/20 10/12/20 08:15 08:16 08:17 Temperature Pulse Rate 86 84 81 Pulse Rate [ From Monitor] Respiratory 16 15 16 Rate Blood Pressure 146/62 136/59 146/62 O2 Sat by Pulse 100 100 100 Oximetry 10/12/20 10/12/20 10/12/20 08:19 08:21 08:23 Temperature Pulse Rate 87 81 82 Pulse Rate [ From Monitor] Respiratory 16 16 17 Rate Blood Pressure 146/62 146/62 146/62 O2 Sat by Pulse 100 100 100 Oximetry 10/12/20 10/12/20 10/12/20 08:25 08:27 08:28 Temperature Pulse Rate 85 86 84 Pulse Rate [ From Monitor] Respiratory 16 18 Rate Blood Pressure 136/59 136/59 138/63 O2 Sat by Pulse 100 100 100 Oximetry 10/12/20 10/12/20 10/12/20 08:29 08:30 08:31 Temperature Pulse Rate 79 81 83 Pulse Rate [ From Monitor] Respiratory 16 14 15 Rate Blood Pressure 136/59 138/63 138/63 O2 Sat by Pulse 100 100 100 Oximetry 10/12/20 10/12/20 10/12/20 08:33 08:35 08:37 Temperature Pulse Rate 84 83 88 Pulse Rate [ From Monitor] Respiratory 16 16 16 Rate Blood Pressure 138/63 138/63 138/63 O2 Sat by Pulse 100 100 100 Oximetry 10/12/20 10/12/20 10/12/20 08:39 08:41 08:43 Temperature Pulse Rate 87 80 86 Pulse Rate [ From Monitor] Respiratory 16 15 16 Rate Blood Pressure 138/63 138/63 138/63 O2 Sat by Pulse 100 100 100 Oximetry 10/12/20 10/12/20 10/12/20 08:45 08:47 08:49 Temperature Pulse Rate 88 88 90 Pulse Rate [ From Monitor] Respiratory 17 21 16 Rate Blood Pressure 139/70 139/70 139/70 O2 Sat by Pulse 100 100 100 Oximetry 10/12/20 10/12/20 10/12/20 08:50 08:51 08:53 Temperature Pulse Rate 89 90 91 H Pulse Rate [ From Monitor] Respiratory 14 17 15 Rate Blood Pressure 138/63 139/70 139/70 O2 Sat by Pulse 100 100 100 Oximetry 10/12/20 10/12/20 10/12/20 08:55 08:57 08:59 Temperature Pulse Rate 91 H 91 H 93 H Pulse Rate [ From Monitor] Respiratory 16 20 16 Rate Blood Pressure 138/63 138/63 138/63 O2 Sat by Pulse 100 100 100 Oximetry 10/12/20 10/12/20 10/12/20 09:00 09:01 09:03 Temperature Pulse Rate 90 91 H 86 Pulse Rate [ From Monitor] Respiratory 14 15 15 Rate Blood Pressure 134/71 134/71 134/71 O2 Sat by Pulse 100 100 99 Oximetry 10/12/20 10/12/20 10/12/20 09:05 09:07 09:09 Temperature Pulse Rate 81 84 83 Pulse Rate [ From Monitor] Respiratory 16 16 15 Rate Blood Pressure 134/71 134/71 134/71 O2 Sat by Pulse 99 100 100 Oximetry 10/12/20 10/12/20 10/12/20 09:11 09:13 09:15 Temperature Pulse Rate 83 80 88 Pulse Rate [ From Monitor] Respiratory 16 14 12 Rate Blood Pressure 134/71 134/71 140/69 O2 Sat by Pulse 99 100 99 Oximetry 10/12/20 10/12/20 10/12/20 09:17 09:19 09:20 Temperature Pulse Rate 86 82 81 Pulse Rate [ From Monitor] Respiratory 17 15 15 Rate Blood Pressure 140/69 140/69 140/69 O2 Sat by Pulse 99 100 99 Oximetry 10/12/20 10/12/20 10/12/20 09:21 09:23 09:24 Temperature Pulse Rate 75 76 76 Pulse Rate [ From Monitor] Respiratory 16 17 16 Rate Blood Pressure 140/69 140/69 140/69 O2 Sat by Pulse 100 99 100 Oximetry 10/12/20 10/12/20 10/12/20 09:25 09:26 09:27 Temperature Pulse Rate 74 73 72 Pulse Rate [ From Monitor] Respiratory 16 16 16 Rate Blood Pressure 140/69 140/69 140/69 O2 Sat by Pulse 100 99 100 Oximetry 10/12/20 10/12/20 10/12/20 09:28 09:29 09:30 Temperature Pulse Rate 72 72 72 Pulse Rate [ From Monitor] Respiratory 14 15 16 Rate Blood Pressure 140/69 140/69 140/69 O2 Sat by Pulse 100 100 100 Oximetry 10/12/20 10/12/20 10/12/20 09:31 09:33 09:35 Temperature Pulse Rate 73 73 74 Pulse Rate [ From Monitor] Respiratory 13 17 16 Rate Blood Pressure 101/53 101/53 101/53 O2 Sat by Pulse 100 100 100 Oximetry 10/12/20 10/12/20 10/12/20 09:37 09:39 09:41 Temperature Pulse Rate 73 70 73 Pulse Rate [ From Monitor] Respiratory 15 16 15 Rate Blood Pressure 101/53 101/53 101/53 O2 Sat by Pulse 100 100 100 Oximetry 10/12/20 10/12/20 10/12/20 09:43 09:45 09:47 Temperature Pulse Rate 69 74 71 Pulse Rate [ From Monitor] Respiratory 14 17 16 Rate Blood Pressure 101/53 101/47 101/47 O2 Sat by Pulse 100 100 100 Oximetry 10/12/20 10/12/20 10/12/20 09:49 09:51 09:53 Temperature Pulse Rate 68 73 68 Pulse Rate [ From Monitor] Respiratory 13 16 16 Rate Blood Pressure 101/47 101/47 101/47 O2 Sat by Pulse 100 100 100 Oximetry 10/12/20 10/12/20 10/12/20 09:55 09:57 09:59 Temperature Pulse Rate 68 67 70 Pulse Rate [ From Monitor] Respiratory 14 19 15 Rate Blood Pressure 101/47 101/47 101/47 O2 Sat by Pulse 100 100 100 Oximetry 10/12/20 10/12/20 10/12/20 10:00 10:01 10:03 Temperature Pulse Rate 70 70 67 Pulse Rate [ From Monitor] Respiratory 19 15 15 Rate Blood Pressure 98/45 98/45 98/45 O2 Sat by Pulse 100 100 100 Oximetry 10/12/20 10/12/20 10/12/20 10:05 10:07 10:09 Temperature Pulse Rate 67 67 67 Pulse Rate [ From Monitor] Respiratory 17 14 15 Rate Blood Pressure 98/45 98/45 98/45 O2 Sat by Pulse 100 100 100 Oximetry 10/12/20 10/12/20 10/12/20 10:11 10:13 10:15 Temperature Pulse Rate 66 67 70 Pulse Rate [ From Monitor] Respiratory 15 16 17 Rate Blood Pressure 98/45 98/45 105/51 O2 Sat by Pulse 100 100 100 Oximetry 10/12/20 10/12/20 10/12/20 10:17 10:19 10:21 Temperature Pulse Rate 66 63 65 Pulse Rate [ From Monitor] Respiratory 16 15 15 Rate Blood Pressure 105/51 105/51 105/51 O2 Sat by Pulse 100 100 100 Oximetry 10/12/20 10/12/20 10/12/20 10:23 10:25 10:27 Temperature Pulse Rate 66 64 64 Pulse Rate [ From Monitor] Respiratory 16 17 16 Rate Blood Pressure 105/51 105/51 98/45 O2 Sat by Pulse 100 100 100 Oximetry 10/12/20 10/12/20 10/12/20 10:29 10:30 10:31 Temperature Pulse Rate 64 63 63 Pulse Rate [ From Monitor] Respiratory 16 15 15 Rate Blood Pressure 98/45 98/42 98/42 O2 Sat by Pulse 100 100 100 Oximetry 10/12/20 10/12/20 10/12/20 10:32 10:33 10:35 Temperature Pulse Rate 61 62 64 Pulse Rate [ From Monitor] Respiratory 17 16 16 Rate Blood Pressure 105/51 98/42 98/42 O2 Sat by Pulse 100 100 100 Oximetry 10/12/20 10/12/20 10/12/20 10:37 10:38 10:39 Temperature Pulse Rate 77 79 82 Pulse Rate [ From Monitor] Respiratory 18 22 20 Rate Blood Pressure 98/42 98/42 98/42 O2 Sat by Pulse 100 100 100 Oximetry 10/12/20 10/12/20 10/12/20 10:41 10:43 10:45 Temperature Pulse Rate 71 70 68 Pulse Rate [ From Monitor] Respiratory 14 17 15 Rate Blood Pressure 98/42 98/42 111/50 O2 Sat by Pulse 100 100 100 Oximetry 10/12/20 10/12/20 10/12/20 10:47 10:49 10:51 Temperature Pulse Rate 69 74 79 Pulse Rate [ From Monitor] Respiratory 17 16 16 Rate Blood Pressure 111/50 111/50 111/50 O2 Sat by Pulse 100 100 100 Oximetry 10/12/20 10/12/20 10/12/20 10:53 10:55 10:57 Temperature Pulse Rate 81 81 84 Pulse Rate [ From Monitor] Respiratory 17 15 16 Rate Blood Pressure 111/50 111/50 111/50 O2 Sat by Pulse 100 100 100 Oximetry 10/12/20 10/12/20 10/12/20 10:58 10:59 11:01 Temperature Pulse Rate 86 87 88 Pulse Rate [ From Monitor] Respiratory 17 14 16 Rate Blood Pressure 111/50 98/42 139/74 O2 Sat by Pulse 100 100 100 Oximetry 10/12/20 10/12/20 10/12/20 11:03 11:05 11:07 Temperature Pulse Rate 88 88 88 Pulse Rate [ From Monitor] Respiratory 16 16 15 Rate Blood Pressure 139/74 139/74 139/74 O2 Sat by Pulse 100 100 100 Oximetry 10/12/20 10/12/20 10/12/20 11:08 11:09 11:11 Temperature Pulse Rate 88 87 87 Pulse Rate [ From Monitor] Respiratory 16 16 16 Rate Blood Pressure 111/50 139/74 139/74 O2 Sat by Pulse 100 100 100 Oximetry 10/12/20 10/12/20 10/12/20 11:13 11:15 11:16 Temperature Pulse Rate 85 85 86 Pulse Rate [ From Monitor] Respiratory 15 16 16 Rate Blood Pressure 139/74 136/70 139/74 O2 Sat by Pulse 100 100 100 Oximetry 10/12/20 10/12/20 10/12/20 11:17 11:19 11:21 Temperature Pulse Rate 87 87 88 Pulse Rate [ From Monitor] Respiratory 17 16 16 Rate Blood Pressure 136/70 136/70 136/70 O2 Sat by Pulse 100 100 100 Oximetry 10/12/20 10/12/20 10/12/20 11:23 11:25 11:27 Temperature Pulse Rate 88 88 88 Pulse Rate [ From Monitor] Respiratory 15 16 15 Rate Blood Pressure 136/70 136/70 136/70 O2 Sat by Pulse 100 100 100 Oximetry 10/12/20 10/12/20 10/12/20 11:29 11:30 11:31 Temperature Pulse Rate 87 87 87 Pulse Rate [ From Monitor] Respiratory 16 17 15 Rate Blood Pressure 136/70 158/72 158/72 O2 Sat by Pulse 100 100 100 Oximetry 10/12/20 10/12/20 10/12/20 11:33 11:35 11:37 Temperature Pulse Rate 87 87 87 Pulse Rate [ From Monitor] Respiratory 16 14 15 Rate Blood Pressure 158/72 158/72 158/72 O2 Sat by Pulse 100 100 100 Oximetry 10/12/20 10/12/20 10/12/20 11:39 11:41 11:43 Temperature Pulse Rate 86 88 88 Pulse Rate [ From Monitor] Respiratory 15 16 15 Rate Blood Pressure 158/72 158/72 158/72 O2 Sat by Pulse 100 100 100 Oximetry 10/12/20 10/12/20 10/12/20 11:45 11:47 11:49 Temperature Pulse Rate 88 88 89 Pulse Rate [ From Monitor] Respiratory 16 16 16 Rate Blood Pressure 156/75 156/75 156/75 O2 Sat by Pulse 100 100 100 Oximetry 10/12/20 10/12/20 10/12/20 11:51 11:53 11:55 Temperature Pulse Rate 89 89 89 Pulse Rate [ From Monitor] Respiratory 17 16 16 Rate Blood Pressure 156/75 156/75 156/75 O2 Sat by Pulse 100 100 100 Oximetry 10/12/20 10/12/20 10/12/20 11:57 11:59 12:00 Temperature 97.9 F Pulse Rate 89 89 89 Pulse Rate [ 88 From Monitor] Respiratory 16 15 13 Rate Blood Pressure 156/75 158/72 171/76 O2 Sat by Pulse 100 100 100 Oximetry 10/12/20 10/12/20 10/12/20 12:01 12:03 12:05 Temperature Pulse Rate 89 89 89 Pulse Rate [ From Monitor] Respiratory 15 15 16 Rate Blood Pressure 171/76 171/76 171/76 O2 Sat by Pulse 100 100 100 Oximetry Constitutional: no acute distress, other (middle aged female with normal respiratory effort at rest) Eyes: non-icteric ENT: oropharynx moist, other (ETT 24 cm EDILIA) Neck: supple, no lymphadenopathy, no JVD Effort: normal Ascultation: Bilateral: rhonchi Percussion: Bilateral: not dull Cardiovascular: regular rate and rhythm Gastrointestinal: normoactive bowel sounds Integumentary: normal Extremities: no edema, pulses normal, no ischemia or petechiae Neurologic: pupils equal and round (fixed), unable to assess Psychiatric: other (unable to assess re: AMS) CBC and BMP: 10/12/20 05:14 10/12/20 05:14 ABG, PT/INR, D-dimer: ABG ABG pH 7.294 (7.320-7.450) L 10/12/20 03:08 POC ABG pCO2 36.3 mmHg (32.0-48.0) 10/12/20 03:08 POC ABG pO2 65.0 mmHg (83-108) L 10/12/20 03:08 POC ABG HCO3 17.2 10/12/20 03:08 ABG O2 Saturation 90.9 (0-100) 10/12/20 03:08 PT/INR, D-dimer PT 21.2 Sec. (12.2-14.9) H 10/07/20 09:08 INR 1.83 (0.87-1.13) H 10/07/20 09:08 Abnormal lab findings: Abnormal Labs 10/07/20 10/07/20 10/07/20 09:08 09:08 09:08 WBC 15.8 H RBC 3.05 L Hgb 9.7 L Hct MCV 108 H RDW 20.9 H Plt Count Seg Neutrophils % 77.4 H Seg Neutrophils # 12.2 H PT 21.2 H INR 1.83 H APTT 51.1 H ABG pH POC ABG pCO2 POC ABG pO2 ABG Hemoglobin ABG Oxyhemoglobin ABG Sodium ABG Potassium ABG Chloride ABG Glucose Carboxyhemoglobin Sodium 133 L Potassium 8.3 H* Chloride 77.5 L Carbon Dioxide 6 L* BUN 86 H Creatinine 10.6 H Glucose 798 H* POC Glucose Hemoglobin A1c Lactic Acid Calcium Phosphorus Magnesium AST 2736 H ALT 1568 H Alkaline Phosphatase 183 H Total Creatine Kinase 444 H CK-MB (CK-2) 8.6 H Troponin T 0.395 H* NT-Pro-B Natriuret Pep 6466 H Total Protein 5.8 L Albumin 2.6 L Triglycerides 246 H HDL Cholesterol 39 L Arterial Blood Glucose Arterial Blood Ionized Calcium 10/07/20 10/07/20 10/07/20 09:08 09:24 10:32 WBC RBC Hgb Hct MCV RDW Plt Count Seg Neutrophils % Seg Neutrophils # PT INR APTT ABG pH 6.793 L POC ABG pCO2 30.2 L POC ABG pO2 433.9 H ABG Hemoglobin 10.8 L ABG Oxyhemoglobin 99.2 H ABG Sodium 131.7 L ABG Potassium 8.2 H ABG Chloride 85.0 L ABG Glucose Carboxyhemoglobin 0.3 L Sodium Potassium Chloride Carbon Dioxide BUN Creatinine Glucose POC Glucose Hemoglobin A1c Lactic Acid Calcium Phosphorus 22.30 H Magnesium 3.10 H 3.10 H AST ALT Alkaline Phosphatase Total Creatine Kinase CK-MB (CK-2) Troponin T NT-Pro-B Natriuret Pep Total Protein Albumin Triglycerides HDL Cholesterol Arterial Blood Glucose Arterial Blood Ionized Calcium 10/07/20 10/07/20 10/07/20 10:32 11:23 11:23 WBC RBC Hgb Hct MCV RDW Plt Count Seg Neutrophils % Seg Neutrophils # PT INR APTT ABG pH POC ABG pCO2 POC ABG pO2 ABG Hemoglobin ABG Oxyhemoglobin ABG Sodium ABG Potassium ABG Chloride ABG Glucose Carboxyhemoglobin Sodium 131 L 135 L Potassium 8.7 H* 8.5 H* Chloride 76.6 L 78.1 L Carbon Dioxide 6 L* 5 L* BUN 89 H 87 H Creatinine 10.7 H 10.7 H Glucose 967 H* 799 H* POC Glucose Hemoglobin A1c Lactic Acid 9.70 H* Calcium Phosphorus Magnesium AST ALT Alkaline Phosphatase Total Creatine Kinase CK-MB (CK-2) Troponin T NT-Pro-B Natriuret Pep Total Protein Albumin Triglycerides HDL Cholesterol Arterial Blood Glucose Arterial Blood Ionized Calcium 10/07/20 10/07/20 10/07/20 13:20 13:58 13:58 WBC RBC Hgb Hct MCV RDW Plt Count Seg Neutrophils % Seg Neutrophils # PT INR APTT ABG pH POC ABG pCO2 POC ABG pO2 ABG Hemoglobin ABG Oxyhemoglobin ABG Sodium ABG Potassium ABG Chloride ABG Glucose Carboxyhemoglobin Sodium 133 L Potassium 6.8 H* Chloride 82.3 L Carbon Dioxide 8 L* BUN 86 H Creatinine 10.3 H Glucose 868 H* POC Glucose > 600 H Hemoglobin A1c Lactic Acid 6.90 H* Calcium Phosphorus Magnesium AST ALT Alkaline Phosphatase Total Creatine Kinase CK-MB (CK-2) Troponin T NT-Pro-B Natriuret Pep Total Protein Albumin Triglycerides HDL Cholesterol Arterial Blood Glucose Arterial Blood Ionized Calcium 10/07/20 10/07/20 10/07/20 14:03 18:01 18:18 WBC RBC Hgb Hct MCV RDW Plt Count Seg Neutrophils % Seg Neutrophils # PT INR APTT ABG pH 7.175 L POC ABG pCO2 27.4 L POC ABG pO2 ABG Hemoglobin 9.3 L ABG Oxyhemoglobin ABG Sodium 134.0 L ABG Potassium 6.4 H ABG Chloride 89.0 L ABG Glucose Carboxyhemoglobin 0.4 L Sodium 132 L Potassium 5.7 H Chloride 84.5 L Carbon Dioxide 15 L D BUN 91 H Creatinine 10.6 H Glucose 828 H* POC Glucose > 600 H Hemoglobin A1c Lactic Acid Calcium 6.7 L D Phosphorus Magnesium AST ALT Alkaline Phosphatase Total Creatine Kinase CK-MB (CK-2) Troponin T NT-Pro-B Natriuret Pep Total Protein Albumin Triglycerides HDL Cholesterol Arterial Blood Glucose Arterial Blood Ionized Calcium 4.4 L 10/07/20 10/07/20 10/07/20 18:18 18:18 22:27 WBC RBC Hgb Hct MCV RDW Plt Count Seg Neutrophils % Seg Neutrophils # PT INR APTT ABG pH POC ABG pCO2 POC ABG pO2 ABG Hemoglobin ABG Oxyhemoglobin ABG Sodium ABG Potassium ABG Chloride ABG Glucose Carboxyhemoglobin Sodium Potassium Chloride Carbon Dioxide BUN Creatinine Glucose POC Glucose 456 H Hemoglobin A1c Lactic Acid 5.00 H* Calcium Phosphorus Magnesium AST ALT Alkaline Phosphatase Total Creatine Kinase CK-MB (CK-2) Troponin T 1.330 H* D NT-Pro-B Natriuret Pep Total Protein Albumin Triglycerides HDL Cholesterol Arterial Blood Glucose Arterial Blood Ionized Calcium 10/08/20 10/08/20 10/08/20 00:13 00:51 01:50 WBC RBC Hgb Hct MCV RDW Plt Count Seg Neutrophils % Seg Neutrophils # PT INR APTT ABG pH 7.454 H POC ABG pCO2 28.8 L POC ABG pO2 113.3 H ABG Hemoglobin 9.7 L ABG Oxyhemoglobin ABG Sodium 134.1 L ABG Potassium ABG Chloride ABG Glucose 423 H Carboxyhemoglobin 0.3 L Sodium Potassium Chloride Carbon Dioxide BUN Creatinine Glucose POC Glucose 468 H 452 H Hemoglobin A1c Lactic Acid Calcium Phosphorus Magnesium AST ALT Alkaline Phosphatase Total Creatine Kinase CK-MB (CK-2) Troponin T NT-Pro-B Natriuret Pep Total Protein Albumin Triglycerides HDL Cholesterol Arterial Blood Glucose 423 H Arterial Blood Ionized Calcium 3.7 L 10/08/20 10/08/20 10/08/20 02:09 03:07 03:11 WBC RBC Hgb Hct MCV RDW Plt Count Seg Neutrophils % Seg Neutrophils # PT INR APTT ABG pH POC ABG pCO2 POC ABG pO2 ABG Hemoglobin ABG Oxyhemoglobin ABG Sodium ABG Potassium ABG Chloride ABG Glucose Carboxyhemoglobin Sodium Potassium Chloride 96.9 L Carbon Dioxide 18 L BUN 58 H Creatinine 7.8 H Glucose 403 H POC Glucose 445 H 395 H Hemoglobin A1c Lactic Acid Calcium 6.9 L Phosphorus 5.80 H D Magnesium AST ALT Alkaline Phosphatase Total Creatine Kinase CK-MB (CK-2) Troponin T NT-Pro-B Natriuret Pep Total Protein Albumin Triglycerides HDL Cholesterol Arterial Blood Glucose Arterial Blood Ionized Calcium 10/08/20 10/08/20 10/08/20 04:02 05:09 06:12 WBC RBC Hgb Hct MCV RDW Plt Count Seg Neutrophils % Seg Neutrophils # PT INR APTT ABG pH POC ABG pCO2 POC ABG pO2 ABG Hemoglobin ABG Oxyhemoglobin ABG Sodium ABG Potassium ABG Chloride ABG Glucose Carboxyhemoglobin Sodium Potassium Chloride Carbon Dioxide BUN Creatinine Glucose POC Glucose 399 H 339 H 309 H Hemoglobin A1c Lactic Acid Calcium Phosphorus Magnesium AST ALT Alkaline Phosphatase Total Creatine Kinase CK-MB (CK-2) Troponin T NT-Pro-B Natriuret Pep Total Protein Albumin Triglycerides HDL Cholesterol Arterial Blood Glucose Arterial Blood Ionized Calcium 10/08/20 10/08/20 10/08/20 07:45 09:27 10:01 WBC RBC Hgb Hct MCV RDW Plt Count Seg Neutrophils % Seg Neutrophils # PT INR APTT ABG pH POC ABG pCO2 POC ABG pO2 ABG Hemoglobin ABG Oxyhemoglobin ABG Sodium ABG Potassium ABG Chloride ABG Glucose Carboxyhemoglobin Sodium Potassium Chloride Carbon Dioxide BUN Creatinine Glucose POC Glucose 268 H 203 H 174 H Hemoglobin A1c Lactic Acid Calcium Phosphorus Magnesium AST ALT Alkaline Phosphatase Total Creatine Kinase CK-MB (CK-2) Troponin T NT-Pro-B Natriuret Pep Total Protein Albumin Triglycerides HDL Cholesterol Arterial Blood Glucose Arterial Blood Ionized Calcium 10/08/20 10/08/20 10/08/20 11:21 12:37 14:20 WBC RBC Hgb Hct MCV RDW Plt Count Seg Neutrophils % Seg Neutrophils # PT INR APTT ABG pH POC ABG pCO2 POC ABG pO2 ABG Hemoglobin ABG Oxyhemoglobin ABG Sodium ABG Potassium ABG Chloride ABG Glucose Carboxyhemoglobin Sodium Potassium Chloride Carbon Dioxide BUN Creatinine Glucose POC Glucose 182 H 166 H 209 H Hemoglobin A1c Lactic Acid Calcium Phosphorus Magnesium AST ALT Alkaline Phosphatase Total Creatine Kinase CK-MB (CK-2) Troponin T NT-Pro-B Natriuret Pep Total Protein Albumin Triglycerides HDL Cholesterol Arterial Blood Glucose Arterial Blood Ionized Calcium 10/08/20 10/08/20 10/08/20 14:58 15:08 16:32 WBC RBC Hgb Hct MCV RDW Plt Count Seg Neutrophils % Seg Neutrophils # PT INR APTT ABG pH POC ABG pCO2 POC ABG pO2 ABG Hemoglobin ABG Oxyhemoglobin ABG Sodium ABG Potassium ABG Chloride ABG Glucose Carboxyhemoglobin Sodium 135 L Potassium Chloride 97.5 L Carbon Dioxide 19 L BUN 26 H Creatinine 4.1 H Glucose 183 H POC Glucose 173 H 177 H Hemoglobin A1c Lactic Acid Calcium 6.9 L Phosphorus Magnesium AST ALT Alkaline Phosphatase Total Creatine Kinase CK-MB (CK-2) Troponin T NT-Pro-B Natriuret Pep Total Protein Albumin Triglycerides HDL Cholesterol Arterial Blood Glucose Arterial Blood Ionized Calcium 10/08/20 10/08/20 10/08/20 17:42 18:09 20:11 WBC RBC Hgb Hct MCV RDW Plt Count Seg Neutrophils % Seg Neutrophils # PT INR APTT ABG pH POC ABG pCO2 POC ABG pO2 ABG Hemoglobin ABG Oxyhemoglobin ABG Sodium ABG Potassium ABG Chloride ABG Glucose Carboxyhemoglobin Sodium Potassium Chloride Carbon Dioxide BUN Creatinine Glucose POC Glucose 172 H 176 H 186 H Hemoglobin A1c Lactic Acid Calcium Phosphorus Magnesium AST ALT Alkaline Phosphatase Total Creatine Kinase CK-MB (CK-2) Troponin T NT-Pro-B Natriuret Pep Total Protein Albumin Triglycerides HDL Cholesterol Arterial Blood Glucose Arterial Blood Ionized Calcium 10/08/20 10/08/20 10/08/20 20:57 21:56 23:12 WBC RBC Hgb Hct MCV RDW Plt Count Seg Neutrophils % Seg Neutrophils # PT INR APTT ABG pH POC ABG pCO2 POC ABG pO2 ABG Hemoglobin ABG Oxyhemoglobin ABG Sodium ABG Potassium ABG Chloride ABG Glucose Carboxyhemoglobin Sodium Potassium Chloride Carbon Dioxide BUN Creatinine Glucose POC Glucose 177 H 211 H 198 H Hemoglobin A1c Lactic Acid Calcium Phosphorus Magnesium AST ALT Alkaline Phosphatase Total Creatine Kinase CK-MB (CK-2) Troponin T NT-Pro-B Natriuret Pep Total Protein Albumin Triglycerides HDL Cholesterol Arterial Blood Glucose Arterial Blood Ionized Calcium 10/08/20 10/09/20 10/09/20 23:55 00:02 01:02 WBC RBC Hgb Hct MCV RDW Plt Count Seg Neutrophils % Seg Neutrophils # PT INR APTT ABG pH POC ABG pCO2 POC ABG pO2 ABG Hemoglobin ABG Oxyhemoglobin ABG Sodium ABG Potassium ABG Chloride ABG Glucose Carboxyhemoglobin Sodium 135 L Potassium 3.4 L Chloride Carbon Dioxide BUN 28 H Creatinine 5.0 H Glucose 207 H POC Glucose 223 H 211 H Hemoglobin A1c Lactic Acid Calcium 7.0 L Phosphorus Magnesium AST ALT Alkaline Phosphatase Total Creatine Kinase CK-MB (CK-2) Troponin T NT-Pro-B Natriuret Pep Total Protein Albumin Triglycerides HDL Cholesterol Arterial Blood Glucose Arterial Blood Ionized Calcium 10/09/20 10/09/20 10/09/20 02:05 03:05 04:04 WBC RBC Hgb Hct MCV RDW Plt Count Seg Neutrophils % Seg Neutrophils # PT INR APTT ABG pH POC ABG pCO2 POC ABG pO2 ABG Hemoglobin ABG Oxyhemoglobin ABG Sodium ABG Potassium ABG Chloride ABG Glucose Carboxyhemoglobin Sodium Potassium Chloride Carbon Dioxide BUN Creatinine Glucose POC Glucose 201 H 199 H 183 H Hemoglobin A1c Lactic Acid Calcium Phosphorus Magnesium AST ALT Alkaline Phosphatase Total Creatine Kinase CK-MB (CK-2) Troponin T NT-Pro-B Natriuret Pep Total Protein Albumin Triglycerides HDL Cholesterol Arterial Blood Glucose Arterial Blood Ionized Calcium 10/09/20 10/09/20 10/09/20 05:07 05:40 05:40 WBC RBC Hgb Hct MCV RDW Plt Count Seg Neutrophils % Seg Neutrophils # PT INR APTT ABG pH POC ABG pCO2 POC ABG pO2 ABG Hemoglobin ABG Oxyhemoglobin ABG Sodium ABG Potassium ABG Chloride ABG Glucose Carboxyhemoglobin Sodium 136 L Potassium 3.1 L Chloride Carbon Dioxide BUN 30 H Creatinine 5.2 H Glucose 181 H POC Glucose 184 H Hemoglobin A1c Lactic Acid 3.80 H* Calcium 7.1 L Phosphorus Magnesium AST ALT Alkaline Phosphatase Total Creatine Kinase CK-MB (CK-2) Troponin T NT-Pro-B Natriuret Pep Total Protein Albumin Triglycerides HDL Cholesterol Arterial Blood Glucose Arterial Blood Ionized Calcium 10/09/20 10/09/20 10/09/20 05:52 07:19 08:12 WBC RBC Hgb Hct MCV RDW Plt Count Seg Neutrophils % Seg Neutrophils # PT INR APTT ABG pH POC ABG pCO2 POC ABG pO2 ABG Hemoglobin ABG Oxyhemoglobin ABG Sodium ABG Potassium ABG Chloride ABG Glucose Carboxyhemoglobin Sodium Potassium Chloride Carbon Dioxide BUN Creatinine Glucose POC Glucose 202 H 179 H Hemoglobin A1c Lactic Acid Calcium Phosphorus Magnesium AST ALT Alkaline Phosphatase Total Creatine Kinase CK-MB (CK-2) Troponin T 0.545 H* D NT-Pro-B Natriuret Pep Total Protein Albumin Triglycerides HDL Cholesterol Arterial Blood Glucose Arterial Blood Ionized Calcium 10/09/20 10/09/20 10/09/20 08:12 08:25 10:00 WBC RBC Hgb Hct MCV RDW Plt Count Seg Neutrophils % Seg Neutrophils # PT INR APTT ABG pH POC ABG pCO2 POC ABG pO2 ABG Hemoglobin ABG Oxyhemoglobin ABG Sodium ABG Potassium ABG Chloride ABG Glucose Carboxyhemoglobin Sodium Potassium Chloride Carbon Dioxide BUN Creatinine Glucose POC Glucose 175 H 188 H Hemoglobin A1c Lactic Acid 3.60 H* Calcium Phosphorus Magnesium AST ALT Alkaline Phosphatase Total Creatine Kinase CK-MB (CK-2) Troponin T NT-Pro-B Natriuret Pep Total Protein Albumin Triglycerides HDL Cholesterol Arterial Blood Glucose Arterial Blood Ionized Calcium 10/09/20 10/09/20 10/09/20 13:51 14:34 15:20 WBC RBC Hgb Hct MCV RDW Plt Count Seg Neutrophils % Seg Neutrophils # PT INR APTT ABG pH POC ABG pCO2 POC ABG pO2 ABG Hemoglobin ABG Oxyhemoglobin ABG Sodium ABG Potassium ABG Chloride ABG Glucose Carboxyhemoglobin Sodium Potassium Chloride Carbon Dioxide BUN Creatinine Glucose POC Glucose 360 H 373 H Hemoglobin A1c 8.5 H Lactic Acid Calcium Phosphorus Magnesium AST ALT Alkaline Phosphatase Total Creatine Kinase CK-MB (CK-2) Troponin T NT-Pro-B Natriuret Pep Total Protein Albumin Triglycerides HDL Cholesterol Arterial Blood Glucose Arterial Blood Ionized Calcium 10/09/20 10/09/20 10/09/20 16:50 17:02 17:34 WBC RBC Hgb Hct MCV RDW Plt Count Seg Neutrophils % Seg Neutrophils # PT INR APTT ABG pH POC ABG pCO2 POC ABG pO2 ABG Hemoglobin ABG Oxyhemoglobin ABG Sodium ABG Potassium ABG Chloride ABG Glucose Carboxyhemoglobin Sodium 130 L Potassium Chloride 95.5 L Carbon Dioxide 18 L BUN 33 H Creatinine 5.5 H Glucose 386 H POC Glucose 402 H 374 H Hemoglobin A1c Lactic Acid Calcium 6.5 L Phosphorus Magnesium AST ALT Alkaline Phosphatase Total Creatine Kinase CK-MB (CK-2) Troponin T NT-Pro-B Natriuret Pep Total Protein Albumin Triglycerides HDL Cholesterol Arterial Blood Glucose Arterial Blood Ionized Calcium 10/09/20 10/10/20 10/10/20 21:39 02:16 04:00 WBC RBC Hgb Hct MCV RDW Plt Count Seg Neutrophils % Seg Neutrophils # PT INR APTT ABG pH 7.500 H POC ABG pCO2 24.2 L POC ABG pO2 130.9 H ABG Hemoglobin 10.1 L ABG Oxyhemoglobin 98.2 H ABG Sodium 127.6 L ABG Potassium 2.8 L ABG Chloride ABG Glucose 291 H Carboxyhemoglobin 0.2 L Sodium Potassium Chloride Carbon Dioxide BUN Creatinine Glucose POC Glucose 361 H 290 H Hemoglobin A1c Lactic Acid Calcium Phosphorus Magnesium AST ALT Alkaline Phosphatase Total Creatine Kinase CK-MB (CK-2) Troponin T NT-Pro-B Natriuret Pep Total Protein Albumin Triglycerides HDL Cholesterol Arterial Blood Glucose 291 H Arterial Blood Ionized Calcium 4.1 L 10/10/20 10/10/20 10/10/20 05:20 09:27 11:07 WBC RBC Hgb Hct MCV RDW Plt Count Seg Neutrophils % Seg Neutrophils # PT INR APTT ABG pH POC ABG pCO2 POC ABG pO2 ABG Hemoglobin ABG Oxyhemoglobin ABG Sodium ABG Potassium ABG Chloride ABG Glucose Carboxyhemoglobin Sodium Potassium Chloride Carbon Dioxide BUN Creatinine Glucose POC Glucose 239 H 218 H 238 H Hemoglobin A1c Lactic Acid Calcium Phosphorus Magnesium AST ALT Alkaline Phosphatase Total Creatine Kinase CK-MB (CK-2) Troponin T NT-Pro-B Natriuret Pep Total Protein Albumin Triglycerides HDL Cholesterol Arterial Blood Glucose Arterial Blood Ionized Calcium 10/10/20 10/10/20 10/10/20 11:21 12:11 14:42 WBC RBC Hgb Hct MCV RDW Plt Count Seg Neutrophils % Seg Neutrophils # PT INR APTT ABG pH POC ABG pCO2 POC ABG pO2 ABG Hemoglobin ABG Oxyhemoglobin ABG Sodium ABG Potassium ABG Chloride ABG Glucose Carboxyhemoglobin Sodium 130 L Potassium 3.5 L Chloride 97.0 L Carbon Dioxide 17 L BUN 37 H Creatinine 6.0 H Glucose 250 H POC Glucose 258 H 249 H Hemoglobin A1c Lactic Acid Calcium 7.3 L Phosphorus Magnesium AST ALT Alkaline Phosphatase Total Creatine Kinase CK-MB (CK-2) Troponin T 0.356 H* D NT-Pro-B Natriuret Pep Total Protein Albumin Triglycerides HDL Cholesterol Arterial Blood Glucose Arterial Blood Ionized Calcium 10/10/20 10/10/20 10/10/20 15:38 16:55 20:15 WBC RBC Hgb Hct MCV RDW Plt Count Seg Neutrophils % Seg Neutrophils # PT INR APTT ABG pH POC ABG pCO2 POC ABG pO2 ABG Hemoglobin ABG Oxyhemoglobin ABG Sodium ABG Potassium ABG Chloride ABG Glucose Carboxyhemoglobin Sodium Potassium Chloride Carbon Dioxide BUN Creatinine Glucose POC Glucose 243 H 197 H 150 H Hemoglobin A1c Lactic Acid Calcium Phosphorus Magnesium AST ALT Alkaline Phosphatase Total Creatine Kinase CK-MB (CK-2) Troponin T NT-Pro-B Natriuret Pep Total Protein Albumin Triglycerides HDL Cholesterol Arterial Blood Glucose Arterial Blood Ionized Calcium 10/10/20 10/11/20 10/11/20 23:49 03:42 05:01 WBC RBC Hgb Hct MCV RDW Plt Count Seg Neutrophils % Seg Neutrophils # PT INR APTT ABG pH POC ABG pCO2 29.5 L POC ABG pO2 ABG Hemoglobin 11.7 L ABG Oxyhemoglobin ABG Sodium 129.9 L ABG Potassium ABG Chloride ABG Glucose 100 H Carboxyhemoglobin Sodium 134 L Potassium Chloride 97.8 L Carbon Dioxide 20 L BUN 42 H Creatinine 6.5 H Glucose POC Glucose 133 H Hemoglobin A1c Lactic Acid Calcium 7.4 L Phosphorus Magnesium AST ALT Alkaline Phosphatase Total Creatine Kinase CK-MB (CK-2) Troponin T 0.401 H* NT-Pro-B Natriuret Pep Total Protein Albumin Triglycerides HDL Cholesterol Arterial Blood Glucose 100 H Arterial Blood Ionized Calcium 4.2 L 10/11/20 10/11/20 10/11/20 05:01 10:03 11:23 WBC 4.0 L RBC 3.48 L 3.55 L Hgb Hct MCV 100 H RDW 20.2 H 20.5 H Plt Count 56 L 57 L Seg Neutrophils % Seg Neutrophils # PT INR APTT ABG pH POC ABG pCO2 POC ABG pO2 ABG Hemoglobin ABG Oxyhemoglobin ABG Sodium ABG Potassium ABG Chloride ABG Glucose Carboxyhemoglobin Sodium Potassium Chloride Carbon Dioxide BUN Creatinine Glucose POC Glucose 122 H Hemoglobin A1c Lactic Acid Calcium Phosphorus Magnesium AST ALT Alkaline Phosphatase Total Creatine Kinase CK-MB (CK-2) Troponin T NT-Pro-B Natriuret Pep Total Protein Albumin Triglycerides HDL Cholesterol Arterial Blood Glucose Arterial Blood Ionized Calcium 0510/11/20 10/11/20 17:47 20:14 23:45 WBC RBC Hgb Hct MCV RDW Plt Count Seg Neutrophils % Seg Neutrophils # PT INR APTT ABG pH POC ABG pCO2 POC ABG pO2 ABG Hemoglobin ABG Oxyhemoglobin ABG Sodium ABG Potassium ABG Chloride ABG Glucose Carboxyhemoglobin Sodium Potassium Chloride Carbon Dioxide BUN Creatinine Glucose POC Glucose 230 H 287 H 371 H Hemoglobin A1c Lactic Acid Calcium Phosphorus Magnesium AST ALT Alkaline Phosphatase Total Creatine Kinase CK-MB (CK-2) Troponin T NT-Pro-B Natriuret Pep Total Protein Albumin Triglycerides HDL Cholesterol Arterial Blood Glucose Arterial Blood Ionized Calcium 10/12/20 10/12/20 10/12/20 03:08 03:38 05:14 WBC RBC 2.87 L Hgb 9.1 L Hct 27.0 L D MCV RDW 20.4 H Plt Count 50 L Seg Neutrophils % Seg Neutrophils # PT INR APTT ABG pH 7.294 L POC ABG pCO2 POC ABG pO2 65.0 L ABG Hemoglobin 9.1 L ABG Oxyhemoglobin 90.3 L ABG Sodium 124.2 L ABG Potassium 6.3 H ABG Chloride ABG Glucose 441 H Carboxyhemoglobin 0.4 L Sodium Potassium Chloride Carbon Dioxide BUN Creatinine Glucose POC Glucose 393 H Hemoglobin A1c Lactic Acid Calcium Phosphorus Magnesium AST ALT Alkaline Phosphatase Total Creatine Kinase CK-MB (CK-2) Troponin T NT-Pro-B Natriuret Pep Total Protein Albumin Triglycerides HDL Cholesterol Arterial Blood Glucose 441 H Arterial Blood Ionized Calcium 4.1 L 10/12/20 10/12/20 10/12/20 05:14 06:10 09:35 WBC RBC Hgb Hct MCV RDW Plt Count Seg Neutrophils % Seg Neutrophils # PT INR APTT ABG pH POC ABG pCO2 POC ABG pO2 ABG Hemoglobin ABG Oxyhemoglobin ABG Sodium ABG Potassium ABG Chloride ABG Glucose Carboxyhemoglobin Sodium 125 L D Potassium 6.9 H* D Chloride 93.3 L Carbon Dioxide 17 L BUN 55 H Creatinine 7.6 H Glucose 468 H POC Glucose 471 H 479 H Hemoglobin A1c Lactic Acid Calcium 7.1 L Phosphorus Magnesium AST ALT Alkaline Phosphatase Total Creatine Kinase CK-MB (CK-2) Troponin T NT-Pro-B Natriuret Pep Total Protein Albumin Triglycerides HDL Cholesterol Arterial Blood Glucose Arterial Blood Ionized Calcium 10/12/20 11:49 WBC RBC Hgb Hct MCV RDW Plt Count Seg Neutrophils % Seg Neutrophils # PT INR APTT ABG pH POC ABG pCO2 POC ABG pO2 ABG Hemoglobin ABG Oxyhemoglobin ABG Sodium ABG Potassium ABG Chloride ABG Glucose Carboxyhemoglobin Sodium Potassium Chloride Carbon Dioxide BUN Creatinine Glucose POC Glucose 474 H Hemoglobin A1c Lactic Acid Calcium Phosphorus Magnesium AST ALT Alkaline Phosphatase Total Creatine Kinase CK-MB (CK-2) Troponin T NT-Pro-B Natriuret Pep Total Protein Albumin Triglycerides HDL Cholesterol Arterial Blood Glucose Arterial Blood Ionized Calcium Allied health notes reviewed: nursing
[2020-10-12] MEDS ORDERED: MORPHINE 2 MG/1 ML INJ IV PRN (13:00)
[2020-10-12 13:06] VITALS: BP 134/64
[2020-10-12] MEDS ORDERED: SCOPOLAMINE TRANSDERMAL PATCH 72 HR TD SCH (14:00)
--- NOTE | 2020-10-12 15:26 | Event Note ---
Date: 10/12/20 Patient was noted to have asystole on the monitor. On examination, pupils were fixed and dilated, no breath spunds. No heart sounds perceptible. Absent pulses noted. Patient pronounced at 1:56PM.
--- NOTE | 2020-10-12 15:42 | Death Summary ---
Summary - Providers Consults: 10/07/20 10:40 Consult to Physician [CONS] Stat Comment: Consulting Provider: VENKAT HAMILTON Physician Instructions: Reason For Exam: Hyperkalemia 10/07/20 11:11 Consult to Dietitian/Nutrition [CONS] Routine Physician Instructions: Reason For Exam: Reason for Consult: Evaluate nutritional intake 10/07/20 12:27 Consult to Interventional Radiology [CONS] Urgent Consulting Provider: IVETH DOMINGUEZ Reason For Exam: Hemodialysis catheter Notified:: . 10/07/20 15:31 Consult to Physician [CONS] Routine Comment: Consulting Provider: RADHA TO Physician Instructions: Reason For Exam: Cardiac arrest, DKA, Respiratory Failure 10/08/20 10:29 Consult to Physician [CONS] Routine Comment: Consulting Provider: ZEE CARVALHO Physician Instructions: Reason For Exam: cardiopulm arrest 10/08/20 10:30 Consult to Physician [CONS] Routine Comment: Consulting Provider: FAMILIA HUITRON Physician Instructions: Reason For Exam: sepsis 10/08/20 10:33 Consult to Physician [CONS] Routine Comment: Consulting Provider: EAN YEPEZ Physician Instructions: Reason For Exam: AE 10/08/20 15:52 Consult to Dietitian/Nutrition [CONS] Routine Physician Instructions: Reason For Exam: Reason for Consult: Write/Manage Tube Feeding 10/11/20 11:19 Consult to PICC Line RN [CONS] Stat Reason For Exam: vasopressors Type Line:: PICC Attending: KERRI MORALES MD - summary Date of admission: 10/07/20 10:20 Date of : 10/12/20 Reason for admission: s/p cardiac arrest Procedures/treatments rendered: This is a 55-year-old female with HTN, DM, ESRD on HD (MWF), obesity, anemia of chronic disease who presented to the emergency department via EMS on 10/07 after being found unresponsive in her bed upon EMS arrival was found to be in asystolic arrest. Patient was initiated on ACLS and intubated transported to [facility] with achievement of ROSC. In the emergency department patient had another episode of cardiac arrest with downtime of 4 minutes work-up in the emergency department revealed septic shock and started on IV vasopressor support, hyperkalemia at 8.5, findings consistent with anoxic brain injury. Vascular surgery was consulted in the emergency department for clotted left arm aVF, nephrology and [facility] were consulted. Patient was admitted with acute hypoxic respiratory failure, septic shock, DKA with a blood glucose of 900 and bicarb of 6, hyperkalemia at 8.5, leukocytosis and lactic acidosis at 9.7. Of note patient was recently admitted to [facility] for submandibular gland problem and was discharged the day prior to admission here. On 10/08 patient has severe hypokalemia and underwent urgent hemodialysis, bicarbonate drip continued and she was on amiodarone drip, neurology was consulted and the EEG was ordered. Patient was still continued on insulin drip and transitioned to long-acting insulin when anion gap is closed and she was started on Levaquin empirically. On 10/[address] scan which revealed findings indicative of severe diffuse cerebral and cerebellar edema consistent with global anoxic event, EEG pending and infectious disease started the patient on cefepime and vancomycin, echocardiogram revealed the ventricle systolic function borderline with ejection fraction of 45 to 50%, mild diastolic dysfunction, probable NSTEMI type II, patient remained on vasopressor support (multifactorial shock; sepsis/neurogenic) and the patient was transitioned from insulin drip to long- acting insulin and started on a sliding scale. Patient's daughter Louie Chun at [phone] contact was attempted but a voicemail was left. On 10/10 CT scan revealed severe anoxic encephalopathy, EEG pending patient remained on vasopressor support and insulin was increased. On 10/11 patient was maxed on Levophed and dopamine and vasopressin was initiated. Later in the afternoon patient suffered another cardiac arrest and ROSC was achieved. At this time patient's CODE STATUS was changed to DNR/AND. On 10/12 patient's family went forward with withdrawal of care after consultation with Dr. Morales and edwin sauer and end-of-life care was initiated. At 1356 asystole noted on monitor and patient time of was pronounced by . Family is at bedside and condolences were offered. Sepsis/septic shock Acute hypoxic respiratory failure Global anoxic injury Probable aspiration pneumonia DKA s/p insulin gtt S/p cardiopulmonary arrest x3 (at home, in ED, 10/11 in ICU) ESRD requiring HD Hyperkalemia Transaminitis Severe metabolic acidosis Anoxic encephalopathy Suspected neurogenic shock Cardiomyopathy Thrombocytopenia NSTEMI suspected type II Left submandibular duct obstruction - Final diagnosis (1) Acute respiratory failure Qualifiers: Respiratory failure complication: hypoxia Qualified Code(s): J96.01 - Acute respiratory failure with hypoxia Note: Final diagnosis: (2) Anoxic brain injury Note: Final diagnosis: (3) Cardiac arrest Note: Final diagnosis: (4) DKA (diabetic ketoacidoses) Qualifiers: Diabetes mellitus type: type 1 Qualified Code(s): E10.10 - Type 1 diabetes mellitus with ketoacidosis without coma Note: Final diagnosis: (5) ESRD needing dialysis Note: Final diagnosis: (6) Elevated LFTs Note: Final diagnosis: (7) Metabolic acidosis Note: Final diagnosis: (8) NSTEMI (non-ST elevated myocardial infarction) Note: Final diagnosis: (9) PNA (pneumonia) Note: Final diagnosis: (10) Sepsis Qualifiers: Severe sepsis shock status: with septic shock Note: Final diagnosis: (11) Shock Note: Final diagnosis: (12) Thrombocytopenia Note: Final diagnosis:
--- NOTE | 2020-10-12 15:52 | Progress Note ---
Assessment and Plan Cultures: Sputum 10/07/2020 upper respiratory rivka. Blood culture 10/07/2020 no growth today. Assessment: 55-year-old female with history of ESRD on hemodialysis, uncontrolled diabetes mellitus, hypertension, obesity, anemia, admitted on 10/07/2020 secondary to cardiac arrest: #Severe sepsis with septic shock/hospital cardiac arrest: Patient remains on dopamine drip. Etiology bilateral pneumonia. #Presumed bilateral pneumonia: SARS Cov-2 negative. Sputum culture with upper respiratory rivka. #Acute transaminitis: Likely from cardiac arrest/ischemic hepatitis #ESRD on hemodialysis: Renally adjust antibiotics #Left submandibular duct obstruction: Related to stone per CT done at [facility] #Global anoxic injury: Neurology on board Recommendations: Continue cefepime 1 g IV once a day D5 of 7 Follow-up cultures and MRSA PCR Grim prognosis GEsthela Olsen MD [facility] O: [phone] F: [phone] Subjective Date of service: 10/12/20 Principal diagnosis: Anoxic Encephalopathy, S/p Cardiac Arrest, DKA, Severe Hyperkalemia Interval history: Afebrile over last 24 hours Imaging personally reviewed: Chest x-ray: Increased central vascular congestion Note the patient has since being seen this morning. Objective - Exam Narrative Exam: General appearance: Unresponsive intubated Eyes: anicteric sclerae, moist conjunctivae; no lid-lag; pupils slow reaction HENT: Normocephalic, Atraumatic; normal external ears, nares open, oropharynx limited endotracheal tube in place Neck: supple, tracheal midline, no JVD Lungs: Bilateral rhonchi CV: RRR no murmur Abdomen: Soft nontender Extremities: no edema, no cyanosis Skin: No rash. Psych: Unresponsive Neuro: Unresponsive Right femoral TLC Left femoral hemodialysis catheter - Constitutional Vitals: Vital Signs Temp Pulse Resp BP Pulse Ox 97.9 F 90 16 134/64 100 10/12/20 12:00 10/12/20 13:05 10/12/20 13:05 10/12/20 13:05 10/12/20 13:05 Temperature -Last 24 Hours Temperature 97.9 F Temperature 99.1 F Temperature 99.4 F Temperature 98.6 F Temperature 99.9 F - Labs CBC & Chem 7: 10/12/20 05:14 10/12/20 05:14 Labs: Abnormal lab results 10/11/20 10/11/20 10/11/20 Range/Units 17:47 20:14 23:45 RBC (3.65-5.03) M/mm3 Hgb (10.1-14.3) gm/dl Hct (30.3-42.9) % RDW (13.2-15.2) % Plt Count (140-440) K/mm3 ABG pH (7.320-7.450) POC ABG pO2 (83-108) mmHg ABG Hemoglobin (12.0-17.5) ABG Oxyhemoglobin (94-98) ABG Sodium (136.0-145.0) mmol/L ABG Potassium (3.40-4.50) mmol/L ABG Glucose (65-95) mg/dL Carboxyhemoglobin (0.5-1.5) Sodium (137-145) mmol/L Potassium (3.6-5.0) mmol/L Chloride (98-107) mmol/L Carbon Dioxide (22-30) mmol/L BUN (7-17) mg/dL Creatinine (0.6-1.2) mg/dL Glucose (65-100) mg/dL POC Glucose 230 H 287 H 371 H (70-105) mg/dL Calcium (8.4-10.2) mg/dL Arterial Blood Glucose (65-95) mg/dL Arterial Blood Ionized Calcium (4.6-5.3) mg/dL 10/12/20 10/12/20 10/12/20 Range/Units 03:08 03:38 05:14 RBC 2.87 L (3.65-5.03) M/mm3 Hgb 9.1 L (10.1-14.3) gm/dl Hct 27.0 L D (30.3-42.9) % RDW 20.4 H (13.2-15.2) % Plt Count 50 L (140-440) K/mm3 ABG pH 7.294 L (7.320-7.450) POC ABG pO2 65.0 L (83-108) mmHg ABG Hemoglobin 9.1 L (12.0-17.5) ABG Oxyhemoglobin 90.3 L (94-98) ABG Sodium 124.2 L (136.0-145.0) mmol/L ABG Potassium 6.3 H (3.40-4.50) mmol/L ABG Glucose 441 H (65-95) mg/dL Carboxyhemoglobin 0.4 L (0.5-1.5) Sodium (137-145) mmol/L Potassium (3.6-5.0) mmol/L Chloride (98-107) mmol/L Carbon Dioxide (22-30) mmol/L BUN (7-17) mg/dL Creatinine (0.6-1.2) mg/dL Glucose (65-100) mg/dL POC Glucose 393 H (70-105) mg/dL Calcium (8.4-10.2) mg/dL Arterial Blood Glucose 441 H (65-95) mg/dL Arterial Blood Ionized Calcium 4.1 L (4.6-5.3) mg/dL 10/12/20 10/12/20 10/12/20 Range/Units 05:14 06:10 09:35 RBC (3.65-5.03) M/mm3 Hgb (10.1-14.3) gm/dl Hct (30.3-42.9) % RDW (13.2-15.2) % Plt Count (140-440) K/mm3 ABG pH (7.320-7.450) POC ABG pO2 (83-108) mmHg ABG Hemoglobin (12.0-17.5) ABG Oxyhemoglobin (94-98) ABG Sodium (136.0-145.0) mmol/L ABG Potassium (3.40-4.50) mmol/L ABG Glucose (65-95) mg/dL Carboxyhemoglobin (0.5-1.5) Sodium 125 L D (137-145) mmol/L Potassium 6.9 H* D (3.6-5.0) mmol/L Chloride 93.3 L (98-107) mmol/L Carbon Dioxide 17 L (22-30) mmol/L BUN 55 H (7-17) mg/dL Creatinine 7.6 H (0.6-1.2) mg/dL Glucose 468 H (65-100) mg/dL POC Glucose 471 H 479 H (70-105) mg/dL Calcium 7.1 L (8.4-10.2) mg/dL Arterial Blood Glucose (65-95) mg/dL Arterial Blood Ionized Calcium (4.6-5.3) mg/dL 10/12/20 Range/Units 11:49 RBC (3.65-5.03) M/mm3 Hgb (10.1-14.3) gm/dl Hct (30.3-42.9) % RDW (13.2-15.2) % Plt Count (140-440) K/mm3 ABG pH (7.320-7.450) POC ABG pO2 (83-108) mmHg ABG Hemoglobin (12.0-17.5) ABG Oxyhemoglobin (94-98) ABG Sodium (136.0-145.0) mmol/L ABG Potassium (3.40-4.50) mmol/L ABG Glucose (65-95) mg/dL Carboxyhemoglobin (0.5-1.5) Sodium (137-145) mmol/L Potassium (3.6-5.0) mmol/L Chloride (98-107) mmol/L Carbon Dioxide (22-30) mmol/L BUN (7-17) mg/dL Creatinine (0.6-1.2) mg/dL Glucose (65-100) mg/dL POC Glucose 474 H (70-105) mg/dL Calcium (8.4-10.2) mg/dL Arterial Blood Glucose (65-95) mg/dL Arterial Blood Ionized Calcium (4.6-5.3) mg/dL
--- NOTE | 2020-10-12 17:30 | Electrocardiograph Report ---
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
[2020-10-15 14:47] LABS: Heparin-Induced Platelet Antib Negative (Negative); Unfractionated Heparin Negative (Negative)
== END 2020-10-12 16:23 | DRG 870 ==
LOC: ED 08:06 → CC1 10:20
PROVIDERS: ADMIT Hospitalist; ATTEND Internal Medicine
PROC: 0BH17EZ Insertion of Endotracheal Airway into Trachea, Via Natural or Artificial Opening (ICD-10-PCS; principal; 2020-10-07)
PROC: 4A033R1 Measurement of Arterial Saturation, Peripheral, Percutaneous Approach (ICD-10-PCS; 2020-10-07)
PROC: 5A1955Z Respiratory Ventilation, Greater than 96 Consecutive Hours (ICD-10-PCS; 2020-10-07)
PROC: 02HV33Z Insertion of Infusion Device into Superior Vena Cava, Percutaneous Approach (ICD-10-PCS; 2020-10-07)
PROC: 02HV33Z Insertion of Infusion Device into Superior Vena Cava, Percutaneous Approach (ICD-10-PCS; 2020-10-07)
PROC: B548ZZA Ultrasonography of Superior Vena Cava, Guidance (ICD-10-PCS; 2020-10-07)
PROC: 5A1D70Z Performance of Urinary Filtration, Intermittent, Less than 6 Hours Per Day (ICD-10-PCS; 2020-10-07)
PROC: 5A1D70Z Performance of Urinary Filtration, Intermittent, Less than 6 Hours Per Day (ICD-10-PCS; 2020-10-08)
PROC: 5A1D70Z Performance of Urinary Filtration, Intermittent, Less than 6 Hours Per Day (ICD-10-PCS; 2020-10-11)
DX: A41.9 Sepsis, unspecified organism (principal); E10.10 Type 1 diabetes mellitus with ketoacidosis without coma; N18.6 End stage renal disease; I21.A1 Myocardial infarction type 2; J96.01 Acute respiratory failure with hypoxia; J69.0 Pneumonitis due to inhalation of food and vomit; R65.21 Severe sepsis with septic shock; I12.0 Hypertensive chronic kidney disease with stage 5 chronic kidney disease or end stage renal disease; G93.1 Anoxic brain damage, not elsewhere classified; I42.9 Cardiomyopathy, unspecified; Z20.822 Contact with and (suspected) exposure to COVID-19; E87.6 Hypokalemia; Z66 Do not resuscitate; D69.6 Thrombocytopenia, unspecified; E10.22 Type 1 diabetes mellitus with diabetic chronic kidney disease; I46.9 Cardiac arrest, cause unspecified; D64.9 Anemia, unspecified; E83.42 Hypomagnesemia; E66.9 Obesity, unspecified; R13.12 Dysphagia, oropharyngeal phase; D72.829 Elevated white blood cell count, unspecified; R79.89 Other specified abnormal findings of blood chemistry; E78.5 Hyperlipidemia, unspecified; E87.5 Hyperkalemia; Z99.2 Dependence on renal dialysis; Z79.899 Other long term (current) drug therapy; Z79.82 Long term (current) use of aspirin; Z79.01 Long term (current) use of anticoagulants; Z79.4 Long term (current) use of insulin; Z91.040 Latex allergy status; Z91.018 Allergy to other foods; Z91.010 Allergy to peanuts; Z86.16 Personal history of COVID-19; Z83.3 Family history of diabetes mellitus; Z82.49 Family history of ischemic heart disease and other diseases of the circulatory system
CPT/HCPCS: 36415; 36600; 70450; 71045; 74018; 80048; 80053; 80061; 80074; 82140; 82550; 82553; 82805; 82962; 83036; 83735; 83880; 84100; 84145; 84443; 84484; 85025; 85027; 85610; 85730; 86022; 86850; 86900; 86901; 87040; 87070; 87205; 93005; 93306; 94002; 94003; 94644; 96365; 96375; G0378; J0171; J0282; J0610; J0692; J1170; J1265; J1644; J1815; J1956; J2270; J3010; J3370; J7030; J7040; J7060; U0003